=== PATIENT | male | born 1935 | race Caucasian/White ===

== ENCOUNTER → 2018-09-03 11:54 | Outpatient (CLI) | payer MEDICARE, SELFPAY ==
--- NOTE | 2018-09-03 12:02 | XR_ITS ---
EXAM: XR cervical spine 5V HISTORY: Neck pain ITS.REASON: pain ORDERING PHYSICIAN: Berenice Jimenez PATIENT AGE: 82 years COMPARISON: None FINDINGS: There is normal alignment. There is multilevel degenerative disc disease C2-C7 with straightening of the cervical lordosis which may be due to patient positioning or muscle spasm. Foraminal narrowing is present on the right at C3-C4 and C4-C5 and on the left at C3-C4 and C4-C5. No acute fracture or dislocation is evident. There may be partial fusion at C4-C5 and C5-C6. IMPRESSION: Degenerative change, no acute finding
--- NOTE | 2018-09-03 12:02 | XR_ITS ---
EXAM: XR lumbar spine min 4V HISTORY: ITS.REASON: pain ORDERING PHYSICIAN: Berenice Jimenez PATIENT AGE: 82 years COMPARISON: None FINDINGS: Mild lumbar scoliosis convex right. There is severe degenerative disc disease from L1 S1 with endplate osteophytes and disc space narrowing. No fracture or dislocation. Moderate amount retained colonic feces. Incidental note made of bilateral renal calculi. Atherosclerotic calcification noted of the aorta. There are slight decrease in height anteriorly of T12 and L1 which may be chronic. IMPRESSION: Multilevel degenerative disc disease with scoliosis Bilateral nephrolithiasis
--- NOTE | 2018-09-03 12:02 | XR_ITS ---
EXAM: XR thoracic spine 3V HISTORY: ITS.REASON: pain Comparison: None FINDINGS: There is mild upper thoracic curvature convex left. There is mild thoracic kyphosis and mild multilevel degenerative disc disease in the midthoracic spine. No acute fracture or dislocation is evident. Prominent osteophytes are present at T7, T8, T9, and T10 there does appear to be partial fusion of T10 and T11 vertebral bodies. No acute fracture or dislocation is evident. IMPRESSION: Degenerative changes, no acute finding.
[2018-09-03 13:35] LABS: Basophils % 0.5 % (0.1-2.0); Eosinophils # 0.1 K/mm3 (0.0-0.4); Eosinophils % 1.5 % (0.1-12.0); Hematocrit 32.2 % (42.0-52.0); Hemoglobin 10.1 g/dL (14.1-18.0); Lymphocytes # 1.8 K/mm3 (0.7-4.5); Lymphocytes % 23.6 % (10-50); Mean Corpuscular HGB Conc 31.4 g/dL (31.8-35.4); Mean Corpuscular Volume 98.8 fl (80-94); Mean Platelet Volume 7.7 fl (7.4-10.4); Monocytes # 0.4 K/mm3 (0.1-1.0); Monocytes % 4.5 % (1.7-9.3); Neutrophils # 5.4 K/mm3 (1.8-7.8); Neutrophils % 69.9 % (37.0-80.0); Platelet Count 355 K/mm3 (142-424); Red Blood Count 3.26 M/mm3 (4.60-6.20); Red Cell Distribution Width 15.3 % (11.5-17.5); White Blood Count 7.7 K/mm3 (4.8-10.8)
[2018-09-03 13:57] LABS: Amphetamine/Metha Screen,Urine Negative ng/mL (<1000); Barbiturates Screen,Urine Negative ng/mL (<200); Benzodiazepines Screen,Urine Negative ng/mL (<200); Cannabinoid Screen,Urine Negative ng/mL (<50); Cocaine Screen,Urine Negative ng/mL (<300); Methadone Screen,Urine Negative ng/mL (<300); Opiate Screen,Urine Negative ng/mL (<300); Phencyclidine Screen,Urine Negative ng/mL (<25)
[2018-09-03 14:23] LABS: Erythrocyte Sedimentation Rate 67 mm/hr (0-20)
[2018-09-03 14:39] LABS: Alanine Aminotransferase 14 U/L (12-78); Albumin Level 3.6 gm/dL (3.4-5.0); Albumin/Globulin Ratio 1.1 (1.1-1.8); Alkaline Phosphatase 81 U/L (46-116); Anion Gap 15.7 mEq/L (5-15); Aspartate Amino Transferase 12 U/L (15-37); Bilirubin,Total 0.4 mg/dL (0.2-1.0); Blood Urea Nitrogen 12 mg/dL (7-18); Carbon Dioxide 27 mmol/L (21.0-32.0); Chloride 103 mmol/L (98-107); Chol/HDL Ratio 4.5 (1-3.5); Cholesterol 210 mg/dL (140-200); Creatinine,Serum 1.29 mg/dL (0.70-1.30); Estimated Glomerular Filt Rate 53 ml/min (>60); Free T4 (Free Thyroxine) 0.95 ng/dl (0.76-1.46); GFR (African American) 65 ML/MIN (>60); Globulin 3.4 gm/dl (1.3-3.2); Glucose 105 mg/dL (74-106); HDL Cholesterol 47 mg/dL (27-67); LDL Cholesterol 143 mg/dL (0-130); Potassium 3.7 mmoL/L (3.5-5.1); Sodium 142 mmol/L (136-145); Thyroid Stimulating Hormone 2.94 uIU/ml (0.358-3.740); Triglycerides 101 mg/dL (30-200); VLDL Cholesterol 20 mg/dL (0-40)
[2018-09-03 14:43] LABS: C-Reactive Protein < 0.2 mg/L (0.0-0.9)
[2018-09-07 09:53] LABS: PSA, Free 0.04 ng/mL; Prostate Specific Ag 0.3 ng/mL (0.0-4.0); Vitamin D 25 Hydroxy 26.1 ng/mL (30.0-100.0)
[2018-09-11 11:00] LABS: Opiates Negative ng/mL (Cutoff=100)
== END ==
PROVIDERS: PCP Emergency Medicine; Visit Provider Nurse Practitioner Family
DX: G89.29 Other chronic pain (principal); M54.9 Dorsalgia, unspecified; R53.83 Other fatigue; I51.9 Heart disease, unspecified; M25.50 Pain in unspecified joint; Z85.46 Personal history of malignant neoplasm of prostate; Z79.899 Other long term (current) drug therapy
CPT/HCPCS: 36415; 72050; 72072; 72110; 80053; 80061; 80305; 80361; 82652; 84153; 84154; 84439; 84443; 85025; 85651; 86140; G0480

== ENCOUNTER → 2018-09-14 13:55 | Outpatient (CLI) | payer MEDICARE, SELFPAY ==
[2018-09-14 14:47] LABS: Ferritin 201 ng/mL (8-388)
[2018-09-14 15:58] LABS: Amphetamine/Metha Screen,Urine Negative ng/mL (<1000); Barbiturates Screen,Urine Negative ng/mL (<200); Benzodiazepines Screen,Urine Negative ng/mL (<200); Cannabinoid Screen,Urine Negative ng/mL (<50); Cocaine Screen,Urine Negative ng/mL (<300); Methadone Screen,Urine Negative ng/mL (<300); Opiate Screen,Urine Negative ng/mL (<300); Phencyclidine Screen,Urine Negative ng/mL (<25)
[2018-09-16 07:16] LABS: Iron 44 ug/dL (38-169); UIBC 232 ug/dL (111-343)
[2018-09-16 07:33] LABS: Iron Saturation 16 % (15-55)
== END ==
PROVIDERS: Visit Provider Nurse Practitioner Family
DX: M54.5 Low back pain (principal); D64.9 Anemia, unspecified
CPT/HCPCS: 80305; 82728; 83540; 83550

== ENCOUNTER → 2018-09-20 13:18 | Outpatient (POV) | payer MEDICARE, SELFPAY | PROVIDERS: Visit Provider Nurse Practitioner Acute Care | DX: Z00.00 Encounter for general adult medical examination without abnormal findings (principal) ==

== ENCOUNTER → 2018-09-21 11:09 | Outpatient (POV) | payer MEDICARE, SELFPAY ==
[2018-09-21 11:27] VITALS: BP 145/65; PULSE 85; RESP 18; O2SAT 98
--- NOTE | 2018-09-21 12:38 | HMH.PMCON ---
Assessment and Plan (1) Failed back syndrome Current visit: Yes Status: Chronic Category: Medical Code(s): M96.1 - Postlaminectomy syndrome, not elsewhere classified (2) Degenerative disc disease, cervical Current visit: No Status: Chronic Category: Medical Code(s): M50.30 - Other cervical disc degeneration, unspecified cervical region (3) Degenerative disc disease, lumbar Current visit: No Status: Chronic Category: Medical Code(s): M51.36 - Other intervertebral disc degeneration, lumbar region - Assessment and plan all Dx Assessment and Plan for all problems:: At this time we are awaiting notes from his previous pain management. We will give the patient Percocet 10 mg 1 p.o. 4 times daily 1 1 month worth of medication and see him back in 1 month we will send for urine drug screen today. I personally went over the contract with him and he understands it. We also provided him with a copy. We will make any further care plan decisions after reading the notes from his previous physician. Patient has been prescribed a controlled substance after being counseled on the medication, medication safety, and possible side effects. ALISON report has been obtained and reviewed prior to prescription and found to be appropriate. Opioid contract was reviewed and signed by the patient, and that they have agreed to all of the terms set forth by our compliance program. Dr. Roman has reviewed this note and agrees with this plan of care. This note was dictated using voice recognition software and may contain errors or omissions HPI - Data of Consult Consult date: 09/21/18 Requesting Physician: Erinn Starks APRN Primary Care Provider: Luis Fernando Gama MD - Consult Narrative Reason for consult: Back pain History of present illness: Mr. Douglas is a 83 year old male who presents today for consultation in regards to his low back pain. Patient had surgery in the past. Patient is also done injection therapy in the past with no relief. Patient has been seen up in [facility] and was receiving Percocet 10 mg 1 p.o. 5 times a day. Patient has been on this for quite some time. Patient recently had a loss of his son and has now moved down to [place]. Patient states that increased activity increases pain while nothing typically decreases it. He rates his pain a 5 out of 10 today. Mostly in his low back and down his bilateral legs. Patient is trying to stay as active as possible. CC: Erinn Starks APRN [facility] History I have reviewed the patient's past medical history: Yes Medical History: Reports:: Cancer, Gastroesophageal Reflux Disease(GERD), Hyperlipidemia, Internal Pacemaker, Kidney Stones *Have you ever received a pneumonia vaccine?: Yes Other Surgeries: Yes: Pacemaker Amputation: No Fractures: No - *Social History Smoking Status: Never smoker Alcohol Intake: never Substance Use Type: denies use *Occupational Status:: retired, disabled Housing: house Household Members: family *Travel in the last 8 weeks: None - Psychiatric History Expresses thoughts of harming self/others: None Suicide Plan Description: No Plan Family Hx:: No significant family history Review of Systems - Review of Systems ROS General: no recent weight change, no fever, no sleep disturbances Respiratory: no cough, no shortness of air, no recurring pulmonary infections Cardiovascular/Peripheral Vascular: No chest pain, No palpitations, no edema, no shortness of breath. Gastrointestinal: no incontinence, normal bowel movements reported Genitourinary: no incontinence Musculoskeletal: Back pain, leg pain Psychiatric: normal mood/ affect Neurological: [denies weakness in extremities], [denies balance issues] Meds Home Medications Medication Instructions Recorded Confirmed Type allopurinol 100 mg tablet 100 mg PO DAILY 09/03/18 09/17/18 History atorvastatin 10 mg tablet 10 mg PO QHS 09/03/18 09/17/18 History
[2018-09-21 12:57] LABS: Amphetamine/Metha Screen,Urine Negative ng/mL (<1000); Barbiturates Screen,Urine Negative ng/mL (<200); Benzodiazepines Screen,Urine Negative ng/mL (<200); Cannabinoid Screen,Urine Negative ng/mL (<50); Cocaine Screen,Urine Negative ng/mL (<300); Methadone Screen,Urine Negative ng/mL (<300); Opiate Screen,Urine Positive ng/mL (<300); Phencyclidine Screen,Urine Negative ng/mL (<25)
[2018-09-25 14:10] LABS: Oxycodone (GC/MS) 1284 ng/mL (Cutoff=100)
[2018-09-27 07:59] LABS: Opiates Negative (Cutoff=100); Oxymorphone (GC/MS) >3000 ng/mL (Cutoff=100)
== END ==
PROVIDERS: PCP Emergency Medicine; Visit Provider Clinical Nurse Specialist Family Health
DX: M96.1 Postlaminectomy syndrome, not elsewhere classified (principal); M50.30 Other cervical disc degeneration, unspecified cervical region; M51.36 Other intervertebral disc degeneration, lumbar region; Z79.899 Other long term (current) drug therapy
CPT/HCPCS: 80305; 80361; 80365; 99202; G0480

== ENCOUNTER → 2018-09-29 13:24 | Outpatient (CLI) | payer MEDICARE, SELFPAY ==
--- NOTE | 2018-09-29 13:26 | CA_ITS ---
PROCEDURE: 2-D M-mode and color Doppler study INDICATIONS FOR THE TEST: Chest pain COPD Heart Murmur Tobacco Smoking Palpitations Fatigue Syncope Edema Hypertension Diabetes Mellitus Rheumatic Fever SOB+LUX Obesity Hyperlipidemia+ Family History HD Additional History pacer, cva PATIENT INFORMATION HEIGHT: 70 WEIGHT:160 GENDER: Male B/P:124/67 2-D/M-MODE INTERPRETATION: 2-D MEASUREMENTS OBSERVED VALUES IN CMS Right Ventricular Dimension (RVDd) 1.3 Interventricular Septum (Thickness)(IVsd) 1.2 Left Ventricular Internal Dimensions(LVIDd) 5.2 Left Ventricular Posterior Wall (Thickness)(LVPWd) 1.1 Aortic Root 3.7 Aortic Cusp Separation 1.6 Left Atrial Dimensions (LAD) 2.8 2D 1. Left atrium is mildly enlarged, left ventricle is normal size, mild concentric left ventricular hypertrophy, reduced left ventricular systolic function, visually estimated ejection fraction approximately 35%, left ventricle is globally hypokinetic, there is abnormal septal motion. 2. The right atrium and right ventricle are normal size and contractility, there is a pacemaker lead seen right atrium and right ventricle. 3. The aortic valve is thickened and calcified leaflet continue to display mobility. 4. Mitral and tricuspid valve leaflets are minimally thickened. 5. The pulmonic valve is poorly present. 6. No significant pericardial effusion noted. DOPPLER INTERROGATION: Doppler interrogation of the aortic, mitral and tricuspid valvular presence of mild mitral and tricuspid regurgitation, tricuspid regurgitation jet velocity is inadequate for calculation of the right ventricular systolic pressure, grade 1 diastolic dysfunction seen with tissue Doppler evidence of raised left atrial pressure. CONCLUSION: 1. Mildly enlarged left atrium, reduced left ventricular systolic function, visually estimated ejection fraction 35%, left ventricle is globally hypokinetic, there is abnormal septal motion. Grade 1 diastolic dysfunction seen with tissue Doppler evidence of raised left atrial pressure. 2. Mild mitral and tricuspid regurgitation. 4. No significant pericardial effusion noted.
--- NOTE | 2018-09-29 13:28 | CI_ITS ---
Cerebrovascular Exam Indications: 434.91 Cerebral artery occlusion unspecified with cerebral infarction. 433.10 Occlusion/stenosis of carotid artery without cerebral infarction. IMPRESSIONS 1. The bilateral vertebral arteries are patent with normal antegrade flow. 2. Study suggests 50-69% stenosis involving the right internal carotid artery. 3. Study suggests 20-49% stenosis involving the left internal carotid artery. Labs, prior tests, procedures, and surgery: Right endarterectomy. Left endarterectomy. Labs, prior tests, procedures, and surgery: Right endarterectomy. Left endarterectomy. Carotid duplex study. Complete study and Doppler flow study including spectral analysis, color and scale imaging. Location: Vascular laboratory. Patient status: Outpatient. Tables: Arterial flow: + +--------+--------+ Location V [facility] V ed + +--------+--------+ Right CCA - proximal 50.3cm/s 21.2cm/s + +--------+--------+ Right CCA - distal 51.9cm/s 14.1cm/s + +--------+--------+ Right ECA 62.1cm/s -------- + +--------+--------+ Right ICA - proximal 155cm/s 51.1cm/s + +--------+--------+ Right ICA - mid 137cm/s 31.4cm/s + +--------+--------+ Right ICA - distal 117cm/s 30.6cm/s + +--------+--------+ Right vertebral 35.4cm/s -------- + +--------+--------+ Left CCA - proximal 55.8cm/s 14.9cm/s + +--------+--------+ Left CCA - distal 51.1cm/s 15.7cm/s + +--------+--------+ Left ECA 77cm/s -------- + +--------+--------+ Left ICA - proximal 61.3cm/s 13.4cm/s + +--------+--------+ Left ICA - mid 118cm/s 25.1cm/s + +--------+--------+ Left ICA - distal 80.1cm/s 26.7cm/s + +--------+--------+ Left vertebral 47.9cm/s -------- + +--------+--------+ Velocity ratios: + + + + + + Right, V sys Right, V ed Left, V sys Left, V ed + + + + + + Max ICA/dist CCA 2.99 3.62 2.31 1.7 + + + + + + (Report amended ) Electronically signed by: Andre Barnes [id number]
--- NOTE | 2018-09-29 14:13 | US_ITS ---
US kidney retroperitoneal comp HISTORY: ITS.REASON: pain ORDERING PHYSICIAN: Tony Christensen MD PATIENT AGE: 83 years Comparison: None FINDINGS: The right kidney is 9 x 3.8 x 6 cm. There is some mild cortical thinning. There are few scattered areas of hyperechogenicity in the right renal pelvis which could be due to small stones or vascular calcification. There is a mildly prominent extrarenal pelvis. The renal calyces however are not dilated. Left kidney is 11 x 6 x 5 cm with mild cortical thinning and possible stones versus arterial calcification. Mildly prominent extrarenal pelvis but no evidence of calyceal dilatation. IMPRESSION: 1. No definite hydronephrosis. Mild cortical thinning 2. Mildly prominent extrarenal pelves on both sides versus parapelvic renal cyst 3. Possible nephrolithiasis versus vascular calcification. Unenhanced CT scan may differentiate between the 2
== END ==
PROVIDERS: PCP Emergency Medicine; Visit Provider Internal Medicine Cardiovascular Disease
DX: R06.09 Other forms of dyspnea (principal); R94.31 Abnormal electrocardiogram [ECG] [EKG]; Z86.73 Personal history of transient ischemic attack (TIA), and cerebral infarction without residual deficits; Z95.0 Presence of cardiac pacemaker; R09.89 Other specified symptoms and signs involving the circulatory and respiratory systems; M54.5 Low back pain
CPT/HCPCS: 76770; 93306; 93880

== ENCOUNTER → 2018-10-08 11:15 | Outpatient (CLI) | payer MEDICARE, SELFPAY | PROVIDERS: Visit Provider Internal Medicine Cardiovascular Disease | DX: R06.09 Other forms of dyspnea (principal); R94.31 Abnormal electrocardiogram [ECG] [EKG]; Z86.73 Personal history of transient ischemic attack (TIA), and cerebral infarction without residual deficits; Z95.0 Presence of cardiac pacemaker | CPT/HCPCS: 36415; 83880 ==

== ENCOUNTER → 2018-10-19 10:00 | Outpatient (POV) | payer MEDICARE, SELFPAY ==
[2018-10-19 10:14] VITALS: BP 155/83; PULSE 104; RESP 18; O2SAT 98; BMI 21.5
--- NOTE | 2018-10-19 10:15 | HMH.PAINSOAP ---
[facility] Pain Management SOAP Note Subjective:: Patient is a pleasant 83-year-old white male who presents today for medication refills. Patient rates his pain a 7 out of 10 today. Patient had a recent fall he is doing better. Patient is currently on Percocet 10 milligrams 1 p.o. 4 times daily. He is doing well with this he denies side effects. Patient's urine drug screens have been appropriate. Alison reviewed and appropriate. ROS General: no recent weight change, no fever, no sleep disturbances Respiratory: no cough, no shortness of air, no recurring pulmonary infections Cardiovascular/Peripheral Vascular: No chest pain, No palpitations, no edema, no shortness of breath. Gastrointestinal: no incontinence, normal bowel movements reported Genitourinary: no incontinence Musculoskeletal: Back pain, leg pain Psychiatric: normal mood/ affect Neurological: [denies weakness in extremities], [denies balance issues] Objective:: Physical Exam General: Alert and oriented x3, no acute distress, pleasant and cooperative, [on room air] Lungs: Resps E/U, Symmetrical chest expansion, Eyes: PERRL Musculoskeletal: Flexion and extension of lumbar spine somewhat guarded secondary to pain, deep tendon reflexes normal, strength in upper and lower extremities [5/5], [abnormal gait noted] Neurological: speech clear, scorer single equal, no gross sensory deficits Assessment:: Degenerative disc disease cervical and lumbar spine with postlaminectomy syndrome Plan:: We will refill the patient's Percocet 10 mg 1 p.o. 4 times daily. We will give him 2 months worth of medication and see him back in 2 months and reassess his symptoms at that time. Has been instructed to call the office if he has any issues prior to his next appointment. Patient has been prescribed a controlled substance after being counseled on the medication, medication safety, and possible side effects. ALISON report has been obtained and reviewed prior to prescription and found to be appropriate. Opioid contract was reviewed and signed by the patient, and that they have agreed to all of the terms set forth by our compliance program. Dr. Roman has reviewed this note and agrees with this plan of care. This note was dictated using voice recognition software and may contain errors or omissions
== END ==
PROVIDERS: PCP Emergency Medicine; Visit Provider Clinical Nurse Specialist Family Health
DX: M50.30 Other cervical disc degeneration, unspecified cervical region (principal); M51.36 Other intervertebral disc degeneration, lumbar region; M96.1 Postlaminectomy syndrome, not elsewhere classified
CPT/HCPCS: 99212

== ENCOUNTER → 2018-11-01 11:52 | Outpatient (CLI) | payer MEDICARE, SELFPAY ==
--- NOTE | 2018-11-01 11:58 | XR_ITS ---
XR chest 2V HISTORY: ITS.REASON: shortness of breath ORDERING PHYSICIAN: Berenice Jimenez PATIENT AGE: 83 years COMPARISON: 09/27/2016 FINDINGS: There is a bipolar pacer in place. Normal heart size. No lobar consolidation or collapse. There are chronic changes in the lung bases. There are old bilateral rib fractures. Degenerative changes are present in the right shoulder with subacromial stenosis. There are degenerative changes in the thoracic spine. IMPRESSION: No change with no acute finding
== END ==
PROVIDERS: PCP Emergency Medicine; Visit Provider Nurse Practitioner Family
DX: R06.02 Shortness of breath (principal)
CPT/HCPCS: 71046

== ENCOUNTER → 2018-12-14 11:41 | Outpatient (POV) | payer MEDICARE, SELFPAY ==
[2018-12-14 11:50] VITALS: BP 177/85; PULSE 77; RESP 18; O2SAT 98; BMI 24.3
--- NOTE | 2018-12-14 12:23 | HMH.PAINSOAP ---
[facility] Pain Management SOAP Note Subjective:: Patient is a pleasant 83-year-old white male who presents today for medication refills. Patient is currently on Percocet 10 mg 1 p.o. 4 times daily. Patient presents today with his daughter. She states that she is concerned that he is taking too many medications and has begun to keep his pills for him give him a weekly town planner. Patient states that he would like to be taking his medication 5 times a day. I discussed with him that at this point he is at the current morphine equivalent that we can prescribe him. ROS General: no recent weight change, no fever, no sleep disturbances Respiratory: no cough, no shortness of air, no recurring pulmonary infections Cardiovascular/Peripheral Vascular: No chest pain, No palpitations, no edema, no shortness of breath. Gastrointestinal: no incontinence, normal bowel movements reported Genitourinary: no incontinence Musculoskeletal: Back pain, leg pain Psychiatric: normal mood/ affect Neurological: [denies weakness in extremities], [denies balance issues] Objective:: Physical Exam General: Alert and oriented x3, no acute distress, pleasant and cooperative, [on room air] Lungs: Resps E/U, Symmetrical chest expansion, Eyes: PERRL Musculoskeletal: Flexion and extension of lumbar spine somewhat guarded secondary to pain, deep tendon reflexes normal, strength in upper and lower extremities [5/5], [abnormal gait noted] Neurological: speech clear, logistics/shipper equal, no gross sensory deficits Assessment:: Degenerative disc disease cervical and lumbar spine with postlaminectomy syndrome Plan:: We will refill the patient's Percocet 10 mg 1 p.o. 4 times daily will give him 2 months worth of medication see him back in 2 months to reassess his symptoms at that time. To call the office if he has any issues prior to his next appointment. We may also try Voltaren gel to help with some of his increased pain. We will continue to monitor compliance. Patient has been prescribed a controlled substance after being counseled on the medication, medication safety, and possible side effects. ALISON report has been obtained and reviewed prior to prescription and found to be appropriate. Opioid contract was reviewed and signed by the patient, and that they have agreed to all of the terms set forth by our compliance program. Dr. Roman has reviewed this note and agrees with this plan of care. This note was dictated using voice recognition software and may contain errors or omissions
--- NOTE | 2018-12-14 12:26 | P.CONS_ITS ---
[facility] Pain Management SOAP Note Subjective:: Patient is a pleasant 83-year-old white male who presents today for medication refills. Patient is currently on Percocet 10 mg 1 p.o. 4 times daily. Patient presents today with his daughter. She states that she is concerned that he is taking too many medications and has begun to keep his pills for him give him a weekly service planner. Patient states that he would like to be taking his medication 5 times a day. I discussed with him that at this point he is at the current morphine equivalent that we can prescribe him. ROS General: no recent weight change, no fever, no sleep disturbances Respiratory: no cough, no shortness of air, no recurring pulmonary infections Cardiovascular/Peripheral Vascular: No chest pain, No palpitations, no edema, no shortness of breath. Gastrointestinal: no incontinence, normal bowel movements reported Genitourinary: no incontinence Musculoskeletal: Back pain, leg pain Psychiatric: normal mood/ affect Neurological: [denies weakness in extremities], [denies balance issues] Objective:: Physical Exam General: Alert and oriented x3, no acute distress, pleasant and cooperative, [on room air] Lungs: Resps E/U, Symmetrical chest expansion, Eyes: PERRL Musculoskeletal: Flexion and extension of lumbar spine somewhat guarded secondary to pain, deep tendon reflexes normal, strength in upper and lower extremities [5/5], [abnormal gait noted] Neurological: speech clear, 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 4 times daily will give him 2 months worth of medication see him back in 2 months to reassess his symptoms at that time. To call the office if he has any issues prior to his next appointment. We may also try Voltaren gel to help with some of his increased pain. We will continue to monitor compliance. Patient has been prescribed a controlled substance after being counseled on the medication, medication safety, and possible side effects. ALISON report has been obtained and reviewed prior to prescription and found to be appropriate. Opioid contract was reviewed and signed by the patient, and that they have agreed to all of the terms set forth by our compliance program. Dr. Roman has reviewed this note and agrees with this plan of care. This note was dictated using voice recognition software and may contain errors or omissions
== END ==
PROVIDERS: PCP Emergency Medicine; Visit Provider Clinical Nurse Specialist Family Health
DX: M50.30 Other cervical disc degeneration, unspecified cervical region (principal); M51.36 Other intervertebral disc degeneration, lumbar region; M96.1 Postlaminectomy syndrome, not elsewhere classified
CPT/HCPCS: 99212

== ENCOUNTER → 2019-02-14 10:58 | Outpatient (POV) | payer MEDICARE, SELFPAY ==
[2019-02-14 11:15] VITALS: BP 158/97; PULSE 80; RESP 20; O2SAT 95; BMI 22.9
--- NOTE | 2019-02-14 11:28 | HMH.PAINSOAP ---
[facility] Pain Management SOAP Note Subjective:: Patient is a pleasant 83-year-old white male who presents today for medication refills. Patient currently on Percocet 10 mg 1 p.o. 4 times daily. His main complaint today is gout pain. He is also having difficulty swallowing. I discussed with him going to his primary care physician and discussing both. Patient denies side effects his medication Alison #[id number] reviewed and appropriate. He rates his pain a 9 out of 10 again mostly in regards to his gout. ROS General: no recent weight change, no fever, no sleep disturbances Respiratory: no cough, no shortness of air, no recurring pulmonary infections Cardiovascular/Peripheral Vascular: No chest pain, No palpitations, no edema, no shortness of breath. Gastrointestinal: no incontinence, normal bowel movements reported Genitourinary: no incontinence Musculoskeletal: Back pain, leg pain, generalized pain Psychiatric: normal mood/ affect Neurological: [denies weakness in extremities], [denies balance issues] Objective:: Physical Exam General: Alert and oriented x3, no acute distress, pleasant and cooperative, [on room air] Lungs: Resps E/U, Symmetrical chest expansion, Eyes: PERRL Musculoskeletal: Flexion and extension of lumbar spine somewhat guarded secondary to pain, deep tendon reflexes normal, strength in upper and lower extremities [5/5], [abnormal gait noted] Neurological: speech clear, gun 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 4 times daily follow-up with him in 2 months. Patient has been instructed to go to his primary care physician for his other complaints at this time. Patient will go for urine drug screen today. Alison reviewed and appropriate. Patient has been prescribed a controlled substance after being counseled on the medication, medication safety, and possible side effects. ALISON report has been obtained and reviewed prior to prescription and found to be appropriate. Opioid contract was reviewed and signed by the patient, and that they have agreed to all of the terms set forth by our compliance program. Dr. Roman has reviewed this note and agrees with this plan of care. This note was dictated using voice recognition software and may contain errors or omissions
--- NOTE | 2019-02-14 11:31 | P.CONS_ITS ---
[facility] Pain Management SOAP Note Subjective:: Patient is a pleasant 83-year-old white male who presents today for medication refills. Patient currently on Percocet 10 mg 1 p.o. 4 times daily. His main complaint today is gout pain. He is also having difficulty swallowing. I discussed with him going to his primary care physician and discussing both. Patient denies side effects his medication Alison #[id number] reviewed and appropriate. He rates his pain a 9 out of 10 again mostly in regards to his gout. ROS General: no recent weight change, no fever, no sleep disturbances Respiratory: no cough, no shortness of air, no recurring pulmonary infections Cardiovascular/Peripheral Vascular: No chest pain, No palpitations, no edema, no shortness of breath. Gastrointestinal: no incontinence, normal bowel movements reported Genitourinary: no incontinence Musculoskeletal: Back pain, leg pain, generalized pain Psychiatric: normal mood/ affect Neurological: [denies weakness in extremities], [denies balance issues] Objective:: Physical Exam General: Alert and oriented x3, no acute distress, pleasant and cooperative, [on room air] Lungs: Resps E/U, Symmetrical chest expansion, Eyes: PERRL Musculoskeletal: Flexion and extension of lumbar spine somewhat guarded secondary to pain, deep tendon reflexes normal, strength in upper and lower extremities [5/5], [abnormal gait noted] Neurological: speech clear, heel attacher wood equal, no gross sensory deficits Assessment:: Degenerative disc disease lumbar spine with lumbar radiculopathy diagnosis postlaminectomy syndrome, Plan:: We will give the patient 2 months worth of Percocet 10 mg 1 p.o. 4 times daily follow-up with him in 2 months. Patient has been instructed to go to his primary care physician for his other complaints at this time. Patient will go for urine drug screen today. Alison reviewed and appropriate. Patient has been prescribed a controlled substance after being counseled on the medication, medication safety, and possible side effects. ALISON report has been obtained and reviewed prior to prescription and found to be appropriate. Opioid contract was reviewed and signed by the patient, and that they have agreed to all of the terms set forth by our compliance program. Dr. Roman has reviewed this note and agrees with this plan of care. This note was dictated using voice recognition software and may contain errors or omissions
[2019-02-14 14:31] LABS: Amphetamine/Metha Screen,Urine Negative ng/mL (<1000); Barbiturates Screen,Urine Negative ng/mL (<200); Benzodiazepines Screen,Urine Negative ng/mL (<200); Cannabinoid Screen,Urine Negative ng/mL (<50); Cocaine Screen,Urine Negative ng/mL (<300); Methadone Screen,Urine Negative ng/mL (<300); Opiate Screen,Urine Negative ng/mL (<300); Phencyclidine Screen,Urine Negative ng/mL (<25)
[2019-02-18 07:10] LABS: Opiates Negative (Cutoff=100)
== END ==
PROVIDERS: PCP Emergency Medicine; Visit Provider Clinical Nurse Specialist Family Health
DX: M51.16 Intervertebral disc disorders with radiculopathy, lumbar region (principal); M96.1 Postlaminectomy syndrome, not elsewhere classified; Z79.899 Other long term (current) drug therapy
CPT/HCPCS: 80305; 80361; 80365; 99212; G0480

== ENCOUNTER 2019-06-19 19:01 | Observation (INO) ==
[2019-06-19 19:35] LABS: Basophils # 0.1 K/mm3 (0-0.2); Basophils % 0.7 % (0.1-2.0); Eosinophils # 0.6 K/mm3 (0.0-0.4); Eosinophils % 7.6 % (0.1-12.0); Hematocrit 39.7 % (42.0-52.0); Hemoglobin 12.9 g/dL (14.1-18.0); Lymphocytes # 2.6 K/mm3 (0.7-4.5); Lymphocytes % 34.7 % (10-50); Mean Corpuscular HGB Conc 32.4 g/dL (31.8-35.4); Mean Corpuscular Volume 99.6 fl (80-94); Mean Platelet Volume 8.6 fl (7.4-10.4); Monocytes # 0.5 K/mm3 (0.1-1.0); Monocytes % 6.5 % (1.7-9.3); Neutrophils # 3.8 K/mm3 (1.8-7.8); Neutrophils % 50.5 % (37.0-80.0); Platelet Count 220 K/mm3 (142-424); Red Blood Count 3.98 M/mm3 (4.60-6.20); Red Cell Distribution Width 13.3 % (11.5-17.5); White Blood Count 7.5 K/mm3 (4.8-10.8)
[2019-06-19 19:46] LABS: Anion Gap 10.6 mEq/L (5-15); Blood Urea Nitrogen 23 mg/dL (7-18); Calcium 8.9 mg/dL (8.5-10.1); Carbon Dioxide 30 mmol/L (21.0-32.0); Chloride 106 mmol/L (98-107); Glucose 95 mg/dL (74-106); Sodium 142 mmol/L (136-145)
--- NOTE | 2019-06-19 20:18 | Emergency Department Note ---
ED Disposition Clinical Impression: Degenerative disc disease, lumbar, Pacemaker, Essential hypertension, Renal insufficiency Chest pain Qualifiers: Chest pain type: precordial pain Qualified Code(s): R07.2 - Precordial pain Disposition: Admitted as Observation Condition on Discharge: Good Referrals: Luis Fernando Gama MD [Primary Care Provider] - - Critical Care Critical Care Time: No Attestation: On 06/19/19, the high probability of a clinically significant, sudden or life threatening deterioration of the following system(s) required my full and direct attention, intervention and personal management. The time I documented below is in addition to time spent performing reported procedures but includes the following listed in this critical care notation. Medical Decision Making - Medical Records Medical records reviewed: Yes: I reviewed the patient's medical records. - Artemio Inquiry Pt receiving controlled substance: No Vital Signs: 06/19/19 19:08 06/19/19 19:32 Temperature 98.1 F Temperature Source Oral Pulse Rate [Left Radial] 88 76 Respiratory Rate 16 16 Blood Pressure [Right Arm] 182/99 H 118/88 Blood Pressure Mean [Right Arm] 126 98 Blood Pressure Source [Right Arm] Automatic Cuff Blood Pressure Position [Right Arm] Sitting 02 Sat by Pulse Oximetry 97 97 Oxygen Delivery Method Room Air Room Air - Lab Data Lab results reviewed: Yes: I reviewed the patient's lab results. Lab Results 06/19/19 19:13: WBC 7.5, RBC 3.98 L, Hgb 12.9 L, Hct 39.7 L, MCV 99.6 H, MCH 32.3 H, MCHC 32.4, RDW 13.3, Plt Count 220, MPV 8.6, Neut % (Auto) 50.5, Lymph % (Auto) 34.7, George % (Auto) 6.5, Eos % (Auto) 7.6, Baso % (Auto) 0.7, Neut # (Auto) 3.8, Lymph # (Auto) 2.6, George # (Auto) 0.5, Eos # (Auto) 0.6 H, Baso # (Auto) 0.1 06/19/19 19:13: Sodium 142, Potassium 4.6, Chloride 106, Carbon Dioxide 30, Anion Gap 10.6, BUN 23 H, Creatinine 1.50 H, Estimated Creat Clear 43, Estimated GFR 45 L, Est GFR ( Amer) 54 L, Glucose 95, Calcium 8.9, Troponin I < 0.02 Result diagrams: 06/19/19 19:13 06/19/19 19:13 Orders (Tests/Meds): ED MEDICATIONS Generic Name Dose Route Start Last Admin Trade Name Freq PRN Reason Stop Dose Admin Sodium Chloride 1,000 mls @ 999 mls/hr 06/19/19 19:30 06/19/19 19:25 Sod Chlor 0.9% 1000ml Bag IV 06/19/19 20:30 999 mls/hr .Q1H1M HAIM Administration Discontinued Medications Generic Name Dose Route Start Last Admin Trade Name Freq PRN Reason Stop Dose Admin Aspirin 324 mg 06/19/19 19:24 06/19/19 19:25 Aspirin 81mg Chewable Tablet PO 06/19/19 19:25 324 mg ONCE ONE Administration Nitroglycerin 0.4 mg 06/19/19 19:24 06/19/19 19:25 Nitrostat 0.4mg Sl Tablet SL 06/19/19 19:25 0.4 mg ONCE ONE Administration ORDERS Category Date Time Status XR chest portable Stat Exams 06/19/19 19:11 Taken Troponin I Q3H Lab 06/19/19 22:15 Ordered Troponin I Q3H Lab 06/20/19 01:15 Ordered - ECG Data Tracing #1 Arrhythmias present: other (pacemaker ) Ischemic changes: non-specific ST-T wave changes Chest Pain HPI - General Chief Complaint: Chest Pain Stated Complaint: CHEST PAIN Time Seen by Provider: 06/19/19 20:00 Mode of Arrival: Ambulatory Source of Information: Patient, Relative, Medical Record Limitations: No Limitations Description of Symptoms (Recalled from ER Triage Doc. by RN): per pt he was having chest pain about an hour ago but stated "it doesnt hurt that bad now" pt rated his pain at a 3 at this time. pt was unable to describe his pain and is a poor historian about his past medical history. - History of Present Illness HPI narrative: pt with acute chest pain today and pacemaker acting funny- no syncope MD complaint: chest pain indicative of cardiac Onset (ago): hour(s) Duration: now resolved Activity at onset: during rest Pain location: substernal Severity: moderate Pain radiation: none Relieving factors: nitroglycerin Risk Factors for CAD: Hypertension, Family Hx of CAD Treatments prior to or on arrival for Cardiac Chest Pain: none - WOODY Score for Non-Stemi Age of Patient: 80-89 years old Heart Rate: 70-89 bpm Systolic Blood Pressure: 160-199 mmHg Serum Creatinine: 1.20-1.59 mg/dl CHF [place] Class: I-No CHF Other Risk Factors: None Non-Stemi Risk Score: 120 - Related Data Prior Cardiac Testing/Procedures: Cardiac Angiogram Home Medications Medication Instructions Recorded Confirmed cyanocobalamin (vitamin B-12) 1,000 mcg PO DAILY 09/03/18 05/18/19 1,000 mcg capsule mirtazapine 7.5 mg tablet 7.5 mg PO DAILY 09/03/18 05/18/19 sucralfate 1 gram tablet 1 g PO QID PRN 30 Days #120 tab 09/17/18 05/18/19 Aspirin [Low Dose Aspirin EC] 81 mg PO DAILY 10/27/18 05/18/19 Previous Rx's Medication Instructions Recorded atorvastatin 10 mg tablet 10 mg PO QHS #90 tab 12/16/18 ferrous sulfate 325 mg (65 mg 325 mg PO DAILY #90 tab 12/16/18 iron) tablet losartan 25 mg tablet 25 mg PO DAILY #90 tab 12/16/18 pantoprazole 40 mg tablet,delayed 40 mg PO BID #180 tab 12/16/18 release polyethylene glycol 3350 17 gram 17 g PO DAILY PRN #100 each 12/16/18 oral powder packet allopurinol 100 mg tablet 100 mg PO DAILY #90 tab 03/16/19 predniSONE [Prednisone 20mg 20 mg PO BID #10 tab 04/20/19 Tab] hydroxyzine pamoate 25 mg capsule 25 mg PO QHS #30 cap 04/22/19 oxycodone-acetaminophen 10 mg-325 1 tab PO QID PRN #120 tab 05/18/19 mg tablet Tamsulosin HCl [Flomax 0.4mg 0.4 mg PO HS #30 cap 05/28/19 capsule] Allergies Allergy/AdvReac Type Severity Reaction Status Date / Time No Known Allergies Allergy Verified 05/28/19 14:36 [facility] History - Hepatitis A Screen Drug use history?: No High risk sexual behaviors?: No History of sexually transmitted infection?: No Currently employed?: No Childcare worker?: No Do you have indoor plumbing?: Yes Do you have electricity?: Yes Attestation statement:: This patient has been screened for Hepatitis A risk factors. I have reviewed the patient's past medical history: Yes Medical History: Reports:: Cancer (PROSTATE), Gastroesophageal Reflux Diseas e(GERD), Hyperlipidemia, Hypertension, Internal Pacemaker, Kidney Stones Denies:: Diabetes Mellitus Type 1, Diabetes Mellitus Type 2, Lung Disease, MRSA, Seizures Comment: vitamin defiency.. back pain, prostate cancer Laterality Cases: Left: Total Hip Replacement Other Surgeries: Yes: Cancer Surgery, Colonoscopy, Pacemaker, Other (back sx) Amputation: Yes (2 toes) Fractures: No Comment: Back, Hip, Pacemaker - Social History Smoking Status: Never smoker Alcohol Intake: never Alcohol Intake Frequency:: 3 or more drinks per day Substance Use Type: denies use Occupational Status: retired Housing: house Household Members: family Family Hx:: No significant family history ROS Obtained: Yes All systems reviewed & no additional complaints - Constitutional Constitutional: Denies fever(s) - Eyes Eyes: Denies change in vision - ENT Ears, Nose, Mouth, and Throat: Denies sore throat - Cardiovascular Cardiovascular: Reports chest pain, Reports chest pain at rest, Denies dyspnea - Respiratory Respiratory: No cough - Gastrointestinal Gastrointestingal: Denies: abdominal pain - Genitourinary Male Genitourinary: Denies hematuria - Musculoskeletal Musculoskeletal: Denies joint pain, Denies joint swelling - Integumentary/Breasts Skin/Breast: Denies rash - Neurologic Neurologic: Denies seizure-like activity Physical Exam - General General appearance: alert - Head Head exam: normocephalic - Eye Eye exam: Present: PERRL, EOMI. Absent: scleral icterus - ENT ENT exam: Present: mucous membranes dry - Neck Neck exam: Present: trachea midline - Respiratory Respiratory exam: Present: normal lung sounds bilaterally. Absent: respiratory distress - Cardiovascular Cardiovascular exam: Present: regular rate, systolic murmur, +S4, Pacemaker w/paced rhythm - Abdominal Exam Abdominal exam: Present: soft - Extremities Exam Extremities exam: Absent: calf tenderness - Neurological Exam Neurological exam: Present: alert, oriented X3, CN II-XII intact - Psychiatric Psychiatric exam: Present: normal affect - Skin Skin exam: Absent: rash
[2019-06-20 05:58] LABS: Anion Gap 12.1 mEq/L (5-15)
[2019-06-20 06:04] LABS: Calcium 7.8 mg/dL (8.5-10.1)
[2019-06-20 06:26] LABS: Basophils % 0.6 % (0.1-2.0); Eosinophils # 0.5 K/mm3 (0.0-0.4); Eosinophils % 8.7 % (0.1-12.0); Hematocrit 32.3 % (42.0-52.0); Lymphocytes # 1.8 K/mm3 (0.7-4.5); Lymphocytes % 30.3 % (10-50); Mean Corpuscular HGB Conc 31.8 g/dL (31.8-35.4); Mean Corpuscular Volume 98.3 fl (80-94); Mean Platelet Volume 8.7 fl (7.4-10.4); Monocytes # 0.3 K/mm3 (0.1-1.0); Monocytes % 5.5 % (1.7-9.3); Neutrophils # 3.3 K/mm3 (1.8-7.8); Platelet Count 177 K/mm3 (142-424); Red Blood Count 3.28 M/mm3 (4.60-6.20); Red Cell Distribution Width 13.3 % (11.5-17.5); White Blood Count 6.1 K/mm3 (4.8-10.8)
[2019-06-20 06:39] LABS: Hemoglobin 10.4 g/dL (14.1-18.0)
--- NOTE | 2019-06-20 07:20 | Pharmacy Consult Notes ---
[facility] Pharmacy VTE Monitoring - Patient Demographics Admission date: 06/19/19 Report Date: 06/20/19 Time: 07:19 Allergies/Adverse Reactions: Patient Allergies No Known Allergies Allergy (Verified 05/28/19 14:36) Height: 1.7 m Weight: 80.768 kg Patient Problems: Current Active Problems Essential hypertension (Acute) Chest pain (Acute) Pacemaker (Acute) Renal insufficiency (Acute) Degenerative disc disease, lumbar (Chronic) - VTE Risk Labs: VTE Related Lab Results Hgb 10.4 g/dL (14.1-18.0) L D 06/20/19 05:35 Hct 32.3 % (42.0-52.0) L 06/20/19 05:35 Plt Count 177 K/mm3 (142-424) 06/20/19 05:35 BUN 18 mg/dL (7-18) 06/20/19 05:35 Creatinine 1.19 mg/dL (0.70-1.30) D 06/20/19 05:35 Estimated Creat Clear 55 mL/min (50-200) 06/20/19 05:35 VTE Score: 2 VTE Risk Level: Low Risk - Prophylaxis VTE Prophylaxis Ordered?: Yes Types of VTE Prophylaxis: TEDS Knee High Location of Applied Device: Bilateral Lower Extremeties - VTE Diagnosis Confirmed Treatment or plan recommended: Continue Current Treatment
--- NOTE | 2019-06-20 09:47 | Consult Report ---
<Beverly Vasquez - Last Filed: 06/20/19 09:50> History of Present Illness Consult date: 06/20/19 Requesting physician: Luis Fernando Gama Consult reason: chest pain Chief complaint: chest pain Additional Medical History:: 1. HTN 2. HLD 3. Cardiomyopathy 4. Carotid artery stenosis 5. Permanent pacemaker in place 6. Hard of hearing History of present illness: This is an 83-year-old gentleman who presented to the emergency department with complaints of chest pain. The patient is very hard of hearing and is a very poor historian. At first the patient tells me that he does not have any chest pain only his back is hurting. Then I mention him having chest pain in the emergency department and the patient states that yesterday he was having chest pain. He states that this was in the center of his chest and radiated to his back. He states that the pain was a 9 out of 10 in intensity and was associated with shortness of breath. He denies any nausea or diaphoresis. The patient states that activity was making his chest pain worse and nothing was really helping to improve his pain. He does have a history of cardiomyopathy with an ejection fraction of 35% in September of this year. The patient denies a history of coronary artery disease and [place] but as mentioned before he is a very poor historian and it is really hard to get any information from the patient. I do not see any previous history of having a stress test or cardiac catheterization here [facility]. He does have known hypertension, hyperlipidemia and carotid artery stenosis. He is status post permanent pacemaker placement and as mentioned before he does have known cardiomyopathy. He has ruled out for an [place] with 3- troponins. His echocardiogram is pending this morning. He denies any fever, chills, vomiting, diarrhea, PND or orthopnea. [facility] History I have reviewed the patient's past medical history: Yes Medical History: Reports:: Cancer (PROSTATE), Carotid Stenosis, Congestive Heart Failure (Cardiomyopathy), Gastroesophageal Reflux Disease(GERD), Hyperlipidemia, Hypertension, Internal Pacemaker, Kidney Stones Denies:: Diabetes Mellitus Type 1, Diabetes Mellitus Type 2, Lung Disease, MRSA, Seizures *Have you ever received a pneumonia vaccine?: No *Have you received a flu vaccine this season?: No Laterality Cases: Left: Total Hip Replacement Other Surgeries: Yes: Cancer Surgery, Cardiac Catheterization, Colonoscopy, Pace maker, Other (back sx) Amputation: Yes (2 toes) Fractures: No - *Social History Educational Level: Attended Grade School Smoking Status: Never smoker Alcohol Intake: former Alcohol Intake Frequency:: 3 or more drinks per day Substance Use Type: denies use *Occupational Status:: retired Housing: house Household Members: family *Travel in the last 8 weeks: None Family Hx:: Unable to obtain Meds Home Medications Medication Instructions Recorded Confirmed Type cyanocobalamin (vitamin B-12) 1,000 mcg PO DAILY 09/03/18 05/18/19 History 1,000 mcg capsule mirtazapine 7.5 mg tablet 7.5 mg PO DAILY 09/03/18 05/18/19 History sucralfate 1 gram tablet 1 g PO QID PRN 30 Days #120 tab 09/17/18 05/18/19 History Aspirin [Low Dose Aspirin EC] 81 mg PO DAILY 10/27/18 05/18/19 History atorvastatin 10 mg tablet 10 mg PO QHS #90 tab 12/16/18 05/18/19 Rx ferrous sulfate 325 mg (65 mg 325 mg PO DAILY #90 tab 12/16/18 05/18/19 Rx iron) tablet losartan 25 mg tablet 25 mg PO DAILY #90 tab 12/16/18 05/18/19 Rx pantoprazole 40 mg tablet,delayed 40 mg PO BID #180 tab 12/16/18 05/18/19 Rx release polyethylene glycol 3350 17 gram 17 g PO DAILY PRN #100 each 12/16/18 05/18/19 Rx oral powder packet allopurinol 100 mg tablet 100 mg PO DAILY #90 tab 03/16/19 05/18/19 Rx predniSONE [Prednisone 20mg 20 mg PO BID #10 tab 04/20/19 05/18/19 Rx Tab] hydroxyzine pamoate 25 mg capsule 25 mg PO QHS #30 cap 04/22/19 05/18/19 Rx oxycodone-acetaminophen 10 mg-325 1 tab PO QID PRN #120 tab 05/18/19 Rx mg tablet Tamsulosin HCl [Flomax 0.4mg 0.4 mg PO HS #30 cap 05/28/19 Rx capsule] Allergies Allergy/AdvReac Type Severity Reaction Status Date / Time No Known Allergies Allergy Verified 06/20/19 08:23 Review of Systems - Review of Systems Review of systems:: pertinent systems reviewed and negative unless documented below - *Cardiovascular Reports chest pain, Reports chest pain at rest, Reports chest pain with activity, Reports shortness of breath, Reports shortness of breath with activity - *Respiratory Reports shortness of breath, Reports shortness of breath with activity - *Musculoskeletal Reports back pain - *Neurologic Denies seizure-like activity Exam Vital signs and Labs for Last 24 Hours: Temp Pulse Resp BP Pulse Ox 98.8 F 70 20 110/62 98 06/20/19 08:00 06/20/19 08:00 06/20/19 08:00 06/20/19 08:00 06/20/19 08:00 Laboratory Results - last 24 hr 06/19/19 19:13: WBC 7.5, RBC 3.98 L, Hgb 12.9 L, Hct 39.7 L, MCV 99.6 H, MCH 32.3 H, MCHC 32.4, RDW 13.3, Plt Count 220, MPV 8.6, Neut % (Auto) 50.5, Lymph % (Auto) 34.7, [place] % (Auto) 6.5, Eos % (Auto) 7.6, Baso % (Auto) 0.7, Neut # (Auto) 3.8, Lymph # (Auto) 2.6, [place] # (Auto) 0.5, Eos # (Auto) 0.6 H, Baso # (Auto) 0.1 06/19/19 19:13: Sodium 142, Potassium 4.6, Chloride 106, Carbon Dioxide 30, Anion Gap 10.6, BUN 23 H, Creatinine 1.50 H, Estimated Creat Clear 43, Estimated GFR 45 L, Est GFR ( Amer) 54 L, Glucose 95, Calcium 8.9, Troponin I < 0.02 06/19/19 22:40: Troponin I < 0.02 06/20/19 01:15: Troponin I < 0.02 06/20/19 05:35: WBC 6.1, RBC 3.28 L, Hgb 10.4 L D, Hct 32.3 L, MCV 98.3 H, MCH 31.3 H, MCHC 31.8, RDW 13.3, Plt Count 177, MPV 8.7, Neut % (Auto) 55.0, Lymph % (Auto) 30.3, [place] % (Auto) 5.5, Eos % (Auto) 8.7, Baso % (Auto) 0.6, Neut # (Auto) 3.3, Lymph # (Auto) 1.8, [place] # (Auto) 0.3, Eos # (Auto) 0.5 H, Baso # (Auto) 0.0 06/20/19 05:35: Sodium 143, Potassium 4.1, Chloride 110 H, Carbon Dioxide 25, Anion Gap 12.1, BUN 18, Creatinine 1.19 D, Estimated Creat Clear 55, Estimated GFR 59, Est GFR ( Amer) 71 D, Glucose 88, Calcium 7.8 L D, Magnesium 1.9 I & O for Last 24 hours: Intake & Output 06/17/19 06/18/19 06/19/19 06/20/19 23:59 23:59 23:59 23:59 Intake Total 410 / 410 Balance 410 / 410 Weight 178 lb 1 oz 178 lb 1.007 oz Narrative: EKG is AV pacing with a rate of 73. - *Routine HEENT Exam Head: Present: normocephalic, atraumatic Eye: Present: EOMI, PERRL ENT: Present: mucous membranes moist - *Routine Neck Exam Present: supple, full ROM, carotid bruit (Bilateral, left > right). Absent: JVD, lymphadenopathy - *Routine Respiratory Exam Present: CTA bilaterally - *Routine Cardiovascular Exam Present: RRR, Normal S1, Normal S2. Absent: murmur, gallop - *Routine Abdominal Exam Present: soft, normoactive bowel sounds. Absent: tenderness, distended, rebound - *Routine Extremities Exam Absent: cyanosis, clubbing, edema - *Routine Skin Exam Present: intact, warm. Absent: erythema, rash - *Routine Neurological Exam Present: alert, oriented X3, CN II-XII intact. Absent: sensory deficit, motor deficit - Routine Psychiatric Exam Present: normal affect, normal thought process - Detailed Eye Exam Eyelids: Left normal inspection Assessment and Plan (1) Chest pain Current visit: Yes Status: Acute Qualifiers: Chest pain type: precordial pain Qualified Code(s): R07.2 - Precordial pain Category: Medical Code(s): R07.9 - Chest pain, unspecified (2) Bilateral carotid bruits Current visit: Yes Status: Acute Category: Medical Code(s): R09.89 - Other specified symptoms and signs involving the circulatory and respiratory systems (3) Carotid artery stenosis Current visit: Yes Status: Chronic Category: Medical Code(s): I65.29 - Occlusion and stenosis of unspecified carotid artery (4) Essential hypertension Current visit: Yes Status: Chronic Category: Medical Code(s): I10 - Essential (primary) hypertension (5) Pacemaker Current visit: Yes Status: Chronic Category: Medical Code(s): Z95.0 - Presence of cardiac pacemaker (6) Hyperlipidemia Current visit: No Status: Chronic Qualifiers: Hyperlipidemia type: unspecified Qualified Code(s): E78.5 - Hyperlipidemia, unspecified Category: Medical Code(s): E78.5 - Hyperlipidemia, unspecified (7) History of cardiomyopathy Current visit: Yes Status: Chronic Category: Medical Code(s): Z86.79 - Personal history of other diseases of the circulatory system (8) [place] (hard of hearing) Current visit: Yes Status: Chronic Category: Medical Code(s): H91.90 - Unspecified hearing loss, unspecified ear - Assessment and plan all Dx Assessment and Plan for all problems:: Plan: 1. The patient was admitted to the hospital for chest pain. The patient is very hard of hearing and is a very poor historian so getting history from him is very difficult. He does describe pain in the center of his chest that radiates to his back. He states it was a 9 out of 10 in intensity and associated with shortness of breath. It was worse with exertion and nothing was really helping to improve his pain. The patient denies a history of coronary artery disease or [place]. The patient has ruled out for an [place]. 4.We will set him up for a Lexiscan Myoview stress test to rule out ischemia. 2. The patient does have a history of cardiomyopathy with an ejection fraction of 35% in September of this year. His repeat echocardiogram is currently pending. 3. The patient does have a history of carotid artery stenosis bilaterally. He does have bilateral carotid bruits with the left being louder than the right. We will repeat his carotid ultrasound at this time. 4. The patient's blood pressure is well controlled. 5. His LDL goal is less than 100. 6. The patient does have a permanent pacemaker in place. His ER note states that he felt like something was going on with his pacemaker. However the patient does not report this to me. We will have his pacemaker interrogated today. 7. Further recommendations will be made pending the patient's response to treatment and the results of his Lexiscan, echo and carotid ultrasound. Thank you for the opportunity to help participate in the care of this patient. <Luis Fernando Gama - Last Filed: 06/20/19 15:03> Exam Vital signs and Labs for Last 24 Hours: Temp Pulse Resp BP Pulse Ox 98.3 F 70 20 154/84 H 99 06/20/19 11:55 06/20/19 11:56 06/20/19 11:55 06/20/19 11:55 06/20/19 11:55 Laboratory Results - last 24 hr 06/19/19 19:13: WBC 7.5, RBC 3.98 L, Hgb 12.9 L, Hct 39.7 L, MCV 99.6 H, MCH 32.3 H, MCHC 32.4, RDW 13.3, Plt Count 220, MPV 8.6, Neut % (Auto) 50.5, Lymph % (Auto) 34.7, [place] % (Auto) 6.5, Eos % (Auto) 7.6, Baso % (Auto) 0.7, Neut # (A uto) 3.8, Lymph # (Auto) 2.6, [place] # (Auto) 0.5, Eos # (Auto) 0.6 H, Baso # (Auto) 0.1 06/19/19 19:13: Sodium 142, Potassium 4.6, Chloride 106, Carbon Dioxide 30, Anion Gap 10.6, BUN 23 H, Creatinine 1.50 H, Estimated Creat Clear 43, Estimated GFR 45 L, Est GFR ( Amer) 54 L, Glucose 95, Calcium 8.9, Troponin I < 0.02 06/19/19 22:40: Troponin I < 0.02 06/20/19 01:15: Troponin I < 0.02 06/20/19 05:35: WBC 6.1, RBC 3.28 L, Hgb 10.4 L D, Hct 32.3 L, MCV 98.3 H, MCH 31.3 H, MCHC 31.8, RDW 13.3, Plt Count 177, MPV 8.7, Neut % (Auto) 55.0, Lymph % (Auto) 30.3, [place] % (Auto) 5.5, Eos % (Auto) 8.7, Baso % (Auto) 0.6, Neut # (Auto) 3.3, Lymph # (Auto) 1.8, [place] # (Auto) 0.3, Eos # (Auto) 0.5 H, Baso # (Auto) 0.0 06/20/19 05:35: Sodium 143, Potassium 4.1, Chloride 110 H, Carbon Dioxide 25, Anion Gap 12.1, BUN 18, Creatinine 1.19 D, Estimated Creat Clear 55, Estimated GFR 59, Est GFR ( Amer) 71 D, Glucose 88, Calcium 7.8 L D, Magnesium 1.9 I & O for Last 24 hours: Intake & Output 06/18/19 06/19/19 06/20/19 06/21/19 11:59 11:59 11:59 11:59 Intake Total 410 / 410 0 / 0 Balance 410 / 410 0 / 0 Weight 178 lb 1.007 oz Assessment and Plan (1) Chest pain Current visit: Yes Status: Acute Qualifiers: Chest pain type: precordial pain Qualified Code(s): R07.2 - Precordial pain Category: Medical Code(s): R07.9 - Chest pain, unspecified (2) Bilateral carotid bruits Current visit: Yes Status: Acute Category: Medical Code(s): R09.89 - Other specified symptoms and signs involving the circulatory and respiratory systems (3) Carotid artery stenosis Current visit: Yes Status: Chronic Category: Medical Code(s): I65.29 - Occlusion and stenosis of unspecified carotid artery (4) Essential hypertension Current visit: Yes Status: Chronic Category: Medical Code(s): I10 - Essential (primary) hypertension (5) Pacemaker Current visit: Yes Status: Chronic Category: Medical Code(s): Z95.0 - Presence of cardiac pacemaker (6) Hyperlipidemia Current visit: No Status: Chronic Qualifiers: Hyperlipidemia type: unspecified Qualified Code(s): E78.5 - Hyperlipidemia, unspecified Category: Medical Code(s): E78.5 - Hyperlipidemia, unspecified (7) History of cardiomyopathy Current visit: Yes Status: Chronic Category: Medical Code(s): Z86.79 - Personal history of other diseases of the circulatory system (8) [place] (hard of hearing) Current visit: Yes Status: Chronic Category: Medical Code(s): H91.90 - Unspecified hearing loss, unspecified ear
--- NOTE | 2019-06-20 10:14 | Electrocardiograph Report ---
APPROVED REPORT Exam: Resting ECG HR:73 bpm ECG Measurements Heart Rate 73 AXES MT 146 P 45 QRSd 134 QRS 66 QT 414 T-52 QTc 456 <Conclusion> Sinus rhythm with fusion complexes and premature atrial complexes Nonspecific intraventricular block Cannot rule out Anteroseptal infarct, age undetermined T wave abnormality, consider inferolateral ischemia Abnormal ECG Electronically signed by : Jose Laureano, 06/20/2019 10:13:46
--- NOTE | 2019-06-20 15:04 | History & Physical Report ---
*Admission Date: 06/19/19 *Chief complaint: chest pain *History of present illness: this pt presented to ed last pm with episode of chest pain with relief with ntg - he also reported pacemaker felt funny - he denied any palpitation or syncope - pt was admitted for eval and serial enz [facility] History I have reviewed the patient's past medical history: Yes Medical History: Reports:: Cancer (PROSTATE), Carotid Stenosis, Congestive Heart Failure (Cardiomyopathy), Gastroesophageal Reflux Disease(GERD), Hyperlipidemia, Hypertension, Internal Pacemaker, Kidney Stones Denies:: Diabetes Mellitus Type 1, Diabetes Mellitus Type 2, Lung Disease, MRSA, Seizures *Have you ever received a pneumonia vaccine?: No *Have you received a flu vaccine this season?: No Laterality Cases: Left: Total Hip Replacement Other Surgeries: Yes: Cancer Surgery, Cardiac Catheterization, Colonoscopy, Pacemaker, Other (back sx) Amputation: Yes (2 toes) Fractures: No - *Social History Educational Level: Attended Grade School Smoking Status: Never smoker Alcohol Intake: former Alcohol Intake Frequency:: 3 or more drinks per day Substance Use Type: denies use *Occupational Status:: retired Housing: house Household Members: family *Travel in the last 8 weeks: None Family Hx:: Unable to obtain Review of Systems - Review of Systems Review of systems:: pertinent systems reviewed and negative unless documented below - Constitutional Denies headache(s) - Eyes Denies change in vision - ENT Denies sore throat - *Cardiovascular Reports chest pain at rest, Reports chest pain with activity - *Respiratory Denies cough - *Gastrointestinal Denies abdominal pain - *Genitourinary Denies blood in urine - *Musculoskeletal Reports back pain - Integumentary/Breasts Denies rash - *Neurologic Denies localized weakness, Denies seizure-like activity - Psychiatric Denies anxiety Meds Home Medications Medication Instructions Recorded Confirmed Type allopurinol 100 mg tablet 100 mg PO DAILY #90 tab 03/16/19 06/20/19 Rx oxycodone-acetaminophen 10 mg-325 1 tab PO QID PRN #120 tab 05/18/19 06/20/19 Rx mg tablet Tamsulosin HCl [Flomax 0.4mg 0.4 mg PO HS #30 cap 05/28/19 06/20/19 Rx capsule] Aspirin [Aspirin 81mg EC Tab] 81 mg PO DAILY 06/20/19 06/20/19 History Atorvastatin Calcium [Atorvastatin 10 mg PO HS 06/20/19 06/20/19 History 10mg Tab] Cyanocobalamin (Vitamin B-12) 1,000 mcg PO DAILY 06/20/19 06/20/19 History [Vitamin B-12] Ferrous Sulfate [Ferrous Sulfate 325 mg PO DAILY 06/20/19 06/20/19 History 325mg Tablet] Losartan Potassium 25 mg PO DAILY 06/20/19 06/20/19 History Mirtazapine 7.5 mg PO HS 06/20/19 06/20/19 History Pantoprazole Sodium [Protonix 40mg 40 mg PO BID 06/20/19 06/20/19 History tablet] Polyethylene Glycol 3350 [Laxative 17 gm PO DAILYP PRN 06/20/19 06/20/19 History Peg 3350] Sucralfate [Carafate 1gm Tab] 1 gm PO QIDP PRN 06/20/19 06/20/19 History hydrOXYzine pamoate [Vistaril 25mg 25 mg PO HS 06/20/19 06/20/19 History capsule] Allergies Allergy/AdvReac Type Severity Reaction Status Date / Time No Known Allergies Allergy Verified 06/20/19 08:23 Exam Vital signs and Labs for Last 24 Hours: Temp Pulse Resp BP Pulse Ox 98.3 F 70 20 154/84 H 99 06/20/19 11:55 06/20/19 11:56 06/20/19 11:55 06/20/19 11:55 06/20/19 11:55 Laboratory Results - last 24 hr 06/19/19 19:13: WBC 7.5, RBC 3.98 L, Hgb 12.9 L, Hct 39.7 L, MCV 99.6 H, MCH 32.3 H, MCHC 32.4, RDW 13.3, Plt Count 220, MPV 8.6, Neut % (Auto) 50.5, Lymph % (Auto) 34.7, Stewart % (Auto) 6.5, Eos % (Auto) 7.6, Baso % (Auto) 0.7, Neut # (Auto) 3.8, Lymph # (Auto) 2.6, Stewart # (Auto) 0.5, Eos # (Auto) 0.6 H, Baso # (Auto) 0.1 06/19/19 19:13: Sodium 142, Potassium 4.6, Chloride 106, Carbon Dioxide 30, Anion Gap 10.6, BUN 23 H, Creatinine 1.50 H, Estimated Creat Clear 43, Estimated GFR 45 L, Est GFR ( Amer) 54 L, Glucose 95, Calcium 8.9, Troponin I < 0.02 06/19/19 22:40: Troponin I < 0.02 06/20/19 01:15: Troponin I < 0.02 06/20/19 05:35: WBC 6.1, RBC 3.28 L, Hgb 10.4 L D, Hct 32.3 L, MCV 98.3 H, MCH 31.3 H, MCHC 31.8, RDW 13.3, Plt Count 177, MPV 8.7, Neut % (Auto) 55.0, Lymph % (Auto) 30.3, Stewart % (Auto) 5.5, Eos % (Auto) 8.7, Baso % (Auto) 0.6, Neut # (Auto) 3.3, Lymph # (Auto) 1.8, Stewart # (Auto) 0.3, Eos # (Auto) 0.5 H, Baso # (Auto) 0.0 06/20/19 05:35: Sodium 143, Potassium 4.1, Chloride 110 H, Carbon Dioxide 25, Anion Gap 12.1, BUN 18, Creatinine 1.19 D, Estimated Creat Clear 55, Estimated GFR 59, Est GFR ( Amer) 71 D, Glucose 88, Calcium 7.8 L D, Magnesium 1.9 I & O for Last 24 hours: Intake & Output 06/18/19 06/19/19 06/20/19 06/21/19 11:59 11:59 11:59 11:59 Intake Total 410 / 410 0 / 0 Balance 410 / 410 0 / 0 Weight 178 lb 1.007 oz - Constitutional no acute distress - *Routine HEENT Exam Head: Present: normocephalic Eye: Present: EOMI, PERRL ENT: Present: mucous membranes dry - *Routine Neck Exam Absent: JVD - *Routine Respiratory Exam Present: decreased breath sounds - *Routine Cardiovascular Exam Present: RRR, murmur, S4 - *Routine Abdominal Exam Present: soft - *Routine Extremities Exam Absent: calf tenderness - *Routine Skin Exam Present: intact - *Routine Neurological Exam Present: alert, oriented X3, CN II-XII intact - Routine Psychiatric Exam Absent: normal affect Assessment and Plan (1) Chest pain Current visit: Yes Status: Acute Qualifiers: Chest pain type: precordial pain Qualified Code(s): R07.2 - Precordial pain Category: Medical Code(s): R07.9 - Chest pain, unspecified (2) Bilateral carotid bruits Current visit: Yes Status: Acute Category: Medical Code(s): R09.89 - Other specified symptoms and signs involving the circulatory and respiratory systems (3) Carotid artery stenosis Current visit: Yes Status: Chronic Category: Medical Code(s): I65.29 - Occlusion and stenosis of unspecified carotid artery (4) Essential hypertension Current visit: Yes Status: Chronic Category: Medical Code(s): I10 - Essential (primary) hypertension (5) Pacemaker Current visit: Yes Status: Chronic Category: Medical Code(s): Z95.0 - Presence of cardiac pacemaker (6) Hyperlipidemia Current visit: No Status: Chronic Qualifiers: Hyperlipidemia type: unspecified Qualified Code(s): E78.5 - Hyperlipidemia, unspecified Category: Medical Code(s): E78.5 - Hyperlipidemia, unspecified (7) History of cardiomyopathy Current visit: Yes Status: Chronic Category: Medical Code(s): Z86.79 - Personal history of other diseases of the circulatory system (8) [place] (hard of hearing) Current visit: Yes Status: Chronic Category: Medical Code(s): H91.90 - Unspecified hearing loss, unspecified ear (9) Ventricular hypokinesia Current visit: Yes Status: Acute Category: Medical Code(s): I51.89 - Other ill-defined heart diseases
--- OUTSIDE RECORDS SUMMARY | 2019-06-20 17:02 | External Medical Summary | Continuity of Care Document ---
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 [address] E Aminotransferas 2018 [place] [address] e (ALT/SGPT) 2:51pm C-Reactive March 1.8 mg/dL 0.0-0.9 [facility], [address] [place] [address] E Protein 2018 [place] [address] 9:21pm C-Reactive October < 0.2 mg/dL 0.0-0.9 [facility], [address] [place] [address] E Protein 2018 [place] [address] 11:12am Total Protein March 7.7 gm/dL 6.4-8.2 [facility], [address] [place] [address] 36 E 2018 [place] [address] 9:21pm Total Protein April 6.3 gm/dL 6.4-8.2 [facility], [address] [place] [address] 36 E 2018 [place] [address] 11:12am Total Protein May 7.2 gm/dL 6.4-8.2 [facility], [address] [place] [address] E 2018 [place] [address] 2:51pm Albumin Ciara 3.8 gm/dL 3.4-5.0 [facility], [address] [place] [address] E 2018 [place] [address] 9:21pm Albumin October 2.9 gm/dL 3.4-5.0 [facility], [address] [place] [address] 36 E 2018 [place] [address] 11:12am Albumin November 3.6 gm/dL 3.4-5.0 [facility], [address] [place] [address] 36 E [place] [address] 2:51pm Globulin Ciara 3.9 gm/dl 1.3-3.2 [facility], [address] [place] [address] 36 E 2018 [place] [address] 9:21pm Globulin October 3.4 gm/dl 1.3-3.2 [facility], [address] [place] [address] 36 E [place] [address] 11:12am Globulin November 3.6 gm/dl 1.3-3.2 [facility], [address] [place] [address] 36 E [place] [address] 2:51pm Albumin/Globuli Ciara 1.0 1.1-1.8 [facility], [address] [place] [address] 36 E n [place] 2018 [place] [address] 9:21pm Albumin/Globuli October 0.9 1.1-1.8 [facility], [address] [place] [address] 36 E n [place] [address] 11:12am Albumin/Globuli November 1.0 1.1-1.8 [facility], [address] [place] [address] 36 E n [place] [address] 2:51pm Alkaline Ciara 60 U/L 46-116 [facility], [address] [place] [address] 36 E Phosphatase 2018 Kesha lizzette [place] [address] 9:21pm Alkaline October 52 U/L 46-116 [facility], [address] [place] [address] 36 E Phosphatase 2018 [place] [address] 11:12am Alkaline November 59 U/L 46-116 [facility], [address] [place] [address] 36 E Phosphatase 2018 [place] [address] 2:51pm Diagnostic Imaging Reports Report Dictated Date/Time Dictated By Status Radiology Report March 30, 2019 Andre Barnes MD completed 9:36pm [facility] [address] [place] [facility] [address] [place] [address] XRay R eport Sig hernandez Patient: Christian Douglas MR#: [id number] : 1935 Acct:[id number] Age/Sex: 83 / M ADM Date: 9 Loc: ER Attending Dr: Ordering Physician: Luis Fernando Gama MD Date of Service: 03/30/19 Procedure(s): XR chest 2V Accession Number(s): [id number] cc: Andre Barnes MD; Luis Fernando Gama MD~ PROCEDURE: XR CHEST 2V CLINICAL HISTORY: weakness Weakness, heart disease COMPARISON: CXR2 CHEST-AP VIEW ONLY fr om 09/27/2016 CXR2V XR chest 2V from 11/01/2018 FINDINGS: Bipolar pacemaker remains in place. Patchy density present in both lower lo bes right greater than left. Upper lobes are clear. On the lateral view there is a suggestion a small air-fluid level along the posteri or aspect of the heart and may be within a hiatal hernia. The No acute bony abnormalities. IMPRESSION: Bibasilar airspace disease consistent w ith atelectasis and/or infiltrate Dictated by: Andre Barnes MD 03/31/2019 04:19 Electronically signed by Andre Barnes in [place] 03/31/2019 04:19 Radiology Report March 30, 2019 Andre Barnes MD completed 9:44pm [place] [address] [facility] [address] [place] [address] [address] Scan Report Sig hernandez Patient: Christian Douglas MR#: [id number] : 1935 Acct:[id number] Age/Sex: 83 / M ADM Date: 9 Loc: ER Attending Dr: Ordering Physician: Luis Fernando Gama MD Date of Service: 03/30/19 Procedure(s): CT head/brain wo con Accession Number(s): [id number] cc: Andre Barnes MD; Luis Fernando Gama MD~ PROCEDURE: CT HEAD/BRAIN WO CON CLINICAL INDICATION: confusion Weakness and dizziness COMPARISON: HEADWO CT head/brain wo co n from 11/26/2018 TECHNIQUE: Axial images obtained with sagittal and coronal reformats. All CT scans at the facility use one or more dose reduction, viz: automated exposure cont rol, ma/kV adjustment per patient size (including targeted exams where dose is matched to indication, i.e. head), or iterative re construction technique. FINDINGS: No midline shift, mass effect, intracra nial hemorrhage, hydrocephalus, or extra-axial fluid col lection is evident. There is generalized atrophy with hypoattenuatio n of the periventricular white matter consistent with microangiopathic changes.. Enlargement of the extra-axial spaces mainly in the fronta l areas. Intracranial atherosclerotic calcification. The mingo varium has an unremarkable appearance. No mastoid effusion. Prior facial surgery. Opacified left maxillary sinus. IMPRESSION: No acute intracranial findings Dictated by: Andre Barnes MD 03/31/2019 04:43 Electronically signed by Andre Barnes in [place] 03/31/2019 04:43 Radiology Report May 28, 2019 David Alberto completed 3:49pm [facility] [address] [facility] [address] [address] [address] Scan Report Sig hernandez Patient: Christian Douglas MR#: [id number] : 1935 Acct:[id number] Age/Sex: 83 / M ADM Date: 9 Loc: ER Attending Dr: Ordering Physician: Tommy Mercer MD Date of Service: 05/28/19 Procedure(s): CT abdomen pelvis wo con Accession Number(s): [id number] cc: David Alberto ; Luis Fernando Gama MD~ Procedure: CT ABDOMEN PELVIS WO CON Patient Age:83Y CLINICAL INDICATION: ABDOMINAL PAIN lo wer abdominal pain started today COMPARISON: No exams were available fo r comparison TECHNIQUE: No oral nor IV contrast uti lized Axial images obtained with sagittal and coronal reformats. All CT scans at the facility use one or more d ose reduction, viz: automated exposure control, ma/kV adjustment per patient size (including targeted exams where dose is matched to indication, i.e. head), or iterative reconstruction technique. FINDINGS: Lower thorax: No acute finding. Minor atelectasis and scarring, lung bases. Borderline to mild cardiomegaly with ATV pacemaker leads yielding g streak artifact . Moderate size hiatal hernia 5.6 cm transverse ABDOMEN: Liver: No masses or biliary dilatation. Gallbladder: Nondistended. No radio opa que stones. Pancreas: No masses or peripancreatic f luid collections. Spleen: unremarkable Adrenals: unremarkable tract: Numerous nonobstructive renal calculi bilaterally. Minimal diffuse cortical thinning both kidneys. Right kidney: 5 mm calculus at the lowe r and upper pole. Numerous other smaller less than 3 mm calculi th roughout. Left kidney 5 mm calculus upper pole of 4.5 mm calculus lower pole, with other smaller calculi scattered th roughout Ureters unremarkable. No no calculi no r obstruction PELVIS: The prostate moderate size up 2.3 cm di ameter. Minimal calcification. Bladder: Bryan catheter in place. No c alculi. Air-fluid level bladder likely iatrogenic likely from t he catheter placement.. . There is streak artifact from a bipo lar left hip prosthesis GI tract hiatal hernia with likely up to near 25 percent upper stomach within this hiatal hernia. Remainder of stoma ch and duodenal loop satisfactory. Small bowel appears norm al no inflammation no wall thickening no dilatation. Terminal ile um normal. no evidence of appendicitis. Large bowel. Moderate to generous stoo l throughout the right colon and hepatic flexure but moderate gas tr ansverse colon minimal stool and gas at the descending colon Osseous: No osseous lesions identified. Multi level degenerative disc changes and degenerative hypertrop hic facet changes throughout left hip prosthesis Incidental noted, developing left ingui nal hernia with bulging of fat and a proximal inguinal canal but no renato wel loops. Peritoneum: No abnormal fluid collectio ns. No obvious inflammatory changes. No free air. Lymph nodes: No enlarged lymph nodes ap parent. Vasculature: No significant aneurysm bu t there is mild infrarenal aortic dilatation up to 26.5 mm. No re troperitoneal hemorrhage nor adenopathy evident Bones: No acute fracture IMPRESSION: 1. No acute findings abdomen pelvis . No bowel dilatation or obstruction. . Generous stool right colon through he patic flexure noted. 2. . Numerous bilateral nonobstructiv e renal calculi, as detailed in text. . Bryan catheter, with air-fluid level in bladder-due is placement. Moderate-sized prostate. 3. Hiatal hernia moderate size 4.Other observations: Fat containing left inguinal hernia. Left hip prosthesis. Multilevel degenerative changes spine. Dictated by: Daquan Alberto MD 019 16:42 Electronically signed by Knvg Alberto MD in [place] 05/28/2019 16:42 Radiology Report June 19, 2019 Andre Barnes MD completed 7:22pm [address] [address] XRay R eport Sig hernandez Patient: Christian Douglas MR#: [id number] : 1935 Acct:[id number] Age/Sex: 83 / M ADM Date: 9 Loc: 214- Attending Dr: Luis Fernando Gama MD Ordering Physician: Darrion Cordero MD Date of Service: 06/19/19 Procedure(s): XR chest portable Accession Number(s): [id number] cc: Andre Barnes MD; Luis Fernando Gama MD~ PROCEDURE: XR CHEST PORTABLE CLINICAL HISTORY: CHEST PAIN COMPARISON: CXR2 CHEST-AP VIEW ONLY fr om 09/27/2016 CXR2V XR chest 2V from 11/01/2018 XR CHEST 2V from 03/30/2019 FINDINGS: The cardiomediastinal silhouette and pu lmonary vascularity are within normal limits. Bipolar pacemaker is present from left subclavian approach. Lungs are clear. Osteoarthritic changes with subacromial stenosis of the right shoulder and high-riding humeral head c onsistent with rotator cuff disease. IMPRESSION: No acute findings. Dictated by: Andre Barnes MD 06/20/2019 06:22 Electronically signed by Andre Barnes in [place] 06/20/2019 06:22 Radiology Report June 20, 2019 Andre Barnes MD completed 3:02pm [address] [address] Nuclear Medi cine Report Sig hernandez Patient: Christian Douglas MR#: [id number] : 1935 Acct:[id number] Age/Sex: 83 / M ADM Date: 9 Loc: 214-[address]: Luis Fernando Gama MD Ordering Physician: Beverly Vasquez APRN Date of Service: 06/20/19 Procedure(s): NM maria m perf SPECT rest & s tr Accession Number(s): [id number] cc: Andre Barnes MD; Luis Fernando Gama MD~ APPROVED REPORT -------- ------ Exam: Nuclear Stress Test Indication: chest pain, short of breath , syncope, fatigue Patient Location: Inpatient Stress Tech: Esperanza Parnell [place] Tech:Patricia Madera, ARRT, RT (R)( N) Ht: 5 ft 10 in Wt: 201 lbs HR: 73 bpm BP: 172/79 mmHg BSA: 2.09 m2 BMI: 28.8 History: chest pain, short of breath, syncope, f atigue Procedure: Patient received a 0.4 mg of intravenou s Lexiscan, resting heart rate 73 bpm, resting blood pressure 172/79 m mHg, with Lexiscan maximum heart rate achived was 95 bpm which is % of the maximum predicted heart rate and blood pressure was 120/4 9 mmHg. With Lexiscan, patient denied any compl aint of chest pain. Cardiac Stress and Resting SPECT Images : Cardiac Stress and Resting SPECT images were obtained using technetium 99m Myoview 31.9 mCi stress and 10.57 mCi at rest. EF is low at 38% with global hypokinesi a There is a medium sized fixed defect at the anteroseptal region of the apex consistent with an area of inf arction. Decrease activity noted in the inferior wall on rest and pharmicological stress images which may be due to diaphragmatic attenuation Conclusion: EF is low at 38% with global hypokinesi a There is a medium sized fixed defect at the anteroseptal region of the apex consistent with an area of inf arction. Decrease activity noted in the inferior wall on rest and pharmicological stress images which may be due to diaphragmatic attenuation Electronically signed by : Andre Barnes MD 06/20/2019 16:28:20 Advance Directives Advance Directive Response Recorded Date/Time Living Will No June 19, 2019 9 :02pm Does the patient have an No May 19, 019 7:12am advanced directive on file? Living Will No May 19, 2019 7 :12am Does the patient have an No June 13, 2019 7:21am advanced directive on file? Living Will No June 13, 2019 7:21am Does the patient have an No April 07, 2019 7:49pm advanced directive on file? Living Will No April 07, 2019 7:49pm Chief Complaint and Reason for Visit Chief Complaint DIZZY,WEAKNESS ER Followup GOUT FLARE UP ER follow up 1 month followup cant urniate CHEST PAIN Reason for Visit Bilateral carotid bruits Chest pain Renal insufficiency Carotid artery stenosis Degenerative disc disease, l umbar Essential hypertension [place] (hard of hearing) History of cardiomyopathy Pacemaker Encounters Encounter Location(s) Arrival/Admit Date Discharge/Depart Date Provider(s) Departed [facility] Physician March 30, March 31, 2019 nucaryn l [facility] 2018 8:25pm 2:34am Room Departed [facility] Physician April 07, April 07, 2019 Michel Steve , Physician/Provi Group-Primary 2018 1:24pm 2:37pm [employer] paula [facility]-Natan Visit Departed [facility] Physician April 20, 2019 April 20, 2019 [facility] 10:19am 12:59pm Room Departed [facility] Physician April 22, 2019 April 22, 2019 Cb Machado Physician/Provi Group-Primary 1:57pm 3:20pm MD Natan paula [facility]Natan Visit Departed [facility] Physician May 18, 2019 May 18, 2019 Angela Machado Physician/Provi Group-Primary 1:57pm 3:18pm MD Natan paula [facility]Natan Visit Departed [facility] Physician May 28, 2019 May 28, 2019 rafaela trevino [facility]-Emergency 2:17pm 5:16pm Room Admitted [facility] Physician June 19, 2019 Luis Fernando Machado Inpatient Group-Second 9:05pm MD Natan Floor Registered [facility] Physician June 20, 2019 Luis Fernando Machado Inpatient Group- 4:58pm MD Natan Recent Diagnosis Onset Date Bilateral carotid bruits Chest pain Renal insufficiency Carotid artery stenosis Degenerative disc disease, lumbar Essential hypertension [place] (hard of hearing) History of cardiomyopathy Pacemaker Assessments Diagnosis Onset Date Resolution Status Bilateral carotid bruits acute Chest pain acute Renal insufficiency acute Carotid artery stenosis chronic Degenerative disc disease, chron ic lumbar Essential hypertension chronic [place] (hard of hearing) chronic History of cardiomyopathy chroni c Pacemaker chronic Functional Status Observation Response Date Recorded Oral Care Ability Independent June 19, 2019 9 :02pm Bathing Ability Independent June 19, 2019 9 :02pm Eating (Feeding) Ability Independent Yasmany 1st, 2 019 9:02pm Toileting Ability Independent June 19, 2019 9 :02pm Ambulation Ability Independent June 19, 2019 9 :02pm Functional status ambulatory May 19, 2019 7 :12am Functional status ambulatory June 13, 2019 7:21am Functional status ambulatory April 07, 2019 7:49pm Goals Ambulatory Goals Patient verbalizes understanding of dise ase process/healthy behaviors. Patient to follow plan of care. Education provid ed. Mental Status Observation Response Date Recorded Comprehension Ability No Impairment June 20, 2019 9:00am Able to Read Yes June 19, 2019 9 :02pm Able to Write No June 19, 2019 9 :02pm Ability to Follow Directions Excellent June 9:02pm Eye Contact Maintains Eye Contact June 19, 2019 9:02pm Oral Expression Ability No Impairment June 19 9:02pm Medical Equipment Implanted Devices Device Date Implanted SALTY Number pacemaker January 23, 2007 Insurance Providers Guarantor Christian [facility] Address [address] [place] [address] Contact Info. Home Phone: Payer Policy Id Coverage Id Subscriber's Subscriber Id Effective E xpiration Name Date Date Morales [id number] Christian Duong [id number] July 20, Medicare [place] 2013 Self Pay Self N/A Plan of Treatment will refill meds at this time aqnd discussed prn use will treat with dose of pain med at bed time -as he wakes at night - he is with family and discussed prn and monitor meds - discussed fall risk 1. Z-Jorge, Pred per inst 2. Cont current medical regimen 3. Increase fluids 4. Return for persistent/worsening symptoms Future Tests Future scheduled test information is unavailable Pending Tests Pending diagnostic test information is unavailable Future Visits Future appointment information is unavailable Referrals to Other Providers Reason for Referral Start Provider Provider Contact Provider Address Referral Date Information Admission to [facility] June [address] Future Procedures Future procedure information is unavailable Future Medications Future medication information is unavailable Patient Instructions DI for Muscle Weakness Acute Bronchitis DI for Gout DI for Chronic Pain -- Adult Gout DI for Chronic Pain -- Adult Degenerative Disc Disease DI for Chronic Pain -- Adult DI for Acute Abdomen DI for High Blood Pressure DI for Chest Pain DI for Degenerative Disc Disease Social History Assigned Sex Male Vital Signs Vital Reading Result Reference Range Collection Date/ Time Height 162.56 cm March 30, 2019 8:56pm Weight 77.11 kg March 30, 2019 8:56pm Body Temperature 98.2 [degF] 97.6-99.6 March 31, 2019 2:32am Heart Rate 81 /min 60-March 31, 2019 2:32am Respiratory rate 17 /min -March 31, 2019 2:32am Oxygen saturation by 92 % 95-100 March 202018 Pulse oximetry 8:56pm BP Systolic 147 mm[Hg] 110-140 March 31, 2019 2:32am BP Diastolic 68 mm[Hg] 60-90 March 31, 2019 2:32am BMI (Body Mass Index) 29.2 kg/m2 March 30, 2019 8:56pm Height 162.56 cm April 07, 2019 1:45pm Weight 77.11 kg April 07, 2019 1:45pm Body Temperature 97.1 [degF] 97.6-99.6 April 07, 2019 1:45pm Heart Rate 82 /min -April 07, 2019 1:45pm Respiratory rate 16 /min -April 07, 2019 1:45pm Oxygen saturation by 96 % 95-100 March 202018 Pulse oximetry 1:45pm BP Systolic 142 mm[Hg] 110-140 April 07, 2019 1:45pm BP Diastolic 70 mm[Hg] 60-90 April 07, 2019 1:45pm BMI (Body Mass Index) 29.2 kg/m2 April 07, 2019 1:45pm Height 177.8 cm April 20 10:16am Weight 77.11 kg April 20 10:16am Body Temperature 98.4 [degF] 97.6-99.6 April 20 12:57pm Heart Rate 72 /min 60-April 20 12:57pm Respiratory rate 20 /min -April 20 12:57pm Oxygen saturation by 97 % 95-100 April Pulse oximetry 10:38am BP Systolic 171 mm[Hg] 110-140 April 20 12:57pm BP Diastolic 99 mm[Hg] 60-90 April 20 12:57pm BMI (Body Mass Index) 24.3 kg/m2 April 10:16am Height 177.8 cm October 4th, 201 9 2:19pm Weight 78.92 kg April 22 9 2:19pm Body Temperature 98.6 [degF] 97.6-99.6 April 22 2:19pm Heart Rate 76 /min 60-April 22 9 2:19pm Respiratory rate 18 /min -April 22, 2:19pm Oxygen saturation by 98 % 95-100 April Pulse oximetry 2:19pm BP Systolic 128 mm[Hg] 110-140 April 22, 9 2:19pm BP Diastolic 70 mm[Hg] 60-90 April 22, 9 2:19pm BMI (Body Mass Index) 25.0 kg/m2 April 2:19pm Height 177.8 cm May 18, 2:14pm Weight 81.19 kg May 18, 2:14pm Body Temperature 98.0 [degF] 97.6-99.6 May 18, 2 019 2:14pm Heart Rate 78 /min -May 18 2:14pm Respiratory rate 16 /min 07-12May 18, 2 019 2:14pm Oxygen saturation by 97 % 95-100 April Pulse oximetry 2:14pm BP Systolic 132 mm[Hg] 110-140 May 18 2:14pm BP Diastolic 74 mm[Hg] 60-90 May 18, 2:14pm BMI (Body Mass Index) 25.7 kg/m2 May 182018 2:14pm Height 175.26 cm May 28 2:33pm Weight 77.11 kg May 28 2:33pm Body Temperature 98.4 [degF] 97.6-99.6 May 28, 2 019 5:16pm Heart Rate 78 /min 60-May 28 5:16pm Respiratory rate 19 /min 07-12May 28, 2 019 5:16pm Oxygen saturation by 98 % 95-100 May Pulse oximetry 2:52pm BP Systolic 125 mm[Hg] 110-140 May 28, 5:16pm BP Diastolic 79 mm[Hg] 60-90 May 28, 5:16pm BMI (Body Mass Index) 25.1 kg/m2 May 282018 2:33pm Height 170 cm June 20, 11:48am Weight 80.76 kg June 20 11:48am Body Temperature 97.9 [degF] 97.6-99.6 June 20, 2 019 4:00pm Heart Rate 79 /min 60-90 June 20 4:00pm Respiratory rate 20 /min -June 20, 2 019 4:00pm Oxygen saturation by 99 % 95-100 June Pulse oximetry 4:00pm BP Systolic 158 mm[Hg] 110-140 June 20 4:00pm BP Diastolic 62 mm[Hg] 60-90 June 20, 4:00pm BMI (Body Mass Index) 27.9 kg/m2 June 202018 11:48am Hospital Discharge Instructions Additional Instructions see pcp for follow up
--- NOTE | 2019-06-20 19:02 | Cardiology Report ---
APPROVED REPORT EXAM: Comprehensive 2D, Doppler, and color-flow Echocardiogram Campus Security Officer: Leslie Haywood CRT Ht: 5 ft 7 in Wt: 175lbs BSA: 1.91 BP: 118/88 mmHg Indications: cp 2D Dimensions LVOT 1.81 cm (M/F) 1.5-2.5 M-Mode Dimensions RVDd 1.79 cm (0.9-2.6)LVDd 5.18 cm (3.5-5.7) LVDs 4.11 cm (3.5-5.7)IVSd 1.68 cm (0.6-1.1) PWd 0.46 cm (0.6-1.1)EF (Teich) 41.80% FS 20.70% EDV (Teich) 128.40 mL ESV (Teich) 74.70 mL LV Diastology E/A Ratio 0.51 Mitral Valve MV A Velocity 98.00 (40-130 cm/s) Left Ventricle Left atrium is mildly enlarged, left ventricle is normal size, moderate concentric left ventricular hypertrophy, visually estimated ejection fraction approximately 40 to 45%, endocardial surfaces are poorly visualized, there appears to be moderate hypokinesis involving the mid to distal septum and apical wall. Grade 1 diastolic dysfunction seen without tissue Doppler evidence of raise left atrial pressure. Right Ventricle Right atrium and right ventricular normal size and contractility, there is pacemaker leads in right atrium and right ventricle. Aortic Valve Aortic valve is thickened and calcified leaflet continue to display good mobility, there is no aortic stenosis or aortic insufficiency. Mitral Valve Mitral valve is grossly normal, there is mild mitral regurgitation. Tricuspid Valve Tricuspid valve leaflets are minimally thickened, there is mild tricuspid regurgitation, tricuspid regurgitation jet velocity is inadequate for calculation of the right ventricular systolic pressure. Pulmonic Valve Pulmonic valve is poorly visualized. Great Vessels Aortic root is normal size. Pericardium No significant pericardial effusion noted. Conclusion 1. Technically difficult study because of the patient fact in poor acoustic windows, endocardial surfaces are poorly visualized. 2. Mildly enlarged left atrium, normal left ventricular size, moderate concentric left ventricular hypertrophy, visually estimated ejection fraction 40 to 45% with multiple segmental wall motion abnormality described above, grade 1 diastolic dysfunction seen without tissue Doppler evidence of raise left atrial pressure. 3. Thickened and calcified aortic valve without aortic stenosis aortic insufficiency. 4. Mild mitral and tricuspid regurgitation. 5. No significant pericardial effusion noted. Electronically signed by : Tony Christensen, 06/20/2019 19:02:23
--- NOTE | 2019-06-21 07:00 | Progress Note ---
Subjective Date: 06/21/19 Time: 06:56 Principal diagnosis: chest pain Interval history: 83-year-old white male in bed sleeping and in no acute distress. Denies any further chest pain during this admission. Patient's stress test shows ischemic cardiomyopathy with prior LA. No reversible ischemia noted. Patient is known to have prior cardiomyopathy from echocardiogram earlier this year. Discussed results of the stress test and consideration for medical therapy vers us cardiac catheterization. Patient states he is lived a long life and does not wish to have cardiac catheterization at this time. He would like to try medical therapy. He is anxious to go home. Exam Vital signs and Labs for Last 24 Hours: Temp Pulse Resp BP Pulse Ox 97.5 F L 86 18 118/52 L 96 06/21/19 04:00 06/21/19 04:00 06/21/19 04:00 06/21/19 04:00 06/21/19 04:00 I & O for Last 24 hours: Intake & Output 06/18/19 06/19/19 06/20/19 06/21/19 11:59 11:59 11:59 11:59 Intake Total 410 / 410 796 / 796 Output Total 300 / 300 Balance 410 / 410 496 / 496 Weight 178 lb 1.007 oz 176 lb 1.007 oz - *Routine HEENT Exam Head: Present: normocephalic Eye: Present: EOMI, PERRL ENT: Present: mucous membranes moist - *Routine Respiratory Exam Present: CTA bilaterally. Absent: accessory muscle use, rales, rhonchi, wheezes - *Routine Cardiovascular Exam Present: RRR. Absent: murmur, gallop, rubs - *Routine Extremities Exam Absent: edema, calf tenderness - *Routine Neurological Exam Present: alert, oriented X3, moving all extremities Progress Note: A&P (1) Chest pain Status: Acute Current Visit: Yes (2) Bilateral carotid bruits Status: Acute Current Visit: Yes (3) Carotid artery stenosis Status: Chronic Current Visit: Yes (4) Essential hypertension Status: Chronic Current Visit: Yes (5) Pacemaker Status: Chronic Current Visit: Yes (6) Hyperlipidemia Status: Chronic Current Visit: No (7) History of cardiomyopathy Status: Chronic Current Visit: Yes (8) [place] (hard of hearing) Status: Chronic Current Visit: Yes (9) Ventricular hypokinesia Status: Acute Current Visit: Yes Assessment and Plan for All Diagnoses:: 1. Ischemic cardiomyopathy. Patient is on losartan and will try to add low- dose metoprolol. Blood pressure may preclude being able to continue this. 2. Continue aspirin 3. Hyperlipidemia, continue statin therapy with LDL goal less than 70 4. Patient can be discharged home later today if able to tolerate beta-rafi therapy. Follow-up in our office in 1 to 2 weeks.
--- NOTE | 2019-06-21 08:19 | Discharge Summary ---
General - General Admission date:: 06/19/19 Discharge date: 06/21/19 HPI HPI: this pt presented to ed last pm with episode of chest pain with relief with ntg - he also reported pacemaker felt funny - he denied any palpitation or syncope - pt was admitted for eval and serial enz Hospital Course Hospital Course: echo:Conclusion 1. Technically difficult study because of the patient fact in poor acoustic windows, endocardial surfaces are poorly visualized. 2. Mildly enlarged left atrium, normal left ventricular size, moderate concentric left ventricular hypertrophy, visually estimated ejection fraction 40 to 45% with multiple segmental wall motion abnormality described above, grade 1 diastolic dysfunction seen without tissue Doppler evidence of raise left atrial pressure. 3. Thickened and calcified aortic valve without aortic stenosis aortic insufficiency. 4. Mild mitral and tricuspid regurgitation. 5. No significant pericardial effusion noted. stress test:Conclusion: EF is low at 38% with global hypokinesia There is a medium sized fixed defect at the anteroseptal region of the apex consistent with an area of infarction. Decrease activity noted in the inferior wall on rest and pharmicological stress images which may be due to diaphragmatic attenuation Cardiology consult:Assessment and Plan for All Diagnoses:: 1. Ischemic cardiomyopathy. Patient is on losartan and will try to add low- dose metoprolol. Blood pressure may preclude being able to continue this. 2. Continue aspirin 3. Hyperlipidemia, continue statin therapy with LDL goal less than 70 4. Patient can be discharged home later today if able to tolerate beta-rafi therapy. Follow-up in our office in 1 to 2 weeks. Today patient denies chest pain or pressure. Patient wants to hold on heart cath at this time. Will discharge home and follow-up with Jennifer in 1 week. Patient's to monitor blood pressure and heart rate at home. pt on irbesartan for low ef. continue statin. Objective Vital signs: Temp Pulse Resp BP Pulse Ox 98.3 F 82 17 130/71 98 06/21/19 07:59 06/21/19 07:59 06/21/19 07:59 06/21/19 07:59 06/21/19 07:59 no acute distress - *Routine HEENT Exam Head: Present: normocephalic Eye: Present: PERRL ENT: Present: mucous membranes moist - *Routine Respiratory Exam Present: CTA bilaterally - *Routine Cardiovascular Exam Present: RRR. Absent: murmur Comments: pacemaker - *Routine Abdominal Exam Present: soft, normoactive bowel sounds. Absent: tenderness - *Routine Extremities Exam Present: full ROM - *Routine Skin Exam Present: intact - *Routine Neurological Exam Present: alert, oriented X3 - Routine Psychiatric Exam Present: normal affect Results - Additional Comments rounded with dr issa all orders per dr issa DS: Diagnosis - Discharge Diagnosis (1) Chest pain Status: Acute (2) Bilateral carotid bruits Status: Acute (3) Carotid artery stenosis Status: Chronic (4) Essential hypertension Status: Chronic (5) Pacemaker Status: Chronic (6) Hyperlipidemia Status: Chronic (7) History of cardiomyopathy Status: Chronic (8) [place] (hard of hearing) Status: Chronic (9) Ventricular hypokinesia Status: Acute Discharge Plan - Patient Discharge Instructions ACTIVITY: Continue current activity DIET: continue same diet Patient Instructions: DI for High Blood Pressure, DI for Chest Pain, DI for Degenerative Disc Disease - Follow up Plan Follow up with: Yaw Rodriguez MD [Staff Physician] - 1 week Luis Fernando Issa MD [Primary Care Provider] - 1 week Disposition: Home, Self-Nursing Home Medications: Home Medications Medication Instructions Recorded Confirmed Type allopurinol 100 mg tablet 100 mg PO DAILY #90 tab 03/16/19 06/20/19 Rx oxycodone-acetaminophen 10 mg-325 1 tab PO QID PRN #120 tab 05/18/19 06/20/19 Rx mg tablet Tamsulosin HCl [Flomax 0.4mg 0.4 mg PO HS #30 cap 05/28/19 06/20/19 Rx capsule] Aspirin [Aspirin 81mg EC Tab] 81 mg PO DAILY 06/20/19 06/20/19 History Atorvastatin Calcium [Atorvastatin 10 mg PO HS 06/20/19 06/20/19 History 10mg Tab] Cyanocobalamin (Vitamin B-12) 1,000 mcg PO DAILY 06/20/19 06/20/19 History [Vitamin B-12] Ferrous Sulfate [Ferrous Sulfate 325 mg PO DAILY 06/20/19 06/20/19 History 325mg Tablet] Losartan Potassium 25 mg PO DAILY 06/20/19 06/20/19 History Mirtazapine 7.5 mg PO HS 06/20/19 06/20/19 History Pantoprazole Sodium [Protonix 40mg 40 mg PO BID 06/20/19 06/20/19 History tablet] Polyethylene Glycol 3350 [Laxative 17 gm PO DAILYP PRN 06/20/19 06/20/19 History Peg 3350] Sucralfate [Carafate 1gm Tab] 1 gm PO QIDP PRN 06/20/19 06/20/19 History hydrOXYzine pamoate [Vistaril 25mg 25 mg PO HS 06/20/19 06/20/19 History capsule] Metoprolol Succinate [Toprol XL 25 mg PO DAILY 30 Days #30 06/21/19 Rx 25mg tablet] tab.er.24h Prescriptions/Medication Reconciliation: New Metoprolol Succinate [Toprol XL 25mg tablet] 25 mg PO DAILY 30 Days #30 tab.er.24h Continued allopurinol 100 mg tablet 100 mg PO DAILY #90 tab oxycodone-acetaminophen 10 mg-325 mg tablet 1 tab PO QID PRN #120 tab PRN Reason: pain Tamsulosin HCl [Flomax 0.4mg capsule] 0.4 mg PO HS #30 cap Atorvastatin Calcium [Atorvastatin 10mg Tab] 10 mg PO HS Cyanocobalamin (Vitamin B-12) [Vitamin B-12] 1,000 mcg PO DAILY Losartan Potassium 25 mg PO DAILY Mirtazapine 7.5 mg PO HS Pantoprazole Sodium [Protonix 40mg tablet] 40 mg PO BID Polyethylene Glycol 3350 [Laxative Peg 3350] 17 gm PO DAILYP PRN PRN Reason: Constipation Sucralfate [Carafate 1gm Tab] 1 gm PO QIDP PRN PRN Reason: STOMACH Aspirin [Aspirin 81mg EC Tab] 81 mg PO DAILY Ferrous Sulfate [Ferrous Sulfate 325mg Tablet] 325 mg PO DAILY Discontinued hydrOXYzine pamoate [Vistaril 25mg capsule] 25 mg PO HS - Problem Reconciliation Problems Reviewed?: Yes
--- NOTE | 2019-06-22 18:47 | Cardiology Report ---
APPROVED REPORT [employer] Development: CT Laterality: Bilateral Indications: B carotid bruits, L> R Risk Factors Hypertension: Hyperlipidemia Doppler Spectral Velocity Analysis ECA (R) 103.00/ cm/sECA (L) 86.10/ cm/s dICA (R) 99.90/25.80 cm/sdICA (L) 96.20/39.00 cm/s Doris (R) 177.00/40.30 cm/smICA (L) 145.00/51.10 cm/s pICA (R) 163.00/47.10 cm/spICA (L) 71.20/21.00 cm/s dCCA (R) 69.90/17.30 cm/sdCCA (L) 73.50/13.80 cm/s pCCA (R) 89.60/24.40 cm/spCCA (L) 99.30/18.90 cm/s Vert (R) 30.60/ cm/sVert (L) 42.10/ cm/s ICA/CCA 2.53 ICA/CCA 1.97 Conclusion Duplex evaluation demonstrates stenosis of the right proximal internal carotid artery in the range of 50-69% with PSV =140 cm/sec, EDV <100 cm/sec, and IC/CC Ratio <4.0. Duplex evaluation demonstrates stenosis of the left proximal internal carotid artery in the range of 50-69% with PSV =140 cm/sec, EDV <100 cm/sec, and IC/CC Ratio <4.0. Duplex evaluation demonstrates antegrade flow of the bilateral Vertebral Arteries. Electronically signed by : Andre Barnes MD 06/22/2019 18:47:07
== END 2019-06-21 12:14 | disposition home or self-care (01) ==
LOC: 2ND 19:01 → ER 19:01 → 2ND 21:06
PROVIDERS: ADMIT Emergency Medicine; ATTEND Emergency Medicine
CPT/HCPCS: 36415; 71010; 71045; 78452; 80048; 83735; 84484; 85025; 93005; 93017; 93306; 93880; 96365; 99284; A9502; G0378; J2785

== ENCOUNTER 2019-07-04 17:51 | Observation (INO) ==
[2019-07-04 18:24] LABS: Basophils % 0.4 % (0.1-2.0); Eosinophils # 0.1 K/mm3 (0.0-0.4); Eosinophils % 1.2 % (0.1-12.0); Hematocrit 35.6 % (42.0-52.0); Hemoglobin 11.7 g/dL (14.1-18.0); Lymphocytes # 1.5 K/mm3 (0.7-4.5); Lymphocytes % 20.3 % (10-50); Mean Corpuscular HGB Conc 32.7 g/dL (31.8-35.4); Mean Corpuscular Volume 98.8 fl (80-94); Mean Platelet Volume 8.2 fl (7.4-10.4); Monocytes # 0.3 K/mm3 (0.1-1.0); Monocytes % 4.6 % (1.7-9.3); Neutrophils # 5.3 K/mm3 (1.8-7.8); Neutrophils % 73.5 % (37.0-80.0); Platelet Count 175 K/mm3 (142-424); Red Cell Distribution Width 13.3 % (11.5-17.5); White Blood Count 7.2 K/mm3 (4.8-10.8)
--- NOTE | 2019-07-04 18:36 | Emergency Department Note ---
ED Disposition Clinical Impression: Dyspnea, Chest pain Disposition: Admitted As Inpatient Condition on Discharge: Serious Time of Disposition: 21:12 - Critical Care Critical Care Time: No Attestation: On 07/04/19, the high probability of a clinically significant, sudden or life threatening deterioration of the following system(s) required my full and direct attention, intervention and personal management. The time I documented below is in addition to time spent performing reported procedures but includes the following listed in this critical care notation. Medical Decision Making - Medical Records Medical records reviewed: Yes: I reviewed the patient's medical records. - Artemio Inquiry Pt receiving controlled substance: No Vital Signs: 07/04/19 17:51 07/04/19 20:00 Pulse Rate [Radial] 111 H 88 Respiratory Rate 20 18 Blood Pressure [Right Arm] 138/78 147/89 H Blood Pressure Mean [Right Arm] 98 108 Blood Pressure Source [Right Arm] Automatic Cuff Automatic Cuff Blood Pressure Position [Right Arm] Sitting Sitting 02 Sat by Pulse Oximetry 98 97 Oxygen Delivery Method Room Air Room Air - Lab Data Lab results reviewed: Yes: I reviewed the patient's lab results. Lab Results 07/04/19 15:08: WBC 7.2 D, RBC 3.60 L, Hgb 11.7 L, Hct 35.6 L, MCV 98.8 H, MCH 32.3 H, MCHC 32.7, RDW 13.3, Plt Count 175, MPV 8.2, Neut % (Auto) 73.5, Lymph % (Auto) 20.3, [place] % (Auto) 4.6, Eos % (Auto) 1.2, Baso % (Auto) 0.4, Neut # (Auto) 5.3, Lymph # (Auto) 1.5, [place] # (Auto) 0.3, Eos # (Auto) 0.1, Baso # (Auto) 0.0 07/04/19 15:08: Sodium 142, Potassium 3.6, Chloride 104, Carbon Dioxide 26, Anion Gap 15.6 H, BUN 19 H, Creatinine 1.64 H, Estimated Creat Clear 39, Estimated GFR 40 L, Est GFR ( Amer) 49 L, Glucose 110 H D, Calcium 8.5, Total Bilirubin 0.7, AST 12 L, ALT 13, Alkaline Phosphatase 60, Troponin I 0.07 H, Total Protein 7.0, Albumin 3.3 L, Globulin 3.7 H, Albumin/Globulin Ratio 0.9 L 07/04/19 15:08: Lactate 2.0 07/04/19 15:08: B-Natriuretic Peptide 78 07/04/19 18:05: D-Dimer 1480 H* Result diagrams: 07/04/19 15:08 07/04/19 15:08 Orders (Tests/Meds): ORDERS Category Date Time Status Troponin I Q3H Lab 07/04/19 21:15 Ordered Troponin I Q3H Lab 07/05/19 00:15 Ordered Blood Culture Stat Micro 07/04/19 15:08 Received - Radiology Data #1 Image(s): Chest Image Reviewed: Yes I reviewed the patient's radiology results, Yes I reviewed the patient's radiology image Preliminary Findings: Abnormal (Cardiomegaly without failure. Pacemaker in place.) - ECG Data Tracing #1 I reviewed this ECG and interpreted as documented below: [employer] cardiac pacemaker on demand mode. ECG initial impression date: 07/04/19 ECG initial impression time: 17:58 Conduction abnormalities present: LBBB Pacemaker function: normal pacer function - Physician Consults Physician Consulted: Dr. Fletcher naturalization examiner for Dr. Gama Time: 21:00 Reason -: Admission Comment/Response: Patient has had contrast with cardiac catheterization today. He will need a VQ scan in the morning to rule out pulmonary embolus due to his chest pain and shortness of breath. General Adult HPI - General Chief complaint: Shortness of Breath/Dyspnea Stated complaint: Heart Cath put in today/SOB Time Seen by Provider: 07/04/19 18:00 Mode of Arrival: Ambulatory Source of Information: Patient Limitations: No Limitations Description of Symptoms (Recalled from ER Triage Doc. by RN): Heart cath perfomed today. States he was a little short of breathe before but hasn't gotten better and states it feels like he can't catch his breathe. daughter states that he has been kind of out of it all day. - History of Present Illness HPI narrative: 83-year old male who had a cardiac catheterization earlier today presents with sudden onset of shortness of breath. Severity: severe Quality: other (Hartness of breath) Consistency: constant Relieving factors: none Exacerbating factors: none Associated symptoms: denies other symptoms - Related Data Home Medications Medication Instructions Recorded Confirmed Aspirin [Aspirin 81mg EC Tab] 81 mg PO DAILY 06/20/19 06/28/19 Atorvastatin Calcium [Atorvastatin 10 mg PO HS 06/20/19 06/28/19 10mg Tab] Cyanocobalamin (Vitamin B-12) 1,000 mcg PO DAILY 06/20/19 06/28/19 [Vitamin B-12] Ferrous Sulfate [Ferrous Sulfate 325 mg PO DAILY 06/20/19 06/28/19 325mg Tablet] Losartan Potassium 25 mg PO DAILY 06/20/19 06/28/19 Mirtazapine 7.5 mg PO HS 06/20/19 06/28/19 Pantoprazole Sodium [Protonix 40mg 40 mg PO BID 06/20/19 06/28/19 tablet] Polyethylene Glycol 3350 [Laxative 17 gm PO DAILYP PRN 06/20/19 06/28/19 Peg 3350] Sucralfate [Carafate 1gm Tab] 1 gm PO QIDP PRN 06/20/19 06/28/19 hydroxyzine pamoate 25 mg capsule 25 mg PO HS cap 06/28/19 06/28/19 Previous Rx's Medication Instructions Recorded Tamsulosin HCl [Flomax 0.4mg 0.4 mg PO HS #30 cap 05/28/19 capsule] Metoprolol Succinate [Toprol XL 25 mg PO DAILY 30 Days #30 06/21/19 25mg tablet] tab.er.24h allopurinol 100 mg tablet See Rx Instructions .ROUTE 06/23/19 .COMPLEX #90 tablet oxycodone-acetaminophen 10 mg-325 1 tab PO QID PRN #120 tab 06/28/19 mg tablet Allergies Allergy/AdvReac Type Severity Reaction Status Date / Time No Known Allergies Allergy Verified 06/28/19 13:33 [facility] History - Hepatitis A Screen Drug use history?: No High risk sexual behaviors?: No History of sexually transmitted infection?: No Currently employed?: No Childcare worker?: No Do you have indoor plumbing?: Yes Do you have electricity?: Yes Attestation statement:: This patient has been screened for Hepatitis A risk factors. I have reviewed the patient's past medical history: Yes Medical History: Reports:: Cancer, Carotid Stenosis, Congestive Heart Failure, Coronary Artery Disease, Gastroesophageal Reflux Disease(GERD), Hyperlipidemia, Hypertension, Internal Pacemaker, Kidney Stones Denies:: Diabetes Mellitus Type 1, Diabetes Mellitus Type 2, Lung Disease, MRSA, Seizures Comment: vitamin defiency.. back pain, prostate cancer Laterality Cases: Left: Total Hip Replacement Other Surgeries: Yes: Cancer Surgery, Cardiac Catheterization, Colonoscopy, Pacemaker, Other (back sx) Amputation: Yes (2 toes) Fractures: No Comment: Back, Hip, Pacemaker - Social History Educational Level: Completed High School Smoking Status: Never smoker Alcohol Intake: never Alcohol Intake Frequency:: 3 or more drinks per day Substance Use Type: denies use Occupational Status: retired Housing: house Household Members: family Family Hx:: Unable to obtain ROS Obtained: Yes Systems reviewed as appropriate & no additional complaints - Constitutional Constitutional: Reports system reviewed and no additional complaints, except as docu - Eyes Eyes: Reports system reviewed and no additional complaints, except as docu - ENT Ears, Nose, Mouth, and Throat: Reports system reviewed and no additional co mplaints, except as docu - Cardiovascular Cardiovascular: Reports system reviewed and no additional complaints, except as docu - Respiratory Respiratory: Yes dyspnea - Gastrointestinal Gastrointestingal: Reports: system reviewed and no additional complaints, except as docu - Genitourinary Male Genitourinary: Reports system reviewed and no additional complaints, except as docu - Musculoskeletal Musculoskeletal: Reports system reviewed and no additional complaints, except as docu - Integumentary/Breasts Skin/Breast: Reports system reviewed and no additional complaints, except as docu - Neurologic Neurologic: Reports system reviewed and no additional complaints, except as docu - Endocrine Endocrine: Reports system reviewed and no additional complaints, except as docu - Hematologic/Lymphatic Henatologic/Lymphatic: Reports system reviewed and no additional complaints, except as docu - Allergic/Immunologic Allergic/Immunologic: Reports system reviewed and no additional complaints, except as docu Physical Exam - General General appearance: alert, in no apparent distress - Head Head exam: atraumatic, normocephalic, normal inspection - Eye Eye exam: Present: normal appearance, PERRL, EOMI - ENT ENT exam: Present: normal exam, normal oropharynx, mucous membranes moist, normal external ear exam - Neck Neck exam: Present: normal inspection, full ROM, trachea midline. Absent: m eningismus, lymphadenopathy - Chest Chest inspection: Present: normal inspection, symmetric chest wall rise. Absent: tenderness - Respiratory Respiratory exam: Present: normal lung sounds bilaterally. Absent: respiratory distress - Cardiovascular Cardiovascular exam: Present: regular rate, normal rhythm. Absent: JVD - Abdominal Exam Abdominal exam: Present: soft, normal bowel sounds. Absent: distention, tenderness, guarding - Extremities Exam Extremities exam: Present: normal inspection, full ROM, normal capillary refill. Absent: calf tenderness - Back Exam Back exam: Present: normal inspection. Absent: tenderness - Neurological Exam Neurological exam: Present: alert, oriented X3, CN II-XII intact, normal gait. Absent: motor sensory deficit - Psychiatric Psychiatric exam: Present: normal affect, normal mood - Skin Skin exam: Present: warm, dry, intact, normal color
[2019-07-04 18:47] LABS: Albumin Level 3.3 gm/dL (3.4-5.0); Albumin/Globulin Ratio 0.9 (1.1-1.8); Anion Gap 15.6 mEq/L (5-15); Bilirubin,Total 0.7 mg/dL (0.2-1.0); Calcium 8.5 mg/dL (8.5-10.1); Globulin 3.7 gm/dl (1.3-3.2)
[2019-07-05 06:04] LABS: Basophils % 0.5 % (0.1-2.0); Eosinophils # 0.3 K/mm3 (0.0-0.4); Eosinophils % 4.3 % (0.1-12.0); Hematocrit 34.9 % (42.0-52.0); Hemoglobin 11.5 g/dL (14.1-18.0); Lymphocytes % 32.4 % (10-50); Mean Corpuscular Volume 97.5 fl (80-94); Mean Platelet Volume 8.7 fl (7.4-10.4); Monocytes # 0.4 K/mm3 (0.1-1.0); Monocytes % 6.4 % (1.7-9.3); Neutrophils # 3.5 K/mm3 (1.8-7.8); Neutrophils % 56.3 % (37.0-80.0); Platelet Count 163 K/mm3 (142-424); Red Blood Count 3.58 M/mm3 (4.60-6.20); Red Cell Distribution Width 13.1 % (11.5-17.5); White Blood Count 6.2 K/mm3 (4.8-10.8)
[2019-07-05 06:12] LABS: INR 1.03 (0.9-1.1); Prothrombin Time 10.7 seconds (9.4-11.8)
[2019-07-05 06:14] LABS: Activated Partial Thrombo Time 117.1 seconds (23.6-34.0)
[2019-07-05 06:18] LABS: Albumin/Globulin Ratio 0.9 (1.1-1.8); Anion Gap 12.7 mEq/L (5-15); Bilirubin,Total 0.6 mg/dL (0.2-1.0); Calcium 8.4 mg/dL (8.5-10.1); Chol/HDL Ratio 3.9 (1-3.5); Globulin 3.5 gm/dl (1.3-3.2); Phosphorous 3.6 mg/dL (2.4-4.9); Total Protein,Serum 6.5 gm/dL (6.4-8.2)
--- NOTE | 2019-07-05 07:50 | Consult Report ---
History of Present Illness Consult date: 07/05/19 Requesting physician: Luis Fernando Gama Consult reason: shortness of breath Chief complaint: SOA Additional Medical History:: 1. Coronary artery disease, cardiac cath, 07/04/2019 A. The left main artery Has an ostial 80 to 90% stenosis The left anterior descending artery Has mild proximal and mid vessel 10% luminal irregularities The circumflex artery Is nondominant and has mild luminal irregularities 10% The right coronary artery Is a dominant vessel and ostially occluded The MALIN ventriculogram reveals Left ventricular dilatation with ejection fraction of 50% The left ventricular end-diastolic pressure Elevated at 30 mmHg IMPRESSION Severe left main artery stenosis Successful stenting of the ostial proximal left main artery severe disease reduced to 0% with one drug-eluting stent Left ventricular dilatation with mild reduction in ejection fraction Moderately elevated LVEDP consistent with diastolic dysfunction 2. Hypertension 3. Hyperlipidemia 4. History of pacemaker in situ placed approximately 20 years ago (unable to interrogate device with [employer], [employer], ROBERT/Pro or [employer] interrogator's. Device possibly is a Biotronik device) 5. Very hard of hearing 6. GERD 7. History of kidney stones 8. CKD, stage II 9. Carotid artery stenosis A. CNI, 09/2018, Study suggests 50-69% stenosis involving the right internal carotid artery. Study suggests 20-49% stenosis involving the left internal carotid artery B. CNI, 06/2019,50-69% bilateral ICA stenosis History of present illness: 83-year-old white male was in the outpatient setting in the cardiac Digital Imaging Technician yesterday and underwent cardiac cath with subsequent stenting of his left main artery. Afterward patient was noted to have increasing shortness of breath which did not improve upon going home and subsequently prompted him to come back for evaluation. In the emergency department patient was evaluated with chest x- ray showing no evidence of heart failure, slightly elevated troponin and elevated d-dimer related to recent coronary stenting with no acute EKG changes. Patient was admitted with plans for VQ scan this a.m. to rule out pulmonary embolus. Patient was given a loading dose of Brilinta yesterday in the Digital Imaging Technician which likely is the source for his shortness of breath. This a.m. he states he is feeling better and back to normal. He denies any chest pain. [facility] History Medical History: Reports:: Cancer, Carotid Stenosis, Congestive Heart Failure, Coronary Artery Disease, Gastroesophageal Reflux Disease(GERD), Hyperlipidemia, Hypertension, Internal Pacemaker, Kidney Stones Denies:: Diabetes Mellitus Type 1, Diabetes Mellitus Type 2, Lung Disease, MRSA, Seizures *Have you ever received a pneumonia vaccine?: No *Have you received a flu vaccine this season?: No Laterality Cases: Left: Total Hip Replacement Other Surgeries: Yes: Cancer Surgery, Cardiac Catheterization, Colonoscopy, Pacemaker, Other (back sx) Amputation: Yes (2 toes) Fractures: No - *Social History Educational Level: Attended Grade School Smoking Status: Never smoker Alcohol Intake: former Alcohol Intake Frequency:: 3 or more drinks per day Substance Use Type: denies use *Occupational Status:: retired Housing: house Household Members: family *Travel in the last 8 weeks: None Family Hx:: Unable to obtain Meds Home Medications Medication Instructions Recorded Confirmed Type oxycodone-acetaminophen 10 mg-325 1 tab PO QID PRN #120 tab 06/28/19 07/04/19 Rx mg tablet Metoprolol Succinate [Toprol XL 25 mg PO DAILY 07/04/19 07/04/19 History 25mg tablet] Tamsulosin HCl [Flomax 0.4mg 0.4 mg PO HS 07/04/19 07/04/19 History capsule] Ticagrelor [Brilinta 90mg Tablet] 90 mg PO BID 07/04/19 07/04/19 History allopurinoL [Allopurinol 100mg 100 mg PO DAILY 07/04/19 07/04/19 History tablet] Aspirin [Aspirin 81mg EC Tab] 81 mg PO DAILY 07/05/19 07/05/19 History Allergies Allergy/AdvReac Type Severity Reaction Status Date / Time No Known Allergies Allergy Verified 07/04/19 22:30 Review of Systems - Review of Systems Review of systems:: pertinent systems reviewed and negative unless documented below - *Cardiovascular Reports shortness of breath, Denies chest pain - *Respiratory Reports shortness of breath, Denies cough - *Gastrointestinal Denies abdominal pain, Denies nausea, Denies vomiting - *Genitourinary Denies blood in urine - *Musculoskeletal Denies joint pain, Denies back pain - *Neurologic Denies fainting, Denies tingling Exam Vital signs and Labs for Last 24 Hours: Temp Pulse Resp BP Pulse Ox 97.8 F 85 20 140/81 97 07/05/19 04:00 07/05/19 04:00 07/05/19 04:00 07/05/19 04:00 07/05/19 04:00 Laboratory Results - last 24 hr 07/04/19 15:08: WBC 7.2 D, RBC 3.60 L, Hgb 11.7 L, Hct 35.6 L, MCV 98.8 H, MCH 32.3 H, MCHC 32.7, RDW 13.3, Plt Count 175, MPV 8.2, Neut % (Auto) 73.5, Lymph % (Auto) 20.3, [place] % (Auto) 4.6, Eos % (Auto) 1.2, Baso % (Auto) 0.4, Neut # (Auto) 5.3, Lymph # (Auto) 1.5, [place] # (Auto) 0.3, Eos # (Auto) 0.1, Baso # (Auto) 0.0 07/04/19 15:08: Sodium 142, Potassium 3.6, Chloride 104, Carbon Dioxide 26, Anion Gap 15.6 H, BUN 19 H, Creatinine 1.64 H, Estimated Creat Clear 39, Estimated GFR 40 L, Est GFR ( Amer) 49 L, Glucose 110 H D, Calcium 8.5, Total Bilirubin 0.7, AST 12 L, ALT 13, Alkaline Phosphatase 60, Troponin I 0.07 H, Total Protein 7.0, Albumin 3.3 L, Globulin 3.7 H, Albumin/Globulin Ratio 0.9 L 07/04/19 15:08: Lactate 2.0 07/04/19 15:08: B-Natriuretic Peptide 78 07/04/19 18:05: D-Dimer 1480 H* 07/04/19 22:13: APTT 26.4 07/05/19 00:32: Troponin I 0.17 H 07/05/19 05:45: WBC 6.2, RBC 3.58 L, Hgb 11.5 L, Hct 34.9 L, MCV 97.5 H, MCH 32.1 H, MCHC 33.0, RDW 13.1, Plt Count 163, MPV 8.7, Neut % (Auto) 56.3, Lymph % (Auto) 32.4, [place] % (Auto) 6.4, Eos % (Auto) 4.3, Baso % (Auto) 0.5, Neut # (Auto) 3.5, Lymph # (Auto) 2.0, [place] # (Auto) 0.4, Eos # (Auto) 0.3, Baso # (Auto) 0.0 07/05/19 05:45: Sodium 141, Potassium 3.7, Chloride 105, Carbon Dioxide 27, Anion Gap 12.7, BUN 18, Creatinine 1.44 H, Estimated Creat Clear 43, Estimated GFR 47 L, Est GFR ( Amer) 57 L, Glucose 100, Calcium 8.4 L, Phosphorus 3.6, Magnesium 1.7, Total Bilirubin 0.6, AST 14 L, ALT 10 L, Alkaline Phosphatase 56, Troponin I 0.13 H, Total Protein 6.5, Albumin 3.0 L, Globulin 3.5 H, Albumin/Globulin Ratio 0.9 L, Triglycerides 54, Cholesterol 165, LDL Cholesterol 112, VLDL Cholesterol 11, HDL Cholesterol 42, Cholesterol/HDL Ratio 3.9 H 07/05/19 05:45: PT 10.7, INR 1.03, APTT 117.1 H* D I & O for Last 24 hours: Intake & Output 07/02/19 07/03/19 07/04/19 07/05/19 11:59 11:59 11:59 11:59 Intake Total 112 / 112 Balance 112 / 112 Weight 170 lb 5 oz - *Routine HEENT Exam Head: Present: normocephalic Eye: Present: EOMI, PERRL ENT: Present: mucous membranes moist - *Routine Neck Exam Present: supple. Absent: JVD, carotid bruit - *Routine Respiratory Exam Present: CTA bilaterally. Absent: accessory muscle use, rales, rhonchi, wheezes - *Routine Cardiovascular Exam Present: RRR. Absent: murmur, gallop, rubs - *Routine Abdominal Exam Present: soft. Absent: tenderness, distended, guarding - *Routine Extremities Exam Absent: edema, calf tenderness - *Routine Neurological Exam Present: alert, oriented X3, moving all extremities Assessment and Plan (1) Dyspnea Current visit: Yes Status: Acute Category: Medical Code(s): R06.00 - Dyspnea, unspecified (2) CAD (coronary artery disease) Current visit: Yes Status: Acute Category: Medical Code(s): I25.10 - Atherosclerotic heart disease of [place] coronary artery without angina pectoris (3) S/P drug eluting coronary stent placement Current visit: Yes Status: Acute Category: Surgical Code(s): Z95.5 - Presence of coronary angioplasty implant and graft (4) History of cardiomyopathy Current visit: No Status: Chronic Category: Medical Code(s): Z86.79 - Personal history of other diseases of the circulatory system (5) Hyperlipidemia Current visit: No Status: Chronic Qualifiers: Hyperlipidemia type: unspecified Qualified Code(s): E78.5 - Hyperlipidemia, unspecified Category: Medical Code(s): E78.5 - Hyperlipidemia, unspecified (6) Pacemaker Current visit: No Status: Chronic Category: Medical Code(s): Z95.0 - Presence of cardiac pacemaker - Assessment and plan all Dx Assessment and Plan for all problems:: 1. Shortness of breath after cardiac cath with left main coronary stenting and loading dose of Brilinta given. Shortness of breath most likely related to Brilinta as cardiac troponins are already trending down post coronary stenting and patient is back at his baseline. We will forego VQ scan today. We will replace Brilinta with Plavix and give a loading dose today. Patient could be discharged home later today for follow-up in our office in 1 week. 2. History of cardiomyopathy with ejection fraction on cardiac cath yesterday noted to be around 50%. 3. Pacemaker in situ, possibly Biotronik device as we have been unable to interrogate the device with Medtr[employer], [employer], ROBERT/Pro or [employer] interrogator's. 4. Home med recommendations: ASA 81 mg Daily Plavix 75 mg daily Metoprolol succinate XL 25 mg daily Atorvastatin 10 mg daily Losartan 25 mg daily Isosorbide mononitrate 30 mg daily 5. Follow up in our office next week.
--- NOTE | 2019-07-05 08:22 | H&P/Discharge Summary ---
General - General Admission date:: 07/04/19 Discharge date: 07/05/19 *Chief complaint: Chest Pain *History of present illness: 83-year-old male sitting up in bed resting quietly respirations easy even, denies chest pain shortness of breath at present. Discussed with him he will be discharged home today he is agreeable to this after PT/OT mateo 83-year-old white male was in the outpatient setting in the cardiac Microstrategy Bi Developer yesterday and underwent cardiac cath with subsequent stenting of his left main artery. Afterward patient was noted to have increasing shortness of breath which did not improve upon going home and subsequently prompted him to come back for evaluation. In the emergency department patient was evaluated with chest x- ray showing no evidence of heart failure, slightly elevated troponin and elevated d-dimer related to recent coronary stenting with no acute EKG changes. Patient was admitted with plans for VQ scan this a.m. to rule out pulmonary embolus. Patient was given a loading dose of Brilinta yesterday in the Microstrategy Bi Developer which likely is the source for his shortness of breath. This a.m. he states he is feeling better and back to normal. He denies any chest pain. (Per Randell BAINS) [facility] History Medical History: Reports:: Cancer, Carotid Stenosis, Congestive Heart Failure, Coronary Artery Disease, Gastroesophageal Reflux Disease(GERD), Hyperlipidemia, Hypertension, Internal Pacemaker, Kidney Stones Denies:: Diabetes Mellitus Type 1, Diabetes Mellitus Type 2, Lung Disease, MRSA, Seizures *Have you ever received a pneumonia vaccine?: No *Have you received a flu vaccine this season?: No Laterality Cases: Left: Total Hip Replacement Other Surgeries: Yes: Cancer Surgery, Cardiac Catheterization, Colonoscopy, Pacemaker, Other (back sx) Amputation: Yes (2 toes) Fractures: No - *Social History Educational Level: Attended Grade School Smoking Status: Never smoker Alcohol Intake: former Alcohol Intake Frequency:: 3 or more drinks per day Substance Use Type: denies use *Occupational Status:: retired Housing: house Household Members: family *Travel in the last 8 weeks: None Family Hx:: Unable to obtain Review of Systems - Review of Systems Review of systems:: pertinent systems reviewed and negative unless documented below - Constitutional Denies body ache(s), Denies chills - Eyes Denies blurry vision - ENT Reports abnormal hearing, Denies headache(s), Denies sinus pain - *Cardiovascular Reports chest pain, Denies radiating jaw, neck or arm pain - *Respiratory Denies chest congestion, Denies cough - *Gastrointestinal Denies abdominal pain, Denies incontinent of stools - *Genitourinary Denies difficulty urinating, Denies penile discharge, Denies urinary incontinence - *Musculoskeletal Denies joint pain, Denies muscle weakness - Integumentary/Breasts Denies change in skin color, Denies rash - *Neurologic Denies fainting, Denies tingling - Psychiatric Denies thoughts of hurting/killing others, Denies thoughts of hurting/killing yourself - Endocrine Denies cold intolerance, Denies heat intolerance - Hematologic/Lymphatic Denies easy bleeding, Denies easy bruising - Allergic/Immunologic Denies GI upset with certain foods, Denies throat swelling Exam Vital signs and Labs for Last 24 Hours: Temp Pulse Resp BP Pulse Ox 97.8 F 85 20 140/81 97 07/05/19 04:00 07/05/19 04:00 07/05/19 04:00 07/05/19 04:00 07/05/19 04:00 Laboratory Results - last 24 hr 07/04/19 15:08: WBC 7.2 D, RBC 3.60 L, Hgb 11.7 L, Hct 35.6 L, MCV 98.8 H, MCH 32.3 H, MCHC 32.7, RDW 13.3, Plt Count 175, MPV 8.2, Neut % (Auto) 73.5, Lymph % (Auto) 20.3, [place] % (Auto) 4.6, Eos % (Auto) 1.2, Baso % (Auto) 0.4, Neut # (Auto) 5.3, Lymph # (Auto) 1.5, [place] # (Auto) 0.3, Eos # (Auto) 0.1, Baso # (Auto) 0.0 07/04/19 15:08: Sodium 142, Potassium 3.6, Chloride 104, Carbon Dioxide 26, Anion Gap 15.6 H, BUN 19 H, Creatinine 1.64 H, Estimated Creat Clear 39, Estimated GFR 40 L, Est GFR ( Amer) 49 L, Glucose 110 H D, Calcium 8.5, Total Bilirubin 0.7, AST 12 L, ALT 13, Alkaline Phosphatase 60, Troponin I 0.07 H, Total Protein 7.0, Albumin 3.3 L, Globulin 3.7 H, Albumin/Globulin Ratio 0.9 L 07/04/19 15:08: Lactate 2.0 07/04/19 15:08: B-Natriuretic Peptide 78 07/04/19 18:05: D-Dimer 1480 H* 07/04/19 22:13: APTT 26.4 07/05/19 00:32: Troponin I 0.17 H 07/05/19 05:45: WBC 6.2, RBC 3.58 L, Hgb 11.5 L, Hct 34.9 L, MCV 97.5 H, MCH 32.1 H, MCHC 33.0, RDW 13.1, Plt Count 163, MPV 8.7, Neut % (Auto) 56.3, Lymph % (Auto) 32.4, [place] % (Auto) 6.4, Eos % (Auto) 4.3, Baso % (Auto) 0.5, Neut # (Auto) 3.5, Lymph # (Auto) 2.0, [place] # (Auto) 0.4, Eos # (Auto) 0.3, Baso # (Auto) 0.0 07/05/19 05:45: Sodium 141, Potassium 3.7, Chloride 105, Carbon Dioxide 27, Anion Gap 12.7, BUN 18, Creatinine 1.44 H, Estimated Creat Clear 43, Estimated GFR 47 L, Est GFR ( Amer) 57 L, Glucose 100, Calcium 8.4 L, Phosphorus 3.6, Magnesium 1.7, Total Bilirubin 0.6, AST 14 L, ALT 10 L, Alkaline Phosphatase 56, Troponin I 0.13 H, Total Protein 6.5, Albumin 3.0 L, Globulin 3.5 H, Albumin/Globulin Ratio 0.9 L, Triglycerides 54, Cholesterol 165, LDL Cholesterol 112, VLDL Cholesterol 11, HDL Cholesterol 42, Cholesterol/HDL Ratio 3.9 H 07/05/19 05:45: PT 10.7, INR 1.03, APTT 117.1 H* D I & O for Last 24 hours: Intake & Output 07/02/19 07/03/19 07/04/19 07/05/19 23:59 23:59 23:59 23:59 Intake Total 112 / 112 Balance 112 / 112 Weight 171 lb 170 lb 5 oz - Constitutional no acute distress - *Routine HEENT Exam Head: Present: normocephalic. Absent: tenderness of temporal artery Eye: Present: EOMI, PERRL, normal accommodation. Absent: conjunctival icterus, periorbital swelling ENT: Present: mucous membranes dry. Absent: sinus tenderness - *Routine Neck Exam Present: full ROM, trachea midline. Absent: JVD, tracheal deviation - Routine Chest/Breast/Axilla Exam Chest wall: Absent: tenderness - *Routine Respiratory Exam Present: CTA bilaterally. Absent: accessory muscle use - *Routine Cardiovascular Exam Present: RRR - *Routine Abdominal Exam Present: soft, normoactive bowel sounds. Absent: tenderness, firm - *Routine Extremities Exam Present: full ROM, pulses intact. Absent: cyanosis, calf tenderness - Routine Back/Spine/Pelvis Exam Back/Spine: Present: full ROM. Absent: CVA tenderness - *Routine Skin Exam Present: intact. Absent: cyanosis, erythema - *Routine Neurological Exam Present: alert, oriented X3, CN II-XII intact. Absent: tremors - Routine Psychiatric Exam Present: normal affect, normal thought process. Absent: suicidal ideation, homicidal ideation Hospital Course Hospital Course: Cardiology seen and recommends: 1. Shortness of breath after cardiac cath with left main coronary stenting and loading dose of Brilinta given. Shortness of breath most likely related to Brilinta as cardiac troponins are already trending down post coronary stenting and patient is back at his baseline. We will forego VQ scan today. We will replace Brilinta with Plavix and give a loading dose today. Patient could be discharged home later today for follow-up in our office in 1 week. 2. History of cardiomyopathy with ejection fraction on cardiac cath yesterday noted to be around 50%. 3. Pacemaker in situ, possibly Biotronik device as we have been unable to interrogate the device with [employer], [employer], ROBERT[employer]Pro or [employer] interrogator's. 4. Home med recommendations: ASA 81 mg Daily Plavix 75 mg daily Metoprolol succinate XL 25 mg daily Atorvastatin 10 mg daily Losartan 25 mg daily Isosorbide mononitrate 30 mg daily 5. Follow up in our office next week. 07/04 CXR: IMPRESSION: No change with no acute finding Dictated by: Dr. Barnes, Results Labs on day of discharge: Labs from last 24 hours 12/17/19 12/17/19 12/17/19 05:45 05:45 05:45 WBC 6.2 RBC 3.58 L Hgb 11.5 L Hct 34.9 L MCV 97.5 H MCH 32.1 H MCHC 33.0 RDW 13.1 Plt Count 163 MPV 8.7 Neut % (Auto) 56.3 Lymph % (Auto) 32.4 [place] % (Auto) 6.4 Eos % (Auto) 4.3 Baso % (Auto) 0.5 Neut # (Auto) 3.5 Lymph # (Auto) 2.0 [place] # (Auto) 0.4 Eos # (Auto) 0.3 Baso # (Auto) 0.0 PT 10.7 INR 1.03 APTT 117.1 H* D D-Dimer Sodium 141 Potassium 3.7 Chloride 105 Carbon Dioxide 27 Anion Gap 12.7 BUN 18 Creatinine 1.44 H Estimated Creat Clear 43 Estimated GFR 47 L Est GFR ( Amer) 57 L Glucose 100 Lactate Calcium 8.4 L Phosphorus 3.6 Magnesium 1.7 Total Bilirubin 0.6 AST 14 L ALT 10 L Alkaline Phosphatase 56 Troponin I 0.13 H B-Natriuretic Peptide Total Protein 6.5 Albumin 3.0 L Globulin 3.5 H Albumin/Globulin Ratio 0.9 L Triglycerides 54 Cholesterol 165 LDL Cholesterol 112 VLDL Cholesterol 11 HDL Cholesterol 42 Cholesterol/HDL Ratio 3.9 H 07/05/19 07/04/19 07/04/19 00:32 22:13 18:05 WBC RBC Hgb Hct MCV MCH MCHC RDW Plt Count MPV Neut % (Auto) Lymph % (Auto) [place] % (Auto) Eos % (Auto) Baso % (Auto) Neut # (Auto) Lymph # (Auto) [place] # (Auto) Eos # (Auto) Baso # (Auto) PT INR APTT 26.4 D-Dimer 1480 H* Sodium Potassium Chloride Carbon Dioxide Anion Gap BUN Creatinine Estimated Creat Clear Estimated GFR Est GFR ( Amer) Glucose Lactate Calcium Phosphorus Magnesium Total Bilirubin AST ALT Alkaline Phosphatase Troponin I 0.17 H B-Natriuretic Peptide Total Protein Albumin Globulin Albumin/Globulin Ratio Triglycerides Cholesterol LDL Cholesterol VLDL Cholesterol HDL Cholesterol Cholesterol/HDL Ratio 07/04/19 07/04/19 07/04/19 15:08 15:08 15:08 WBC RBC Hgb Hct MCV MCH MCHC RDW Plt Count MPV Neut % (Auto) Lymph % (Auto) [place] % (Auto) Eos % (Auto) Baso % (Auto) Neut # (Auto) Lymph # (Auto) [place] # (Auto) Eos # (Auto) Baso # (Auto) PT INR APTT D-Dimer Sodium 142 Potassium 3.6 Chloride 104 Carbon Dioxide 26 Anion Gap 15.6 H BUN 19 H Creatinine 1.64 H Estimated Creat Clear 39 Estimated GFR 40 L Est GFR ( Amer) 49 L Glucose 110 H D Lactate 2.0 Calcium 8.5 Phosphorus Magnesium Total Bilirubin 0.7 AST 12 L ALT 13 Alkaline Phosphatase 60 Troponin I 0.07 H B-Natriuretic Peptide 78 Total Protein 7.0 Albumin 3.3 L Globulin 3.7 H Albumin/Globulin Ratio 0.9 L Triglycerides Cholesterol LDL Cholesterol VLDL Cholesterol HDL Cholesterol Cholesterol/HDL Ratio 07/04/19 15:08 WBC 7.2 D RBC 3.60 L Hgb 11.7 L Hct 35.6 L MCV 98.8 H MCH 32.3 H MCHC 32.7 RDW 13.3 Plt Count 175 MPV 8.2 Neut % (Auto) 73.5 Lymph % (Auto) 20.3 [place] % (Auto) 4.6 Eos % (Auto) 1.2 Baso % (Auto) 0.4 Neut # (Auto) 5.3 Lymph # (Auto) 1.5 [place] # (Auto) 0.3 Eos # (Auto) 0.1 Baso # (Auto) 0.0 PT INR APTT D-Dimer Sodium Potassium Chloride Carbon Dioxide Anion Gap BUN Creatinine Estimated Creat Clear Estimated GFR Est GFR ( Amer) Glucose Lactate Calcium Phosphorus Magnesium Total Bilirubin AST ALT Alkaline Phosphatase Troponin I B-Natriuretic Peptide Total Protein Albumin Globulin Albumin/Globulin Ratio Triglycerides Cholesterol LDL Cholesterol VLDL Cholesterol HDL Cholesterol Cholesterol/HDL Ratio - Additional Comments Rounded with Dr. Gama, orders per Dr. Gama We will discharge home today, patient is agreeable to this Home med recommendations, per cardiology: ASA 81 mg Daily Plavix 75 mg daily Metoprolol succinate XL 25 mg daily Atorvastatin 10 mg daily Losartan 25 mg daily Isosorbide mononitrate 30 mg daily Follow-up with cardiology in 1 week Follow-up with PCP in 2 weeks DS: Diagnosis - Discharge Diagnosis (1) Dyspnea Status: Acute (2) CAD (coronary artery disease) Status: Acute (3) S/P drug eluting coronary stent placement Status: Acute (4) History of cardiomyopathy Status: Chronic (5) Hyperlipidemia Status: Chronic (6) Pacemaker Status: Chronic Discharge Plan - Patient Discharge Instructions ACTIVITY: Continue current activity DIET: continue same diet Patient Instructions: DI for Shortness of Breath, DI for Chest Pain - Follow up Plan Follow up with: Yaw Rodriguez MD [Staff Physician] - 1 week Luis Fernando Gama MD [Primary Care Provider] - 2 weeks Disposition: Home, Self-Custodial Medications: Home Medications Medication Instructions Recorded Confirmed Type oxycodone-acetaminophen 10 mg-325 1 tab PO QID PRN #120 tab 06/28/19 07/04/19 Rx mg tablet Metoprolol Succinate [Toprol XL 25 mg PO DAILY 07/04/19 07/04/19 History 25mg tablet] Tamsulosin HCl [Flomax 0.4mg 0.4 mg PO HS 07/04/19 07/04/19 History capsule] Ticagrelor [Brilinta 90mg Tablet] 90 mg PO BID 07/04/19 07/04/19 History allopurinoL [Allopurinol 100mg 100 mg PO DAILY 07/04/19 07/04/19 History tablet] Aspirin [Aspirin 81mg EC Tab] 81 mg PO DAILY 07/05/19 07/05/19 History Atorvastatin Calcium [Lipitor 10mg 10 mg PO HS 30 Days #30 tab 07/05/19 Rx Tablet] Clopidogrel Bisulfate [Plavix 75mg 75 mg PO DAILY #30 tab 07/05/19 Rx Tab] Isosorbide Mononitrate [Imdur 30mg 30 mg PO DAILY #30 tab.er.24h 07/05/19 Rx ER tablet] Losartan Potassium 25 mg PO DAILY #30 tab 07/05/19 Rx Prescriptions/Medication Reconciliation: New Isosorbide Mononitrate [Imdur 30mg ER tablet] 30 mg PO DAILY #30 tab.er.24h Losartan Potassium 25 mg PO DAILY #30 tab Clopidogrel Bisulfate [Plavix 75mg Tab] 75 mg PO DAILY #30 tab Atorvastatin Calcium [Lipitor 10mg Tablet] 10 mg PO HS 30 Days #30 tab Continued oxycodone-acetaminophen 10 mg-325 mg tablet 1 tab PO QID PRN #120 tab PRN Reason: pain Tamsulosin HCl [Flomax 0.4mg capsule] 0.4 mg PO HS Aspirin [Aspirin 81mg EC Tab] 81 mg PO DAILY allopurinoL [Allopurinol 100mg tablet] 100 mg PO DAILY Metoprolol Succinate [Toprol XL 25mg tablet] 25 mg PO DAILY Discontinued Ticagrelor [Brilinta 90mg Tablet] 90 mg PO BID - Problem Reconciliation Problems Reviewed?: Yes
--- NOTE | 2019-07-05 08:28 | Pharmacy Consult Notes ---
[facility] Pharmacy VTE Monitoring - Patient Demographics Admission date: 07/05/19 Report Date: 07/05/19 Time: 08:28 Allergies/Adverse Reactions: Patient Allergies No Known Allergies Allergy (Verified 07/04/19 22:30) Height: 1.78 m Weight: 77.252 kg Patient Problems: Current Active Problems Chest pain (Acute) Dyspnea (Acute) CAD (coronary artery disease) (Acute) S/P drug eluting coronary stent placement (Acute) - VTE Risk Labs: VTE Related Lab Results Hgb 11.5 g/dL (14.1-18.0) L 07/05/19 05:45 Hct 34.9 % (42.0-52.0) L 07/05/19 05:45 Plt Count 163 K/mm3 (142-424) 07/05/19 05:45 PT 10.7 seconds (9.4-11.8) 07/05/19 05:45 INR 1.03 (0.9-1.1) 07/05/19 05:45 APTT 117.1 seconds (23.6-34.0) H* D 07/05/19 05:45 BUN 18 mg/dL (7-18) 07/05/19 05:45 Creatinine 1.44 mg/dL (0.70-1.30) H 07/05/19 05:45 Estimated Creat Clear 43 mL/min (50-200) 07/05/19 05:45 VTE Score: 6 VTE Risk Level: Moderate Risk - Prophylaxis VTE Prophylaxis Ordered?: Yes Types of VTE Prophylaxis: Pharmacological Pharmacologic Type: Heparin - VTE Diagnosis Confirmed Treatment or plan recommended: Continue Current Treatment
--- NOTE | 2019-07-05 11:09 | Pharmacy Consult Notes ---
[facility] Pharmacy Heparin Dosing - Demographic Data Admission date:: 07/04/19 Date: 07/05/19 Time: 11:06 Allergies/Adverse Reactions: Allergies Allergy/AdvReac Type Severity Reaction Status Date / Time No Known Allergies Allergy Verified 07/04/19 22:30 Height: 1.77 m Weight: 77 kg - Indication Medication therapy:: Heparin Patient Problems: Current Active Problems Chest pain (Acute) Dyspnea (Acute) CAD (coronary artery disease) (Acute) S/P drug eluting coronary stent placement (Acute) CVA?: No Bleeding problem?: No Kidney disease?: No VA?: No Desired PTT range:: 60-80 seconds - Labs Anticoagulation Lab Results:: 07/04/19 07/05/19 15:08 05:45 Hgb 11.7 L 11.5 L Hct 35.6 L 34.9 L Plt Count 175 163 - Monitoring Dose Monitor 1 Date: 07/04/19 Time: 22:13 PTT Result:: 26.4 Infusion Rate:: 20 MLS/HR Comment:: BASELINE PTT HEPARIN 5000 UNIT BOLUS GIVEN Dose Monitor 2 Date: 07/05/19 Time: 05:45 PTT Result:: 117.1 Infusion Rate:: 17 MLS/HR Comment:: [id number] - Core Measures Is INR > or = 2 at discharge?: No Most Recent Labs:: Laboratory Results - last 24 hr 07/04/19 15:08: WBC 7.2 D, RBC 3.60 L, Hgb 11.7 L, Hct 35.6 L, MCV 98.8 H, MCH 32.3 H, MCHC 32.7, RDW 13.3, Plt Count 175, MPV 8.2, Neut % (Auto) 73.5, Lymph % (Auto) 20.3, [place] % (Auto) 4.6, Eos % (Auto) 1.2, Baso % (Auto) 0.4, Neut # (Auto) 5.3, Lymph # (Auto) 1.5, [place] # (Auto) 0.3, Eos # (Auto) 0.1, Baso # (Auto) 0.0 07/04/19 15:08: Sodium 142, Potassium 3.6, Chloride 104, Carbon Dioxide 26, Anion Gap 15.6 H, BUN 19 H, Creatinine 1.64 H, Estimated Creat Clear 39, Estimated GFR 40 L, Est GFR ( Amer) 49 L, Glucose 110 H D, Calcium 8.5, Total Bilirubin 0.7, AST 12 L, ALT 13, Alkaline Phosphatase 60, Troponin I 0.07 H, Total Protein 7.0, Albumin 3.3 L, Globulin 3.7 H, Albumin/Globulin Ratio 0.9 L 07/04/19 15:08: Lactate 2.0 07/04/19 15:08: B-Natriuretic Peptide 78 07/04/19 18:05: D-Dimer 1480 H* 07/04/19 22:13: APTT 26.4 07/05/19 00:32: Troponin I 0.17 H 07/05/19 05:45: WBC 6.2, RBC 3.58 L, Hgb 11.5 L, Hct 34.9 L, MCV 97.5 H, MCH 32.1 H, MCHC 33.0, RDW 13.1, Plt Count 163, MPV 8.7, Neut % (Auto) 56.3, Lymph % (Auto) 32.4, [place] % (Auto) 6.4, Eos % (Auto) 4.3, Baso % (Auto) 0.5, Neut # (Auto) 3.5, Lymph # (Auto) 2.0, [place] # (Auto) 0.4, Eos # (Auto) 0.3, Baso # (Auto) 0.0 07/05/19 05:45: Sodium 141, Potassium 3.7, Chloride 105, Carbon Dioxide 27, Anion Gap 12.7, BUN 18, Creatinine 1.44 H, Estimated Creat Clear 43, Estimated GFR 47 L, Est GFR ( Amer) 57 L, Glucose 100, Calcium 8.4 L, Phosphorus 3.6, Magnesium 1.7, Total Bilirubin 0.6, AST 14 L, ALT 10 L, Alkaline Phos phatase 56, Troponin I 0.13 H, Total Protein 6.5, Albumin 3.0 L, Globulin 3.5 H, Albumin/Globulin Ratio 0.9 L, Triglycerides 54, Cholesterol 165, LDL Cholesterol 112, VLDL Cholesterol 11, HDL Cholesterol 42, Cholesterol/HDL Ratio 3.9 H 07/05/19 05:45: PT 10.7, INR 1.03, APTT 117.1 H* D If INR was < than 2.0 why was therapy stopped?: NO PE, PATIENT IS FEELING MUCH BETTER THIS MORNING Were Heparin and Warfarin started on the same day?: No If not, why?: NOT INDICATED, NO PE
--- NOTE | 2019-07-05 17:59 | Electrocardiograph Report ---
APPROVED REPORT Exam: Resting ECG HR:72 bpm ECG Measurements Heart Rate 72 AXES ME 158 P 62 QRSd 142 QRS 42 QT 422 T90 QTc 462 <Conclusion> Demand pacemaker, interpretation is based on intrinsic rhythm Sinus rhythm Left bundle branch block Abnormal ECG Electronically signed by : Ayaan Phillips, 07/05/2019 17:58:45
== END 2019-07-05 11:18 | disposition home or self-care (01) ==
LOC: ER 17:51 → 2ND 21:00 → INTOOBSV 22:09 → 2ND 22:10
PROVIDERS: ADMIT Family Medicine; ATTEND Emergency Medicine
CPT/HCPCS: 36415; 71010; 71045; 80048; 80053; 80061; 83605; 83735; 83880; 84100; 84484; 85025; 85347; 85378; 85610; 85730; 87040; 92928; 93005; 93458; 97161; 97165; 99152; 99153; 99284; C1725; C1760; C1769; C1876; C9600; G0378; J1644; Q9967

== ENCOUNTER 2019-07-15 06:47 | Emergency (ER) | payer MEDICARE, SELFPAY ==
--- NOTE | 2019-07-15 | ECG_ITS ---
APPROVED REPORT Exam: Resting ECG HR:71 bpm ECG Measurements Heart Rate 71 AXES TX 140 P 40 QRSd 132 QRS -13 QT 420 T 60 QTc 456 <Conclusion> Sinus rhythm with intermittent LAHB RBBB Abnormal ECG Electronically signed by : Ayaan Phillips, 07/15/2019 08:51:29
[2019-07-15 06:47] VITALS: BP 170/91; PULSE 73; RESP 16; TEMP 36.7; O2SAT 99; BMI 28.2
--- NOTE | 2019-07-15 07:09 | XR_ITS ---
PROCEDURE: XR CHEST 2V CLINICAL HISTORY: chest pain COMPARISON: XR CHEST PORTABLE from 06/19/2019 XR CHEST PORTABLE from 07/04/2019 XR CHEST 2V from 07/11/2019 FINDINGS: The cardiomediastinal silhouette and pulmonary vascularity are within normal limits. Cardiac pacemaker is intact and stable. There is stable hazy density at the lateral right lung base. There is a 2 millimeter calcified benign nodule in the lingular left lower lobe. The remainder of the lung you are clear. No acute bony abnormalities. IMPRESSION: Probable hazy atelectasis or scarring along the lateral right lung base. No significant change or acute process. Dictated by: David Brown 07/15/2019 17:43 Electronically signed by David Brown in [place] 07/15/2019 17:43
--- NOTE | 2019-07-15 07:10 | HMH.EDCP ---
ED Disposition Clinical Impression: Renal insufficiency Chest pain Qualifiers: Chest pain type: precordial pain Qualified Code(s): R07.2 - Precordial pain Disposition: Home, Self-Care Condition on Discharge: Good Instructions: DI for Chronic Pain -- Adult Additional Instructions: use meds and see card for follow up next week Referrals: Provider,Referral, [Primary Care Provider] - - Critical Care Critical Care Time: No Attestation: On 07/15/19, the high probability of a clinically significant, sudden or life threatening deterioration of the following system(s) required my full and direct attention, intervention and personal management. The time I documented below is in addition to time spent performing reported procedures but includes the following listed in this critical care notation. Medical Decision Making - Medical Records Medical records reviewed: Yes: I reviewed the patient's medical records. - Artemio Inquiry Pt receiving controlled substance: No Vital Signs: 07/15/19 06:47 Temperature 98.0 F Temperature Source Oral Pulse Rate [Left Radial] 73 Respiratory Rate 16 Blood Pressure [Right Arm] 170/91 H Blood Pressure Mean [Right Arm] 117 Blood Pressure Source [Right Arm] Automatic Cuff Blood Pressure Position [Right Arm] Sitting 02 Sat by Pulse Oximetry 99 Oxygen Delivery Method Room Air - Lab Data Lab results reviewed: Yes: I reviewed the patient's lab results. Lab Results 07/15/19 06:58: WBC 8.5, RBC 3.78 L, Hgb 12.2 L, Hct 36.9 L, MCV 97.6 H, MCH 32.3 H, MCHC 33.1, RDW 13.8, Plt Count 302, MPV 8.3, Neut % (Auto) 59.6, Lymph % (Auto) 30.1, [place] % (Auto) 6.3, Eos % (Auto) 3.8, Baso % (Auto) 0.3, Neut # (Auto) 5.1, Lymph # (Auto) 2.6, [place] # (Auto) 0.5, Eos # (Auto) 0.3, Baso # (Auto) 0.0, ESR 38 H 07/15/19 06:58: Sodium 144, Potassium 3.9, Chloride 107, Carbon Dioxide 25, Anion Gap 15.9 H, BUN 22 H, Creatinine 1.58 H, Estimated Creat Clear 40, Estimated GFR 42 L, Est GFR ( Amer) 51 L, Glucose 95, Calcium 8.8, Total Bilirubin 0.3, AST 12 L, ALT 14, Alkaline Phosphatase 57, Troponin I < 0.02, Total Protein 7.2, Albumin 3.4, Globulin 3.8 H, Albumin/Globulin Ratio 0.9 L Result diagrams: 07/15/19 06:58 07/15/19 06:58 Orders (Tests/Meds): ED MEDICATIONS Discontinued Medications Generic Name Dose Route Start Last Admin Trade Name Prince PRN Reason Stop Dose Admin Nitroglycerin 0.4 mg 07/15/19 07:31 07/15/19 07:33 Nitrostat 0.4mg Sl Tablet SL 07/15/19 07:32 0.4 mg ONCE ONE Administration ORDERS Category Date Time Status XR chest 2V Stat Exams 07/15/19 07:09 Taken Troponin I Q3H Lab 07/15/19 10:15 Ordered Troponin I Q3H Lab 07/15/19 13:15 Ordered Urinalysis and Microscopic Stat Lab 07/15/19 07:09 Ordered - Radiology Data #1 Image(s): Chest Image Reviewed: Yes I reviewed the patient's radiology results Preliminary Findings: Normal/NAD - ECG Data Tracing #1 Normal Sinus Rhythm: Yes Ischemic changes: non-specific ST-T wave changes Chest Pain HPI - General Chief Complaint: Chest Pain Stated Complaint: chest pain Time Seen by Provider: 07/15/19 07:10 Mode of Arrival: EMS Source of Information: Patient, EMS, Medical Record Limitations: No Limitations Description of Symptoms (Recalled from ER Triage Doc. by RN): pt stated his chest has been hurting on and off all night without relief. - History of Present Illness HPI narrative: onset of chest pain last pm with recent stent - had chest pain last pm MD complaint: chest pain indicative of cardiac Onset (ago): hour(s) Duration: intermittent Activity at onset: during rest Pain location: substernal Severity: moderate Risk Factors for CAD: Hypertension, Family Hx of CAD Treatments prior to or on arrival for Cardiac Chest Pain: none - WOODY Score for Non-Stemi Age of Patient: 80-89 years old Heart Rate: 70-89 bpm Systolic Blood Pressure: 160-199 mmHg Serum Creatinine: 1.20-1.59 m
[2019-07-15 07:16] LABS: Basophils % 0.3 % (0.1-2.0); Eosinophils # 0.3 K/mm3 (0.0-0.4); Eosinophils % 3.8 % (0.1-12.0); Hematocrit 36.9 % (42.0-52.0); Hemoglobin 12.2 g/dL (14.1-18.0); Lymphocytes # 2.6 K/mm3 (0.7-4.5); Lymphocytes % 30.1 % (10-50); Mean Corpuscular HGB Conc 33.1 g/dL (31.8-35.4); Mean Corpuscular Hemoglobin 32.3 pg (27.0-31.2); Mean Corpuscular Volume 97.6 fl (80-94); Mean Platelet Volume 8.3 fl (7.4-10.4); Monocytes # 0.5 K/mm3 (0.1-1.0); Monocytes % 6.3 % (1.7-9.3); Neutrophils # 5.1 K/mm3 (1.8-7.8); Neutrophils % 59.6 % (37.0-80.0); Platelet Count 302 K/mm3 (142-424); Red Blood Count 3.78 M/mm3 (4.60-6.20); Red Cell Distribution Width 13.8 % (11.5-17.5); White Blood Count 8.5 K/mm3 (4.8-10.8)
[2019-07-15 07:28] LABS: Alanine Aminotransferase 14 U/L (12-78); Albumin Level 3.4 gm/dL (3.4-5.0); Albumin/Globulin Ratio 0.9 (1.1-1.8); Alkaline Phosphatase 57 U/L (46-116); Anion Gap 15.9 mEq/L (5-15); Aspartate Amino Transferase 12 U/L (15-37); Bilirubin,Total 0.3 mg/dL (0.2-1.0); Blood Urea Nitrogen 22 mg/dL (7-18); Calcium 8.8 mg/dL (8.5-10.1); Carbon Dioxide 25 mmol/L (21.0-32.0); Chloride 107 mmol/L (98-107); Creatinine Clearance Estimated 40 mL/min (50-200); Creatinine,Serum 1.58 mg/dL (0.70-1.30); Estimated Glomerular Filt Rate 42 ml/min (>60); GFR (African American) 51 ML/MIN (>60); Globulin 3.8 gm/dl (1.3-3.2); Glucose 95 mg/dL (74-106); Potassium 3.9 mmoL/L (3.5-5.1); Sodium 144 mmol/L (136-145); Total Protein,Serum 7.2 gm/dL (6.4-8.2); Troponin I < 0.02 ng/ml (0.00-0.06)
[2019-07-15 07:44] LABS: Erythrocyte Sedimentation Rate 38 mm/hr (0-20)
--- NOTE | 2019-07-15 09:39 | PC.NURSE ---
Pt is requesting something for heartburn at this time. Pt nurse aware.
[2019-07-15 11:17] LABS: Troponin I < 0.02 ng/ml (0.00-0.06)
[2019-07-15 12:25] VITALS: BP 148/87; PULSE 79; RESP 18; TEMP 36.7; O2SAT 98
== END 2019-07-15 12:26 | disposition home or self-care (01) ==
PROVIDERS: Emergency Provider Emergency Medicine
DX: N28.9 Disorder of kidney and ureter, unspecified (principal); R07.2 Precordial pain; I25.10 Atherosclerotic heart disease of native coronary artery without angina pectoris; K21.9 Gastro-esophageal reflux disease without esophagitis; E78.5 Hyperlipidemia, unspecified; I10 Essential (primary) hypertension; Z95.0 Presence of cardiac pacemaker; Z96.642 Presence of left artificial hip joint; Z89.429 Acquired absence of other toe(s), unspecified side
CPT/HCPCS: 71046; 80053; 84484; 85025; 85651; 93005; 99283

== ENCOUNTER → 2019-07-18 13:50 | Outpatient (POV) | payer MEDICARE, SELFPAY | PROVIDERS: Visit Provider Nurse Practitioner Family | DX: Z00.00 Encounter for general adult medical examination without abnormal findings (principal) ==

== ENCOUNTER → 2019-08-24 17:58 | Outpatient (CLI) | payer MEDICARE, SELFPAY ==
[2019-08-24 18:54] LABS: Basophils # 0.1 K/mm3 (0-0.2); Eosinophils # 0.3 K/mm3 (0.0-0.4); Eosinophils % 6.4 % (0.1-12.0); Hematocrit 35.3 % (42.0-52.0); Hemoglobin 11.4 g/dL (14.1-18.0); Lymphocytes # 1.9 K/mm3 (0.7-4.5); Lymphocytes % 40.4 % (10-50); Mean Corpuscular HGB Conc 32.3 g/dL (31.8-35.4); Mean Corpuscular Hemoglobin 31.8 pg (27.0-31.2); Mean Corpuscular Volume 98.4 fl (80-94); Mean Platelet Volume 8.8 fl (7.4-10.4); Monocytes # 0.3 K/mm3 (0.1-1.0); Monocytes % 7.2 % (1.7-9.3); Neutrophils # 2.1 K/mm3 (1.8-7.8); Platelet Count 224 K/mm3 (142-424); Red Blood Count 3.59 M/mm3 (4.60-6.20); Red Cell Distribution Width 13.2 % (11.5-17.5); White Blood Count 4.7 K/mm3 (4.8-10.8)
[2019-08-24 19:55] LABS: Blood Urea Nitrogen 20 mg/dL (7-18); Calcium 8.7 mg/dL (8.5-10.1); Carbon Dioxide 29 mmol/L (21.0-32.0); Chloride 104 mmol/L (98-107); Creatinine,Serum 1.57 mg/dL (0.70-1.30); Estimated Glomerular Filt Rate 43 ml/min (>60); GFR (African American) 51 ML/MIN (>60); Glucose 103 mg/dL (74-106); Sodium 142 mmol/L (136-145)
[2019-08-24 20:38] LABS: Amphetamine/Metha Screen,Urine Negative ng/mL (<1000); Barbiturates Screen,Urine Negative ng/mL (<200); Benzodiazepines Screen,Urine Negative ng/mL (<200); Cannabinoid Screen,Urine Negative ng/mL (<50); Cocaine Screen,Urine Negative ng/mL (<300); Methadone Screen,Urine Negative ng/mL (<300); Opiate Screen,Urine Positive ng/mL (<300); Phencyclidine Screen,Urine Negative ng/mL (<25)
[2019-08-26 17:00] LABS: PSA, Free 0.03 ng/mL; Prostate Specific Ag 0.1 ng/mL (0.0-4.0)
== END ==
PROVIDERS: Visit Provider Emergency Medicine
DX: R53.1 Weakness (principal); I10 Essential (primary) hypertension; G89.29 Other chronic pain
CPT/HCPCS: 80048; 80305; 84153; 84154; 85025

== ENCOUNTER 2019-11-09 09:55 | Emergency (ER) | payer MEDICARE, SELFPAY ==
[2019-11-09 09:56] VITALS: BP 134/92; PULSE 77; RESP 20; TEMP 36.6; O2SAT 98; BMI 25.1
--- NOTE | 2019-11-09 10:07 | XR_ITS ---
PROCEDURE: XR CHEST 2V CLINICAL HISTORY: SOA Shortness of air COMPARISON: XR CHEST PORTABLE from 07/04/2019 XR CHEST 2V from 07/11/2019 XR CHEST 2V from 07/15/2019 FINDINGS: Bipolar pacemaker is present left subclavian approach. There is normal heart size. Chronic changes are present in the lung bases. No lobar consolidation or collapse is evident. Faint nodular opacity overlies the right 5th rib anteriorly and could be due to nipple shadow There are old bilateral rib fractures and degenerative changes of the thoracic spine. IMPRESSION: No acute findings. Dictated by: Andre Barnes MD 11/09/2019 11:39 Electronically signed by Andre Barnes MD in [place] 11/09/2019 11:39
[2019-11-09 10:14] LABS: Basophils # 0.1 K/mm3 (0-0.2); Basophils % 0.8 % (0.1-2.0); Eosinophils # 0.4 K/mm3 (0.0-0.4); Eosinophils % 3.4 % (0.1-12.0); Hematocrit 39.2 % (42.0-52.0); Hemoglobin 12.9 g/dL (14.1-18.0); Lymphocytes # 3.5 K/mm3 (0.7-4.5); Lymphocytes % 32.8 % (10-50); Mean Corpuscular Hemoglobin 31.5 pg (27.0-31.2); Mean Corpuscular Volume 95.6 fl (80-94); Mean Platelet Volume 8.3 fl (7.4-10.4); Monocytes # 0.5 K/mm3 (0.1-1.0); Monocytes % 4.4 % (1.7-9.3); Neutrophils # 6.4 K/mm3 (1.8-7.8); Neutrophils % 58.7 % (37.0-80.0); Platelet Count 275 K/mm3 (142-424); Red Cell Distribution Width 13.1 % (11.5-17.5); White Blood Count 10.8 K/mm3 (4.8-10.8)
[2019-11-09 10:16] LABS: Chloride 104 mmol/L (98-107); Sodium 140 mmol/L (136-145)
--- NOTE | 2019-11-09 10:16 | PC.NURSE ---
Pt to rad.
[2019-11-09 10:19] LABS: Alanine Aminotransferase 14 U/L (12-78); Albumin Level 4.4 g/dl (3.5-5.0); Albumin/Globulin Ratio 1.1 (1.1-1.8); Alkaline Phosphatase 56 U/L (38-126); Aspartate Amino Transferase 30 U/L (17-59); Bilirubin,Total 0.3 mg/dl (0.2-1.3); Blood Urea Nitrogen 17 mg/dl (9-20); Calcium 10.1 mg/dl (8.4-10.2); Carbon Dioxide 27 mmol/L (22.0-30.0); Creatinine Clearance Estimated 52 mL/min (50-200); Estimated Glomerular Filt Rate 58 ml/min (>60); GFR (African American) 70 ML/MIN (>60); Globulin 3.9 g/dL (1.3-3.2); Glucose 102 mg/dl (74-100); Total Protein,Serum 8.3 g/dl (6.3-8.2)
--- NOTE | 2019-11-09 11:06 | HMH.EDSOB ---
ED Disposition Clinical Impression: URI, acute Disposition: Home, Self-Care Condition on Discharge: Good Additional Instructions: Follow-up with primary care whenever you get a the opportunity. Referrals: Luis Fernando Gama MD [Primary Care Provider] - - Critical Care Critical Care Time: No Attestation: On 11/09/19, the high probability of a clinically significant, sudden or life threatening deterioration of the following system(s) required my full and direct attention, intervention and personal management. The time I documented below is in addition to time spent performing reported procedures but includes the following listed in this critical care notation. Medical Decision Making - Medical Records Medical records reviewed: Yes: I reviewed the patient's medical records. - Artemio Inquiry Pt receiving controlled substance: No Vital Signs: 11/09/19 09:56 Temperature 97.9 F Temperature Source Oral Pulse Rate [Right] 77 Respiratory Rate 20 Blood Pressure [Right Arm] 134/92 H Blood Pressure Mean [Right Arm] 106 02 Sat by Pulse Oximetry 98 - Lab Data Lab results reviewed: Yes: I reviewed the patient's lab results. Lab Results 11/09/19 10:05: WBC 10.8, RBC 4.10 L, Hgb 12.9 L, Hct 39.2 L, MCV 95.6 H, MCH 31.5 H, MCHC 33.0, RDW 13.1, Plt Count 275, MPV 8.3, Neut % (Auto) 58.7, Lymph % (Auto) 32.8, [place] % (Auto) 4.4, Eos % (Auto) 3.4, Baso % (Auto) 0.8, Neut # (Auto) 6.4, Lymph # (Auto) 3.5, [place] # (Auto) 0.5, Eos # (Auto) 0.4, Baso # (Auto) 0.1 11/09/19 10:05: Sodium 140, Potassium 4.0, Chloride 104, Carbon Dioxide 27, Anion Gap 13.0, BUN 17, Creatinine 1.20, Estimated Creat Clear 52, Estimated GFR 58 L, Est GFR ( Amer) 70, Glucose 102 H, Calcium 10.1, Total Bilirubin 0.3, AST 30, ALT 14, Alkaline Phosphatase 56, Total Protein 8.3 H, Albumin 4.4, Globulin 3.9 H, Albumin/Globulin Ratio 1.1 Result diagrams: 11/09/19 10:05 04/22/20 10:05 Orders (Tests/Meds): ORDERS Category Date Time Status XR chest 2V Stat Exams 11/09/19 10:07 Taken - Radiology Data #1 Image(s): Chest Preliminary Findings: Normal/NAD Resp/SOB HPI - General Chief Complaint: Shortness of Breath/Dyspnea Stated Complaint: soa Time Seen by Provider: 11/09/19 11:06 Mode of Arrival: Ambulatory Limitations: No Limitations Description of Symptoms (Recalled from ER Triage Doc. by RN): C/O SOA, BROWN, AND DIZZINESS SINCE THIS AM. DENIES COUGH OR FEVER - History of Present Illness 84-year-old male presents the ED complaining of minor shortness of air. He states that he has been mildly short of breath the last 2 to 3 days. Here in the ED he is able to hold full conversations with me obtain his history and his O2 sats are within normal limits he is satting at 98% on room air he does not have any evidence of any cough or he does not have any use of accessory muscles to breathe he is looks like he is at his normal state. Patient denies any recent cough. Patient denies any recent fever shakes or chills. Patient denies any chest pain but just has some mild short of breath. - Related Data Home Medications Medication Instructions Recorded Confirmed Tamsulosin HCl [Flomax 0.4mg 0.4 mg PO HS 07/04/19 09/08/19 capsule] Aspirin [Aspirin 81mg EC Tab] 81 mg PO DAILY 07/05/19 09/08/19 meclizine 25 mg tablet 25 mg PO DAILY 08/24/19 09/08/19 Previous Rx's Medication Instructions Recorded albuterol sulfate 90 mcg/actuation 2 puff INHALATION Q6H 3 Days #1 inh 08/24/19 aerosol inhaler atorvastatin 10 mg tablet 10 mg PO HS 30 Days #30 tab 08/24/19 clopidogrel 75 mg tablet 75 mg PO DAILY #30 tab 08/24/19 isosorbide mononitrate 30 mg 30 mg PO DAILY #30 tab.er.24h 08/24/19 tablet,extended release 24 hr losartan 25 mg tablet 25 mg PO DAILY #30 tab 08/24/19 metoprolol succinate 25 mg 25 mg PO DAILY #90 tab 08/24/19 tablet,extended release 24 hr allopurinol 100 mg tablet 100 mg PO DAILY #90 tab 09/26/19 oxyco
[2019-11-09 11:11] VITALS: BP 136/87; PULSE 70; RESP 20; TEMP 36.8; O2SAT 98
== END 2019-11-09 11:14 | disposition home or self-care (01) ==
PROVIDERS: Emergency Provider Family Medicine; PCP Emergency Medicine
DX: J06.9 Acute upper respiratory infection, unspecified (principal); K21.9 Gastro-esophageal reflux disease without esophagitis; I10 Essential (primary) hypertension; E78.5 Hyperlipidemia, unspecified; I25.10 Atherosclerotic heart disease of native coronary artery without angina pectoris
CPT/HCPCS: 71046; 80053; 85025; 99282; 99283

== ENCOUNTER → 2019-12-16 10:28 | Outpatient (CLI) | payer MEDICARE, SELFPAY ==
[2019-12-16 14:54] LABS: Coronavirus 19 IgG Antibody Negative (Negative); Coronavirus 19 IgM Antibody Negative (Negative)
== END ==
PROVIDERS: Visit Provider Internal Medicine Gastroenterology
DX: Z01.818 Encounter for other preprocedural examination (principal)
CPT/HCPCS: 36415; 86328

== ENCOUNTER 2019-12-19 11:35 | Day surgery (SDC) | payer MEDICARE, SELFPAY ==
--- NOTE | 2019-12-15 10:47 | SUR.PREOP ---
12/15/2019 @ 0768--PHONE CALL MADE TO PATIENT. PATIENT UNDERSTANDS THAT LAB WORK AND COVID TESTING NEEDS TO BE COMPLETED @ 945 ON 12/16/2019. PATIENT UNDERSTANDS IF LAB WORK AND COVID-19 TESTS ARE NOT COMPLETED BY 12PM ON THAT DATE, THE SURGERY SCHEDULED WILL BE CANCELLED AND RESCHEDULED FOR ANOTHER TIME.
[2019-12-16 14:56] VITALS: BMI 25.8
[2019-12-19 12:00] VITALS: BP 146/96; PULSE 72; RESP 18; TEMP 36.3; O2SAT 96
[2019-12-19 12:43] VITALS: O2SAT 99
--- NOTE | 2019-12-19 12:54 | P.PN_ITS ---
[facility] Anesthesia Checklist - Patient Identification Patient Identification: Arm Band, Verbal (Name & ) - Structural Data Admitted From: Home Planned Operative Procedure/s: EGD Consent for Planned Operative Procedure(s) Verified: Yes Verified Documents: Surgical Consent, History and Physical - NPO Status Verified Time NPO: 00:00 - Chart Verification Results Verified: CBC, BMP, UA - Additional verifications Anesthesia Reactions: No - Airway Assessment C-Spine Mobility Assessed: Yes TMJ Mobility Assessed: Yes Dentition: Edentulous - Neurological Assessment Level of Consciousness: Awake, Alert, Appropriate, Follows Commands Hx Seizures: No Numbness or tingling in extremities: No - Anesthesia Plan Anesthesia Risk discussed: Yes Anesthesia Plan: Verified ASA Class: III Anesthesia Type: MAC [facility] History I have reviewed the patient's past medical history: Yes Medical History: Reports:: Atrial Fibrillation, Cancer (prostate), Carotid Stenosis, Congestive Heart Failure, Coronary Artery Disease, Gastroesophageal Reflux Disease(GERD), Hyperlipidemia, Hypertension, Internal Pacemaker, Kidney Stones, Myocardial Infarction Denies:: Diabetes Mellitus Type 1, Diabetes Mellitus Type 2, Lung Disease, MRSA, Seizures *Have you ever received a pneumonia vaccine?: Yes *Have you received a flu vaccine this season?: Yes Other Medical History: Reports: Arthritis Anesthesia experience/problems:: none Laterality Cases: Left: Total Hip Replacement Other Surgeries: Yes: No Previous Surgery, Cancer Surgery, Cardiac Catheterization, Colonoscopy, Coronary Stent, Pacemaker, Other (back sx) Amputation: Yes (2 toes) Fractures: No - *Social History Educational Level: Completed Grade School Smoking Status: Never smoker Alcohol Intake: former Alcohol Intake Frequency:: 3 or more drinks per day Substance Use Type: denies use *Occupational Status:: retired Housing: house Household Members: family *Travel in the last 8 weeks: None Family Hx:: No significant family history
--- NOTE | 2019-12-19 12:58 | P.PCN_ITS ---
[facility] Procedure Note Procedure Note:: Upper Endoscopy Procedure Report: Esophagogastroduodenoscopy with cold biopsies Endoscopost: Randal Mina II, MD Referring Physician: MEERA Hanley Date of Procedure: December 19, 2019 Equipment: Olympus GIF 180 standard upper endoscope Sedation: MAC sedation Indications: Mr. Nolen is an 84-year-old gentleman with a history of bleeding ulcers. He did undergo panendoscopy with me in October 2018 that showed healing antral and duodenal ulcers and a Schatzki's ring. He does have a history of iron deficiency anemia. He does report some lower abdominal pain and discomfort as well as some bloating. Today he reports no significant dysphagia. At one point he did stop taking the omeprazole. Procedure: Prior to the procedure, a history and physical exam was performed, and patient's medications and allergies were reviewed. The risks, benefits and alternatives of the sedation and procedure were discussed with the patient. All questions were answered and informed consent was obtained. The patient was brought to the procedure room. Patient identification and proposed procedure were verified by the physician and the nurse. The patient was placed in a left lateral decubitus position and the scope was passed under direct vision. Throughout the procedure, the patient's blood pressure, pulse, and oxygen saturations were monitored continuously. The upper GI endoscopy was accomplished without difficulty. The patient tolerated the procedure well. Findings: The scope was passed directly into the upper esophagus and advanced to the third portion of the duodenum. The post bulbar duodenum and duodenal bulb were normal with normal mucosa and conniventes. There was some mild duodenal stenosis at the first portion but the duodenal ulcers were completely healed. The scope was withdrawn through a normal duodenal bulb and pylorus into the stomach. There was some reactive gastropathy of the antrum but there was fibrosis in the antrum consistent with prior healing of the ulcers. There was mild chronic gastritis of the body and fundus. Upon retroflexion there was a 2 cm hiatal hernia. The scope was then withdrawn into the esophagus. There was a serrated Z line with some mucosal irregularity at the Z line and a salmon- colored tongue that was biopsied to rule out Nicholas's esophagus. There was no evidence of reflux esophagitis. There was moderate esophageal dysmotility. The remainder of the esophageal mucosa was normal. Impression: 1. Nonerosive GERD with moderate esophageal dysmotility and small 2 cm hiatal hernia 2. Irregular Z line/GE junction?rule out short segment Nicholas's esophagus 3. Healed prepyloric antral ulcers with some fibrosis and some reactive gastropathy 4. Healed duodenal ulcers with mild duodenal stenosis first portion Plan: I will discussed the findings with the patient and family. I will follow up the biopsies. We will discuss treatment options.
[2019-12-19 13:00] VITALS: BP 80/53; PULSE 83; RESP 18; TEMP 36.3; O2SAT 99
[2019-12-19 13:10] VITALS: BP 95/62; PULSE 80; RESP 18; O2SAT 99
[2019-12-19 13:20] VITALS: BP 121/75; PULSE 76; RESP 18; O2SAT 100
[2019-12-19 13:30] VITALS: BP 142/95; PULSE 76; RESP 18; O2SAT 100
== END 2019-12-19 13:47 | disposition home or self-care (01) ==
LOC: OUTP 11:37
PROVIDERS: PCP Emergency Medicine; Visit Provider Internal Medicine Gastroenterology
PROC: 0DJ08ZZ Inspection of Upper Intestinal Tract, Via Natural or Artificial Opening Endoscopic (ICD-10-PCS; CPT 43235; principal; 2019-12-19 12:30)
DX: K21.9 Gastro-esophageal reflux disease without esophagitis (principal); K22.4 Dyskinesia of esophagus; K44.9 Diaphragmatic hernia without obstruction or gangrene; K31.9 Disease of stomach and duodenum, unspecified; K31.5 Obstruction of duodenum; D50.9 Iron deficiency anemia, unspecified; Z87.11 Personal history of peptic ulcer disease; I10 Essential (primary) hypertension; I25.10 Atherosclerotic heart disease of native coronary artery without angina pectoris; Z86.73 Personal history of transient ischemic attack (TIA), and cerebral infarction without residual deficits; Z95.818 Presence of other cardiac implants and grafts; Z79.899 Other long term (current) drug therapy
CPT/HCPCS: 43239; 88305

== ENCOUNTER 2020-01-02 13:55 | Emergency (ER) | payer MEDICARE, SELFPAY ==
[2020-01-02 13:55] VITALS: BP 144/87; PULSE 87; RESP 18; TEMP 37; O2SAT 97; BMI 25.1
--- NOTE | 2020-01-02 14:20 | HMH.EDGENADL ---
ED Disposition Clinical Impression: Colitis Constipation Qualifiers: Constipation type: unspecified constipation type Qualified Code(s): K59.00 - Constipation, unspecified Disposition: Home, Self-Care Condition on Discharge: Good Instructions: DI for Constipation, DI for Colitis Additional Instructions: See Dr. Gama in the office tomorrow or Thursday or have your daughter call him for follow-up. Drink a bottle of mag citrate when you arrive home. Then start MiraLAX daily. Take Flagyl and Levaquin as prescribed. Return to the emergency room if severe abdominal pain or distention, vomiting, fever greater than 100.5 degrees. Prescriptions: metroNIDAZOLE [Flagyl] 500 mg PO TID #30 tab Transmission Status: Pending to [facility] levoFLOXacin [Levaquin 500mg tab] 500 mg PO DAILY #10 tab Transmission Status: Pending to [facility] polyethylene glycoL 3350 [Miralax 17gm Packet] 17 gm PO DAILY #5 packet Transmission Status: Pending to [facility] Referrals: Luis Fernando Gama MD [Primary Care Provider] - - Critical Care Critical Care Time: No Attestation: On 01/02/20, the high probability of a clinically significant, sudden or life threatening deterioration of the following system(s) required my full and direct attention, intervention and personal management. The time I documented below is in addition to time spent performing reported procedures but includes the following listed in this critical care notation. Medical Decision Making - Medical Records Medical records reviewed: Yes: I reviewed the patient's medical records. - Artemio Inquiry Pt receiving controlled substance: No Vital Signs: 01/02/20 13:55 01/02/20 14:42 01/02/20 14:57 Temperature 98.6 F Temperature Source Oral Pulse Rate [Radial] 87 76 75 Respiratory Rate 18 Blood Pressure [Right Arm] 144/87 H 158/80 H 143/83 H Blood Pressure Mean [Right Arm] 106 106 103 Blood Pressure Source [Right Arm] Automatic Cuff Automatic Cuff Automatic Cuff Blood Pressure Position [Right Arm] Sitting Sitting Sitting 02 Sat by Pulse Oximetry 97 97 96 Oxygen Delivery Method Room Air Room Air - Lab Data Lab results reviewed: Yes: I reviewed the patient's lab results. Lab Results 01/02/20 14:30: Stool Occult Blood Negative 01/02/20 14:35: WBC 14.3 H, RBC 4.26 L, Hgb 13.7 L, Hct 40.0 L, MCV 93.8, MCH 32.1 H, MCHC 34.2, RDW 13.7, Plt Count 194, MPV 8.0, Neut % (Auto) 82.2 H, Lymph % (Auto) 13.8, [place] % (Auto) 3.5, Eos % (Auto) 0.4, Baso % (Auto) 0.2, Neut # (Auto) 11.8 H, Lymph # (Auto) 2.0, [place] # (Auto) 0.5, Eos # (Auto) 0.1, Baso # (Auto) 0.0 01/02/20 14:35: Sodium 139, Potassium 4.1, Chloride 104, Carbon Dioxide 27, Anion Gap 12.1, BUN 16, Creatinine 1.20, Estimated Creat Clear 52, Estimated GFR 58 L, Est GFR ( Amer) 70, Glucose 130 H, Calcium 9.5, Total Bilirubin 0.8, AST 29, ALT 11 L, Alkaline Phosphatase 78, Total Protein 8.1, Albumin 4.4, Globulin 3.7 H, Albumin/Globulin Ratio 1.2, Amylase 77, Lipase 24 Result diagrams: 01/02/20 14:35 01/02/20 14:35 Orders (Tests/Meds): ED MEDICATIONS Discontinued Medications Generic Name Dose Route Start Last Admin Trade Name Prince PRN Reason Stop Dose Admin Ioversol 75 ml 01/02/20 15:31 01/02/20 15:31 Rad-Optiray 350 100ml Vial IV 01/02/20 15:32 75 ml ONCE ONE Administration Protocol Sodium Chloride 10 ml 01/02/20 15:31 01/02/20 15:31 Rad-Saline Flush 10ml Syringe IV 01/02/20 15:32 10 ml ONCE ONE Administration ORDERS Category Date Time Status Urinalysis and Microscopic Stat Lab 01/02/20 14:33 Ordered - CT Data CT Scan: Abdomen, Pelvis Time Received: 16:[address] Reviewed: Yes: I have viewed the radiologist's interpretation Findings Narrative: PROCEDURE: CT ABDOMEN PELVIS W CON CLINICAL INDICATION: abdo pain, constipation Abdominal pain and constipation COMPARISON: CT ABDOMEN PELVIS WO CON from 05/28/2019
--- NOTE | 2020-01-02 14:33 | CT_ITS ---
PROCEDURE: CT ABDOMEN PELVIS W CON CLINICAL INDICATION: abdo pain, constipation Abdominal pain and constipation COMPARISON: CT ABDOMEN PELVIS WO CON from 05/28/2019 TECHNIQUE: IV Contrast: 75ML OPTIRAY 350 Oral Contrast none Axial images obtained with sagittal and coronal reformats. All CT scans at the facility use one or more dose reduction, viz: automated exposure control, ma/kV adjustment per patient size (including targeted exams where dose is matched to indication, i.e. head), or iterative reconstruction technique. FINDINGS: LOWER THORAX: There are atelectatic changes in the right lower lobe. Pacemaker is present. There is a medium-sized hiatal hernia. ABDOMEN & PELVIS: The spleen, adrenal glands, gallbladder, has an unremarkable appearance. There is atrophy of the pancreas. Oval hypodensity noted in the mid aspect of the body of the pancreas measuring 8 x 4 mm and may be due to dilatation of the duct focally or cystic area in the body of the pancreas. This may be better evaluated with MRI without and with contrast with pancreatic protocol and with MRCP. There are multiple bilateral renal calculi measuring up to 8 mm in the lower pole. No hydronephrosis is evident. No ureteral calculi. There is mild dilatation of the infrarenal abdominal aorta at 2.3 cm. No evidence of appendicitis. There is a mild amount of retained colonic feces most prominent in the rectosigmoid region with the rectum measuring up to 6 cm in diameter. There is mild thickening of the colon at the junction of the descending and sigmoid colon with very minimal stranding of the pericolic fat suggesting colitis. No intestinal obstruction or free air. Artifact is present from a total left hip prosthesis. There are degenerative changes in the right hip and lumbar spine. IMPRESSION: 1. Bilateral nephrolithiasis. No ureteral calculi. 2. Moderate amount of retained colonic feces with suspected colitis of the junction of the descending and sigmoid colon 3. Pancreatic atrophy with oval hypodensity in the body of the pancreas which could be related to focal ductal dilatation or a cystic lesion of the pancreas and may be better evaluated with nonemergent MRI with pancreatic protocol and with MRCP 4. Hiatal hernia. Mild right basilar atelectasis Dictated by: Andre Barnes MD 01/02/2020 16:11 Electronically signed by Andre Barnes MD in [facility] 01/02/2020 16:11
[2020-01-02 14:42] VITALS: BP 158/80; PULSE 76; O2SAT 97
[2020-01-02 14:57] VITALS: BP 143/83; PULSE 75; O2SAT 96
[2020-01-02 15:08] LABS: Basophils % 0.2 % (0.1-2.0); Eosinophils # 0.1 K/mm3 (0.0-0.4); Eosinophils % 0.4 % (0.1-12.0); Hemoglobin 13.7 g/dL (14.1-18.0); Lymphocytes % 13.8 % (10-50); Mean Corpuscular HGB Conc 34.2 g/dL (31.8-35.4); Mean Corpuscular Hemoglobin 32.1 pg (27.0-31.2); Mean Corpuscular Volume 93.8 fl (80-94); Monocytes # 0.5 K/mm3 (0.1-1.0); Monocytes % 3.5 % (1.7-9.3); Neutrophils # 11.8 K/mm3 (1.8-7.8); Neutrophils % 82.2 % (37.0-80.0); Platelet Count 194 K/mm3 (142-424); Red Blood Count 4.26 M/mm3 (4.60-6.20); Red Cell Distribution Width 13.7 % (11.5-17.5); White Blood Count 14.3 K/mm3 (4.8-10.8)
[2020-01-02 15:10] LABS: Chloride 104 mmol/L (98-107); Potassium 4.1 mmoL/L (3.5-5.1); Sodium 139 mmol/L (136-145)
[2020-01-02 15:13] LABS: Alanine Aminotransferase 11 U/L (12-78); Albumin Level 4.4 g/dl (3.5-5.0); Albumin/Globulin Ratio 1.2 (1.1-1.8); Alkaline Phosphatase 78 U/L (38-126); Amylase 77 U/L (30-110); Anion Gap 12.1 mEq/L (5-15); Aspartate Amino Transferase 29 U/L (17-59); Bilirubin,Total 0.8 mg/dl (0.2-1.3); Blood Urea Nitrogen 16 mg/dl (9-20); Calcium 9.5 mg/dl (8.4-10.2); Carbon Dioxide 27 mmol/L (22.0-30.0); Creatinine Clearance Estimated 52 mL/min (50-200); Estimated Glomerular Filt Rate 58 ml/min (>60); GFR (African American) 70 ML/MIN (>60); Globulin 3.7 g/dL (1.3-3.2); Glucose 130 mg/dl (74-100); Lipase 24 U/L (23-300); Total Protein,Serum 8.1 g/dl (6.3-8.2)
--- NOTE | 2020-01-02 15:14 | PC.NURSE ---
Pt to rad.
[2020-01-02 16:08] LABS: Occult Blood,Stool Negative (Negative)
--- NOTE | 2020-01-02 16:08 | PC.NURSE ---
Pt is sleeping at this time.
--- NOTE | 2020-01-02 16:24 | PC.NURSE ---
Dr Cordero speaking with Dr Gama.
[2020-01-02 17:06] VITALS: BP 143/83; PULSE 75; RESP 18; TEMP 36.8; O2SAT 96
== END 2020-01-02 17:07 | disposition home or self-care (01) ==
PROVIDERS: Emergency Provider Emergency Medicine; PCP Emergency Medicine
DX: K59.00 Constipation, unspecified (principal); K52.9 Noninfective gastroenteritis and colitis, unspecified; I48.91 Unspecified atrial fibrillation; I25.10 Atherosclerotic heart disease of native coronary artery without angina pectoris; I25.2 Old myocardial infarction; I10 Essential (primary) hypertension; E78.5 Hyperlipidemia, unspecified; K21.9 Gastro-esophageal reflux disease without esophagitis; Z95.0 Presence of cardiac pacemaker; Z79.899 Other long term (current) drug therapy; Z96.642 Presence of left artificial hip joint
CPT/HCPCS: 74177; 80053; 82150; 82272; 83690; 85025; 99283; 99284; G0328; Q9967

== ENCOUNTER 2020-01-13 17:42 | Emergency (ER) | payer MEDICARE, SELFPAY ==
[2020-01-13] VITALS (8 sets, daily range): BP systolic 134–179; BP diastolic 77–98; PULSE 70–90; RESP 12–20; TEMP 36.6–36.8; O2SAT 94–99; BMI 24.8
--- NOTE | 2020-01-13 17:37 | ECG_ITS ---
APPROVED REPORT Exam: Resting ECG HR:92 bpm ECG Measurements Heart Rate [address] 116 P 32 QRSd 156 QRS 41 QT 430 T 57 QTc 531 <Conclusion> Pacemaker Rhythm Electronically signed by : Ayaan Phillips, 01/14/2020 12:16:31
--- NOTE | 2020-01-13 17:44 | XR_ITS ---
PROCEDURE: XR CHEST PORTABLE Patient Age:84Y CLINICAL HISTORY: chest pain smoker COMPARISON: XR CHEST 2V from 07/11/2019 XR CHEST 2V from 07/15/2019 XR CHEST 2V from 11/09/2019 FINDINGS: Portable upright chest film is compared to PA and lateral chest films from October 2019 and June 2019 Today's images higher contrast technique which accentuates markings at the infrahilar regions bilaterally, particularly on the right. Could not exclude some minimal wispy infiltrate right infrahilar region but I believe the left infrahilar region stable. The upper lungs you appear hyperexpanded but clear. Pacemaker overlying the left chest with atrial and ventricular leads appearing stable. The heart is normal in size. Normal pulmonary vascularity No pleural effusion but no pneumothorax. ppap coordinator leads in place Notable arthritic changes are seen at the right shoulder. Superior migration humeral head with spurring from the inferior margin of such. This associated with narrowing of the subacromial space reflect underlying rotator cuff tear Old right posterior lateral 4th and 5th rib fracture stable IMPRESSION: Today's higher contrast portable CXR accentuates markings at lung bases. Left lung appear stable Right chest-cannot exclude wispy infiltrate right infrahilar region If respiratory symptoms should progress follow-up two-view chest recommended. Dictated by: Daquan Alberto MD 01/14/2020 13:26 Electronically signed by Daquan Alberto MD in [facility] 01/14/2020 13:26
--- NOTE | 2020-01-13 17:47 | PC.NURSE ---
rad at BS
--- NOTE | 2020-01-13 17:56 | ECG_ITS ---
APPROVED REPORT Exam: Resting ECG HR:89 bpm ECG Measurements Heart Rate 89 AXES MT 124 P 80 QRSd 90 QRS 76 QT 416 T 90 QTc 506 <Conclusion> Normal sinus rhythm Incomplete RBBB Prolonged QT Abnormal ECG Electronically signed by : Ayaan Phillips, 01/14/2020 12:15:08
[2020-01-13 18:00] LABS: Basophils % 0.3 % (0.1-2.0); Eosinophils # 0.3 K/mm3 (0.0-0.4); Hematocrit 38.8 % (42.0-52.0); Hemoglobin 12.8 g/dL (14.1-18.0); Lymphocytes # 3.1 K/mm3 (0.7-4.5); Lymphocytes % 38.1 % (10-50); Mean Corpuscular HGB Conc 33.1 g/dL (31.8-35.4); Mean Corpuscular Hemoglobin 32.3 pg (27.0-31.2); Mean Corpuscular Volume 97.5 fl (80-94); Mean Platelet Volume 7.6 fl (7.4-10.4); Monocytes # 0.3 K/mm3 (0.1-1.0); Monocytes % 3.9 % (1.7-9.3); Neutrophils # 4.5 K/mm3 (1.8-7.8); Neutrophils % 54.7 % (37.0-80.0); Platelet Count 268 K/mm3 (142-424); Red Blood Count 3.98 M/mm3 (4.60-6.20); Red Cell Distribution Width 14.1 % (11.5-17.5); White Blood Count 8.2 K/mm3 (4.8-10.8)
[2020-01-13 18:13] LABS: Anion Gap 8.8 mEq/L (5-15); Blood Urea Nitrogen 23 mg/dl (9-20); Calcium 9.7 mg/dl (8.4-10.2); Carbon Dioxide 29 mmol/L (22.0-30.0); Chloride 104 mmol/L (98-107); Creatinine Clearance Estimated 48 mL/min (50-200); Estimated Glomerular Filt Rate 53 ml/min (>60); GFR (African American) 64 ML/MIN (>60); Glucose 103 mg/dl (74-100); Potassium 3.8 mmoL/L (3.5-5.1); Sodium 138 mmol/L (136-145)
[2020-01-13 18:29] LABS: Troponin I < 0.01 ng/ml (0.00-0.034)
--- NOTE | 2020-01-13 18:48 | PC.NURSE ---
Dr Rodriguez paged
--- NOTE | 2020-01-13 18:49 | PC.NURSE ---
Dr Shashi cruz
--- NOTE | 2020-01-13 18:55 | PC.NURSE ---
Dr holcomb spoke with Dr Danielle
--- NOTE | 2020-01-13 19:10 | PC.NURSE ---
shift change report given to daysi preston and jacirn
--- NOTE | 2020-01-13 19:13 | [facility].EDCP ---
ED Disposition Clinical Impression: Atypical chest pain Disposition: Home, Self-Care Condition on Discharge: Good Additional Instructions: Please follow-up with Dr. Rodriguez's office this week. Referrals: Luis Fernando Gama MD [Primary Care Provider] - - Critical Care Critical Care Time: No Attestation: On 01/13/20, the high probability of a clinically significant, sudden or life threatening deterioration of the following system(s) required my full and direct attention, intervention and personal management. The time I documented below is in addition to time spent performing reported procedures but includes the following listed in this critical care notation. Medical Decision Making - Medical Records Medical records reviewed: Yes: I reviewed the patient's medical records. - Artemio Inquiry Pt receiving controlled substance: No Vital Signs: 01/13/20 17:43 01/13/20 17:58 01/13/20 18:25 Temperature 97.8 F Temperature Source Oral Pulse Rate [Right Radial] 90 72 76 Respiratory Rate 20 20 20 Blood Pressure [Right Arm] 161/94 H 154/83 H 154/83 H Blood Pressure Mean [Right Arm] 116 106 106 Blood Pressure Source [Right Arm] Automatic Cuff Automatic Cuff Automatic Cuff Blood Pressure Position [Right Arm] Sitting Sitting Supine 02 Sat by Pulse Oximetry 98 96 96 Oxygen Delivery Method Room Air Room Air Room Air 01/13/20 18:48 01/13/20 19:12 Temperature Temperature Source Pulse Rate [Right Radial] 76 70 Respiratory Rate 20 18 Blood Pressure [Right Arm] 134/77 152/94 H Blood Pressure Mean [Right Arm] 96 113 Blood Pressure Source [Right Arm] Automatic Cuff Blood Pressure Position [Right Arm] Sitting 02 Sat by Pulse Oximetry 99 98 Oxygen Delivery Method - Lab Data Lab results reviewed: Yes: I reviewed the patient's lab results. Lab Results 01/13/20 17:44: WBC 8.2, RBC 3.98 L, Hgb 12.8 L, Hct 38.8 L, MCV 97.5 H, MCH 32.3 H, MCHC 33.1, RDW 14.1, Plt Count 268, MPV 7.6, Neut % (Auto) 54.7, Lymph % (Auto) 38.1, [place] % (Auto) 3.9, Eos % (Auto) 3.0, Baso % (Auto) 0.3, Neut # (Auto) 4.5, Lymph # (Auto) 3.1, [place] # (Auto) 0.3, Eos # (Auto) 0.3, Baso # (Auto) 0.0 01/13/20 17:44: Sodium 138, Potassium 3.8, Chloride 104, Carbon Dioxide 29, Anion Gap 8.8, BUN 23 H, Creatinine 1.30 H, Estimated Creat Clear 48, Estimated GFR 53 L, Est GFR ( Amer) 64, Glucose 103 H, Calcium 9.7, Troponin I < 0.01 Result diagrams: 01/13/20 17:44 01/13/20 17:44 Orders (Tests/Meds): ED MEDICATIONS Discontinued Medications Generic Name Dose Route Start Last Admin Trade Name Freq PRN Reason Stop Dose Admin Aspirin 324 mg 01/13/20 17:44 01/13/20 17:52 Aspirin 81mg Chewable Tablet PO 01/13/20 17:45 324 mg ONCE ONE Administration ORDERS Category Date Time Status XR chest portable Stat Exams 01/13/20 17:44 Taken Troponin I Q3H Lab 01/13/20 20:45 Ordered Troponin I Q3H Lab 01/13/20 23:45 Ordered Troponin I Stat Lab 01/13/20 19:44 Ordered - WOODY Score for Non-Stemi Age of Patient: 80-89 years old Heart Rate: 90-109 bpm Systolic Blood Pressure: 160-199 mmHg Serum Creatinine: 0.40-0.79 mg/dl CHF Killip Class: I-No CHF Other Risk Factors: None Non-Stemi Risk Score: 120 Risk Stratification: 109-140 = Intermediate Ri Medical Decision Narrative: I spoke to Dr. Danielle about this patient we both agreed second troponin on this individual since he is now pain-free and if that troponin is negative he can follow-up with cardiology given the fact he just had a Zackary cardiac catheterization done 6 months ago and correction of a stenosed vessel. Chest Pain HPI - General Chief Complaint: Chest Pain Stated Complaint: chest pain Time Seen by Provider: 01/13/20 18:00 Mode of Arrival: Wheelchair Limitations: No Limitations Description of Symptoms (Recalled from ER Triage Doc. by RN): Pt c/o midsternal chest pain, unable to describe the pain when asked. Pt family member stated pt was seen by
[2020-01-13 20:30] LABS: Troponin I < 0.01 ng/ml (0.00-0.034)
== END 2020-01-13 20:49 | disposition home or self-care (01) ==
PROVIDERS: Emergency Provider Family Medicine; PCP Emergency Medicine
DX: R07.89 Other chest pain (principal); K21.9 Gastro-esophageal reflux disease without esophagitis; I25.10 Atherosclerotic heart disease of native coronary artery without angina pectoris; I50.9 Heart failure, unspecified; I48.20 Chronic atrial fibrillation, unspecified; E78.5 Hyperlipidemia, unspecified; I10 Essential (primary) hypertension; Z95.0 Presence of cardiac pacemaker; Z79.899 Other long term (current) drug therapy
CPT/HCPCS: 36415; 71045; 80048; 84484; 85025; 93005; 99284

== ENCOUNTER 2020-01-22 10:04 | Emergency (ER) | payer MEDICARE, SELFPAY ==
[2020-01-22 10:05] VITALS: BP 172/92; PULSE 84; RESP 18; TEMP 36.8; O2SAT 97; BMI 25.7
--- NOTE | 2020-01-22 10:17 | XR_ITS ---
PROCEDURE: XR KUB CLINICAL INDICATION: abd pain ?constipation COMPARISON: CT ABDOMEN PELVIS W CON from 01/02/2020 FINDINGS: Bowel gas pattern is nonspecific. There is a mild amount of retained colonic feces in the descending and sigmoid colon. Prior left hip arthroplasty with degenerative changes of the lumbar spine noted. Bilateral nephrolithiasis. Multiple pelvic calcifications which may be due to phleboliths IMPRESSION: Mild amount of retained colonic feces. Bilateral nephrolithiasis Dictated by: Andre Barnes MD 01/22/2020 11:35 Electronically signed by Andre Barnes MD in [facility] 01/22/2020 11:35
[2020-01-22 10:31] VITALS: BP 159/75; PULSE 71; RESP 18; O2SAT 97
[2020-01-22 10:52] VITALS: BP 147/76; PULSE 75; RESP 16; O2SAT 97
--- NOTE | 2020-01-22 10:55 | PC.NURSE ---
pt going with rad
[2020-01-22 10:57] LABS: Basophils % 0.4 % (0.1-2.0); Eosinophils # 0.3 K/mm3 (0.0-0.4); Eosinophils % 3.8 % (0.1-12.0); Hematocrit 37.4 % (42.0-52.0); Hemoglobin 12.6 g/dL (14.1-18.0); Lymphocytes # 1.9 K/mm3 (0.7-4.5); Lymphocytes % 25.9 % (10-50); Mean Corpuscular HGB Conc 33.6 g/dL (31.8-35.4); Mean Corpuscular Hemoglobin 32.6 pg (27.0-31.2); Mean Corpuscular Volume 97.1 fl (80-94); Mean Platelet Volume 7.8 fl (7.4-10.4); Monocytes # 0.5 K/mm3 (0.1-1.0); Neutrophils # 4.7 K/mm3 (1.8-7.8); Neutrophils % 63.8 % (37.0-80.0); Platelet Count 198 K/mm3 (142-424); Red Blood Count 3.85 M/mm3 (4.60-6.20); Red Cell Distribution Width 13.8 % (11.5-17.5); White Blood Count 7.4 K/mm3 (4.8-10.8)
[2020-01-22 11:01] LABS: Chloride 103 mmol/L (98-107); Sodium 139 mmol/L (136-145)
[2020-01-22 11:03] LABS: Blood Urea Nitrogen 16 mg/dl (9-20); Creatinine Clearance Estimated 49 mL/min (50-200); Estimated Glomerular Filt Rate 48 ml/min (>60); GFR (African American) 59 ML/MIN (>60)
[2020-01-22 11:04] LABS: Alanine Aminotransferase 10 U/L (12-78); Albumin Level 3.9 g/dl (3.5-5.0); Albumin/Globulin Ratio 1.1 (1.1-1.8); Alkaline Phosphatase 59 U/L (38-126); Aspartate Amino Transferase 25 U/L (17-59); Bilirubin,Total 0.5 mg/dl (0.2-1.3); Calcium 9.5 mg/dl (8.4-10.2); Carbon Dioxide 30 mmol/L (22.0-30.0); Globulin 3.7 g/dL (1.3-3.2); Glucose 97 mg/dl (74-100); Total Protein,Serum 7.6 g/dl (6.3-8.2)
--- NOTE | 2020-01-22 11:42 | [facility].EDABDPAI ---
ED Disposition Clinical Impression: Constipation Disposition: Home, Self-Care Condition on Discharge: Good Instructions: DI for Acute Abdomen, Constipation (Alternative Therapy) Prescriptions: Docusate Sodium 250 mg PO BID 30 Days #60 cap Transmission Status: Pending to [facility] Referrals: Provider,Referral, [Primary Care Provider] - - Critical Care Critical Care Time: No Attestation: On 01/22/20, the high probability of a clinically significant, sudden or life threatening deterioration of the following system(s) required my full and direct attention, intervention and personal management. The time I documented below is in addition to time spent performing reported procedures but includes the following listed in this critical care notation. Medical Decision Making - Medical Records Medical records reviewed: Yes: I reviewed the patient's medical records. - Artemio Inquiry Pt receiving controlled substance: No Vital Signs: 01/22/20 10:05 01/22/20 10:31 01/22/20 10:52 Temperature 98.2 F Temperature Source Oral Pulse Rate [Left Radial] 84 71 75 Respiratory Rate 18 18 16 Blood Pressure [Right Arm] 172/92 H 159/75 H 147/76 H Blood Pressure Mean [Right Arm] 118 103 99 Blood Pressure Source [Right Arm] Automatic Cuff Automatic Cuff Blood Pressure Position [Right Arm] Sitting Supine Supine 02 Sat by Pulse Oximetry 97 97 97 Oxygen Delivery Method Room Air Room Air - Lab Data Lab results reviewed: Yes: I reviewed the patient's lab results. Lab Results 01/22/20 10:48: WBC 7.4, RBC 3.85 L, Hgb 12.6 L, Hct 37.4 L, MCV 97.1 H, MCH 32.6 H, MCHC 33.6, RDW 13.8, Plt Count 198, MPV 7.8, Neut % (Auto) 63.8, Lymph % (Auto) 25.9, [place] % (Auto) 6.0, Eos % (Auto) 3.8, Baso % (Auto) 0.4, Neut # (Auto) 4.7, Lymph # (Auto) 1.9, [place] # (Auto) 0.5, Eos # (Auto) 0.3, Baso # (Auto) 0.0 01/22/20 10:48: Sodium 139, Potassium 4.0, Chloride 103, Carbon Dioxide 30, Anion Gap 10.0, BUN 16, Creatinine 1.40 H, Estimated Creat Clear 49, Estimated GFR 48 L, Est GFR ( Amer) 59, Glucose 97, Calcium 9.5, Total Bilirubin 0.5, AST 25, ALT 10 L, Alkaline Phosphatase 59, Total Protein 7.6, Albumin 3.9, Globulin 3.7 H, Albumin/Globulin Ratio 1.1 Result diagrams: 01/22/20 10:48 01/22/20 10:48 - Radiology Data #1 Image(s): Abdomen Image Reviewed: Yes I reviewed the patient's radiology results Preliminary Findings: Abnormal (Moderate amount of colonic feces significant for constipation) Abdominal Pain HPI - General Chief Complaint: Abdominal Pain Stated Complaint: abd pain Time Seen by Provider: 01/22/20 11:42 Mode of Arrival: EMS Source of Information: Patient Limitations: No Limitations Description of Symptoms (Recalled from ER Triage Doc. by RN): to ed per squad with c/o constipation pt unsure of date of last BM. pt c/o abd pain. pt poor historian and extremely [place]. - History of Present Illness MD complaint: abdominal pain Onset (ago): week(s) Consistency: intermittent Location: diffuse Severity: moderate Severity scale (1-10): 3 Quality: cramping Radiation: none Migration to: no migration Relieving factors: bowel movement Exacerbating factors: nothing Context: other (She has a longstanding history of constipation who was previously seen in the ED for similar complaint.) Associated symptoms: denies other symptoms - Related Data Home Medications Medication Instructions Recorded Confirmed Tamsulosin HCl [Flomax 0.4mg 0.4 mg PO HS 07/04/19 01/13/20 capsule] Aspirin [Aspirin 81mg EC Tab] 81 mg PO DAILY 07/05/19 01/13/20 meclizine 25 mg tablet 25 mg PO DAILY 08/24/19 01/13/20 omeprazole 20 mg capsule,delayed 20 mg PO DAILY 11/16/19 01/13/20 release oxybutynin chloride 10 mg 10 mg PO DAILY 11/16/19 01/13/20 tablet,extended release 24 hr Albuterol Sulfate [Proventil Hfa] 2 puff INHALATION Q6H 12/16/19 01/13/20 Atorvastatin Calcium [Lipitor 10mg 10 mg PO HS 12/16/19 01/13/20 Ta
[2020-01-22 11:50] VITALS: BP 142/78; PULSE 75; RESP 16; O2SAT 98
--- NOTE | 2020-01-22 12:51 | PC.NURSE ---
pt went to restroom and stated that he had a bm and feels better now
[2020-01-22 12:53] VITALS: BP 141/56; PULSE 74; O2SAT 99
[2020-01-22 13:06] VITALS: BP 117/64; PULSE 78; RESP 18; TEMP 36.6; O2SAT 98
== END 2020-01-22 13:08 | disposition home or self-care (01) ==
PROVIDERS: Emergency Provider Family Medicine; PCP Emergency Medicine
DX: K59.00 Constipation, unspecified (principal); I48.20 Chronic atrial fibrillation, unspecified; I50.9 Heart failure, unspecified; I25.10 Atherosclerotic heart disease of native coronary artery without angina pectoris; K21.9 Gastro-esophageal reflux disease without esophagitis; E78.5 Hyperlipidemia, unspecified; I10 Essential (primary) hypertension; I25.2 Old myocardial infarction; Z95.0 Presence of cardiac pacemaker; Z96.642 Presence of left artificial hip joint; Z89.429 Acquired absence of other toe(s), unspecified side; Z79.899 Other long term (current) drug therapy
CPT/HCPCS: 74018; 80053; 85025; 99283

== ENCOUNTER 2020-04-21 17:37 | Emergency (ER) | payer MEDICARE, SELFPAY ==
[2020-04-21 17:39] VITALS: BP 178/91; PULSE 79; RESP 17; TEMP 36.6; O2SAT 98; BMI 25.1
--- NOTE | 2020-04-21 17:47 | HMH.EDGENADL ---
ED Disposition Clinical Impression: Visual disturbance, Feeling unwell Disposition: Home, Self-Care Condition on Discharge: Good Additional Instructions: Call Dr. Gama's office on Thursday to arrange follow-up. Return to the emergency department if worsening Referrals: Luis Fernando Gama MD [Primary Care Provider] - - Critical Care Critical Care Time: No Attestation: On , the high probability of a clinically significant, sudden or life threatening deterioration of the following system(s) required my full and direct attention, intervention and personal management. The time I documented below is in addition to time spent performing reported procedures but includes the following listed in this critical care notation. Medical Decision Making - Medical Records Medical records reviewed: Yes: I reviewed the patient's medical records. - Artemio Inquiry Pt receiving controlled substance: No Vital Signs: 04/21/20 17:39 04/21/20 19:17 Temperature 98 F 98.1 F Temperature Source Oral Oral Pulse Rate 89 Pulse Rate [Right] 79 Respiratory Rate 17 16 Blood Pressure 187/88 H Blood Pressure [Right Arm] 178/91 H Blood Pressure Mean [Right Arm] 120 Blood Pressure Source Automatic Cuff Blood Pressure Position Supine 02 Sat by Pulse Oximetry 98 Oxygen Delivery Method Room Air - Lab Data Lab results reviewed: Yes: I reviewed the patient's lab results. Lab Results 04/21/20 18:00: WBC 9.9, RBC 3.70 L, Hgb 12.4 L, Hct 36.8 L, MCV 99.3 H, MCH 33.5 H, MCHC 33.7, RDW 13.8, Plt Count 166, MPV 8.4, Neut % (Auto) 43.0, Lymph % (Auto) 50.0, [place] % (Auto) 3.9, Eos % (Auto) 2.6, Baso % (Auto) 0.5, Neut # (Auto) 4.3, Lymph # (Auto) 5.0 H, [place] # (Auto) 0.4, Eos # (Auto) 0.3, Baso # (Auto) 0.1, Total Counted 100, Neutrophils % (Manual) 41 L, Lymphocytes % (Manual) 50, Monocytes % (Manual) 2, Eosinophils % (Manual) 7 H, Platelet Estimate Normal, RBC Morphology Normal 04/21/20 18:00: Sodium 139, Potassium 4.1, Chloride 104, Carbon Dioxide 30, Anion Gap 9.1, BUN 16, Creatinine 1.30 H, Estimated Creat Clear 48, Estimated GFR 53 L, Est GFR ( Amer) 64, Glucose 100, Calcium 9.1, Total Bilirubin 0.5, AST 29, ALT 12, Alkaline Phosphatase 50, Troponin I < 0.01, Total Protein 6.9, Albumin 3.8, Globulin 3.1, Albumin/Globulin Ratio 1.2 04/21/20 18:00: SARS-CoV-2 IgG Ab (Rapid) Negative, SARS-CoV-2 IgM Ab (Rapid) Negative Result diagrams: 04/21/20 18:00 04/21/20 18:00 Orders (Tests/Meds): ORDERS Category Date Time Status XR chest portable Stat Exams 04/21/20 17:50 Taken ECG Request by /eJm Stat Y 04/21/20 17:49 Ordered - Radiology Data #1 Image(s): Chest Image Reviewed: Yes I reviewed the patient's radiology image Preliminary Findings: Normal/NAD - CT Data CT Scan: Head Time Received: 18:[address] Reviewed: Yes: I have viewed the radiologist's interpretation Findings Narrative: PROCEDURE: CT HEAD/BRAIN WO CON CLINICAL INDICATION: BLURRED COMPARISON: CT CT HEAD/BRAIN WO CON from 03/30/2019 TECHNIQUE: Axial images obtained. All CT scans at the facility use one or more dose reduction, viz: automated exposure control, ma/kV adjustment per patient size (including targeted exams where dose is matched to indication, i.e. head), or iterative reconstruction technique. FINDINGS: No midline shift, mass effect, intracranial hemorrhage, hydrocephalus, or extra-axial fluid collection is evident. Cisterns are mildly prominent. The sylvian fissures and cortical sulci are prominent. There are mild periventricular hypodensities consistent with mild chronic ischemic white matter changes. The calvarium has an unremarkable appearance. There is a mildly sclerotic appearance to the mastoid trabeculae bilaterally. Both internal auditory canals appear normal. There is essentially complete homogeneous opacification of the left maxillary sinus similar to the previous exam. IMPRESSION:
--- NOTE | 2020-04-21 17:49 | ECG_ITS ---
APPROVED REPORT Exam: Resting ECG HR:77 bpm ECG Measurements Heart Rate 77 AXES OH 96 P -22 QRSd 144 QRS 59 QT 398 T 203 QTc 450 <Conclusion> Electronic atrial pacemaker Left bundle branch block Abnormal ECG Electronically signed by : Jose Laureano, 04/22/2020 09:01:26
--- NOTE | 2020-04-21 17:49 | CT_ITS ---
PROCEDURE: CT HEAD/BRAIN WO CON CLINICAL INDICATION: BLURRED COMPARISON: CT CT HEAD/BRAIN WO CON from 03/30/2019 TECHNIQUE: Axial images obtained. All CT scans at the facility use one or more dose reduction, viz: automated exposure control, ma/kV adjustment per patient size (including targeted exams where dose is matched to indication, i.e. head), or iterative reconstruction technique. FINDINGS: No midline shift, mass effect, intracranial hemorrhage, hydrocephalus, or extra-axial fluid collection is evident. Cisterns are mildly prominent. The sylvian fissures and cortical sulci are prominent. There are mild periventricular hypodensities consistent with mild chronic ischemic white matter changes. The calvarium has an unremarkable appearance. There is a mildly sclerotic appearance to the mastoid trabeculae bilaterally. Both internal auditory canals appear normal. There is essentially complete homogeneous opacification of the left maxillary sinus similar to the previous exam. 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 Michel Torres MD 04/21/2020 18:33 Dr. Michel Torres MD in [place] 04/21/2020 18:33
--- NOTE | 2020-04-21 17:50 | XR_ITS ---
PROCEDURE: XR CHEST PORTABLE CLINICAL HISTORY: BASELINE COMPARISON: CR XR CHEST 2V from 07/15/2019 CR XR CHEST 2V from 11/09/2019 CR XR CHEST PORTABLE from 01/13/2020 FINDINGS: The cardiomediastinal silhouette and pulmonary vascularity are within normal limits. There is a left-sided cardiac pacemaker with dual chamber electrodes both in good position. There are old healed fractures of the right 4th and 5th ribs posteriorly. The lungs are clear without infiltrates, suspicious nodules, or pleural effusions. No acute bony abnormalities. There is severe degenerative change right shoulder with markedly high-riding humeral head and marked subacromial stenosis. There is degenerate spurring of the right AC joint. The left shoulder is unremarkable. IMPRESSION: No acute findings. Dictated by: Dr. Michel Torres MD 04/22/2020 07:13 Dr. Michel Torres MD in [place] 04/22/2020 07:13
--- NOTE | 2020-04-21 17:56 | PC.NURSE ---
rad at bedside
[2020-04-21 18:13] LABS: Basophils # 0.1 K/mm3 (0-0.2); Basophils % 0.5 % (0.1-2.0); Eosinophils # 0.3 K/mm3 (0.0-0.4); Eosinophils % 2.6 % (0.1-12.0); Hematocrit 36.8 % (42.0-52.0); Hemoglobin 12.4 g/dL (14.1-18.0); Mean Corpuscular HGB Conc 33.7 g/dL (31.8-35.4); Mean Corpuscular Hemoglobin 33.5 pg (27.0-31.2); Mean Corpuscular Volume 99.3 fl (80-94); Mean Platelet Volume 8.4 fl (7.4-10.4); Monocytes # 0.4 K/mm3 (0.1-1.0); Monocytes % 3.9 % (1.7-9.3); Neutrophils # 4.3 K/mm3 (1.8-7.8); Platelet Count 166 K/mm3 (142-424); Red Cell Distribution Width 13.8 % (11.5-17.5); White Blood Count 9.9 K/mm3 (4.8-10.8)
[2020-04-21 18:21] LABS: MANUAL DIFFERENTIAL MANUAL DIFFERENTIAL (MANUAL DIFF)
[2020-04-21 18:25] LABS: Chloride 104 mmol/L (98-107); Potassium 4.1 mmoL/L (3.5-5.1); Sodium 139 mmol/L (136-145)
[2020-04-21 18:27] LABS: Blood Urea Nitrogen 16 mg/dl (9-20); Creatinine Clearance Estimated 48 mL/min (50-200); Estimated Glomerular Filt Rate 53 ml/min (>60); GFR (African American) 64 ML/MIN (>60)
[2020-04-21 18:28] LABS: Alanine Aminotransferase 12 U/L (12-78); Albumin Level 3.8 g/dl (3.5-5.0); Albumin/Globulin Ratio 1.2 (1.1-1.8); Alkaline Phosphatase 50 U/L (38-126); Anion Gap 9.1 mEq/L (5-15); Aspartate Amino Transferase 29 U/L (17-59); Bilirubin,Total 0.5 mg/dl (0.2-1.3); Calcium 9.1 mg/dl (8.4-10.2); Carbon Dioxide 30 mmol/L (22.0-30.0); Globulin 3.1 g/dL (1.3-3.2); Glucose 100 mg/dl (74-100); Total Protein,Serum 6.9 g/dl (6.3-8.2)
[2020-04-21 18:29] LABS: Eosinophils % 7 % (0-3); Lymphocytes % 50 % (10-50); Monocytes % 2 % (2-9); Neutrophils % 41 % (42-76); Total Cells Counted 100
[2020-04-21 18:30] LABS: Platelet Estimate Normal; RBC Morphology Normal
[2020-04-21 18:48] LABS: Coronavirus 19 IgG Antibody Negative (Negative); Coronavirus 19 IgM Antibody Negative (Negative)
[2020-04-21 18:49] LABS: Troponin I < 0.01 ng/ml (0.00-0.034)
[2020-04-21 19:17] VITALS: BP 187/88; PULSE 89; RESP 16; TEMP 36.7; O2SAT 97
== END 2020-04-21 19:21 | disposition home or self-care (01) ==
PROVIDERS: Emergency Provider Emergency Medicine; PCP Emergency Medicine
DX: H53.15 Visual distortions of shape and size (principal); J32.0 Chronic maxillary sinusitis; I10 Essential (primary) hypertension; I48.20 Chronic atrial fibrillation, unspecified; K21.9 Gastro-esophageal reflux disease without esophagitis; I25.10 Atherosclerotic heart disease of native coronary artery without angina pectoris; I25.2 Old myocardial infarction; E78.5 Hyperlipidemia, unspecified; E11.9 Type 2 diabetes mellitus without complications; Z85.46 Personal history of malignant neoplasm of prostate; Z20.828 Contact with and (suspected) exposure to other viral communicable diseases; Z96.642 Presence of left artificial hip joint; Z79.899 Other long term (current) drug therapy
CPT/HCPCS: 70450; 71045; 80053; 84484; 85007; 85025; 86328; 93005; 99283

== ENCOUNTER 2020-06-18 17:50 | Observation (INO) | payer MEDICARE, SELFPAY ==
[2020-06-18 17:52] VITALS: BP 194/96; PULSE 86; RESP 18; TEMP 37; O2SAT 95; BMI 25.1
--- NOTE | 2020-06-18 17:58 | ECG_ITS ---
APPROVED REPORT Exam: Resting ECG HR:90 bpm ECG Measurements Heart Rate 90 AXES OR 136 P 60 QRSd 148 QRS 44 QT 400 T 72 QTc 489 Conclusion Sinus rhythm with occasional and consecutive premature ventricular complexes Left bundle branch block Abnormal ECG Electronically signed by : Jose Laureano, 06/19/2020 07:30:25
--- NOTE | 2020-06-18 17:59 | XR_ITS ---
PROCEDURE: XR CHEST 2V CLINICAL HISTORY: soa Mid chest pain, shortness of air COMPARISON: CR XR CHEST 2V from 11/09/[address] ABDOMEN PELVIS W CON from 01/02/2020 CR XR CHEST PORTABLE from 01/13/2020 CR XR CHEST PORTABLE from 04/21/2020 FINDINGS: Borderline cardiomegaly without failure. Bipolar pacemaker is present from left subclavian approach. Bilateral pericardial fat pads noted No lobar consolidation or collapse. Degenerative changes thoracic spine IMPRESSION: No acute findings. Dictated by: Andre Barnes MD 06/19/2020 06:18 Andre Barnes MD in [place] 06/19/2020 06:18
--- NOTE | 2020-06-18 18:02 | PC.NURSE ---
Pt recepted by registration prior to coming into ED.
--- NOTE | 2020-06-18 18:18 | PC.NURSE ---
Pt returned from rad.
--- NOTE | 2020-06-18 18:31 | PC.NURSE ---
registration called stating pts ride has left their number at the desk with them and we can just notify them when pt is ready to go home. number is [phone] daniel matthew
--- NOTE | 2020-06-18 18:42 | HMH.EDGENADL ---
ED Disposition Clinical Impression: Generalized weakness Chest pain Qualifiers: Chest pain type: other chest pain Qualified Code(s): R07.89 - Other chest pain Disposition: Admitted As Inpatient Condition on Discharge: Fair Referrals: Luis Fernando Gama MD [Primary Care Provider] - - Critical Care Critical Care Time: No Attestation: On 06/18/20, the high probability of a clinically significant, sudden or life threatening deterioration of the following system(s) required my full and direct attention, intervention and personal management. The time I documented below is in addition to time spent performing reported procedures but includes the following listed in this critical care notation. Medical Decision Making - Medical Records Medical records reviewed: Yes: I reviewed the patient's medical records. - Artemio Inquiry Pt receiving controlled substance: No Vital Signs: 06/18/20 17:52 06/18/20 19:02 06/18/20 19:30 Temperature 98.6 F Temperature Source Oral Pulse Rate [Apical] 86 72 Pulse Rate [Left Radial] 80 Respiratory Rate 18 18 16 Blood Pressure [Right Arm] 194/96 H 203/96 H 185/96 H Blood Pressure Mean [Right Arm] 128 131 125 Blood Pressure Source [Right Arm] Automatic Cuff Automatic Cuff Blood Pressure Position [Right Arm] Sitting Sitting Sitting 02 Sat by Pulse Oximetry 95 96 94 L Oxygen Delivery Method Room Air Room Air Room Air - Lab Data Lab Results 06/18/20 19:05: WBC 7.9, RBC 4.74, Hgb 15.7, Hct 47.5, MCV 100.2 H, MCH 33.1 H, MCHC 33.0, RDW 14.3, Plt Count 150, MPV 10.2, Neut % (Auto) 62.8, Lymph % (Auto) 31.2, Williamson % (Auto) 3.9, Eos % (Auto) 1.8, Baso % (Auto) 0.3, Neut # (Auto) 5.0, Lymph # (Auto) 2.5, Williamson # (Auto) 0.3, Eos # (Auto) 0.1, Baso # (Auto) 0.0 06/18/20 19:05: Sodium 139, Potassium 4.2, Chloride 104, Carbon Dioxide 30, Anion Gap 9.2, BUN 19, Creatinine 1.60 H, Estimated Creat Clear 39, Estimated GFR 41 L, Est GFR ( Amer) 50 L, Glucose 101 H, Calcium 9.3, Troponin I < 0.01 06/18/20 19:05: Total Bilirubin 0.5, Direct Bilirubin 0.2, Conjugated Bilirubin 0.0, Indirect Bilirubin 0.3, Unconjugated Bilirubin 0.3, AST 52, ALT 11 L, Alkaline Phosphatase 55, Total Protein 7.1, Albumin 4.0 Result diagrams: 06/18/20 19:05 06/18/20 19:05 Orders (Tests/Meds): ORDERS Category Date Time Status Chest XR 2 view (NOT portable) [XR chest 2V] Stat Exams 06/18/20 17:59 Taken Covid-19 IgG/IgM ([facility]) Stat Lab 06/18/20 20:14 Ordered Troponin I Q3H Lab 06/18/20 21:00 Ordered Troponin I Q3H Lab 06/19/20 00:00 Ordered Medical Decision Narrative: 84-year-old male with cardiac history presenting with weakness and chest pain. Nontoxic, afebrile, hemodynamically stable, oxygenating well on room air. EKG shows inferior ischemia with paced left bundle branch block but negative scarbossa criteria. CBC, CMP are nonactionable. Chest x-ray is negative for acute disease. Initial troponin is negative. Given his continual symptomatology, we will admit for further work-up and management. Patient remained stable in the ED. General Adult HPI - General Chief complaint: Weakness Stated complaint: chest feeling tight, staggering around Time Seen by Provider: 06/18/20 18:30 Mode of Arrival: Ambulatory Limitations: No Limitations Description of Symptoms (Recalled from ER Triage Doc. by RN): Pt reports not feeling well today, weakness, staggering around , and chest tightness. Pt denies fever, denies SOA. - History of Present Illness HPI narrative: 84-year-old male with complex medical history presenting with 1 day history of chest tightness and weakness. Patient is extremely hard of hearing and further history is limited due to difficulty obtaining information with the patient. He does not sign or read lips well. - Related Data Home Medications Medication Instructions Recorded Confirmed Tamsulosin HCl [Flomax 0.4mg 0.4 mg PO HS 07/04/19 05/09/20 capsule] Aspirin [
[2020-06-18 19:02] VITALS: BP 203/96; PULSE 72; RESP 18; O2SAT 96
[2020-06-18 19:30] VITALS: BP 185/96; PULSE 80; RESP 16; O2SAT 94
[2020-06-18 19:38] LABS: Basophils % 0.3 % (0.1-2.0); Eosinophils # 0.1 K/mm3 (0.0-0.4); Eosinophils % 1.8 % (0.1-12.0); Hematocrit 47.5 % (42.0-52.0); Hemoglobin 15.7 g/dL (14.1-18.0); Lymphocytes # 2.5 K/mm3 (0.7-4.5); Lymphocytes % 31.2 % (10-50); Mean Corpuscular Hemoglobin 33.1 pg (27.0-31.2); Mean Corpuscular Volume 100.2 fl (80-94); Mean Platelet Volume 10.2 fl (7.4-10.4); Monocytes # 0.3 K/mm3 (0.1-1.0); Monocytes % 3.9 % (1.7-9.3); Neutrophils % 62.8 % (37.0-80.0); Platelet Count 150 K/mm3 (142-424); Red Blood Count 4.74 M/mm3 (4.60-6.20); Red Cell Distribution Width 14.3 % (11.5-17.5); White Blood Count 7.9 K/mm3 (4.8-10.8)
[2020-06-18 19:39] LABS: Chloride 104 mmol/L (98-107); Potassium 4.2 mmoL/L (3.5-5.1); Sodium 139 mmol/L (136-145)
[2020-06-18 19:41] LABS: Alanine Aminotransferase 11 U/L (12-78); Aspartate Amino Transferase 52 U/L (17-59); Bilirubin,Unconjugated 0.3 mg/dL (0.0-1.1)
[2020-06-18 19:42] LABS: Alkaline Phosphatase 55 U/L (38-126); Anion Gap 9.2 mEq/L (5-15); Bilirubin,Direct 0.2 mg/dl (0.0-0.4); Bilirubin,Indirect 0.3 mg/dL (0.0-0.9); Bilirubin,Total 0.5 mg/dl (0.2-1.3); Blood Urea Nitrogen 19 mg/dl (9-20); Calcium 9.3 mg/dl (8.4-10.2); Carbon Dioxide 30 mmol/L (22.0-30.0); Creatinine Clearance Estimated 39 mL/min (50-200); Estimated Glomerular Filt Rate 41 ml/min (>60); GFR (African American) 50 ML/MIN (>60); Glucose 101 mg/dl (74-100); Total Protein,Serum 7.1 g/dl (6.3-8.2)
[2020-06-18 19:56] LABS: Troponin I < 0.01 ng/ml (0.00-0.034)
[2020-06-18 20:43] LABS: Coronavirus 19 IgG Antibody Negative (Negative)
[2020-06-18 20:44] LABS: Coronavirus 19 IgM Antibody Negative (Negative)
[2020-06-18 21:21] LABS: Microscopic, Urine URINE MICROSCOPIC (MICROSCOPIC)
[2020-06-18 21:25] LABS: Appearance,Urine CLEAR (Clear); Bilirubin,Urine Negative (Negative); Blood, Urine Negative (Negative); Color,Urine YELLOW (Yellow); Glucose,Urine (UA) Negative (Negative); Ketones,Urine Negative (Negative); Leukocyte Esterase,Urine Negative (Negative); Nitrate,Urine Negative (Negative); Protein,Urine Negative (Negative); Urobilinogen,Urine 0.2 EU/dl (0.2)
[2020-06-18 21:37] LABS: Bacteria,Urine Trace /lpf; Mucus,Urine 1+ /lpf; WBC,Urine Occasional #/hpf (0-3)
--- NOTE | 2020-06-18 21:46 | PC.NURSE ---
med rec not completed. pt is a poor historian and cant confirm his home meds. notified and stated dont worry about med rec. pt will be NPO at midnight.
[2020-06-18 21:47] VITALS: BP 186/100; PULSE 85; RESP 16; TEMP 36.7; O2SAT 96; BMI 23.2
--- NOTE | 2020-06-18 21:47 | PC.NURSE ---
PT ARRIVED TO THE FLOOR VIA W/C FROM ED W/STAFF AT [id number]
[2020-06-18 21:48] LABS: Troponin I < 0.01 ng/ml (0.00-0.034)
[2020-06-18 21:54] VITALS: BP 201/99; PULSE 71; RESP 16; TEMP 36.8; O2SAT 91
[2020-06-18 21:57] VITALS: PULSE 80
[2020-06-18 22:40] LABS: POC Glucose,Bedside 115 (70-110)
[2020-06-19] VITALS (23 sets, daily range): BP systolic 119–189; BP diastolic 63–103; PULSE 60–87; RESP 14–20; TEMP 36.4–36.8; O2SAT 94–100; BMI 23.3
--- NOTE | 2020-06-19 | IR_ITS ---
APPROVED REPORT Patient Location: Inpatient PROCEDURES Left heart catheterization Left ventriculogram Selective coronary angiogram Drug-eluting stent deployment to the proximal ID INDICATION Unstable angina, Coronary artery disease, History of unprotected left main stenting, Informed consent was obtained prior to the procedure. COMPLICATIONS None Estimated Blood Loss: less than 10ml TECHNIQUE One percent lidocaine was used to anesthetize the right groin. The right femoral artery was accessed via the Seldinger technique. A 4-Algerian sheath was placed in the right femoral artery. The JL-4 and JR-4 catheter was also used to perform left heart catheterization left ventriculogram and selective coronary angiogram. At the end of the diagnostic angiogram therapeutic heparin was administered and the 4 Algerian sheath was exchanged for a 6 Algerian sheath. A JL4 guide catheter was used to intubate the left main artery and a Choice PT wire was placed distally in the LAD. A 3 mm x 12 mm Xience stent was deployed at 12 fiordaliza reducing the severe stenosis to 0% IVAN-3 flow was present before and after the procedure. At the end of the procedure the apparatus was removed the groin was reprepped gloves were changed sheath was removed good hemostasis was achieved using Perclose device patient was transferred to the postop holding area in stable condition ANGIOGRAPHIC RESULTS The left main artery Has a stent in the proximal mid distal segment is widely patent. The ostium of the left main artery has a 10% stenosis The left anterior descending artery Has a proximal concentric 80% stenosis distal to the first diagonal artery but proximal to the first septal accessories repairer. The remaining vessel has mild 10 to 20% luminal irregularities The circumflex artery Is nondominant and has proximal 10 to 20% stenoses The right coronary artery Is a dominant vessel and has a proximal 30 to 40% concentric stenosis with mid vessel tandem 20% stenoses The MALIN ventriculogram reveals Preserved 60% The left ventricular end-diastolic pressure 10 mmHg IMPRESSION Widely patent left main stent as described above Severe disease in the proximal LAD Successful stenting the proximal ID severe disease reduced to 0% with 1 drug-eluting stent Preserved ejection fraction Normal left ventricular end-diastolic pressure PLAN 1. Dual antiplatelet therapy 2. Cardiac rehabilitation 3. Avoidance of tobacco products 4. Risk factor modification Electronically signed by : Yaw Rodriguez, 06/19/2020 14:27:24
--- NOTE | 2020-06-19 00:48 | PC.NURSE ---
got in report that Dr. Gama said not to do med rec because pt is a poor historian and won't know what and when he takes his medications, pt will be NPO at midnight
[2020-06-19 01:22] LABS: Troponin I < 0.01 ng/ml (0.00-0.034)
--- NOTE | 2020-06-19 04:27 | PC.NURSE ---
Pt A&OX4. Lungs CTA. pt denies pain or SOA. 96-99% on RA. paced on tele. pt voids per urinal. pt has rested quietly this shift.
[2020-06-19 05:48] LABS: POC Glucose,Bedside 97 (70-110)
--- NOTE | 2020-06-19 07:22 | P.CONPHA_ITS ---
[facility] Pharmacy VTE Monitoring - Patient Demographics Admission date: 06/18/20 Report Date: 06/19/20 Time: 07:22 Allergies/Adverse Reactions: Patient Allergies No Known Allergies Allergy (Verified 05/09/20 14:02) Height: 1.78 m Weight: 74.077 kg Patient Problems: Current Active Problems Weakness (Acute) Chest pain (Acute) - VTE Risk Labs: VTE Related Lab Results Hgb 15.7 g/dL (14.1-18.0) 06/18/20 19:05 Hct 47.5 % (42.0-52.0) 06/18/20 19:05 Plt Count 150 K/mm3 (142-424) 06/18/20 19:05 BUN 19 mg/dl (9-20) 06/18/20 19:05 Creatinine 1.60 mg/dl (0.66-1.25) H 06/18/20 19:05 Estimated Creat Clear 39 mL/min (50-200) 06/18/20 19:05 Was VTE Risk Assessment Performed: Yes VTE Score: 3 VTE Risk Level: Low Risk - Prophylaxis VTE Prophylaxis Ordered?: Yes Types of VTE Prophylaxis: TEDS Knee High Location of Applied Device: Bilateral Lower Extremeties
--- NOTE | 2020-06-19 07:46 | HMH.PHAINT ---
Medication reconciliation completed using medication list from physician office and pharmacy claims data.
--- NOTE | 2020-06-19 08:00 | CA_ITS ---
APPROVED REPORT EXAM: Comprehensive 2D, Doppler, and color-flow Echocardiogram Windmill Mechanic: Leslie Haywood CRT Ht: 5 ft 10 in Wt: 162lbs BSA: 1.91 BP: 185/96 mmHg Indications: Congestive Heart Failure, Atrial Fibrillation, CAD,CA, GERD, old [place], Pacer, Stents 2D Dimensions LVOT 1.94 cm (M/F) 1.5-2.5 M-Mode Dimensions RVDd 2.00 cm (0.9-2.6) LA Diam 3.47 cm (1.9-4.0) LVDd 4.63 cm (3.5-5.7) Ao Diam 4.46 cm (2.0-3.7) LVDs 3.51 cm (3.5-5.7) IVSd 1.91 cm (0.6-1.1) PWd 1.06 cm (0.6-1.1) EF (Teich) 48.20% FS 24.20% EDV (Teich) 98.80 mL ESV (Teich) 51.20 mL LV Diastology E Decel Time 150.00 (160-240 msec) E/A Ratio 0.52 MED E' 3.30 (< 7 cm/sec) E'/MED E' Ratio 21.52 (>14) LAT E' 3.60 (<10 cm/sec) E/LAT E' Ratio 19.72 (>14) Aortic Valve AI PHT 361.00 ms AO Peak GR. 4.70 mmHg Mitral Valve MV E Max Estrada. 71.00 (40-130 cm/s) MV A Velocity 138.00 (40-130 cm/s) E/A Ratio 0.52 MV Decel. Time 150.00 (160-240 ms) MV Mean Gr. 2.10 (<2mmHg) MV PHT 44.00 ms Pulmonary Valve PV Peak Velocity 76.00 (50-150 cm/s) Tricuspid Valve TR P. Velocity 246.00 cm/s RAP Estimate 10.00 mmHg RVSP 34.30 mmHg Left Ventricle Technically difficult study because of the patient fact in poor acoustic windows, endocardial surfaces are very poorly visualized. Left atrium is mildly enlarged, left ventricle is normal size, mild concentric left ventricular hypertrophy, visually estimated ejection fraction approximately 40%, there is abnormal septal motion, diastolic parameters are inconclusive. Right Ventricle Right atrium and right ventricle are mildly enlarged with normal contractility, there is pacemaker lead seen right atrium and right ventricle. Aortic Valve Aortic valve is thickened and calcified without aortic stenosis, there is mild aortic insufficiency. Mitral Valve Mitral valve has mitral calcification, leaflets are minimally thickened, there is no mitral stenosis, there is mild mitral regurgitation. Mitral inflow pattern is consistent with trace left ventricular end-diastolic pressure. Tricuspid Valve Tricuspid valve leaflets are not well visualized, there is mild tricuspid regurgitation. Tricuspid regurgitation jet velocity is inadequate for calculation of the right ventricular systolic pressure. Pulmonic Valve Pulmonic valve is poorly visualized. Great Vessels Aortic root is normal size. Pericardium No significant pericardial effusion noted Conclusion 1. Technically difficult study because of the patient fact in poor acoustic windows. Mild biatrial enlargement, normal left ventricular size, mild concentric left ventricular hypertrophy, visually estimated ejection fraction approximately 40%, there is abnormal septal motion. Diastolic parameters are inconclusive. 2. Mildly enlarged right ventricle with normal contractility. 3. Thickened and calcified aortic valve without aortic stenosis, there is mild aortic insufficiency. 4. Mild mitral and tricuspid regurgitation. 5. No significant pericardial effusion noted. Electronically signed by : Tony Christensen, 06/20/2020 05:52:28
[2020-06-19 08:16] LABS: Basophils % 0.2 % (0.1-2.0); Chloride 107 mmol/L (98-107); Eosinophils # 0.2 K/mm3 (0.0-0.4); Eosinophils % 2.4 % (0.1-12.0); Hematocrit 37.4 % (42.0-52.0); Lymphocytes # 3.4 K/mm3 (0.7-4.5); Lymphocytes % 37.4 % (10-50); Mean Corpuscular HGB Conc 33.3 g/dL (31.8-35.4); Mean Corpuscular Hemoglobin 32.7 pg (27.0-31.2); Mean Corpuscular Volume 98.5 fl (80-94); Mean Platelet Volume 9.7 fl (7.4-10.4); Monocytes # 0.5 K/mm3 (0.1-1.0); Neutrophils # 4.9 K/mm3 (1.8-7.8); Platelet Count 174 K/mm3 (142-424); Red Cell Distribution Width 13.8 % (11.5-17.5)
[2020-06-19 08:17] LABS: Potassium 3.9 mmoL/L (3.5-5.1); Sodium 139 mmol/L (136-145)
[2020-06-19 08:19] LABS: Blood Urea Nitrogen 15 mg/dl (9-20); Creatinine Clearance Estimated 45 mL/min (50-200); Estimated Glomerular Filt Rate 53 ml/min (>60); GFR (African American) 64 ML/MIN (>60)
[2020-06-19 08:20] LABS: Anion Gap 6.9 mEq/L (5-15); Calcium 9.3 mg/dl (8.4-10.2); Carbon Dioxide 29 mmol/L (22.0-30.0); Chol/HDL Ratio 5.2 (1-3.5); Cholesterol 194 mg/dl (140-200); Glucose 98 mg/dl (74-100); HDL Cholesterol 37 mg/dl (40-60); Triglycerides 118 mg/dl (30-150); VLDL Cholesterol 24 mg/dL (0-40)
[2020-06-19 08:31] LABS: Direct LDL Cholesterol 107.56 mg/dL (100-129)
[2020-06-19 08:36] LABS: Hemoglobin 12.5 g/dL (14.1-18.0)
--- NOTE | 2020-06-19 09:04 | HMH.HP ---
*Admission Date: 06/18/20 *Chief complaint: Chest Tightness *History of present illness: 84-year-old male patient presented to the emergency department complaining of 1 day of chest tightness, weakness, and staggering around . He is extremely hard of hearing and does not read lips well which makes it very difficult to communicate with him. He does not really explain staggering around , just that he did not feel right. He did have a cardiac cath last June with coronary artery stents and it appears he has not been taking his medication correctly as shown by lack of medication refills. CBC is unremarkable, BMP electrolytes are unremarkable with BUN/creatinine 22/1.5 GFR 42 Chest x-ray showing no acute findings Troponins have been negative x3 Patient was resting quietly in bed this morning denies any chest pain during the night states he has no needs at this moment Awaiting cardiology input [facility] History Medical History: Reports:: Atrial Fibrillation, Cancer (prostate), Carotid Stenosis, Congestive Heart Failure, Coronary Artery Disease, Gastroesophageal Reflux Disease(GERD), Hyperlipidemia, Hypertension, Internal Pacemaker, Kidney Stones, Myocardial Infarction Denies:: Diabetes Mellitus Type 1, Diabetes Mellitus Type 2, Lung Disease, MRSA, Seizures *Have you ever received a pneumonia vaccine?: No *Have you received a flu vaccine this season?: No Other Medical History: Reports: Arthritis Laterality Cases: Left: Total Hip Replacement Other Surgeries: Yes: No Previous Surgery, Cancer Surgery, Cardiac Catheterization, Colonoscopy, Coronary Stent, Pacemaker, Other (back sx) Amputation: Yes (2 toes) Fractures: No - *Social History Last grade of school completed: High school graduate Smoking Status: Never smoker Alcohol Intake: current Alcohol Intake Frequency:: a few times a month Substance Use Type: denies use *Occupational Status:: retired Housing: apartment Household Members: other *Travel in the last 8 weeks: None Family Hx:: Unable to obtain Review of Systems - Review of Systems Review of systems:: pertinent systems reviewed and negative unless documented below - Constitutional Denies body ache(s), Denies chills - Eyes Denies blurry vision, Denies loss of vision - ENT Reports abnormal hearing - *Cardiovascular Reports chest pain, Reports chest pain at rest, Denies shortness of breath - *Respiratory Denies chest congestion, Denies shortness of breath - *Gastrointestinal Denies abdominal pain - Endocrine Denies rapid, pounding, or irregular heartbeat Meds Home Medications Medication Instructions Recorded Confirmed Type Tamsulosin HCl [Flomax 0.4mg 0.4 mg PO HS 07/04/19 06/19/20 History capsule] Aspirin [Aspirin 81mg EC Tab] 81 mg PO DAILY 07/05/19 06/19/20 History meclizine 25 mg tablet 25 mg PO DAILY 08/24/19 06/19/20 History omeprazole 20 mg capsule,delayed 20 mg PO DAILY 11/16/19 06/19/20 History release oxybutynin chloride 10 mg 10 mg PO DAILY 11/16/19 06/19/20 History tablet,extended release 24 hr Albuterol Sulfate [Proventil Hfa] 2 puff INHALATION Q6H PRN 12/16/19 06/19/20 History Atorvastatin Calcium [Lipitor 10mg 10 mg PO HS 12/16/19 06/19/20 History Tab] Clopidogrel Bisulfate [Plavix 75mg 75 mg PO DAILY 12/16/19 06/19/20 History Tab] Isosorbide Mononitrate [Imdur 30mg 30 mg PO DAILY 12/16/19 06/19/20 History ER tablet] Losartan Potassium [Cozaar 25mg 25 mg PO DAILY 12/16/19 06/19/20 History Tablets] Docusate Sodium 250 mg PO BID 06/19/20 06/19/20 History Duloxetine HCl [Cymbalta] 30 mg PO QHS 06/19/20 06/19/20 History Metoprolol Succinate [Metoprolol 25 mg PO DAILY 06/19/20 06/19/20 History Succinate 25mg Tablet*] Oxycodone HCl/Acetaminophen 1 tab PO QID PRN 06/19/20 06/19/20 History [Oxycodone-Acetaminophen 10-325] allopurinoL [Allopurinol 100mg 100 mg PO DAILY 06/19/20 06/19/20 History tablet] polyethylene glycoL 3350 [Miralax
--- NOTE | 2020-06-19 09:38 | HMH.CNCARD ---
History of Present Illness Consult date: 06/19/20 Requesting physician: Luis Fernando Gama Consult reason: chest pain Chief complaint: chest pain History of present illness: This is an 84-year-old white gentleman who presented to the emergency department with complaints of chest pain and weakness. He is extremely hard of hearing and it is really hard to get any information from patient due to how significantly hard of hearing he is. He presented to the emergency department with a 1 day history of chest tightness. He states that this radiated to his back. It is unclear whether or not he had any associated symptoms with his chest pain and tightness. He is unable to understand me enough to rate the pain. He is unable to understand him enough to get any more information about the chest pain. Getting his health information is very difficult and was mostly obtained from his hospital medical records. The patient's daughter reports that he has been noncompliant with his medications. She states the only medicines he is taking at home as his pain medications. He is refusing all of his other medicines. [facility] History I have reviewed the patient's past medical history: Yes Medical History: Reports:: Atrial Fibrillation, Cancer (prostate), Carotid Stenosis, Congestive Heart Failure, Coronary Artery Disease, Gastroesophageal Reflux Disease(GERD), Hyperlipidemia, Hypertension, Internal Pacemaker, Kidney Stones, Myocardial Infarction Denies:: Diabetes Mellitus Type 1, Diabetes Mellitus Type 2, Lung Disease, MRSA, Seizures *Have you ever received a pneumonia vaccine?: No *Have you received a flu vaccine this season?: No Other Medical History: Reports: Arthritis Laterality Cases: Left: Total Hip Replacement Other Surgeries: Yes: No Previous Surgery, Cancer Surgery, Cardiac Catheterization, Colonoscopy, Coronary Stent, Pacemaker, Other (back sx) Amputation: Yes (2 toes) Fractures: No - *Social History Last grade of school completed: High school graduate Smoking Status: Never smoker Alcohol Intake: current Alcohol Intake Frequency:: a few times a month Substance Use Type: denies use *Occupational Status:: retired Housing: apartment Household Members: other *Travel in the last 8 weeks: None Family Hx:: Unable to obtain Meds Home Medications Medication Instructions Recorded Confirmed Type Tamsulosin HCl [Flomax 0.4mg 0.4 mg PO HS 07/04/19 06/19/20 History capsule] Aspirin [Aspirin 81mg EC Tab] 81 mg PO DAILY 07/05/19 06/19/20 History meclizine 25 mg tablet 25 mg PO DAILY 08/24/19 06/19/20 History omeprazole 20 mg capsule,delayed 20 mg PO DAILY 11/16/19 06/19/20 History release oxybutynin chloride 10 mg 10 mg PO DAILY 11/16/19 06/19/20 History tablet,extended release 24 hr Albuterol Sulfate [Proventil Hfa] 2 puff INHALATION Q6H PRN 12/16/19 06/19/20 History Atorvastatin Calcium [Lipitor 10mg 10 mg PO HS 12/16/19 06/19/20 History Tab] Clopidogrel Bisulfate [Plavix 75mg 75 mg PO DAILY 12/16/19 06/19/20 History Tab] Isosorbide Mononitrate [Imdur 30mg 30 mg PO DAILY 12/16/19 06/19/20 History ER tablet] Losartan Potassium [Cozaar 25mg 25 mg PO DAILY 12/16/19 06/19/20 History Tablets] Docusate Sodium 250 mg PO BID 06/19/20 06/19/20 History Duloxetine HCl [Cymbalta] 30 mg PO QHS 06/19/20 06/19/20 History Metoprolol Succinate [Metoprolol 25 mg PO DAILY 06/19/20 06/19/20 History Succinate 25mg Tablet*] Oxycodone HCl/Acetaminophen 1 tab PO QID PRN 06/19/20 06/19/20 History [Oxycodone-Acetaminophen 10-325] allopurinoL [Allopurinol 100mg 100 mg PO DAILY 06/19/20 06/19/20 History tablet] polyethylene glycoL 3350 [Miralax 17 gm PO DAILY 06/19/20 06/19/20 History 17gm Packet] Allergies Allergy/AdvReac Type Severity Reaction Status Date / Time No Known Allergies Allergy Verified 05/09/20 14:02 Exam Vital signs and Labs for Last 24 Hours: Temp Pulse Resp BP Pulse Ox 97.9 F 76 17
[2020-06-19 14:54] LABS: CATHL Activated Clotting Time 286 SEC (74-125)
[2020-06-19 17:24] LABS: POC Glucose,Bedside 84 (70-110)
--- NOTE | 2020-06-19 20:26 | PC.NURSE ---
PT IS RESTING IN BED WITH DAUGHTER AT BEDSIDE. EARLIER THIS MORNING PT STATED HE WAS NOT SURE THAT HE WANTED TO HAVE THE HEART CATH. AFTER PT'S DAUGHTER ARRIVED AND TOLD PT WHY IT WAS IMPORTANT THAT HE HAD THE CATH PT WAS AGREEABLE. ACCORDING TO PT'S DAUGHTER PT DOES NOT TAKE ANY MEDICATIONS AT HOME THAT HE IS SUPPOSE TO DAILY. THE ONLY MEDICATION SHE KNOWS HE TAKES ON A REGULAR BASIS IS HIS PAIN MEDICATION. PT IS DIFFICULT TO COMMUNICATE WITH B/C HE IS VERY INUPIAT. LUNG SOUNDS HAVE SCATTERED WHEEZES. ABDOMEN SOFT/ NON TENDER WITH ACTIVE BOWEL SOUNDS. EATING AND DRINKING WELL. PT AMBULATED TO THE BATHROOM AND HAD A LARGE BOWEL MOVEMENT. VSS. DRESSING TO THE RT GROIN C/D/I. WILL CONTINUE TO MONITOR.
[2020-06-19 21:31] LABS: POC Glucose,Bedside 84 (70-110)
[2020-06-20] VITALS: BP 144/80; PULSE 70; PULSE 79; RESP 12; TEMP 36.8; O2SAT 95
[2020-06-20 03:50] VITALS: BP 125/54; PULSE 71; RESP 12; TEMP 37; O2SAT 96
[2020-06-20 04:00] VITALS: PULSE 70
--- NOTE | 2020-06-20 04:58 | PC.NURSE ---
no acute changes since prior assessment, pt has rested on and off t/o shift, right femoral cath site with dressing in place, small area of sanguineous drainage, systolic BP 123-164, HR 63-79, pt has had no complaints of SOA or chest pain, has ambulated to bathroom with standby assist, lungs CTA
[2020-06-20 05:14] VITALS: BMI 22.4
[2020-06-20 06:14] LABS: POC Glucose,Bedside 68 (70-110)
[2020-06-20 08:00] VITALS: BP 127/55; PULSE 70; PULSE 75; RESP 16; RESP 18; TEMP 36.5; O2SAT 95
[2020-06-20 08:28] LABS: Chloride 107 mmol/L (98-107); Potassium 3.7 mmoL/L (3.5-5.1); Sodium 140 mmol/L (136-145)
[2020-06-20 08:31] LABS: Blood Urea Nitrogen 18 mg/dl (9-20); Creatinine Clearance Estimated 43 mL/min (50-200); Estimated Glomerular Filt Rate 53 ml/min (>60); GFR (African American) 64 ML/MIN (>60)
[2020-06-20 08:32] LABS: Anion Gap 7.7 mEq/L (5-15); Calcium 8.8 mg/dl (8.4-10.2); Carbon Dioxide 29 mmol/L (22.0-30.0); Glucose 109 mg/dl (74-100)
[2020-06-20 08:33] LABS: Basophils # 0.1 K/mm3 (0-0.2); Basophils % 0.5 % (0.1-2.0); Eosinophils # 0.3 K/mm3 (0.0-0.4); Eosinophils % 3.3 % (0.1-12.0); Hematocrit 40.3 % (42.0-52.0); Hemoglobin 13.1 g/dL (14.1-18.0); Lymphocytes # 2.7 K/mm3 (0.7-4.5); Lymphocytes % 26.5 % (10-50); Mean Corpuscular HGB Conc 32.6 g/dL (31.8-35.4); Mean Corpuscular Hemoglobin 32.1 pg (27.0-31.2); Mean Corpuscular Volume 98.6 fl (80-94); Mean Platelet Volume 8.4 fl (7.4-10.4); Monocytes # 0.5 K/mm3 (0.1-1.0); Monocytes % 4.9 % (1.7-9.3); Neutrophils # 6.5 K/mm3 (1.8-7.8); Neutrophils % 64.7 % (37.0-80.0); Platelet Count 176 K/mm3 (142-424); Red Blood Count 4.09 M/mm3 (4.60-6.20); Red Cell Distribution Width 13.8 % (11.5-17.5)
--- NOTE | 2020-06-20 09:32 | HMH.DCSUM ---
General - General Admission date:: 06/18/20 Discharge date: 06/20/20 HPI HPI: 84-year-old male patient presented to the emergency department complaining of 1 day of chest tightness, weakness, and staggering around . He is extremely hard of hearing and does not read lips well which makes it very difficult to communicate with him. He does not really explain staggering around , just that he did not feel right. He did have a cardiac cath last June with coronary artery stents and it appears he has not been taking his medication correctly as shown by lack of medication refills. CBC is unremarkable, BMP electrolytes are unremarkable with BUN/creatinine 22/1.5 GFR 42 Chest x-ray showing no acute findings Troponins have been negative x3 Patient was resting quietly in bed this morning denies any chest pain during the night states he has no needs at this moment Awaiting cardiology input Hospital Course Hospital Course: 84-year-old male patient presented to the emergency department complaining of 1 day of chest tightness, weakness, and staggering around . He is extremely hard of hearing and does not read lips well which makes it very difficult to communicate with him. He does not really explain staggering around , just that he did not feel right. He did have a cardiac cath last June with coronary artery stents and it appears he has not been taking his medication correctly as shown by lack of medication refills. CBC is unremarkable, BMP electrolytes are unremarkable with BUN/creatinine 22/1.5 GFR 42 Chest x-ray showing no acute findings Troponins have been negative x3 84-year-old male patient resting quietly in bed, he denies any chest pain or shortness of breath during the night. Underwent cardiac cath yesterday with stenting of his proximal LAD with 1 JUSTA. He will be discharged home today Long discussion with daughter Elsa regarding importance of medical regimen and keeping all appointments, he does have a history of non-compliance. She reports she will be trying to help patient with his medications and transporting him to his appointments. She was reminded that he can have transportation arranged if she is not available. Medications will be delivered to patient's house and daughter reports she will be setting up his medicine. Cardiology has seen and recommends: 1. Patient was admitted to the hospital and underwent left cardiac catheterization for unstable angina. The patient did have stenting to his proximal LAD with 1 drug-eluting stent. He will remain on Plavix and aspirin for dual antiplatelet therapy. 2. His coronary artery disease is likely stable. 3. His blood pressure is well controlled. 4. LDL goal is less than 55. His LDL is currently 107. The patient has been restarted on a statin. 5. His heart rate is well controlled. 6. Long discussion with the patient about being compliant with his medications. He is very hard of hearing but he does verbalize understanding. 7. No further recommendations at this time from a cardiac standpoint. He will need to follow-up in 1 to 2 weeks on an outpatient basis. 1. We will discharge home today 2. Continue current medical regimen 3. Follow-up with cardiology in 1 week 4. Follow-up with PCP in 1 week Objective Vital signs: Temp Pulse Resp BP Pulse Ox 97.7 F 75 16 127/55 L 95 06/20/20 08:00 06/20/20 08:00 06/20/20 08:00 06/20/20 08:00 06/20/20 08:00 no acute distress - *Routine HEENT Exam Head: Present: normocephalic Eye: Present: EOMI ENT: Present: mucous membranes moist - *Routine Neck Exam Present: trachea midline. Absent: tracheal deviation - *Routine Respiratory Exam Present: CTA bilaterally. Absent: accessory muscle use - *Routine Cardiovascular Exam Present: RRR - *Routine Abdominal Exam Present: soft, normoactive bowel sounds. Absent: tenderness, firm - *Routine Extremities Exam Present: fu
--- NOTE | 2020-06-20 09:50 | HMH.PNCARD ---
Subjective Date: 06/20/20 Time: 09:50 Principal diagnosis: angina, cad Interval history: This is an 84-year-old white gentleman who presented to the emergency department with complaints of chest pain and weakness. He underwent left cardiac catheterization yesterday and had a stent placed to his proximal LAD. The patient will be on Plavix and aspirin for dual antiplatelet therapy. This morning he denies any chest pain or pressure. He denies any shortness of breath or edema. He is very hard of hearing so it is really hard to do any very thorough review of systems because he can just not hear what I am saying. He does not read very well and cannot understand what I am writing. Has been some medical noncompliance with his medications. I have stressed the importance of taking his dual antiplatelet therapy. The patient verbalized understanding. Exam Vital signs and Labs for Last 24 Hours: Temp Pulse Resp BP Pulse Ox 97.7 F 75 16 127/55 L 95 06/20/20 08:00 06/20/20 08:00 06/20/20 08:00 06/20/20 08:00 06/20/20 08:00 Laboratory Results - last 24 hr 06/19/20 15:16: Activated Clotting Time 286 H* 06/19/20 16:30: POC Glucose 84 06/19/20 21:22: POC Glucose 84 06/20/20 05:23: POC Glucose 68 L 06/20/20 08:13: WBC 10.0, RBC 4.09 L, Hgb 13.1 L, Hct 40.3 L, MCV 98.6 H, MCH 32.1 H, MCHC 32.6, RDW 13.8, Plt Count 176, MPV 8.4, Neut % (Auto) 64.7, Lymph % (Auto) 26.5, [place] % (Auto) 4.9, Eos % (Auto) 3.3, Baso % (Auto) 0.5, Neut # (Auto) 6.5, Lymph # (Auto) 2.7, [place] # (Auto) 0.5, Eos # (Auto) 0.3, Baso # (Auto) 0.1 06/20/20 08:13: Sodium 140, Potassium 3.7, Chloride 107, Carbon Dioxide 29, Anion Gap 7.7, BUN 18, Creatinine 1.30 H, Estimated Creat Clear 43, Estimated GFR 53 L, Est GFR ( Amer) 64, Glucose 109 H, Calcium 8.8 I & O for Last 24 hours: Intake & Output 06/17/20 06/18/20 06/19/20 06/20/20 23:59 23:59 23:59 23:59 Intake Total 287 / 407 976 / 976 Output Total 1525 / 1525 Balance -1238 / -1118 976 / 976 Weight 162 lb 3 oz 163 lb 5 oz 157 lb 1 oz Narrative: Telemetry strip is sinus rhythm with a rate of 70. - Constitutional no acute distress, average body habitus - *Routine HEENT Exam Head: Present: normocephalic, atraumatic Eye: Present: EOMI, PERRL ENT: Present: mucous membranes moist - *Routine Neck Exam Present: supple, full ROM, normal carotid upstroke. Absent: JVD, carotid bruit, lymphadenopathy - *Routine Respiratory Exam Present: CTA bilaterally - *Routine Cardiovascular Exam Present: RRR, Normal S1, Normal S2. Absent: murmur - *Routine Abdominal Exam Present: soft, normoactive bowel sounds. Absent: tenderness, distended - *Routine Extremities Exam Present: full ROM, pulses intact, normal capillary refill. Absent: cyanosis, clubbing, edema - *Routine Skin Exam Present: intact, warm. Absent: erythema, rash - *Routine Neurological Exam Present: alert, oriented X3, CN II-XII intact. Absent: sensory deficit, motor deficit Progress Note: A&P (1) CAD (coronary artery disease) Status: Acute (2) History of cardiomyopathy Status: Chronic (3) IONE (hard of hearing) Status: Chronic (4) Unstable angina Status: Resolved (5) GERD (gastroesophageal reflux disease) Status: Chronic (6) Hyperlipidemia Status: Chronic (7) Carotid artery stenosis Status: Chronic (8) S/P drug eluting coronary stent placement Status: Chronic Assessment and Plan for All Diagnoses:: Plan: 1. Patient was admitted to the hospital and underwent left cardiac catheterization for unstable angina. The patient did have stenting to his proximal LAD with 1 drug-eluting stent. He will remain on Plavix and aspirin for dual antiplatelet therapy. 2. His coronary artery disease is likely stable. 3. His blood pressure is well controlled. 4. LDL goal is less than 55. His LDL is currently 107. The patient has been restarted on a statin. 5. His heart rate is well controlle
[2020-06-20 11:48] VITALS: PULSE 70
[2020-06-20 12:00] VITALS: BP 175/89; PULSE 80; RESP 20; TEMP 36.7; O2SAT 100
[2020-06-20 12:25] LABS: POC Glucose,Bedside 74 (70-110)
--- NOTE | 2020-06-20 13:31 | HMH.PHACLD ---
Christian Douglas has received discharge medication counseling on the following medications: ASPIRIN,PLAVIX,METOPROLOL,LOSARTAN,ATORVASTATIN. PATIENT HAS FILLED THESE MEDICATIONS IN THE PAST, BUT HAS BEEN NONCOMPLIANT. ALL MAINTENANCE MEDICATIONS WERE SENT TO CLINIC PHARMACY. COUNSELING COMPLETED BY CANDIDO MOLINA, STUDENT PHARMACIST. PATIENT'S DAUGHTER HAD NO QUESTIONS AT THIS TIME AND VERBALIZED UNDERSTANDING. -CARLOS QUINN, JUAN DIEGOD
== END 2020-06-20 12:30 | disposition home or self-care (01) ==
LOC: ER 20:18 → 2ND 20:46 → ER 23:24
PROVIDERS: Internal Medicine; Admitting Provider Emergency Medicine; Emergency Provider Physician Assistant; PCP Emergency Medicine; Visit Provider Emergency Medicine
DX: I25.110 Atherosclerotic heart disease of native coronary artery with unstable angina pectoris (principal); Z95.5 Presence of coronary angioplasty implant and graft; Z95.0 Presence of cardiac pacemaker; I11.0 Hypertensive heart disease with heart failure; I50.9 Heart failure, unspecified; I25.2 Old myocardial infarction; I65.29 Occlusion and stenosis of unspecified carotid artery; Z79.02 Long term (current) use of antithrombotics/antiplatelets; E78.5 Hyperlipidemia, unspecified; K21.9 Gastro-esophageal reflux disease without esophagitis; H91.90 Unspecified hearing loss, unspecified ear; Z79.82 Long term (current) use of aspirin; Z91.14 Patient's other noncompliance with medication regimen
CPT/HCPCS: 36415; 71046; 80048; 80061; 80076; 81001; 82962; 84484; 85025; 85347; 86328; 92928; 93005; 93306; 93458; 99152; 99283; C1725; C1760; C1769; C1876; C9600; G0378; J1644; Q9967

== ENCOUNTER → 2020-07-03 08:55 | Outpatient (CLI) | payer MEDICARE, SELFPAY ==
--- NOTE | 2020-07-03 08:55 | FL_ITS ---
PROCEDURE: FL BARIUM SWALLOW CLINICAL INDICATION: difficulty swallowing COMPARISON: No exams were available for comparison TECHNIQUE: In the upright position the patient was observed to swallow barium in both the AP and lateral view. The cervical esophagus was examined under fluoroscopy with images obtained. The patient was then placed prone in the right anterior oblique position and was observed to swallow barium with Valsalva technique . FLUOROSCOPY TIME: 1 minutes and 29 seconds FINDINGS: There is a medium-sized hiatal hernia. No annular constricting lesions or mass is evident. There is some mild esophageal tertiary contractions. IMPRESSION: Medium-sized hiatal hernia with esophageal dysmotility Dictated by: Andre Barnes MD 07/03/2020 15:38 Andre Barnes MD in [place] 07/03/2020 15:38
== END ==
PROVIDERS: PCP Emergency Medicine; Visit Provider Nurse Practitioner Family
DX: R13.10 Dysphagia, unspecified (principal)
CPT/HCPCS: 74220

== ENCOUNTER 2020-07-12 09:01 | Observation (INO) | payer MEDICARE, SELFPAY ==
[2020-07-12] VITALS (10 sets, daily range): BP systolic 142–200; BP diastolic 85–98; PULSE 74–90; RESP 15–18; TEMP 36.5–36.8; O2SAT 94–100; BMI 24.3; BMI 24.1
--- NOTE | 2020-07-12 09:20 | CT_ITS ---
PROCEDURE: CT HEAD/BRAIN WO CON CLINICAL INDICATION: AMS Altered mental status, altered level of consciousness, confusion, disorientation COMPARISON: CT CT HEAD/BRAIN WO CON from 04/21/2020 TECHNIQUE: Axial images obtained. All CT scans at the facility use one or more dose reduction, viz: automated exposure control, ma/kV adjustment per patient size (including targeted exams where dose is matched to indication, i.e. head), or iterative reconstruction technique. FINDINGS: No midline shift, mass effect, intracranial hemorrhage, hydrocephalus, or extra-axial fluid collection is evident. There is generalized atrophy with hypoattenuation of the periventricular white matter consistent with microangiopathic changes. There remains prominence of the subdural space in the frontal regions possibly due to subdural hygromas not significantly changed. The calvarium has an unremarkable appearance. No mastoid effusion. Chronic complete opacification noted of the left maxillary sinus. IMPRESSION: No acute intracranial finding Dictated by: Andre Barnes MD 07/12/2020 10:12 Andre Barnes MD in [facility] 07/12/2020 10:12
--- NOTE | 2020-07-12 09:21 | XR_ITS ---
PROCEDURE: XR CHEST PORTABLE CLINICAL HISTORY: AMS Altered mental status, weakness COMPARISON: CR XR CHEST PORTABLE from 01/13/2020 CR XR CHEST PORTABLE from 04/21/2020 CR XR CHEST 2V from 06/18/2020 FINDINGS: Mild cardiomegaly without failure. Bipolar pacemaker is present from left subclavian approach. There is slight increased density in the right lower lobe which may be related to an area of atelectasis or vascular crowding. There are old bilateral rib fractures. Degenerative changes are present in the shoulders. IMPRESSION: Cardiomegaly with mild right lower lobe atelectasis Dictated by: Andre Barnes MD 07/12/2020 14:03 Andre Barnes MD in [place] 07/12/2020 14:03
--- NOTE | 2020-07-12 09:22 | HMH.EDGENADL ---
ED Disposition Clinical Impression: Delirium Disposition: Admitted as Observation Condition on Discharge: Fair - Critical Care Critical Care Time: No Attestation: On 07/12/20, the high probability of a clinically significant, sudden or life threatening deterioration of the following system(s) required my full and direct attention, intervention and personal management. The time I documented below is in addition to time spent performing reported procedures but includes the following listed in this critical care notation. Medical Decision Making - Artemio Inquiry Pt receiving controlled substance: No Vital Signs: 07/12/20 09:01 07/12/20 09:36 07/12/20 10:31 Temperature 97.8 F Temperature Source Oral Pulse Rate [Right Radial] 82 74 74 Respiratory Rate 18 15 Blood Pressure [Right Arm] 179/97 H 186/98 H 200/92 H Blood Pressure Mean [Right Arm] 124 127 128 Blood Pressure Source [Right Arm] Automatic Cuff Automatic Cuff Blood Pressure Position [Right Arm] Sitting Sitting 02 Sat by Pulse Oximetry 100 94 L 96 Oxygen Delivery Method Room Air Room Air Room Air 07/12/20 10:43 Temperature Temperature Source Pulse Rate [Right Radial] 85 Respiratory Rate Blood Pressure [Right Arm] 192/98 H Blood Pressure Mean [Right Arm] 129 Blood Pressure Source [Right Arm] Automatic Cuff Blood Pressure Position [Right Arm] Sitting 02 Sat by Pulse Oximetry 94 L Oxygen Delivery Method Room Air - Lab Data Lab Results 07/12/20 09:25: WBC 9.3, RBC 3.68 L, Hgb 12.0 L, Hct 36.8 L, MCV 100.0 H, MCH 32.5 H, MCHC 32.5, RDW 13.9, Plt Count 247, MPV 8.0, Neut % (Auto) 61.2, Lymph % (Auto) 31.0, [place] % (Auto) 4.6, Eos % (Auto) 2.8, Baso % (Auto) 0.4, Neut # (Auto) 5.7, Lymph # (Auto) 2.9, [place] # (Auto) 0.4, Eos # (Auto) 0.3, Baso # (Auto) 0.0 07/12/20 09:25: Sodium 137, Potassium 4.4, Chloride 102, Carbon Dioxide 25, Anion Gap 14.4, BUN 31 H, Creatinine 2.00 H, Estimated Creat Clear 31, Estimated GFR 32 L, Est GFR ( Amer) 39 L, Glucose 119 H, Calcium 10.0, Total Bilirubin 0.6, AST 36, ALT 14, Alkaline Phosphatase 73, Troponin I < 0.01, Total Protein 8.4 H, Albumin 4.5, Globulin 3.9 H, Albumin/Globulin Ratio 1.2, Salicylates < 1.0 L, Acetaminophen < 10 L 07/12/20 09:25: Plasma/Serum Alcohol < 10 Result diagrams: 07/12/20 09:25 07/12/20 09:25 Orders (Tests/Meds): ED MEDICATIONS Discontinued Medications Generic Name Dose Route Start Last Admin Trade Name Freq PRN Reason Stop Dose Admin Sodium Chloride 500 mls @ 999 mls/hr 07/12/20 09:45 Sod Chlor 0.9% 1000ml Bag IV 07/12/20 10:15 .Q31M HAIM Sodium Chloride 1,000 mls @ 999 mls/hr 07/12/20 09:45 07/12/20 09:46 Sod Chlor 0.9% 1000ml Bag IV 07/12/20 10:45 999 mls/hr .Q1H1M HAIM Administration ORDERS Category Date Time Status XR chest portable Stat Exams 07/12/20 09:21 Taken Drug Screen,Urine Stat Lab 07/12/20 09:21 Ordered Troponin I Q3H Lab 07/12/20 12:30 Ordered Troponin I Q3H Lab 07/12/20 15:30 Ordered Urinalysis and Microscopic Stat Lab 07/12/20 09:21 Ordered - Radiology Data #1 Image(s): Chest Image Reviewed: Yes I reviewed the patient's radiology image Preliminary Findings: Normal/NAD - CT Data CT Scan: Head Time Received: 10:[address] Reviewed: Yes: I have viewed the radiologist's interpretation Findings Narrative: PROCEDURE: CT HEAD/BRAIN WO CON CLINICAL INDICATION: AMS Altered mental status, altered level of consciousness, confusion, disorientation COMPARISON: CT CT HEAD/BRAIN WO CON from 04/21/2020 TECHNIQUE: Axial images obtained. All CT scans at the facility use one or more dose reduction, viz: automated exposure control, ma/kV adjustment per patient size (including targeted exams where dose is matched to indication, i.e. head), or iterative reconstruction technique. FINDINGS: No midline shift, mass effect, intracranial hemorrhage, hydrocephalus, or extra-axial fluid collectio
[2020-07-12 09:33] LABS: Basophils % 0.4 % (0.1-2.0); Eosinophils # 0.3 K/mm3 (0.0-0.4); Eosinophils % 2.8 % (0.1-12.0); Hematocrit 36.8 % (42.0-52.0); Lymphocytes # 2.9 K/mm3 (0.7-4.5); Mean Corpuscular HGB Conc 32.5 g/dL (31.8-35.4); Mean Corpuscular Hemoglobin 32.5 pg (27.0-31.2); Monocytes # 0.4 K/mm3 (0.1-1.0); Monocytes % 4.6 % (1.7-9.3); Neutrophils # 5.7 K/mm3 (1.8-7.8); Neutrophils % 61.2 % (37.0-80.0); Platelet Count 247 K/mm3 (142-424); Red Blood Count 3.68 M/mm3 (4.60-6.20); Red Cell Distribution Width 13.9 % (11.5-17.5); White Blood Count 9.3 K/mm3 (4.8-10.8)
[2020-07-12 09:38] LABS: Chloride 102 mmol/L (98-107); Sodium 137 mmol/L (136-145)
[2020-07-12 09:39] LABS: Potassium 4.4 mmoL/L (3.5-5.1)
[2020-07-12 09:41] LABS: Alanine Aminotransferase 14 U/L (12-78); Albumin Level 4.5 g/dl (3.5-5.0); Albumin/Globulin Ratio 1.2 (1.1-1.8); Alkaline Phosphatase 73 U/L (38-126); Anion Gap 14.4 mEq/L (5-15); Aspartate Amino Transferase 36 U/L (17-59); Bilirubin,Total 0.6 mg/dl (0.2-1.3); Blood Urea Nitrogen 31 mg/dl (9-20); Carbon Dioxide 25 mmol/L (22.0-30.0); Creatinine Clearance Estimated 31 mL/min (50-200); Estimated Glomerular Filt Rate 32 ml/min (>60); GFR (African American) 39 ML/MIN (>60); Globulin 3.9 g/dL (1.3-3.2); Total Protein,Serum 8.4 g/dl (6.3-8.2)
[2020-07-12 09:42] LABS: Glucose 119 mg/dl (74-100); Salicylate < 1.0 mg/dL (2.0-20.0)
[2020-07-12 09:43] LABS: Acetaminophen < 10 ug/ml (10-30); Ethyl Alcohol < 10 mg/dl (0-10)
--- NOTE | 2020-07-12 09:45 | ECG_ITS ---
APPROVED REPORT Exam: Resting ECG HR:70 bpm ECG Measurements Heart Rate 70 AXES [place] 164 P 59 QRSd 156 QRS 33 QT 430 T 83 QTc 464 Conclusion Electronic atrial pacemaker Left bundle branch block Abnormal ECG Electronically signed by : Jose Laureano, 07/12/2020 19:13:12
--- NOTE | 2020-07-12 09:47 | PC.NURSE ---
Pt to rad.
[2020-07-12 09:59] LABS: Troponin I < 0.01 ng/ml (0.00-0.034)
--- NOTE | 2020-07-12 10:03 | PC.NURSE ---
Pt's daughter at bedside at this time.
--- NOTE | 2020-07-12 10:43 | PC.NURSE ---
speaking with dr issa
--- NOTE | 2020-07-12 11:47 | PC.NURSE ---
notified receiving nurse on second floor that pt is ready for admission states she is coming down to get report.
--- NOTE | 2020-07-12 11:52 | PC.NURSE ---
IGG/IGM not obtained, order placed prior to getting report and transporting pt to floor.
--- NOTE | 2020-07-12 11:52 | PC.NURSE ---
notified lab of add on order, spoke with tasha
--- NOTE | 2020-07-12 12:18 | PC.NURSE ---
Pt continues to complain of seeing bugs crawling all over his room. Asks me if I see them and gets frustrated when I tell him i do not.
[2020-07-12 12:20] LABS: Coronavirus 19 IgG Antibody Negative (Negative); Coronavirus 19 IgM Antibody Negative (Negative)
--- NOTE | 2020-07-12 12:39 | PC.NURSE ---
report given to daysi luciano
[2020-07-12 12:41] LABS: Microscopic, Urine URINE MICROSCOPIC (MICROSCOPIC)
[2020-07-12 12:49] LABS: Appearance,Urine CLEAR (Clear); Bilirubin,Urine Negative (Negative); Blood, Urine Negative (Negative); Color,Urine YELLOW (Yellow); Glucose,Urine (UA) Negative (Negative); Ketones,Urine TRACE (Negative); Leukocyte Esterase,Urine Negative (Negative); Nitrate,Urine Negative (Negative); Protein,Urine Negative (Negative); Specific Gravity, Urine 1.015 (1.005-1.030); Urobilinogen,Urine 0.2 EU/dl (0.2)
[2020-07-12 12:56] LABS: Squamous Epithelial Cell,Urine Occasional #/hpf (0-5)
[2020-07-12 13:01] LABS: Barbiturates Screen,Urine Negative ng/ml (<200)
[2020-07-12 13:02] LABS: Amphetamine/Metha Screen,Urine Negative ng/ml (<1000); Benzodiazepines Screen,Urine Negative ng/ml (<200)
--- NOTE | 2020-07-12 13:02 | HMH.PHAINT ---
MED REC-COMPARED RX BOTTLES, PHARMACY FILL HX, AND MED LIST. CORRECTIONS MADE.
[2020-07-12 13:03] LABS: Methadone Screen,Urine Negative ng/ml (<300)
--- NOTE | 2020-07-12 13:03 | HMH.PHAVTE ---
[facility] Pharmacy VTE Monitoring - Patient Demographics Admission date: 07/12/20 Report Date: 07/12/20 Time: 13:03 Allergies/Adverse Reactions: Patient Allergies No Known Allergies Allergy (Verified 06/27/20 11:14) Height: 1.78 m Weight: 77.111 kg Patient Problems: Current Active Problems Delirium (Acute) - VTE Risk Labs: VTE Related Lab Results Hgb 12.0 g/dL (14.1-18.0) L 07/12/20 09:25 Hct 36.8 % (42.0-52.0) L 07/12/20 09:25 Plt Count 247 K/mm3 (142-424) 07/12/20 09:25 BUN 31 mg/dl (9-20) H 07/12/20 09:25 Creatinine 2.00 mg/dl (0.66-1.25) H 07/12/20 09:25 Estimated Creat Clear 31 mL/min (50-200) 07/12/20 09:25 - Prophylaxis Types of VTE Prophylaxis: TEDS Knee High (ALYSA HOSE ORDERED)
[2020-07-12 13:04] LABS: Cannabinoid Screen,Urine Negative ng/ml (<50); Cocaine Screen,Urine Negative ng/ml (<300)
[2020-07-12 13:05] LABS: Opiate Screen,Urine Negative ng/ml (<300); Phencyclidine Screen,Urine Negative ng/ml (<25)
--- NOTE | 2020-07-12 15:58 | PC.NURSE ---
Meds placed in locked drawer. Oxycodone was sent home w/ pt's daughter.
--- NOTE | 2020-07-12 16:39 | PC.NURSE ---
Received report from Iram Loja RN at approx 1600 on pt.
--- NOTE | 2020-07-12 18:26 | PC.NURSE ---
No acute changes at this time. Pt has continued to sleep. Will arouse to tactile stimuli. VSS. Will cont to mx this shift.
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
[2020-07-13 03:59] VITALS: BP 190/98; PULSE 87; RESP 17; TEMP 36.8; O2SAT 98
[2020-07-13 05:12] VITALS: BMI 23.4
--- NOTE | 2020-07-13 05:19 | PC.NURSE ---
Pt has been pleasant and cooperative this shift. Alert to person only. No complaints of pain. Pt is on room air with sats. >90%. Lungs CTA. Skin is C/D/I. No edema noted. Pt ambulates with stand-by assistance and uses the urinal to void clear, yellow urine without issue. No BM this shift. 20 G peripheral IV in the LT AC is patent and infusing NS @ 75 ML/HR. B/P slightly elevated this AM. Other VSS. Bed safety alarm in place. Call light within reach. Will continue to monitor.
[2020-07-13 05:57] LABS: Chloride 107 mmol/L (98-107); Sodium 140 mmol/L (136-145)
[2020-07-13 06:00] LABS: Blood Urea Nitrogen 17 mg/dl (9-20); Carbon Dioxide 25 mmol/L (22.0-30.0); Creatinine Clearance Estimated 49 mL/min (50-200); Estimated Glomerular Filt Rate 58 ml/min (>60); GFR (African American) 70 ML/MIN (>60)
[2020-07-13 06:01] LABS: Calcium 9.4 mg/dl (8.4-10.2); Glucose 96 mg/dl (74-100)
[2020-07-13 07:53] VITALS: BP 151/106; PULSE 70; RESP 18; TEMP 36.8; O2SAT 98
[2020-07-13 08:00] VITALS: O2SAT 98
--- NOTE | 2020-07-13 08:23 | HMH.ACPN2 ---
Internal Medicine - PN: Subj *Date: 07/14/20 *Time: 06:39 Interval history: pt doing better this am- pt with improved julio c- no appetite - Exam Vital signs and Labs for Last 24 Hours: Temp Pulse Resp BP Pulse Ox 98.3 F 70 18 151/106 H 98 07/13/20 07:53 07/13/20 07:53 07/13/20 07:53 07/13/20 07:53 07/13/20 07:53 Laboratory Results - last 24 hr 07/12/20 09:25: WBC 9.3, RBC 3.68 L, Hgb 12.0 L, Hct 36.8 L, MCV 100.0 H, MCH 32.5 H, MCHC 32.5, RDW 13.9, Plt Count 247, MPV 8.0, Neut % (Auto) 61.2, Lymph % (Auto) 31.0, [place] % (Auto) 4.6, Eos % (Auto) 2.8, Baso % (Auto) 0.4, Neut # (Auto) 5.7, Lymph # (Auto) 2.9, [place] # (Auto) 0.4, Eos # (Auto) 0.3, Baso # (Auto) 0.0 07/12/20 09:25: Sodium 137, Potassium 4.4, Chloride 102, Carbon Dioxide 25, Anion Gap 14.4, BUN 31 H, Creatinine 2.00 H, Estimated Creat Clear 31, Estimated GFR 32 L, Est GFR ( Amer) 39 L, Glucose 119 H, Calcium 10.0, Total Bilirubin 0.6, AST 36, ALT 14, Alkaline Phosphatase 73, Troponin I < 0.01, Total Protein 8.4 H, Albumin 4.5, Globulin 3.9 H, Albumin/Globulin Ratio 1.2, Salicylates < 1.0 L, Acetaminophen < 10 L 07/12/20 09:25: Plasma/Serum Alcohol < 10 07/12/20 09:25: SARS-CoV-2 IgG Ab (Rapid) Negative, SARS-CoV-2 IgM Ab (Rapid) Negative 07/12/20 12:35: Urine Color Yellow, Urine Appearance Clear, Urine pH 6.0, Ur Specific [place] 1.015, Urine Protein Negative, Urine Glucose (UA) Negative, Urine Ketones Trace, Urine Blood Negative, Urine Nitrate Negative, Urine Bilirubin Negative, Urine Urobilinogen 0.2, Ur Leukocyte Esterase Negative, Urine RBC None, Urine WBC None, Ur Squamous Epith Cells Occasional, Urine Bacteria None 07/12/20 12:35: Urine Opiates Screen Negative, Urine Methadone Screen Negative, Ur Barbituates Screen Negative, Ur Phencyclidine Scrn Negative, Ur Amphetamines Screen Negative, U Benzodiazepines Scrn Negative, Urine Cocaine Screen Negative, U Marijuana (THC) Screen Negative 07/13/20 05:27: Sodium 140, Potassium 4.0, Chloride 107, Carbon Dioxide 25, Anion Gap 12.0, BUN 17 D, Creatinine 1.20 D, Estimated Creat Clear 49, Estimated GFR 58 L, Est GFR ( Amer) 70 D, Glucose 96, Calcium 9.4 I & O for Last 24 hours: Intake & Output 07/10/20 07/11/20 07/12/20 07/13/20 11:59 11:59 11:59 11:59 Intake Total 1556 / 1556 Output Total 1200 / 1200 Balance 356 / 356 Weight 170 lb 163 lb 9 oz - Constitutional no acute distress - *Routine HEENT Exam Head: Present: normocephalic Eye: Present: EOMI, PERRL ENT: Present: mucous membranes dry - *Routine Neck Exam Present: supple. Absent: JVD - *Routine Respiratory Exam Present: CTA bilaterally - *Routine Cardiovascular Exam Present: RRR - *Routine Abdominal Exam Present: soft - *Routine Extremities Exam Absent: Israel's sign - *Routine Skin Exam Present: intact - *Routine Neurological Exam Present: alert, CN II-XII intact - Routine Psychiatric Exam Absent: auditory hallucinations, visual hallucinations Assessment and Plan (1) JULIO C (acute kidney injury) Status: Acute Category: Medical Code(s): N17.9 - Acute kidney failure, unspecified (2) Delirium Status: Acute Category: Medical Code(s): R41.0 - Disorientation, unspecified (3) CAD (coronary artery disease) Status: Chronic Qualifiers: Coronary Disease-Associated Artery/Lesion type: [place] artery [place] vs. transplanted heart: [place] heart Associated angina: with other forms of angina Qualified Code(s): I25.118 - Atherosclerotic heart disease of [place] coronary artery with other forms of angina pectoris Category: Medical Code(s): I25.10 - Atherosclerotic heart disease of [place] coronary artery without angina pectoris (4) Hearing impairment Status: Acute Qualifiers: Hearing loss type: unspecified Laterality: bilateral Qualified Code(s): H91.93 - Unspecified hearing loss, bilateral Category: Medical Code(s): H91.90 - Unspecified hearing loss, unspecified ear
[2020-07-13 10:55] VITALS: BMI 23.3
--- NOTE | 2020-07-13 15:11 | PC.NURSE ---
A&OX4. PT HAS TOLERATED ROOM AIR WELL THROUGHOUT SHIFT. RESPIRATIONS REGULAR AND UNLABORED. LUNG SOUNDS DIMINISHED THROUGHOUT. NO EDEMA NOTED. NO COUGH NOTED. HAND MANAGER SUPPLY CHAIN PLANNING EQUAL. +2 PULSES NOTED THROUGHOUT. ACTIVE BOWEL SOUNDS HEARD IN ALL 4 QUADRANTS. SOFT AND NONTENDER ABDOMEN. PT HAS HAD 2 BMS THUS FAR. PT VOIDS PER URINAL AND BSC. CLEAR YELLOW URINE NOTED. STEADY GAIT NOTED. PT AMBULATES W 1 PERSON ASSIST. PT HAS RECEIVED SCHEDULED PAIN MEDS PER SEP AND STATES IT HELPS. PT GOT UP TO THE CHAIR FOR ABOUT A HOUR AND A HALF TODAY AND TOLERATED WELL. WILL GET PT UP FOR SUPPER WELL. PT ATE WELL FOR LUNCH. NS INFUSING AT 75ML/HR. PT IS CURRENTLY LYING IN BED WATCHING TV WITH CALL LIGHT WITHIN REACH. BED IN LOWEST POSITION. BED ALARM ON TO PROMOTE SAFETY. VSS. WILL CONTINUE TO MONITOR.
[2020-07-13 16:00] VITALS: BP 144/87; PULSE 75; RESP 18; TEMP 36.8; O2SAT 96
[2020-07-13 19:56] VITALS: BP 154/94; PULSE 77; RESP 17; TEMP 36.8; O2SAT 97
[2020-07-13 20:00] VITALS: PULSE 77; RESP 17; O2SAT 97
[2020-07-14 03:49] VITALS: BP 160/88; PULSE 78; RESP 18; TEMP 36.6; O2SAT 96
[2020-07-14 05:00] VITALS: BMI 23.3
--- NOTE | 2020-07-14 05:56 | PC.NURSE ---
pt has rested on and off this shift, has been up to use urinal several times with 600 mL out so far this shift, has been AxOx4 t/o shift, lungs CTA, remains on room air, no complaints of SOA or chest pain
[2020-07-14 07:21] LABS: Basophils % 0.3 % (0.1-2.0); Eosinophils # 0.4 K/mm3 (0.0-0.4); Eosinophils % 5.3 % (0.1-12.0); Hematocrit 39.8 % (42.0-52.0); Lymphocytes # 3.1 K/mm3 (0.7-4.5); Lymphocytes % 38.7 % (10-50); Mean Corpuscular HGB Conc 32.6 g/dL (31.8-35.4); Mean Corpuscular Hemoglobin 31.7 pg (27.0-31.2); Mean Corpuscular Volume 97.2 fl (80-94); Mean Platelet Volume 8.1 fl (7.4-10.4); Monocytes # 0.3 K/mm3 (0.1-1.0); Neutrophils # 4.2 K/mm3 (1.8-7.8); Neutrophils % 51.6 % (37.0-80.0); Platelet Count 199 K/mm3 (142-424); Red Blood Count 4.09 M/mm3 (4.60-6.20); Red Cell Distribution Width 13.9 % (11.5-17.5); White Blood Count 8.1 K/mm3 (4.8-10.8)
[2020-07-14 07:35] LABS: Chloride 108 mmol/L (98-107); Potassium 3.9 mmoL/L (3.5-5.1); Sodium 139 mmol/L (136-145)
[2020-07-14 07:38] LABS: Anion Gap 8.9 mEq/L (5-15); Blood Urea Nitrogen 16 mg/dl (9-20); Calcium 9.4 mg/dl (8.4-10.2); Carbon Dioxide 26 mmol/L (22.0-30.0); Creatinine Clearance Estimated 53 mL/min (50-200); Estimated Glomerular Filt Rate 64 ml/min (>60); GFR (African American) 77 ML/MIN (>60); Glucose 101 mg/dl (74-100)
[2020-07-14 08:00] VITALS: BP 164/77; PULSE 70; RESP 19; TEMP 35.9; O2SAT 99
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
== END 2020-07-14 09:54 | disposition home or self-care (01) ==
LOC: ER 09:20 → 2ND 11:06
PROVIDERS: Admitting Provider Emergency Medicine; Emergency Provider Emergency Medicine; PCP Emergency Medicine; Visit Provider Emergency Medicine
DX: R41.0 Disorientation, unspecified (principal); N17.9 Acute kidney failure, unspecified; I48.91 Unspecified atrial fibrillation; I25.10 Atherosclerotic heart disease of native coronary artery without angina pectoris; I11.0 Hypertensive heart disease with heart failure; I50.9 Heart failure, unspecified; I25.2 Old myocardial infarction; H91.90 Unspecified hearing loss, unspecified ear; G89.29 Other chronic pain; Z91.14 Patient's other noncompliance with medication regimen; Z95.5 Presence of coronary angioplasty implant and graft; Z95.0 Presence of cardiac pacemaker; Z79.82 Long term (current) use of aspirin; Z79.01 Long term (current) use of anticoagulants; Z79.52 Long term (current) use of systemic steroids; Z79.899 Other long term (current) drug therapy
CPT/HCPCS: 36415; 70450; 71045; 80048; 80053; 80305; 80329; 81001; 84484; 85025; 86328; 93005; 96365; 99284; G0378

== ENCOUNTER 2020-07-30 23:35 | Emergency (ER) | payer MEDICARE, SELFPAY ==
--- NOTE | 2020-07-30 23:17 | ECG_ITS ---
APPROVED REPORT Exam: Resting ECG HR:84 bpm ECG Measurements Heart Rate 84 AXES MD 182 P 38 QRSd 160 QRS -70 QT 406 T 66 QTc 479 Conclusion Demand pacemaker, interpretation is based on intrinsic rhythm Sinus rhythm with fusion complexes Right bundle branch block Left anterior fascicular block Abnormal ECG Electronically signed by : Jose Laureano, 07/31/2020 06:57:03
[2020-07-30 23:40] VITALS: BP 159/93; PULSE 84; RESP 20; TEMP 36.8; O2SAT 96; BMI 25.8
--- NOTE | 2020-07-30 23:49 | HMH.EDCP ---
ED Disposition Clinical Impression: Renal insufficiency Chest pain Qualifiers: Chest pain type: precordial pain Qualified Code(s): R07.2 - Precordial pain ORUTSARARMIUT (hard of hearing) Qualifiers: Hearing loss type: unspecified Laterality: bilateral Qualified Code(s): H91.93 - Unspecified hearing loss, bilateral Disposition: Home, Self-Care Condition on Discharge: Good Instructions: DI for Atypical Chest Pain Additional Instructions: see card for [facility] Referrals: Luis Fernando Gama MD [Primary Care Provider] - - Critical Care Critical Care Time: No Attestation: On , the high probability of a clinically significant, sudden or life threatening deterioration of the following system(s) required my full and direct attention, intervention and personal management. The time I documented below is in addition to time spent performing reported procedures but includes the following listed in this critical care notation. Medical Decision Making - Medical Records Medical records reviewed: Yes: I reviewed the patient's medical records. - Artemio Inquiry Pt receiving controlled substance: No Vital Signs: 07/30/20 23:40 07/31/20 00:00 07/31/20 00:30 Temperature 98.2 F Temperature Source Oral Pulse Rate [Right] 84 83 84 Respiratory Rate 20 17 16 Blood Pressure [Right Arm] 159/93 H 147/60 H 145/77 H Blood Pressure Mean [Right Arm] 115 89 99 Blood Pressure Source [Right Arm] Automatic Cuff Automatic Cuff Automatic Cuff Blood Pressure Position [Right Arm] Supine Supine Supine 02 Sat by Pulse Oximetry 96 98 98 Oxygen Delivery Method Room Air Room Air Room Air 07/31/20 01:00 07/31/20 01:30 07/31/20 02:00 Temperature Temperature Source Pulse Rate [Right] 83 72 63 Respiratory Rate 16 15 16 Blood Pressure [Right Arm] 157/89 H 172/92 H 169/93 H Blood Pressure Mean [Right Arm] 111 118 118 Blood Pressure Source [Right Arm] Automatic Cuff Automatic Cuff Blood Pressure Position [Right Arm] Sitting Sitting Sitting 02 Sat by Pulse Oximetry 97 96 96 Oxygen Delivery Method Room Air Room Air Room Air 07/31/20 02:30 07/31/20 03:00 07/31/20 03:30 Temperature Temperature Source Pulse Rate [Right] 65 73 82 Respiratory Rate 17 17 17 Blood Pressure [Right Arm] 164/91 H 149/91 H 147/84 H Blood Pressure Mean [Right Arm] 115 110 105 Blood Pressure Source [Right Arm] Automatic Cuff Automatic Cuff Blood Pressure Position [Right Arm] Sitting Sitting Sitting 02 Sat by Pulse Oximetry 97 97 99 Oxygen Delivery Method Room Air Room Air Room Air - Lab Data Lab results reviewed: Yes: I reviewed the patient's lab results. Lab Results 07/30/20 23:32: WBC 9.1, RBC 3.67 L, Hgb 12.0 L, Hct 37.0 L, MCV 100.8 H, MCH 32.8 H, MCHC 32.6, RDW 14.5, Plt Count 221, MPV 8.4, Neut % (Auto) 47.7, Lymph % (Auto) 43.1, [place] % (Auto) 4.6, Eos % (Auto) 3.8, Baso % (Auto) 0.9, Neut # (Auto) 4.3, Lymph # (Auto) 3.9, [place] # (Auto) 0.4, Eos # (Auto) 0.3, Baso # (Auto) 0.1 07/30/20 23:32: Sodium 144, Potassium 3.9, Chloride 108 H, Carbon Dioxide 27, Anion Gap 12.9, BUN 23 H, Creatinine 1.50 H, Estimated Creat Clear 43, Estimated GFR 45 L, Est GFR ( Amer) 54 L, Glucose 85, Calcium 9.2, Total Bilirubin 0.3, Direct Bilirubin 0.3, Conjugated Bilirubin 0.0, Indirect Bilirubin 0.0, Unconjugated Bilirubin 0.0, AST 32, ALT 15, Alkaline Phosphatase 64, Troponin I < 0.01, Total Protein 7.3, Albumin 3.8 07/31/20 02:47: Troponin I < 0.01 Result diagrams: 07/30/20 23:32 07/30/20 23:32 Orders (Tests/Meds): ORDERS Category Date Time Status XR chest 2V Stat Exams 07/31/20 00:11 Taken Troponin I Q3H Lab 07/31/20 06:00 Ordered - Radiology Data #1 Image(s): Chest Image Reviewed: Yes I reviewed the patient's radiology image Preliminary Findings: Abnormal (pacemaker ) - ECG Data Tracing #1 Normal Sinus Rhythm: Yes Ischemic changes: non-specific ST-T wave changes Conduction abnormalities present: LAFB, RBBB - Reevaluation(s
[2020-07-31] VITALS (9 sets, daily range): BP systolic 145–172; BP diastolic 60–93; PULSE 63–84; RESP 15–17; TEMP 36.7; O2SAT 96–99
[2020-07-31 00:05] LABS: Chloride 108 mmol/L (98-107); Potassium 3.9 mmoL/L (3.5-5.1); Sodium 144 mmol/L (136-145)
[2020-07-31 00:06] LABS: Basophils # 0.1 K/mm3 (0-0.2); Basophils % 0.9 % (0.1-2.0); Eosinophils # 0.3 K/mm3 (0.0-0.4); Eosinophils % 3.8 % (0.1-12.0); Lymphocytes # 3.9 K/mm3 (0.7-4.5); Lymphocytes % 43.1 % (10-50); Mean Corpuscular HGB Conc 32.6 g/dL (31.8-35.4); Mean Corpuscular Hemoglobin 32.8 pg (27.0-31.2); Mean Corpuscular Volume 100.8 fl (80-94); Mean Platelet Volume 8.4 fl (7.4-10.4); Monocytes # 0.4 K/mm3 (0.1-1.0); Monocytes % 4.6 % (1.7-9.3); Neutrophils # 4.3 K/mm3 (1.8-7.8); Neutrophils % 47.7 % (37.0-80.0); Platelet Count 221 K/mm3 (142-424); Red Blood Count 3.67 M/mm3 (4.60-6.20); Red Cell Distribution Width 14.5 % (11.5-17.5); White Blood Count 9.1 K/mm3 (4.8-10.8)
[2020-07-31 00:07] LABS: Blood Urea Nitrogen 23 mg/dl (9-20); Creatinine Clearance Estimated 43 mL/min (50-200); Estimated Glomerular Filt Rate 45 ml/min (>60); GFR (African American) 54 ML/MIN (>60)
[2020-07-31 00:08] LABS: Alanine Aminotransferase 15 U/L (12-78); Albumin Level 3.8 g/dl (3.5-5.0); Alkaline Phosphatase 64 U/L (38-126); Anion Gap 12.9 mEq/L (5-15); Aspartate Amino Transferase 32 U/L (17-59); Bilirubin,Direct 0.3 mg/dl (0.0-0.4); Bilirubin,Total 0.3 mg/dl (0.2-1.3); Calcium 9.2 mg/dl (8.4-10.2); Carbon Dioxide 27 mmol/L (22.0-30.0); Glucose 85 mg/dl (74-100); Total Protein,Serum 7.3 g/dl (6.3-8.2)
--- NOTE | 2020-07-31 00:11 | XR_ITS ---
PROCEDURE: XR CHEST 2V CLINICAL HISTORY: chest pain COMPARISON: CR XR CHEST PORTABLE from 04/21/2020 CR XR CHEST 2V from 06/18/2020 CR XR CHEST PORTABLE from 07/12/2020 FINDINGS: There is a bipolar pacemaker present from left subclavian approach. Normal heart size. The lungs are clear without infiltrates, suspicious nodules, or pleural effusions. Degenerative change thoracic spine. Artifact overlies right lung base laterally representing metallic keys. There are old bilateral rib fractures. IMPRESSION: As above, no acute finding Dictated by: Andre Barnes MD 07/31/2020 05:40 Andre Barnes MD in [place] 07/31/2020 05:40
[2020-07-31 00:27] LABS: Troponin I < 0.01 ng/ml (0.00-0.034)
[2020-07-31 03:18] LABS: Troponin I < 0.01 ng/ml (0.00-0.034)
== END 2020-07-31 04:26 | disposition home or self-care (01) ==
PROVIDERS: Emergency Provider Emergency Medicine; PCP Emergency Medicine
DX: N28.9 Disorder of kidney and ureter, unspecified (principal); R07.2 Precordial pain; H91.93 Unspecified hearing loss, bilateral; I10 Essential (primary) hypertension; E78.5 Hyperlipidemia, unspecified; I48.91 Unspecified atrial fibrillation; K21.9 Gastro-esophageal reflux disease without esophagitis; C61 Malignant neoplasm of prostate
CPT/HCPCS: 36415; 71046; 80048; 80076; 84484; 85025; 93005; 99283

== ENCOUNTER 2020-08-07 19:32 | Emergency (ER) | payer MEDICARE, SELFPAY ==
[2020-08-07 19:53] VITALS: BP 142/77; PULSE 80; RESP 18; TEMP 36.5
== END 2020-08-07 19:56 | disposition left against medical advice (07) ==
LOC: ER 19:49
PROVIDERS: Emergency Provider Emergency Medicine; PCP Emergency Medicine
DX: Z53.21 Procedure and treatment not carried out due to patient leaving prior to being seen by health care provider (principal)
CPT/HCPCS: G0463; 99211

== ENCOUNTER → 2020-08-08 12:04 | Outpatient (CLI) | payer MEDICARE, SELFPAY ==
[2020-08-08 15:06] LABS: Coronavirus 19 IgG Antibody Negative (Negative); Coronavirus 19 IgM Antibody Negative (Negative)
== END ==
PROVIDERS: Visit Provider Internal Medicine Gastroenterology
DX: Z01.812 Encounter for preprocedural laboratory examination (principal); Z11.52 Encounter for screening for COVID-19; Z13.810 Encounter for screening for upper gastrointestinal disorder; R13.10 Dysphagia, unspecified
CPT/HCPCS: 36415; 86328

== ENCOUNTER 2020-08-10 10:27 | Day surgery (SDC) | payer MEDICARE, SELFPAY ==
[2020-08-02 12:59] VITALS: BMI 25.0
[2020-08-10] VITALS (8 sets, daily range): BP systolic 102–168; BP diastolic 61–85; PULSE 70–91; RESP 18–20; TEMP 36.1–36.4; O2SAT 95–100
--- NOTE | 2020-08-10 12:49 | HMH.PROC ---
[facility] [place] Procedure Note Procedure Note:: Upper Endoscopy Procedure Report: Esophagogastroduodenoscopy with cold biopsies and TTS balloon dilation Endoscopost: Randal Mina II, MD Referring Physician: MEERA Hanley Date of Procedure: August 10, 2020 Equipment: Olympus GIF 180 standard upper endoscope Sedation: MAC sedation Indications: Mr. Douglas is an 84-year-old gentleman with a history of iron deficiency and NSAID ulcer. The patient also has some dysphagia and previously had weight loss. He has had reflux and esophagitis. His last EGD was in December 2019. Procedure: Prior to the procedure, a history and physical exam was performed, and patient's medications and allergies were reviewed. The risks, benefits and alternatives of the sedation and procedure were discussed with the patient. All questions were answered and informed consent was obtained. The patient was brought to the procedure room. Patient identification and proposed procedure were verified by the physician and the nurse. The patient was placed in a left lateral decubitus position and the scope was passed under direct vision. Throughout the procedure, the patient's blood pressure, pulse, and oxygen saturations were monitored continuously. The upper GI endoscopy was accomplished without difficulty. The patient tolerated the procedure well. Findings: The scope was passed directly into the upper esophagus and advanced to the third portion of the duodenum. The post bulbar duodenum and duodenal bulb were normal with normal mucosa and conniventes. The scope was withdrawn through a normal duodenal bulb and pylorus into the stomach. There was mild reactive gastropathy of the antrum and body with mild gastritis (chronic). There was no evidence of any ulcerations or erosions. Upon retroflexion there was 2 to 3 cm hiatal hernia. 2 biopsies were taken in the antrum and along the lesser curvature for histology to rule out gastritis and/or H pylori. The scope was then withdrawn into the esophagus. There was a distal esophageal ring/Schatzki's ring as well as a pseudodiverticulum and changes of reflux. Cold biopsies were taken at the GE junction. The entire esophagus was dilated to 20 mm (60 [place]) with a TTS hydrostatic balloon. There was some evidence of moderate esophageal dysmotility. The remainder of the esophageal mucosa was normal. Impression: 1. Schatzki's ring dilated to 20 mm with evidence of nonerosive GERD and 3 cm hiatal hernia 2. Chronic gastritis but no gastric ulceration Plan: I will follow-up the biopsies. I will discuss the findings with the patient and family.
--- NOTE | 2020-08-10 13:42 | P.PN_ITS ---
[facility] Anesthesia Checklist - Patient Identification Patient Identification: Arm Band - Structural Data Admitted From: Home Planned Operative Procedure/s: egd Consent for Planned Operative Procedure(s) Verified: Yes Verified Documents: Surgical Consent - Additional verifications Anesthesia Reactions: No - Anesthesia Plan Anesthesia Risk discussed: Yes Anesthesia Plan: Verified ASA Class: III Anesthesia Type: General [facility] History I have reviewed the patient's past medical history: Yes Medical History: Reports:: Atrial Fibrillation, Cancer (prostate), Carotid Stenosis, Congestive Heart Failure, Coronary Artery Disease, Gastroesophageal Reflux Disease(GERD), Hyperlipidemia, Hypertension, Internal Pacemaker, Kidney Stones, Myocardial Infarction Denies:: Diabetes Mellitus Type 1, Diabetes Mellitus Type 2, Lung Disease, MRSA, Seizures *Have you ever received a pneumonia vaccine?: Yes *Have you received a flu vaccine this season?: Yes Other Medical History: Reports: Arthritis Anesthesia experience/problems:: none Laterality Cases: Left: Total Hip Replacement Other Surgeries: Yes: No Previous Surgery, Cancer Surgery, Cardiac Catheterization, Colonoscopy, Coronary Stent, Pacemaker, Other (back sx) Amputation: Yes (2 toes) Fractures: No - *Social History Last grade of school completed: 7th or 8th Smoking Status: Never smoker Alcohol Intake: never Alcohol Intake Frequency:: a few times a month Substance Use Type: denies use *Occupational Status:: retired Housing: house Household Members: other *Travel in the last 8 weeks: None Family Hx:: Unable to obtain
== END 2020-08-10 13:45 | disposition home or self-care (01) ==
LOC: OUTP 10:30
PROVIDERS: PCP Emergency Medicine; Visit Provider Internal Medicine Gastroenterology
PROC: 0DJ08ZZ Inspection of Upper Intestinal Tract, Via Natural or Artificial Opening Endoscopic (ICD-10-PCS; CPT 43235; principal; 2020-08-10 12:00)
DX: K21.9 Gastro-esophageal reflux disease without esophagitis (principal); K22.2 Esophageal obstruction; K44.9 Diaphragmatic hernia without obstruction or gangrene; K29.50 Unspecified chronic gastritis without bleeding; Z85.46 Personal history of malignant neoplasm of prostate; I11.0 Hypertensive heart disease with heart failure; I50.9 Heart failure, unspecified; I65.9 Occlusion and stenosis of unspecified precerebral artery; E78.5 Hyperlipidemia, unspecified; I25.2 Old myocardial infarction; I48.91 Unspecified atrial fibrillation; Z95.0 Presence of cardiac pacemaker
CPT/HCPCS: 43239; 43249; 88305; C1726

== ENCOUNTER 2020-09-06 17:45 | Observation (INO) | payer MEDICARE, SELFPAY ==
[2020-09-06] VITALS (8 sets, daily range): BP systolic 150–202; BP diastolic 84–113; PULSE 69–87; RESP 14–18; TEMP 36.6–36.7; O2SAT 96–99; BMI 28.1; BMI 25.3
--- NOTE | 2020-09-06 17:44 | ECG_ITS ---
APPROVED REPORT Exam: Resting ECG HR:78 bpm ECG Measurements Heart Rate 78 AXES FL 162 P 34 QRSd 124 QRS -67 QT 426 T 65 QTc 485 Conclusion Sinus rhythm with occasional and consecutive premature ventricular complexes and fusion complexes Right bundle branch block Left anterior fascicular block Bifascicular block Lateral infarct, age undetermined Abnormal ECG Electronically signed by : Jose Laureano, 09/07/2020 14:55:32
--- NOTE | 2020-09-06 17:47 | XR_ITS ---
PROCEDURE: XR CHEST PORTABLE CLINICAL HISTORY: CHEST PAIN COMPARISON: CR XR CHEST 2V from 06/18/2020 CR XR CHEST PORTABLE from 07/12/2020 CR XR CHEST 2V from 07/31/2020 FINDINGS: The cardiomediastinal silhouette and pulmonary vascularity are within normal limits. The lungs are well expanded revealing very minimal atelectasis at the right costophrenic angle. The remainder of the lung you are clear. The left-sided cardiac pacemaker is again noted with dual chamber electrodes in good position. There is an opaque paddle possibly resuscitation paddle overlying the right mid lung field. There is prominent degenerate change right shoulder with a high-riding humeral head and moderate subacromial stenosis and degenerative change of the AC joint. IMPRESSION: Minimal right basilar atelectasis, no acute cardiopulmonary disease identified Dictated by: Dr. Michel Torres MD 09/06/2020 21:19 Dr. Michel Torres MD in [place] 09/06/2020 21:19
--- NOTE | 2020-09-06 17:52 | PC.NURSE ---
stemi alert cancelled
--- NOTE | 2020-09-06 17:53 | PC.NURSE ---
stemi alert called at 2055
--- NOTE | 2020-09-06 17:53 | PC.NURSE ---
MD on phone with Dr Rodriguez, stemi alert cancelled.
[2020-09-06 17:58] LABS: Basophils # 0.1 K/mm3 (0-0.2); Basophils % 0.5 % (0.1-2.0); Eosinophils # 0.4 K/mm3 (0.0-0.4); Eosinophils % 4.1 % (0.1-12.0); Hematocrit 39.8 % (42.0-52.0); Hemoglobin 12.9 g/dL (14.1-18.0); Lymphocytes # 3.9 K/mm3 (0.7-4.5); Lymphocytes % 37.2 % (10-50); Mean Corpuscular HGB Conc 32.4 g/dL (31.8-35.4); Mean Corpuscular Hemoglobin 31.6 pg (27.0-31.2); Mean Corpuscular Volume 97.3 fl (80-94); Mean Platelet Volume 7.6 fl (7.4-10.4); Monocytes # 0.5 K/mm3 (0.1-1.0); Monocytes % 4.6 % (1.7-9.3); Neutrophils # 5.7 K/mm3 (1.8-7.8); Neutrophils % 53.8 % (37.0-80.0); Platelet Count 253 K/mm3 (142-424); Red Blood Count 4.09 M/mm3 (4.60-6.20); Red Cell Distribution Width 13.5 % (11.5-17.5); White Blood Count 10.6 K/mm3 (4.8-10.8)
[2020-09-06 18:00] LABS: Chloride 106 mmol/L (98-107); Sodium 143 mmol/L (136-145)
[2020-09-06 18:03] LABS: Blood Urea Nitrogen 23 mg/dl (9-20); Carbon Dioxide 29 mmol/L (22.0-30.0); Creatinine Clearance Estimated 38 mL/min (50-200); Estimated Glomerular Filt Rate 39 ml/min (>60); GFR (African American) 47 ML/MIN (>60); Glucose 106 mg/dl (74-100)
[2020-09-06 18:09] LABS: Activated Partial Thrombo Time 23.4 seconds (23.6-34.0); INR 1.03 (0.9-1.1); Prothrombin Time 11.4 seconds (9.4-11.8)
--- NOTE | 2020-09-06 18:13 | HMH.EDCP ---
ED Disposition Clinical Impression: Chest pain with high risk of acute coronary syndrome, Atypical chest pain Disposition: Admitted As Inpatient Condition on Discharge: Fair Referrals: Luis Fernando Gama MD [Primary Care Provider] - - Critical Care Critical Care Time: No Attestation: On 09/06/20, the high probability of a clinically significant, sudden or life threatening deterioration of the following system(s) required my full and direct attention, intervention and personal management. The time I documented below is in addition to time spent performing reported procedures but includes the following listed in this critical care notation. Medical Decision Making - Medical Records Medical records reviewed: Yes: I reviewed the patient's medical records. - Artemio Inquiry Pt receiving controlled substance: No Vital Signs: 09/06/20 17:46 Temperature 98 F Temperature Source Oral Pulse Rate [Radial] 69 Respiratory Rate 16 Blood Pressure [Right Arm] 150/87 H Blood Pressure Mean [Right Arm] 108 Blood Pressure Position [Right Arm] Sitting 02 Sat by Pulse Oximetry 98 Oxygen Delivery Method Room Air - Lab Data Lab Results 09/06/20 17:40: WBC 10.6, RBC 4.09 L, Hgb 12.9 L, Hct 39.8 L, MCV 97.3 H, MCH 31.6 H, MCHC 32.4, RDW 13.5, Plt Count 253, MPV 7.6, Neut % (Auto) 53.8, Lymph % (Auto) 37.2, [place] % (Auto) 4.6, Eos % (Auto) 4.1, Baso % (Auto) 0.5, Neut # (Auto) 5.7, Lymph # (Auto) 3.9, [place] # (Auto) 0.5, Eos # (Auto) 0.4, Baso # (Auto) 0.1 09/06/20 17:40: Sodium 143, Potassium 4.0, Chloride 106, Carbon Dioxide 29, Anion Gap 12.0, BUN 23 H, Creatinine 1.70 H, Estimated Creat Clear 38, Estimated GFR 39 L, Est GFR ( Amer) 47 L, Glucose 106 H, Calcium 10.0, Troponin I < 0.01, TSH 3.80 09/06/20 17:40: PT 11.4, INR 1.03, APTT 23.4 L 09/06/20 17:40: NT-Pro-B Natriuret Pep 163 Result diagrams: 09/06/20 17:40 09/06/20 17:40 Orders (Tests/Meds): ED MEDICATIONS Discontinued Medications Generic Name Dose Route Start Last Admin Trade Name Prince PRN Reason Stop Dose Admin Aspirin 325 mg 09/06/20 17:53 09/06/20 18:56 Aspirin 325mg Tablet PO 09/06/20 17:54 325 mg ONCE ONE Administration Nitroglycerin 1 gm 09/06/20 19:20 Nitroglycerin 1 Gm Ointment TD 09/06/20 19:21 ONCE ONE ORDERS Category Date Time Status Consult to Cardiology [CONS] Routine Cons 09/06/20 18:26 Active XR chest portable Stat Exams 09/06/20 17:47 Taken Covid-19 Nasal PCR ([facility]) Routine Lab 09/06/20 19:19 Ordered Troponin I Q3H Lab 09/06/20 21:00 Ordered Troponin I Q3H Lab 09/07/20 00:00 Ordered - Radiology Data #1 Image(s): Chest Image Reviewed: Yes I reviewed the patient's radiology results, Yes I have reviewed radiologist's interpretation Preliminary Findings: Normal/NAD, No Fracture Seen - ECG Data Tracing #1 No ventricular rate of 70 bpm, normal DC interval, normal QTC. Sinus rhythm with occasional PVC, bifascicular block, ST changes in the lateral precordial leads ECG initial impression date: 09/06/20 ECG initial impression time: 17:46 - Reevaluation(s) Time: 19:32 Reevaluation #1: patient remains pain free. Cardiology will continue to follow. Admitted to the hospital for further evaluation and treatment - WOODY Score for Non-Stemi Age of Patient: 80-89 years old Heart Rate: 50-69 bpm Systolic Blood Pressure: 140-159 mmHg Serum Creatinine: 0.40-0.79 mg/dl CHF [place] Class: I-No CHF Other Risk Factors: ST Segment Deviation Non-Stemi Risk Score: 150 Risk Stratification: [id number] = High Risk Medical Decision Narrative: 84-year-old male presented to the emergency department with chest discomfort. Patient has longstanding history of CAD. Patient did receive nitro in route and he is feeling much better. I did review the EKG with the alternative medicine practitioner. Patient will be given aspirin and further work-up initiated. Chest Pain HPI - General Chief Complaint: Chest Pain Stated
[2020-09-06 18:14] LABS: NT Pro Brain Natriuretic Pep. 163 pg/mL (0-450)
[2020-09-06 18:20] LABS: Troponin I < 0.01 ng/ml (0.00-0.034)
[2020-09-06 21:13] LABS: Troponin I < 0.01 ng/ml (0.00-0.034)
--- NOTE | 2020-09-06 23:23 | PC.NURSE ---
Addendum entered by Antonietta Maloney CNA 09/06/20 23:31: CORRECTION PT ARRIVED TO FLOOR VIA FROM ED WITH STAFF AT 2320 Original Note: PT ARRIVED TO FLOOR VIA W/C FROM WITH STAFF AT 2320
--- NOTE | 2020-09-07 00:41 | PC.NURSE ---
pt unable to tell me what meds currently taking. home med list is at home.
[2020-09-07 01:22] LABS: Troponin I < 0.01 ng/ml (0.00-0.034)
[2020-09-07 04:00] VITALS: BP 157/90; PULSE 70; RESP 20; TEMP 36.4; O2SAT 98
[2020-09-07 05:13] VITALS: BMI 25.3
--- NOTE | 2020-09-07 05:21 | PC.NURSE ---
pt admitted for chest pain. pt has reported no chest pain since arrival to the floor. pt is hard of hearing and has a hearing aid to the left ear. pt states he had his ear cleaned at md office and has had drainage since then and trouble hearing. looked at left ear and ear canal is swollen shut with swelling noted to the outside of ear. pt denies pain. iv patent and infusing per order. uses urinal. vss. call light in reach. will continue to monitor
[2020-09-07 05:50] VITALS: RESP 18
--- NOTE | 2020-09-07 06:13 | PC.NURSE ---
Pa DOE NOTIFIED OF CONSULT.
[2020-09-07 06:41] LABS: Basophils % 0.4 % (0.1-2.0); Eosinophils # 0.2 K/mm3 (0.0-0.4); Eosinophils % 2.7 % (0.1-12.0); Hematocrit 37.8 % (42.0-52.0); Hemoglobin 12.2 g/dL (14.1-18.0); Lymphocytes % 33.5 % (10-50); Mean Corpuscular HGB Conc 32.1 g/dL (31.8-35.4); Mean Corpuscular Hemoglobin 31.8 pg (27.0-31.2); Mean Platelet Volume 8.4 fl (7.4-10.4); Monocytes # 0.5 K/mm3 (0.1-1.0); Monocytes % 5.3 % (1.7-9.3); Neutrophils # 5.2 K/mm3 (1.8-7.8); Neutrophils % 58.1 % (37.0-80.0); Platelet Count 204 K/mm3 (142-424); Red Blood Count 3.82 M/mm3 (4.60-6.20); Red Cell Distribution Width 13.5 % (11.5-17.5); White Blood Count 8.9 K/mm3 (4.8-10.8)
[2020-09-07 07:23] LABS: Chloride 111 mmol/L (98-107); Potassium 4.2 mmoL/L (3.5-5.1); Sodium 141 mmol/L (136-145)
--- NOTE | 2020-09-07 07:24 | HMH.PHAVTE ---
[facility] Pharm[facility] VTE Monitoring - Patient Demographics Admission date: 09/06/20 Report Date: 09/07/20 Time: 07:24 Allergies/Adverse Reactions: Patient Allergies No Known Allergies Allergy (Verified 09/07/20 00:14) Height: 1.7 m Weight: 73.255 kg Patient Problems: Current Active Problems Chest pain with high risk of acute coronary syndrome (Acute) Atypical chest pain (Acute) - VTE Risk Labs: VTE Related Lab Results Hgb 12.2 g/dL (14.1-18.0) L 09/07/20 05:45 Hct 37.8 % (42.0-52.0) L 09/07/20 05:45 Plt Count 204 K/mm3 (142-424) 09/07/20 05:45 PT 11.4 seconds (9.4-11.8) 09/06/20 17:40 INR 1.03 (0.9-1.1) 09/06/20 17:40 APTT 23.4 seconds (23.6-34.0) L 09/06/20 17:40 BUN 23 mg/dl (9-20) H 09/06/20 17:40 Creatinine 1.70 mg/dl (0.66-1.25) H 09/06/20 17:40 Estimated Creat Clear 38 mL/min (50-200) 09/06/20 17:40 Was VTE Risk Assessment Performed: Yes VTE Score: 2 VTE Risk Level: Very Low Risk - Prophylaxis VTE Prophylaxis Ordered?: Yes Types of VTE Prophylaxis: TEDS Knee High, Pharmacological Location of Applied Device: Bilateral Lower Extremeties Pharmacologic Type: Heparin
[2020-09-07 07:25] LABS: Blood Urea Nitrogen 19 mg/dl (9-20); Creatinine Clearance Estimated 53 mL/min (50-200); Estimated Glomerular Filt Rate 64 ml/min (>60); GFR (African American) 77 ML/MIN (>60)
[2020-09-07 07:26] LABS: Alanine Aminotransferase 10 U/L (12-78); Albumin Level 3.8 g/dl (3.5-5.0); Alkaline Phosphatase 58 U/L (38-126); Anion Gap 11.2 mEq/L (5-15); Aspartate Amino Transferase 34 U/L (17-59); Bilirubin,Total 0.8 mg/dl (0.2-1.3); Calcium 9.2 mg/dl (8.4-10.2); Carbon Dioxide 23 mmol/L (22.0-30.0); Globulin 3.7 g/dL (1.3-3.2); Glucose 108 mg/dl (74-100); Total Protein,Serum 7.5 g/dl (6.3-8.2)
--- NOTE | 2020-09-07 07:49 | HMH.CNCARD ---
History of Present Illness Consult date: 09/07/20 Requesting physician: Luis Fernando Gama Consult reason: chest pain Chief complaint: CP Additional Medical History:: 1. Coronary artery disease, cardiac cath, 07/04/2019 A. C, 07/04/2019, JUSTA to [place] with LVEDP of 30 mm Hg. B. [facility], 06/2020, JUSTA to LAD. 2. Hypertension 3. Hyperlipidemia 4. History of pacemaker in situ placed approximately 20 years ago (Biotronik device) 5. Very hard of hearing 6. GERD 7. History of kidney stones 8. CKD, stage II 9. Carotid artery stenosis A. [facility], 09/2018, Study suggests 50-69% stenosis involving the right internal carotid artery. Study suggests 20-49% stenosis involving the left internal carotid artery B. C[facility], 06/2019,50-69% bilateral ICA stenosis 10. Difficulty swallowing A. Swallowing evaluation, 06/2020, moderate hiatal hernia with gastric dysmotility 11. Concern for medication administration errors with office note recently documenting that patient may or may not take meds as prescribed per daughter (some days taking more and some days less). History of present illness: This is a 84-year-old male presenting to the emergency department with some chest discomfort. The patient has a longstanding history of coronary artery disease. Patient is a poor historian and has some hearing difficulties. Apparently family members called EMS because he was having some chest pain earlier today. Patient did receive nitro by EMS states that he is feeling better. Chest pain was substernal. Nonradiating. No associated shortness of breath. No cough. Denies any headache or change in vision. No focal weakness. No fevers or chills. No abdominal pain or vomiting. The above per ER MD, Dr. Michel Very hard of hearing which makes communication limited. States his hearing aid battery is . Recently LAD stenting in 06/2020. Troponins normal overnight. EKG is sinus without acute changes. BP initially 150/80's mm Hg but kishan to 202/110 mm Hg before returning to 150/90 mm Hg range. No chest pain this AM. Eating breakfast without complaints. [facility] History Medical History: Reports:: Atrial Fibrillation, Cancer, Carotid Stenosis, Congestive Heart Failure, Coronary Artery Disease, Gastroesophageal Reflux Disease(GERD), Hyperlipidemia, Hypertension, Internal Pacemaker, Kidney Stones, Myocardial Infarction Denies:: Diabetes Mellitus Type 1, Diabetes Mellitus Type 2, Lung Disease, MRSA, Seizures *Have you ever received a pneumonia vaccine?: No *Have you received a flu vaccine this season?: No Other Medical History: Reports: Arthritis Laterality Cases: Left: Total Hip Replacement Other Surgeries: Yes: No Previous Surgery, Cancer Surgery, Cardiac Catheterization, Colonoscopy, Coronary Stent, Pacemaker, Other (back sx) Amputation: Yes (2 toes) Fractures: No - *Social History Smoking Status: Never smoker Alcohol Intake: never Alcohol Intake Frequency:: a few times a month Substance Use Type: denies use *Occupational Status:: retired Housing: house Household Members: other *Travel in the last 8 weeks: None Family Hx:: Unable to obtain Meds Home Medications Medication Instructions Recorded Confirmed Type Meclizine HCl [Wal-Dram 2] 25 mg PO DAILYP PRN #30 tab 06/20/20 09/07/20 Rx Oxybutynin Chloride [Oxybutynin 10 mg PO DAILY 07/12/20 09/07/20 History Chloride ER] Docusate Sodium [Colace 250mg 250 mg PO BID 08/10/20 09/07/20 History capsule] polyethylene glycoL 3350 [Miralax 17 gm PO DAILY 08/10/20 09/07/20 History 17gm Packet] oxycodone-acetaminophen 10 mg-325 1 tab PO QIDP PRN #120 tab 08/24/20 09/07/20 Rx mg tablet allopurinol 100 mg tablet 100 mg PO DAILY #90 tab 09/05/20 09/07/20 Rx atorvastatin 10 mg tablet 10 mg PO HS #90 tab 09/05/20 09/07/20 Rx duloxetine 30 mg capsule,delayed 30 mg PO HS #90 cap 09/05/20 09/07/20 Rx release omeprazole 20 mg capsule,delayed 20 mg PO DAILY #90 cap 09/05/20 09/07/20 Rx release ta
--- NOTE | 2020-09-07 07:52 | HMH.PHAINT ---
MEDICATION RECONCILIATION COMPLETED ON PATIENT USING EXTERNAL FILL HISTORY FROM PHARMACY AND DISCHARGE LIST FROM PREVIOUS ADMISSION. -JUAN DIEGO MCKEOND
[2020-09-07 08:00] VITALS: BP 138/81; PULSE 74; RESP 18; TEMP 36.9; O2SAT 96
--- NOTE | 2020-09-07 08:19 | CA_ITS ---
APPROVED REPORT EXAM: Limited 2D Echocardiogram Teleradiologist: Inga Morales RVT Ht: 5 ft 6 in Wt: 161lbs BSA: 1.82 BP: 157/90 mmHg Indications: EF CHECK,CP,CM EF OF 40% ON 06/19/20,HTN,HLD,CAD,GERD,STENT,PACER,A-FIB,CHF Echo Enhancing Agent Indication: Endocardial border delineation Agent(s) / Amount(s) Used: Definity 2 cc M-Mode Dimensions LA Diam 3.34 cm (1.9-4.0) LVDd 5.73 cm (3.5-5.7) Ao Diam 2.30 cm (2.0-3.7) LVDs 4.59 cm (3.5-5.7) IVSd 0.82 cm (0.6-1.1) PWd 0.71 cm (0.6-1.1) EF (Teich) 40.20% FS 19.90% EDV (Teich) 162.00 mL ESV (Teich) 96.80 mL Conclusion 1. Limited study with Definity contrast was performed to evaluate left ventricular systolic function. Visually estimated ejection fraction approximately 50%, there is mild distal septal apical wall hypokinesis, there is no left ventricular thrombus seen. Electronically signed by : Tony Christensen, 09/07/2020 10:27:03
--- NOTE | 2020-09-07 08:27 | HMH.HPDC ---
General - General Admission date:: 09/06/20 Discharge date: 09/07/20 *Admission Date: 09/06/20 *Chief complaint: cp *History of present illness: 84-year-old male presented to the emergency department with some chest discomfort. The patient has a longstanding history of coronary artery disease with stents. Per ED note family members called EMS because he was having some chest pain earlier today. No associated shortness of breath, No cough,Denies any headache or change in vision,No focal weakness,No fevers or chills and No abdominal pain or vomiting. Patient [place] [employer], Patient c/o of left ear pain with drainage. denies cp this am. Patient admitted for cardiology consult [facility] History I have reviewed the patient's past medical history: Yes Medical History: Reports:: Atrial Fibrillation, Cancer, Carotid Stenosis, Congestive Heart Failure, Coronary Artery Disease, Gastroesophageal Reflux Disease(GERD), Hyperlipidemia, Hypertension, Internal Pacemaker, Kidney Stones, Myocardial Infarction Denies:: Diabetes Mellitus Type 1, Diabetes Mellitus Type 2, Lung Disease, MRSA, Seizures *Have you ever received a pneumonia vaccine?: No *Have you received a flu vaccine this season?: No Other Medical History: Reports: Arthritis Laterality Cases: Left: Total Hip Replacement Other Surgeries: Yes: No Previous Surgery, Cancer Surgery, Cardiac Catheterization, Colonoscopy, Coronary Stent, Pacemaker, Other (back sx) Amputation: Yes (2 toes) Fractures: No - *Social History Smoking Status: Never smoker Alcohol Intake: never Alcohol Intake Frequency:: a few times a month Substance Use Type: denies use *Occupational Status:: retired Housing: house Household Members: other *Travel in the last 8 weeks: None Family Hx:: Unable to obtain Review of Systems - Review of Systems Review of systems:: pertinent systems reviewed and negative unless documented below - Constitutional Denies body ache(s), Denies fatigue - Eyes Denies change in vision - ENT Reports ear discharge, Reports ear pain, Denies bleeding gums - *Cardiovascular Reports chest pain, Denies chest pain at rest - *Respiratory Denies shortness of breath with activity - *Gastrointestinal Denies belching, Denies nausea, Denies vomiting - *Genitourinary Denies urinary frequency - *Musculoskeletal Denies joint pain - Integumentary/Breasts Denies rash - *Neurologic Denies abnormal hearing, Denies headache(s) - Psychiatric Denies lack of enjoyment - Endocrine Denies flushing - Hematologic/Lymphatic Denies enlarged lymph nodes - Allergic/Immunologic Denies lip swelling Exam Vital signs and Labs for Last 24 Hours: Temp Pulse Resp BP Pulse Ox 98.5 F 74 18 138/81 96 09/07/20 08:00 09/07/20 08:00 09/07/20 08:00 09/07/20 08:00 09/07/20 08:00 Laboratory Results - last 24 hr 09/06/20 17:40: WBC 10.6, RBC 4.09 L, Hgb 12.9 L, Hct 39.8 L, MCV 97.3 H, MCH 31.6 H, MCHC 32.4, RDW 13.5, Plt Count 253, MPV 7.6, Neut % (Auto) 53.8, Lymph % (Auto) 37.2, [place] % (Auto) 4.6, Eos % (Auto) 4.1, Baso % (Auto) 0.5, Neut # (Auto) 5.7, Lymph # (Auto) 3.9, [place] # (Auto) 0.5, Eos # (Auto) 0.4, Baso # (Auto) 0.1 09/06/20 17:40: Sodium 143, Potassium 4.0, Chloride 106, Carbon Dioxide 29, Anion Gap 12.0, BUN 23 H, Creatinine 1.70 H, Estimated Creat Clear 38, Estimated GFR 39 L, Est GFR ( Amer) 47 L, Glucose 106 H, Calcium 10.0, Troponin I < 0.01, TSH 3.80 09/06/20 17:40: PT 11.4, INR 1.03, APTT 23.4 L 09/06/20 17:40: NT-Pro-B Natriuret Pep 163 09/06/20 20:48: Troponin I < 0.01 09/07/20 00:18: Troponin I < 0.01 09/07/20 05:45: WBC 8.9, RBC 3.82 L, Hgb 12.2 L, Hct 37.8 L, MCV 99.0 H, MCH 31.8 H, MCHC 32.1, RDW 13.5, Plt Count 204, MPV 8.4, Neut % (Auto) 58.1, Lymph % (Auto) 33.5, [place] % (Auto) 5.3, Eos % (Auto) 2.7, Baso % (Auto) 0.4, Neut # (Auto) 5.2, Lymph # (Auto) 3.0, [place] # (Auto) 0.5, Eos # (Auto) 0.2, Baso # (Auto) 0.0 09/07/20 05:45: Sodium 141, Potassium 4.2, Chloride 111
--- NOTE | 2020-09-07 08:49 | SW/DCPLANNER ---
I have attempted to contact this patients daughter regarding discharge orders for today. Daughter did not answer but VM was left for a return phone call. MD asked that I inform daughter regarding discharging back home today for transportation/plan.
== END 2020-09-07 10:15 | disposition home or self-care (01) ==
LOC: ER 19:35 → 2ND 20:17
PROVIDERS: Admitting Provider Emergency Medicine; Emergency Provider Emergency Medicine; PCP Emergency Medicine; Visit Provider Emergency Medicine
DX: R07.9 Chest pain, unspecified (principal); Z95.0 Presence of cardiac pacemaker; I13.0 Hypertensive heart and chronic kidney disease with heart failure and stage 1 through stage 4 chronic kidney disease, or unspecified chronic kidney disease; N18.2 Chronic kidney disease, stage 2 (mild); I50.9 Heart failure, unspecified; I65.29 Occlusion and stenosis of unspecified carotid artery; I48.91 Unspecified atrial fibrillation; Z95.5 Presence of coronary angioplasty implant and graft; I25.2 Old myocardial infarction; Z79.02 Long term (current) use of antithrombotics/antiplatelets; Z79.899 Other long term (current) drug therapy
CPT/HCPCS: 71045; 80048; 80053; 83880; 84443; 84484; 85025; 85610; 85730; 93005; 93308; 99284; G0378; Q9957; U0003

== ENCOUNTER → 2020-10-17 15:41 | Outpatient (CLI) | payer MEDICARE, SELFPAY ==
--- NOTE | 2020-10-17 15:47 | XR_ITS ---
PROCEDURE: XR HIP LT 2-3V W/PELVIS CLINICAL INDICATION: left hip pain COMPARISON: CR HIPCMRT XR hip RT 2-3V w/pelvis from 10/12/2018 FINDINGS: Total left hip arthroplasty is noted. No evidence of lucency to suggest infection or loosening. Mild osteopenia. Smart rate to severe degenerative changes of the right hip joint. No periprosthetic fractures. No acute fractures or dislocations. Degenerative changes of the visualized lumbar spine. Multiple calcified phleboliths are noted. No other soft tissue abnormality. IMPRESSION: Total left hip arthroplasty. No acute fractures. Dictated by: Tatiana Diaz 10/17/2020 16:34 Tatiana Diaz in [place] 10/17/2020 16:34
== END ==
PROVIDERS: PCP Emergency Medicine; Visit Provider Emergency Medicine
DX: M25.552 Pain in left hip (principal)
CPT/HCPCS: 73502

== ENCOUNTER 2020-10-18 09:07 | Emergency (ER) | payer MEDICARE, SELFPAY ==
[2020-10-18 09:07] VITALS: BP 189/90; PULSE 70; RESP 16; TEMP 36.6; O2SAT 98; BMI 25.1
--- NOTE | 2020-10-18 09:12 | CT_ITS ---
PROCEDURE: CT CHEST WO CON CLINICAL INDICATION: fall, trauma COMPARISON: No exams were available for comparison TECHNIQUE: Axial images obtained with sagittal and coronal reformats. All CT scans at the facility use one or more dose reduction, viz: automated exposure control, ma/kV adjustment per patient size (including targeted exams where dose is matched to indication, i.e. head), or iterative reconstruction technique. FINDINGS: HEART AND MEDIASTINAL STRUCTURES: The heart size is normal. Dual-chamber pacemaker is noted. No pericardial effusions. Atherosclerotic vascular calcification of the thoracic aorta and the coronary arteries are noted. Few scattered mediastinal lymph nodes are noted. Calcified lymph node in the right paratracheal location. The prevascular lymph node measures 1.1 x 0.7 centimeters, not significant by size criteria. No other significant lymphadenopathy within the limitations of the study. Calcified lymph node noted in the left hilum and subcarinal region. LUNGS AND PLEURAL SPACES: There is a nodule in the right middle lobe measuring 8 millimeters. Subpleural nodularity is noted measuring up to 9 millimeters in the right middle lobe. Subsegmental atelectasis noted in the right middle lobe. Two small lung nodules measuring up to 4 millimeters noted in the right upper lobe. Minor tree-in-bud appearance is noted in the right upper lobe, may represent minor infection/inflammation. No lobar consolidation, pleural effusions or pneumothorax. BONY STRUCTURES: Old fractures of the left 4th, 5th, right 3rd, and 4th ribs are noted. No evidence of acute rib fractures. Multilevel degenerative changes of the visualized thoracic spine noted. Fusion of the T10 and T11 vertebral bodies, likely degenerative. UPPER ABDOMEN: Multiple nonobstructing bilateral renal calculi are noted measuring up to 7 millimeters. Mild prominence of the right pelvocaliceal system and right proximal ureter, partially visualized. Atherosclerotic vascular calcification is noted. Moderate hiatus hernia. Few splenic calcifications are noted. Otherwise the visualized upper abdominal solid organs are unremarkable within the limitations of unenhanced study. ADDITIONAL FINDINGS: The visualized thyroid gland is unremarkable. There are bilateral mildly enlarged axillary lymph nodes, largest on the left measuring 2.2 times 1.5 centimeters. IMPRESSION: No evidence of acute rib fractures. Bilateral old rib fractures. Nodules in the right upper and middle lobes measuring up to 8 millimeters. Minor tree-in-bud appearance is noted, likely represents minor infection/inflammation. Short-term follow-up with noncontrast CT thorax in 3-6 months is recommended. Moderate hiatus hernia. Bilateral nonobstructing renal calculi measuring up to 7 millimeters. Mild prominence of the visualized right proximal ureter, partially visualized. Mildly enlarged axillary lymph nodes, largest on the left measuring 2.2 x 1.5 centimeters, of uncertain significance. Moderate hiatus hernia. Dictated by: Tatiana Diaz 10/18/2020 10:06 Tatiana Diaz in [place] 10/18/2020 10:06
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
--- NOTE | 2020-10-18 10:49 | PC.NURSE ---
CALLED PATIENTS DAUGHTER WITHOUT ANSWER. PT ARRIVED EMS. PATIENT UP FOR DISCHARGE BUT TRANSPORTATION NEEDS TO BE ARRANGED
--- NOTE | 2020-10-18 10:52 | PC.NURSE ---
CALLED PATIENTS PERSON TO NOTIFY LISTED WITHOUT ANSWER
--- NOTE | 2020-10-18 11:10 | PC.NURSE ---
Addendum entered by Lorrie Jaime 10/18/20 11:26: Spoke with patients daughter (Elsa): she will transport patient home from ED. Original Note: Both contacts on pt infounable to be contacted, care management called for assistance in transporting pt home.
[2020-10-18 11:56] VITALS: BP 134/71; PULSE 67; RESP 16; TEMP 36.7; O2SAT 99
== END 2020-10-18 10:50 | disposition home or self-care (01) ==
PROVIDERS: Emergency Provider Emergency Medicine; PCP Emergency Medicine
DX: R07.81 Pleurodynia (principal); W07.XXXA Fall from chair, initial encounter; Y92.019 Unspecified place in single-family (private) house as the place of occurrence of the external cause; I48.91 Unspecified atrial fibrillation; I50.9 Heart failure, unspecified; I25.2 Old myocardial infarction; I10 Essential (primary) hypertension; Z96.642 Presence of left artificial hip joint; Z87.442 Personal history of urinary calculi; Z85.46 Personal history of malignant neoplasm of prostate
CPT/HCPCS: 71250; 99282

== ENCOUNTER 2020-11-01 16:13 | Emergency (ER) | payer MEDICARE, SELFPAY ==
[2020-11-01 16:13] VITALS: BP 166/83; PULSE 70; RESP 20; TEMP 36.6; O2SAT 98; BMI 25.8
--- NOTE | 2020-11-01 16:30 | ECG_ITS ---
APPROVED REPORT Exam: Resting ECG HR:84 bpm ECG Measurements Heart Rate 84 AXES MA 80 P 31 QRSd 158 QRS 82 QT 446 T -71 QTc 527 Conclusion Electronic atrial pacemaker Left bundle branch block Abnormal ECG Electronically signed by : Jose Laureano, 11/04/2020 07:33:56
--- NOTE | 2020-11-01 16:33 | HMH.EDGENADL ---
ED Disposition Clinical Impression: Generalized weakness Disposition: Home, Self-Care Condition on Discharge: Good Referrals: PCP,No [Primary Care Provider] - - Critical Care Critical Care Time: No Attestation: On 11/01/20, the high probability of a clinically significant, sudden or life threatening deterioration of the following system(s) required my full and direct attention, intervention and personal management. The time I documented below is in addition to time spent performing reported procedures but includes the following listed in this critical care notation. Medical Decision Making - Medical Records Medical records reviewed: Yes: I reviewed the patient's medical records. - Artemio Inquiry Pt receiving controlled substance: No Vital Signs: 11/01/20 16:13 Temperature 98 F Temperature Source Oral Pulse Rate [Radial] 70 Respiratory Rate 20 Blood Pressure [Right Arm] 166/83 H Blood Pressure Mean [Right Arm] 110 Blood Pressure Position [Right Arm] Sitting 02 Sat by Pulse Oximetry 98 Oxygen Delivery Method Room Air - Lab Data Lab Results 11/01/20 16:48: WBC 7.5, RBC 3.81 L, Hgb 12.0 L, Hct 36.8 L, MCV 96.5 H, MCH 31.5 H, MCHC 32.6, RDW 13.8, Plt Count 219, MPV 8.3, Neut % (Auto) 42.9, Lymph % (Auto) 48.5, [place] % (Auto) 4.7, Eos % (Auto) 3.2, Baso % (Auto) 0.7, Neut # (Auto) 3.2, Lymph # (Auto) 3.6, [place] # (Auto) 0.4, Eos # (Auto) 0.2, Baso # (Auto) 0.1 11/01/20 16:48: Sodium 138, Potassium 4.4, Chloride 103, Carbon Dioxide 29, Anion Gap 10.4, BUN 12, Creatinine 1.30 H, Estimated Creat Clear 45, Estimated GFR 53 L, Est GFR ( Amer) 64, Glucose 112 H, Calcium 9.5, Magnesium 1.8 Result diagrams: 11/01/20 16:48 11/01/20 16:48 Medical Decision Narrative: Patient is in no acute distress nontoxic-appearing ambulatory to the bedside. Vital signs were normal on initial evaluation and hemodynamically stable. He does have normal neurological exam as well. EKG was unremarkable no concern for chest pain at this time and myocardial infarction very unlikely. Laboratory evaluation obtained Was negative his electrolytes were normal his blood counts were normal as well. Plan to give strict return precautions and discharge home General Adult HPI - General Chief complaint: Weakness Stated complaint: doesn't feel good Time Seen by Provider: 11/01/20 16:15 Mode of Arrival: EMS Limitations: No Limitations Description of Symptoms (Recalled from ER Triage Doc. by RN): TO ED PER [facility]QU[facility] PT C/O NOT FEELING WELL X SEVERAL DAYS. PT VERY [place], DIFFICULT TO OBTAIN MEDICAL HX. - History of Present Illness HPI narrative: -year-old male presents with a complaint of not feeling well for the last few days. He said does say he is ambulatory not lightheaded no chest pain abdominal pain nausea or vomiting. He says he just feels off, no headache. No fever chills no dysuria no flank pain. He is well-known to the emergency department and appears to be in his typical state of health, he is hard of hearing and difficult to understand as well. Is a poor historian - Related Data Home Medications Medication Instructions Recorded Confirmed Oxybutynin Chloride [Oxybutynin 10 mg PO DAILY 07/12/20 10/17/20 Chloride ER] Docusate Sodium [Colace 250mg 250 mg PO BID 08/10/20 10/17/20 capsule] polyethylene glycoL 3350 [Miralax 17 gm PO DAILY 08/10/20 10/17/20 17gm Packet] Albuterol Sulfate [Proventil Hfa] 2 puff IH Q6HP PRN 09/07/20 10/17/20 Aspirin [Low Dose Aspirin EC] 81 mg PO DAILY 09/07/20 10/17/20 Clopidogrel Bisulfate [Plavix] 75 mg PO DAILY 09/07/20 10/17/20 Isosorbide Mononitrate [Imdur 30mg 30 mg PO DAILY 09/07/20 10/17/20 ER tablet] Losartan Potassium [Cozaar 25mg 25 mg PO DAILY 09/07/20 10/17/20 Tablets] Nitroglycerin 0.4 mg SL Q5MINP PRN 09/07/20 10/17/20 Previous Rx's Medication Instructions Recorded Meclizine HCl [Wal-Dram 2] 25 mg PO DAILYP PRN #30 tab 06/20/20 allopurinol 100 mg
[2020-11-01 16:57] LABS: Basophils # 0.1 K/mm3 (0-0.2); Basophils % 0.7 % (0.1-2.0); Eosinophils # 0.2 K/mm3 (0.0-0.4); Eosinophils % 3.2 % (0.1-12.0); Hematocrit 36.8 % (42.0-52.0); Lymphocytes # 3.6 K/mm3 (0.7-4.5); Lymphocytes % 48.5 % (10-50); Mean Corpuscular HGB Conc 32.6 g/dL (31.8-35.4); Mean Corpuscular Hemoglobin 31.5 pg (27.0-31.2); Mean Corpuscular Volume 96.5 fl (80-94); Mean Platelet Volume 8.3 fl (7.4-10.4); Monocytes # 0.4 K/mm3 (0.1-1.0); Monocytes % 4.7 % (1.7-9.3); Neutrophils # 3.2 K/mm3 (1.8-7.8); Neutrophils % 42.9 % (37.0-80.0); Platelet Count 219 K/mm3 (142-424); Red Blood Count 3.81 M/mm3 (4.60-6.20); Red Cell Distribution Width 13.8 % (11.5-17.5); White Blood Count 7.5 K/mm3 (4.8-10.8)
[2020-11-01 17:00] LABS: Chloride 103 mmol/L (98-107); Potassium 4.4 mmoL/L (3.5-5.1); Sodium 138 mmol/L (136-145)
[2020-11-01 17:03] LABS: Anion Gap 10.4 mEq/L (5-15); Blood Urea Nitrogen 12 mg/dl (9-20); Calcium 9.5 mg/dl (8.4-10.2); Carbon Dioxide 29 mmol/L (22.0-30.0); Creatinine Clearance Estimated 45 mL/min (50-200); Estimated Glomerular Filt Rate 53 ml/min (>60); GFR (African American) 64 ML/MIN (>60); Glucose 112 mg/dl (74-100)
[2020-11-01 17:04] LABS: Magnesium 1.8 mg/dl (1.6-2.3)
--- NOTE | 2020-11-01 17:13 | PC.NURSE ---
Urine specimen requested from pt.
--- NOTE | 2020-11-01 17:41 | PC.NURSE ---
MD advised to cancel UA.
--- NOTE | 2020-11-01 17:50 | PC.NURSE ---
at bedside updating pt.
[2020-11-01 18:18] VITALS: BP 138/72; PULSE 78; RESP 16; TEMP 36.6; O2SAT 98
== END 2020-11-01 18:19 | disposition home or self-care (01) ==
PROVIDERS: Emergency Provider Emergency Medicine
DX: R53.83 Other fatigue (principal); I48.91 Unspecified atrial fibrillation; I25.10 Atherosclerotic heart disease of native coronary artery without angina pectoris; I25.2 Old myocardial infarction; K21.9 Gastro-esophageal reflux disease without esophagitis; E78.5 Hyperlipidemia, unspecified; Z96.642 Presence of left artificial hip joint; Z85.46 Personal history of malignant neoplasm of prostate
CPT/HCPCS: 80048; 83735; 85025; 93005; 99282

== ENCOUNTER 2020-11-22 08:17 | Emergency (ER) | payer MEDICARE, SELFPAY ==
[2020-11-22] VITALS (10 sets, daily range): BP systolic 143–169; BP diastolic 78–100; PULSE 58–86; RESP 10–16; TEMP 36.6; O2SAT 95–99; BMI 27.4
--- NOTE | 2020-11-22 08:11 | ECG_ITS ---
APPROVED REPORT Exam: Resting ECG HR:64 bpm ECG Measurements Heart Rate 64 AXES MD 80 P 17 QRSd 152 QRS 69 QT 460 T 53 QTc 474 Conclusion Electronic atrial pacemaker Abnormal ECG Electronically signed by : Jose Laureano, 11/23/2020 15:02:45
--- NOTE | 2020-11-22 08:18 | XR_ITS ---
PROCEDURE: XR CHEST PORTABLE CLINICAL HISTORY: soa COMPARISON: CR XR CHEST PORTABLE from 07/12/2020 CR XR CHEST 2V from 07/31/2020 CR XR CHEST PORTABLE from 09/06/[address] CHEST WO CON from 10/18/2020 FINDINGS: There is a bipolar pacemaker present from left subclavian approach. Heart size is normal. No evidence of CHF. No lobar consolidation or collapse. Degenerative changes right glenohumeral joint with severe subacromial stenosis consistent with rotator cuff tear. IMPRESSION: As above, no acute finding Dictated by: Andre Barnes MD 11/22/2020 08:48 Andre Barnes MD in [place] 11/22/2020 08:48
--- NOTE | 2020-11-22 08:29 | PC.NURSE ---
rad at bedside.
[2020-11-22 08:31] LABS: Basophils # 0.1 K/mm3 (0-0.2); Basophils % 0.4 % (0.1-2.0); Eosinophils # 0.5 K/mm3 (0.0-0.4); Eosinophils % 4.2 % (0.1-12.0); Hematocrit 36.5 % (42.0-52.0); Hemoglobin 11.9 g/dL (14.1-18.0); Lymphocytes % 40.6 % (10-50); Mean Corpuscular HGB Conc 32.6 g/dL (31.8-35.4); Mean Corpuscular Hemoglobin 31.6 pg (27.0-31.2); Mean Corpuscular Volume 96.9 fl (80-94); Mean Platelet Volume 7.9 fl (7.4-10.4); Monocytes # 0.6 K/mm3 (0.1-1.0); Monocytes % 4.9 % (1.7-9.3); Neutrophils # 6.1 K/mm3 (1.8-7.8); Neutrophils % 49.9 % (37.0-80.0); Platelet Count 257 K/mm3 (142-424); Red Blood Count 3.76 M/mm3 (4.60-6.20); Red Cell Distribution Width 14.3 % (11.5-17.5); White Blood Count 12.3 K/mm3 (4.8-10.8)
--- NOTE | 2020-11-22 08:32 | HMH.EDCP ---
ED Disposition Clinical Impression: Chest pain Disposition: Home, Self-Care Condition on Discharge: Good Additional Instructions: Return the emergency room for worsening chest pain nausea vomiting diarrhea fever or any other concerns within the next 8 hours otherwise follow-up with your primary care physician within the next few days Referrals: Luis Fernando Gama MD [Primary Care Provider] - - Critical Care Critical Care Time: No Attestation: On 11/22/20, the high probability of a clinically significant, sudden or life threatening deterioration of the following system(s) required my full and direct attention, intervention and personal management. The time I documented below is in addition to time spent performing reported procedures but includes the following listed in this critical care notation. Medical Decision Making - Medical Records Medical records reviewed: Yes: I reviewed the patient's medical records. - Artemio Inquiry Pt receiving controlled substance: No Vital Signs: 11/22/20 08:17 11/22/20 08:30 11/22/20 09:00 Pulse Rate 70 70 Pulse Rate [Left Radial] 58 L Respiratory Rate 16 12 10 L Blood Pressure 159/81 H 143/78 H Blood Pressure [Right Arm] 158/89 H Blood Pressure Mean 107 114 Blood Pressure Mean [Right Arm] 112 02 Sat by Pulse Oximetry 97 98 97 Oxygen Delivery Method Room Air 11/22/20 09:30 11/22/20 10:00 11/22/20 10:16 Pulse Rate 70 81 Pulse Rate [Left Radial] Respiratory Rate 12 11 L 11 L Blood Pressure 143/79 H 158/100 H 159/95 H Blood Pressure [Right Arm] Blood Pressure Mean 100 112 117 Blood Pressure Mean [Right Arm] 02 Sat by Pulse Oximetry 95 98 Oxygen Delivery Method 11/22/20 10:30 Pulse Rate 86 Pulse Rate [Left Radial] Respiratory Rate 12 Blood Pressure 169/96 H Blood Pressure [Right Arm] Blood Pressure Mean 112 Blood Pressure Mean [Right Arm] 02 Sat by Pulse Oximetry 95 Oxygen Delivery Method - Lab Data Lab Results 11/22/20 08:19: WBC 12.3 H, RBC 3.76 L, Hgb 11.9 L, Hct 36.5 L, MCV 96.9 H, MCH 31.6 H, MCHC 32.6, RDW 14.3, Plt Count 257, MPV 7.9, Neut % (Auto) 49.9, Lymph % (Auto) 40.6, [place] % (Auto) 4.9, Eos % (Auto) 4.2, Baso % (Auto) 0.4, Neut # (Auto) 6.1, Lymph # (Auto) 5.0 H, [place] # (Auto) 0.6, Eos # (Auto) 0.5 H, Baso # (Auto) 0.1 11/22/20 08:19: D-Dimer 0.99 H 11/22/20 08:19: Sodium 140, Potassium 3.8, Chloride 105, Carbon Dioxide 28, Anion Gap 10.8, BUN 19, Creatinine 1.20, Estimated Creat Clear 47, Estimated GFR 58 L, Est GFR ( Amer) 70, Glucose 116 H, Calcium 9.5, Total Bilirubin 0.5, AST 29, ALT 16, Alkaline Phosphatase 76, Troponin I < 0.01, Total Protein 7.6, Albumin 4.3, Globulin 3.3 H, Albumin/Globulin Ratio 1.3 11/22/20 10:55: Troponin I < 0.01 Result diagrams: 11/22/20 08:19 11/22/20 08:19 Orders (Tests/Meds): ORDERS Category Date Time Status Troponin I Q3H Lab 11/22/20 14:30 Ordered Medical Decision Narrative: . He is in no acute distress nontoxic-appearing sitting comfortably in the bed. He has no current chest pain he is said that the chest pain was mainly right-sided. No other risk factors for pulmonary embolism or aortic dissection. The chest pain was not tearing or ripping or going to his back. He did fall and hit his right side of his chest however has no tenderness on that side. X-ray obtained as well as laboratory evaluation D-dimer negative per years criteria for indication for further work-up for pulmonary embolism. Pain is resolved. No concern for rib fracture or pneumothorax on chest x-ray. Troponin otherwise negative and he is low risk for myocardial infarction at this time. Discussed case briefly with Dr. Gama who is one of his primary care providers and recommendation for discharge should there not be any indication for admission. Chest Pain HPI - General Chief Complaint: Chest Pain Stated Complaint: chest pain Time Seen by Provider: 11/22/20 08:25 Mode of Arrival: Am
[2020-11-22 08:49] LABS: Chloride 105 mmol/L (98-107); Potassium 3.8 mmoL/L (3.5-5.1); Sodium 140 mmol/L (136-145)
[2020-11-22 08:52] LABS: Alanine Aminotransferase 16 U/L (12-78); Albumin Level 4.3 g/dl (3.5-5.0); Albumin/Globulin Ratio 1.3 (1.1-1.8); Alkaline Phosphatase 76 U/L (38-126); Anion Gap 10.8 mEq/L (5-15); Aspartate Amino Transferase 29 U/L (17-59); Bilirubin,Total 0.5 mg/dl (0.2-1.3); Blood Urea Nitrogen 19 mg/dl (9-20); Calcium 9.5 mg/dl (8.4-10.2); Carbon Dioxide 28 mmol/L (22.0-30.0); Creatinine Clearance Estimated 47 mL/min (50-200); Estimated Glomerular Filt Rate 58 ml/min (>60); GFR (African American) 70 ML/MIN (>60); Globulin 3.3 g/dL (1.3-3.2); Glucose 116 mg/dl (74-100); Total Protein,Serum 7.6 g/dl (6.3-8.2)
[2020-11-22 08:57] LABS: D-Dimer 0.99 ug/mL (0.0-0.5)
[2020-11-22 09:06] LABS: Troponin I < 0.01 ng/ml (0.00-0.034)
[2020-11-22 11:31] LABS: Troponin I < 0.01 ng/ml (0.00-0.034)
== END 2020-11-22 11:56 | disposition home or self-care (01) ==
PROVIDERS: Emergency Provider Emergency Medicine; PCP Emergency Medicine
DX: R07.9 Chest pain, unspecified (principal); I48.91 Unspecified atrial fibrillation; I25.10 Atherosclerotic heart disease of native coronary artery without angina pectoris; K21.9 Gastro-esophageal reflux disease without esophagitis; I25.2 Old myocardial infarction; I10 Essential (primary) hypertension; E78.5 Hyperlipidemia, unspecified; Z95.0 Presence of cardiac pacemaker; Z87.442 Personal history of urinary calculi; Z79.899 Other long term (current) drug therapy
CPT/HCPCS: 71045; 80053; 84484; 85025; 85378; 93005; 99282

== ENCOUNTER 2020-12-21 10:25 | Emergency (ER) | payer MEDICARE, SELFPAY ==
[2020-12-21 10:25] VITALS: BP 160/81; PULSE 71; RESP 18; TEMP 36.6; O2SAT 96; BMI 22.9
--- NOTE | 2020-12-21 10:27 | ECG_ITS ---
APPROVED REPORT Exam: Resting ECG HR:70 bpm ECG Measurements Heart Rate 70 AXES OH 126 P 40 QRSd 152 QRS -8 QT 450 T 96 QTc 486 Conclusion Electronic atrial pacemaker Abnormal ECG Electronically signed by : Jose Laureano, 12/23/2020 08:54:55
[2020-12-21 10:29] VITALS: BMI 22.9
--- NOTE | 2020-12-21 10:31 | XR_ITS ---
PROCEDURE: XR CHEST PORTABLE CLINICAL HISTORY: GENERAL WEAKNESS Shortness of air COMPARISON: CR XR CHEST 2V from 07/31/2020 CR XR CHEST PORTABLE from 09/06/[address] CHEST WO CON from 10/18/2020 CR XR CHEST PORTABLE from 11/22/2020 FINDINGS: Bipolar pacemaker is present from left subclavian approach. Unremarkable heart size. The lungs are clear without infiltrates, suspicious nodules, or pleural effusions. There are old right 3rd 4th and 5th rib fractures. Degenerative changes are present in the shoulders.. IMPRESSION: No acute findings. Dictated by: Andre Barnes MD 12/21/2020 10:55 Andre Barnes MD in [place] 12/21/2020 10:55
--- NOTE | 2020-12-21 10:37 | HMH.EDGENADL ---
ED Disposition Clinical Impression: Nausea, Leg cramps Disposition: Home, Self-Care Condition on Discharge: Good Instructions: DI for Nausea -- Adult, DI for Nocturnal Leg Cramps Additional Instructions: Follow-up with your primary care provider in the office, call for appointment. Return to the emergency department if symptoms worsen. Referrals: Luis Fernando Gama MD [Primary Care Provider] - - Critical Care Critical Care Time: No Attestation: On 12/21/20, the high probability of a clinically significant, sudden or life threatening deterioration of the following system(s) required my full and direct attention, intervention and personal management. The time I documented below is in addition to time spent performing reported procedures but includes the following listed in this critical care notation. Medical Decision Making - Artemio Inquiry Pt receiving controlled substance: No Vital Signs: 12/21/20 10:25 12/21/20 11:00 Temperature 98 F Temperature Source Oral Pulse Rate 72 Pulse Rate [Radial] 71 Respiratory Rate 18 Blood Pressure 140/76 Blood Pressure [Right Arm] 160/81 H Blood Pressure Mean [Right Arm] 107 Blood Pressure Position Sitting Blood Pressure Position [Right Arm] Sitting 02 Sat by Pulse Oximetry 96 96 Oxygen Delivery Method Room Air Room Air - Lab Data Lab Results 12/21/20 10:30: WBC 12.1 H, RBC 3.44 L, Hgb 11.0 L, Hct 33.0 L, MCV 95.9 H, MCH 31.8 H, MCHC 33.2, RDW 14.1, Plt Count 216, MPV 8.2, Neut % (Auto) 53.2, Lymph % (Auto) 40.5, [place] % (Auto) 3.1, Eos % (Auto) 2.8, Baso % (Auto) 0.4, Neut # (Auto) 6.4, Lymph # (Auto) 4.9 H, [place] # (Auto) 0.4, Eos # (Auto) 0.3, Baso # (Auto) 0.1 12/21/20 10:30: Sodium 138, Potassium 4.0, Chloride 105, Carbon Dioxide 28, Anion Gap 9.0, BUN 23 H, Creatinine 1.20, Estimated Creat Clear 47, Estimated GFR 58 L, Est GFR ( Amer) 70, Glucose 113 H, Calcium 8.5, Troponin I < 0.01 12/21/20 12:19: Urine Color Yellow, Urine Appearance Clear, Urine pH 7.0, Ur Specific [place] 1.020, Urine Protein Negative, Urine Glucose (UA) Negative, Urine Ketones Negative, Urine Blood Negative, Urine Nitrate Negative, Urine Bilirubin Negative, Urine Urobilinogen 0.2, Ur Leukocyte Esterase Negative, Urine RBC None, Urine WBC None, Ur Squamous Epith Cells Occasional, Urine Bacteria None Result diagrams: 12/21/20 10:30 12/21/20 10:30 Orders (Tests/Meds): ORDERS Category Date Time Status Troponin I Q3H Lab 12/21/20 13:45 Ordered Troponin I Q3H Lab 12/21/20 16:45 Ordered - Radiology Data #1 Image(s): Chest Image Reviewed: Yes I reviewed the patient's radiology image, Yes I have reviewed radiologist's interpretation PROCEDURE: XR CHEST PORTABLE CLINICAL HISTORY: GENERAL WEAKNESS Shortness of air COMPARISON: CR XR CHEST 2V from 07/31/2020 CR XR CHEST PORTABLE from 09/06/[address] CHEST WO CON from 10/18/2020 CR XR CHEST PORTABLE from 11/22/2020 FINDINGS: Bipolar pacemaker is present from left subclavian approach. Unremarkable heart size. The lungs are clear without infiltrates, suspicious nodules, or pleural effusions. There are old right 3rd 4th and 5th rib fractures. Degenerative changes are present in the shoulders.. IMPRESSION: No acute findings. Dictated by: Andre Barnes MD 12/21/2020 10:55 Andre Barnes MD in [place] 12/21/2020 10:55 - CT Data CT Scan: Head Time Received: 11:[address] Reviewed: Yes: I have viewed the radiologist's interpretation Findings Narrative: PROCEDURE: CT HEAD/BRAIN WO CON CLINICAL INDICATION: weakness COMPARISON: CT CT HEAD/BRAIN WO CON from 07/12/2020 TECHNIQUE: Axial images obtained. All CT scans at the facility use one or more dose reduction, viz: automated exposure control, ma/kV adjustment per patient size (including targeted exams where dose is matched to indication, i.e. head), or iterative reconstruction technique. FINDINGS: No midline shift or
[2020-12-21 10:42] LABS: Basophils # 0.1 K/mm3 (0-0.2); Basophils % 0.4 % (0.1-2.0); Eosinophils # 0.3 K/mm3 (0.0-0.4); Eosinophils % 2.8 % (0.1-12.0); Lymphocytes # 4.9 K/mm3 (0.7-4.5); Lymphocytes % 40.5 % (10-50); Mean Corpuscular HGB Conc 33.2 g/dL (31.8-35.4); Mean Corpuscular Hemoglobin 31.8 pg (27.0-31.2); Mean Corpuscular Volume 95.9 fl (80-94); Mean Platelet Volume 8.2 fl (7.4-10.4); Monocytes # 0.4 K/mm3 (0.1-1.0); Monocytes % 3.1 % (1.7-9.3); Neutrophils # 6.4 K/mm3 (1.8-7.8); Neutrophils % 53.2 % (37.0-80.0); Platelet Count 216 K/mm3 (142-424); Red Blood Count 3.44 M/mm3 (4.60-6.20); Red Cell Distribution Width 14.1 % (11.5-17.5); White Blood Count 12.1 K/mm3 (4.8-10.8)
[2020-12-21 10:45] LABS: Chloride 105 mmol/L (98-107); Sodium 138 mmol/L (136-145)
[2020-12-21 10:48] LABS: Blood Urea Nitrogen 23 mg/dl (9-20); Calcium 8.5 mg/dl (8.4-10.2); Carbon Dioxide 28 mmol/L (22.0-30.0); Creatinine Clearance Estimated 47 mL/min (50-200); Estimated Glomerular Filt Rate 58 ml/min (>60); GFR (African American) 70 ML/MIN (>60); Glucose 113 mg/dl (74-100)
--- NOTE | 2020-12-21 10:52 | CT_ITS ---
PROCEDURE: CT HEAD/BRAIN WO CON CLINICAL INDICATION: weakness COMPARISON: CT CT HEAD/BRAIN WO CON from 07/12/2020 TECHNIQUE: Axial images obtained. All CT scans at the facility use one or more dose reduction, viz: automated exposure control, ma/kV adjustment per patient size (including targeted exams where dose is matched to indication, i.e. head), or iterative reconstruction technique. FINDINGS: No midline shift or mass effect. No acute intracranial hemorrhage. There is generalized atrophy. There remains prominence of the subdural spaces in the frontal regions and anterior to the temporal lobes. There is also mild prominence of the subdural space in the posterior fossa anteriorly. These findings may only be related to atrophy. The ventricles and cells have an unremarkable appearance. Subdural hygromas are also consideration in the frontal area. No acute subdural hemorrhage is evident. There is opacification of the left maxillary sinus and there is a bone plate along the right maxillary region. IMPRESSION: Overall no change with no acute finding. There remains prominence of the subdural spaces in the frontal and temporal region and in the posterior fossa which could be due to the generalized atrophy versus subdural effusions Dictated by: Andre Barnes MD 12/21/2020 11:50 Andre Barnes MD in [place] 12/21/2020 11:50
[2020-12-21 11:00] VITALS: BP 140/76; PULSE 72; O2SAT 96
[2020-12-21 11:01] LABS: Troponin I < 0.01 ng/ml (0.00-0.034)
[2020-12-21 12:00] VITALS: BP 163/86; PULSE 70
[2020-12-21 12:26] LABS: Microscopic, Urine URINE MICROSCOPIC (MICROSCOPIC)
[2020-12-21 12:37] LABS: Appearance,Urine CLEAR (Clear); Bilirubin,Urine Negative (Negative); Blood, Urine Negative (Negative); Color,Urine YELLOW (Yellow); Glucose,Urine (UA) Negative (Negative); Ketones,Urine Negative (Negative); Leukocyte Esterase,Urine Negative (Negative); Nitrate,Urine Negative (Negative); Protein,Urine Negative (Negative); Urobilinogen,Urine 0.2 EU/dl (0.2)
[2020-12-21 12:55] LABS: Squamous Epithelial Cell,Urine Occasional #/hpf (0-5)
[2020-12-21 13:00] VITALS: BP 159/87; PULSE 70; RESP 16; TEMP 36.6; O2SAT 98
[2020-12-21 13:36] VITALS: BP 159/87; PULSE 70; RESP 16; TEMP 36.6; O2SAT 98
== END 2020-12-21 13:37 | disposition home or self-care (01) ==
PROVIDERS: Emergency Provider Emergency Medicine; PCP Emergency Medicine
DX: M62.81 Muscle weakness (generalized) (principal); R25.2 Cramp and spasm; R11.2 Nausea with vomiting, unspecified; I48.91 Unspecified atrial fibrillation; I25.10 Atherosclerotic heart disease of native coronary artery without angina pectoris; I50.9 Heart failure, unspecified; K21.9 Gastro-esophageal reflux disease without esophagitis; E78.5 Hyperlipidemia, unspecified; I10 Essential (primary) hypertension; Z79.899 Other long term (current) drug therapy
CPT/HCPCS: 70450; 71045; 80048; 81001; 84484; 85025; 93005; 99283

== ENCOUNTER 2021-01-06 17:47 | Emergency (ER) | payer MEDICARE, SELFPAY ==
[2021-01-06 17:48] VITALS: BP 143/85; PULSE 79; RESP 16; TEMP 36.7; O2SAT 99; BMI 23.6
--- NOTE | 2021-01-06 17:57 | XR_ITS ---
PROCEDURE INFORMATION: Exam: XR Complete Acute Abdomen Series Including Chest Exam date and time: 01/06/2021 5:57 PM Age: 85 years old Clinical indication: Abdominal pain; Patient HX: Constipation, last bowel movement unknown TECHNIQUE: Imaging protocol: XR complete acute abdomen series, including 2 or more views of the abdomen and a single view chest. COMPARISON: CR XR CHEST PORTABLE 12/21/2020 10:36 AM FINDINGS: Tubes, catheters and devices: Pacemaker device with generator overlying the left chest wall and distal leads projecting over the right atrium and right ventricle. Lungs: No consolidation. Ground-glass opacity in the medial left lower lung zone may represent atelectasis or developing airspace disease. Hyperexpansion, with increase in the craniocaudal dimension, likely representing COPD. Pleural spaces: No pleural effusions. No pneumothorax. Heart/Mediastinum: Mild tortuosity of the aortic arch. Gastrointestinal tract: Nondistended small bowel. Moderate to large volume stool predominantly within the ascending colon, descending colon, and sigmoid colon. Intraperitoneal space: No free air. Organs: Calcifications in the bilateral upper quadrants may represent renal calculi, better visualized on prior CT dated 10/18/2020. Bones/joints: Degenerative change. Mild right convex curvature of the spine, centered about L3-L4. No acute fracture. Status post left total hip arthroplasty, without evidence of loosening or hardware complication. Degenerative change at the right hip joint. Soft tissues: Normal. IMPRESSION: 1. Nondilated small bowel. No evidence of bowel obstruction. 2. Moderate to large volume stool predominantly within the ascending colon, descending colon, and sigmoid colon. Finding may be seen in constipation. 3. Bilateral renal stones. 4. Small focus of atelectasis or developing airspace disease, such as pneumonia, in the medial left lower lung zone.
--- NOTE | 2021-01-06 18:04 | HMH.EDABDPAI ---
ED Disposition Clinical Impression: Constipation Disposition: Home, Self-Care Condition on Discharge: Fair Instructions: DI for Acute Abdominal Pain Referrals: Luis Fernando Gama MD [Primary Care Provider] - - Critical Care Critical Care Time: No Attestation: On 01/06/21, the high probability of a clinically significant, sudden or life threatening deterioration of the following system(s) required my full and direct attention, intervention and personal management. The time I documented below is in addition to time spent performing reported procedures but includes the following listed in this critical care notation. Medical Decision Making - Medical Records Medical records reviewed: Yes: I reviewed the patient's medical records. - Artemio Inquiry Pt receiving controlled substance: No Vital Signs: 01/06/21 17:48 Temperature 98.0 F Temperature Source Oral Pulse Rate [Left] 79 Respiratory Rate 16 Blood Pressure [Right Arm] 143/85 H Blood Pressure Mean [Right Arm] 104 Blood Pressure Position [Right Arm] Sitting 02 Sat by Pulse Oximetry 99 Oxygen Delivery Method Room Air Orders (Tests/Meds): ORDERS Category Date Time Status Acute abdomen XR series [XR acute abdomen series] Stat Exams 01/06/21 17:57 Taken - Radiology Data #1 Image(s): Abdomen Image Reviewed: Yes I reviewed the patient's radiology results moderate constipation without evidence of bowel obstruction Abdominal Pain HPI - General Chief Complaint: Abdominal Pain Stated Complaint: constipated Time Seen by Provider: 01/06/21 18:00 Mode of Arrival: Ambulatory Limitations: No Limitations Description of Symptoms (Recalled from ER Triage Doc. by RN): patient ambulatory to ED for complaints of constipation. patient states that he cannot pass gas, and is having LLQ abdominal pain. - History of Present Illness HPI narrative: This is an 85-year-old male who presents with left lower quadrant abdominal pain and constipation x2 days. Patient also endorses obstipation. He cannot recall the last time that he passed gas. Pain is dull aching and constant without radiation. Intensity is moderate. No palliating or provoking measures. Patient is taken [id number] cathartics with no results today. - Related Data Home Medications Medication Instructions Recorded Confirmed Oxybutynin Chloride [Oxybutynin 10 mg PO DAILY 07/12/20 12/19/20 Chloride ER] Docusate Sodium [Colace 250mg 250 mg PO BID 08/10/20 12/19/20 capsule] polyethylene glycoL 3350 [Miralax 17 gm PO DAILY 08/10/20 12/19/20 17gm Packet] Albuterol Sulfate [Proventil Hfa] 2 puff IH Q6HP PRN 09/07/20 12/19/20 Nitroglycerin 0.4 mg SL Q5MINP PRN 09/07/20 12/19/20 Previous Rx's Medication Instructions Recorded Meclizine HCl [Wal-Dram 2] 25 mg PO DAILYP PRN #30 tab 06/20/20 Neomycin/Polymyxin B/Hydrocort 5 drops OT TID 7 Days #1 bottle 09/07/20 [Qmwzpnjt-Upsrzukoa-Oa Ear Susp] atorvastatin 40 mg tablet See Rx Instructions .ROUTE 11/12/20 .COMPLEX #90 tab metoprolol succinate 50 mg See Rx Instructions .ROUTE 11/12/20 tablet,extended release 24 hr .COMPLEX #90 tab pantoprazole 40 mg tablet,delayed See Rx Instructions .ROUTE 11/12/20 release .COMPLEX #90 tab tamsulosin 0.4 mg capsule See Rx Instructions .ROUTE 11/12/20 .COMPLEX #90 cap allopurinol 100 mg tablet 100 mg PO DAILY #90 tab 11/22/20 aspirin 81 mg tablet,delayed 81 mg PO DAILY #90 tab 11/22/20 release clopidogrel 75 mg tablet 75 mg PO DAILY #90 tab 11/22/20 duloxetine 30 mg capsule,delayed 30 mg PO HS #90 cap 11/22/20 release isosorbide mononitrate 30 mg 30 mg PO DAILY #90 tab 11/22/20 tablet,extended release 24 hr losartan 25 mg tablet 25 mg PO DAILY #90 tab 11/22/20 mupirocin 2 % topical ointment 1 applic TOPICAL BID #22 g 12/19/20 oxycodone-acetaminophen 10 mg-325 1 tab PO QIDP PRN #120 tab 12/19/20 mg tablet Allergies Allergy/AdvReac Type Severity Reaction Statu
[2021-01-06 18:23] VITALS: BP 132/83; PULSE 84; RESP 14; TEMP 36.7; O2SAT 95
--- NOTE | 2021-01-06 18:31 | PC.NURSE ---
called patients daughter Elsa for transportation back home. She states that she will be on her way shortly. patient is currently waiting in room.
== END 2021-01-06 18:43 | disposition home or self-care (01) ==
PROVIDERS: Emergency Provider Emergency Medicine; PCP Emergency Medicine
DX: K59.00 Constipation, unspecified (principal); I48.91 Unspecified atrial fibrillation; I25.10 Atherosclerotic heart disease of native coronary artery without angina pectoris; K21.9 Gastro-esophageal reflux disease without esophagitis; E78.5 Hyperlipidemia, unspecified; I10 Essential (primary) hypertension; I25.2 Old myocardial infarction; Z87.442 Personal history of urinary calculi; Z95.0 Presence of cardiac pacemaker; Z96.642 Presence of left artificial hip joint; Z79.899 Other long term (current) drug therapy
CPT/HCPCS: 74021; 99282

== ENCOUNTER → 2021-01-22 10:36 | Outpatient (CLI) | payer MEDICARE, SELFPAY ==
[2021-01-22 11:40] LABS: Basophils # 0.1 K/mm3 (0-0.2); Basophils % 0.5 % (0.1-2.0); Eosinophils # 0.4 K/mm3 (0.0-0.4); Eosinophils % 4.5 % (0.1-12.0); Hematocrit 34.9 % (42.0-52.0); Lymphocytes # 4.8 K/mm3 (0.7-4.5); Lymphocytes % 51.1 % (10-50); Mean Corpuscular HGB Conc 31.6 g/dL (31.8-35.4); Mean Corpuscular Hemoglobin 30.8 pg (27.0-31.2); Mean Corpuscular Volume 97.3 fl (80-94); Mean Platelet Volume 7.5 fl (7.4-10.4); Monocytes # 0.4 K/mm3 (0.1-1.0); Monocytes % 4.7 % (1.7-9.3); Neutrophils # 3.7 K/mm3 (1.8-7.8); Neutrophils % 39.3 % (37.0-80.0); Platelet Count 235 K/mm3 (142-424); Red Blood Count 3.59 M/mm3 (4.60-6.20); Red Cell Distribution Width 13.5 % (11.5-17.5); White Blood Count 9.3 K/mm3 (4.8-10.8)
[2021-01-22 11:50] LABS: MANUAL DIFFERENTIAL MANUAL DIFFERENTIAL (MANUAL DIFF)
[2021-01-22 14:18] LABS: Eosinophils % 3 % (0-3); Lymphocytes % 22 % (10-50); Monocytes % 9 % (2-9); Neutrophils % 66 % (42-76); Total Cells Counted 100
[2021-01-22 14:19] LABS: Anisocytosis 1+; Hypochromasia 1+; Platelet Estimate Normal
== END ==
PROVIDERS: PCP Emergency Medicine; Visit Provider Otolaryngology
DX: Z01.812 Encounter for preprocedural laboratory examination (principal); Z20.822 Contact with and (suspected) exposure to COVID-19; J34.89 Other specified disorders of nose and nasal sinuses; L98.9 Disorder of the skin and subcutaneous tissue, unspecified
CPT/HCPCS: 36415; 85007; 85025; U0003

== ENCOUNTER → 2021-01-23 06:43 | Outpatient (CLI) | payer MEDICARE, SELFPAY ==
--- NOTE | 2021-01-23 | CA_ITS ---
APPROVED REPORT Exam: Pharmacologic Technologist: marlys clark, Ht: 5 ft 10 in Wt: 164 lbs BSA: 1.92 m2 HR: 70 bpm BP: 160/75 mmHg Rhythm: VENTRICULAR PACED RHYTHM Medical History Medical History: HTN, Hyperlipidemia Medications: Isosorbide,,,,, Metoprolol,,,,, Asa,,,,, Flomax,,,,, Losartan,,,,, Lipitor,,,,, Albuterol,,,,, Protonix,,,,, Plavix,,,,, MiraLAX,,,,, OxYCODONE,,,,, OxYbutynin,,,,, Allergies: No known drug allergies Cardiac Risk Factors: HTN, Hyperlipidemia Stress Test Details Test: LEXISCAN HR Resting HR: 70 bpm Max Heart Rate (APMHR): 136.597020 bpm Max HR Achieved: 84 bpm Target HR (85% APMHR): 115.355697 bpm % of APMHR: 61.76 Recovery HR: 70 bpm BP Resting BP: 160.0/75.0 mmHg Max BP: 160.0/75.0 mmHg Recovery BP: 160.0/68.0 mmHg ECG Resting ECG: VENTRICULAR PACED RHYTHM Clinical Exercise duration: 04:00 min Highest Stage Achieved: Exercise capacity: 1.0 METs Stress ECG Conclusion DURING INFUSION PATIENT HAD NO SYMPTOMS. OCCASIONAL [place] BEATS. NO SIGNIFICANT ST-T CHANGES. NON-DIAGNOSTIC LEXISCAN STRESS. MYOVIEW IMAGES REPORTED SEPARATELY. Test Summary RECOVERY 04:26 . . 70 . 147/ 64 . . Stage 1 01:00 . . 70 . . . . Stage 2 01:00 . . 82 . 135/ 67 . . Stage 3 01:00 . . 79 . 144/ 69 . . Stage 4 01:00 . . 82 . 151/ 71 . Stop exercise at 04:00 RECOVERY 01:00 . . 78 . 160/ 68 . . RECOVERY 02:00 . . 70 . 160/ 68 . . RECOVERY 03:00 . . 70 . 160/ 68 . . RECOVERY 04:00 . . 70 . 140/ 64 . . RECOVERY 04:26 . . 70 . 147/ 64 . . Electronically signed by : Yaw Rodriguez, 01/24/2021 09:18:38
--- NOTE | 2021-01-23 06:44 | NM_ITS ---
APPROVED REPORT Exam: Nuclear Stress Test Indication: CAD, PRE OP Patient Location: Outpatient Stress Tech: Jordyn EDWARD Tech:AUSTIN Larkin RT(R)(N) Ht: 5 ft 5 in Wt: 165 lbs HR: 70 bpm BP: 160/75 mmHg BSA: 1.82 m2 BMI: 27.4 History: CAD, PRE OP Procedure: Patient received a 0.4 mg of intravenous Lexiscan, resting heart rate 70 bpm, resting blood pressure 160/75 mmHg, with Lexiscan maximum heart rate achived was 84 bpm which is % of the maximum predicted heart rate and blood pressure was 160/75 mmHg. With Lexiscan, patient denied any complaint of chest pain. Cardiac Stress and Resting SPECT Images: Cardiac Stress and Resting SPECT images were obtained using technetium 99m Myoview 31.7 mCi stress and 10.28 mCi at rest. Low EF of 29% Global hypokenisia with apical lateral dyskenesia No fixed or reversible defects Conclusion: Low EF of 29% Global hypokenisia with apical lateral dyskenesia No fixed or reversible defects Electronically signed by : Andre Barnes MD 01/23/2021 11:48:19
== END ==
PROVIDERS: PCP Emergency Medicine; Visit Provider Internal Medicine
DX: I25.118 Atherosclerotic heart disease of native coronary artery with other forms of angina pectoris (principal)
CPT/HCPCS: 78452; 93017; A9502; J2785

== ENCOUNTER → 2021-02-13 16:55 | Outpatient (CLI) | payer MEDICARE, SELFPAY ==
[2021-02-13 17:34] LABS: Basophils # 0.2 K/mm3 (0-0.2); Eosinophils # 0.1 K/mm3 (0.0-0.4); Eosinophils % 0.9 % (0.1-12.0); Hemoglobin 12.8 g/dL (14.1-18.0); Lymphocytes # 8.4 K/mm3 (0.7-4.5); Mean Corpuscular HGB Conc 32.7 g/dL (31.8-35.4); Mean Corpuscular Hemoglobin 30.8 pg (27.0-31.2); Mean Corpuscular Volume 94.1 fl (80-94); Mean Platelet Volume 7.9 fl (7.4-10.4); Monocytes # 0.5 K/mm3 (0.1-1.0); Monocytes % 2.9 % (1.7-9.3); Neutrophils # 6.4 K/mm3 (1.8-7.8); Neutrophils % 41.2 % (37.0-80.0); Platelet Count 288 K/mm3 (142-424); Red Blood Count 4.15 M/mm3 (4.60-6.20); Red Cell Distribution Width 14.3 % (11.5-17.5); White Blood Count 15.5 K/mm3 (4.8-10.8)
[2021-02-13 17:46] LABS: MANUAL DIFFERENTIAL MANUAL DIFFERENTIAL (MANUAL DIFF)
[2021-02-13 17:52] LABS: Chloride 107 mmol/L (98-107)
[2021-02-13 17:53] LABS: Potassium 4.6 mmoL/L (3.5-5.1); Sodium 142 mmol/L (136-145)
[2021-02-13 17:56] LABS: Anion Gap 13.6 mEq/L (5-15); Blood Urea Nitrogen 18 mg/dl (9-20); Calcium 9.3 mg/dl (8.4-10.2); Carbon Dioxide 26 mmol/L (22.0-30.0); Estimated Glomerular Filt Rate 58 ml/min (>60); GFR (African American) 70 ML/MIN (>60); Glucose 86 mg/dl (74-100)
[2021-02-13 18:38] LABS: Eosinophils % 1 % (0-3); Lymphocytes % 54 % (10-50); Monocytes % 3 % (2-9); Neutrophils % 42 % (42-76); Platelet Estimate Normal; Total Cells Counted 100
== END ==
PROVIDERS: Urology; Visit Provider Emergency Medicine
DX: E78.5 Hyperlipidemia, unspecified (principal); G20 Parkinson's disease; H91.93 Unspecified hearing loss, bilateral; I10 Essential (primary) hypertension; I25.118 Atherosclerotic heart disease of native coronary artery with other forms of angina pectoris; I25.5 Ischemic cardiomyopathy; I65.29 Occlusion and stenosis of unspecified carotid artery; K21.9 Gastro-esophageal reflux disease without esophagitis; R06.00 Dyspnea, unspecified; R41.82 Altered mental status, unspecified; R94.39 Abnormal result of other cardiovascular function study; Z01.810 Encounter for preprocedural cardiovascular examination; Z95.5 Presence of coronary angioplasty implant and graft; Z11.52 Encounter for screening for COVID-19
CPT/HCPCS: 36415; 80048; 85007; 85025; U0003

== ENCOUNTER 2021-02-14 11:36 | Day surgery (SDC) | payer MEDICARE, SELFPAY ==
[2021-02-14] VITALS (16 sets, daily range): BP systolic 112–176; BP diastolic 62–100; PULSE 69–94; RESP 18; O2SAT 95–98; BMI 23.9
--- NOTE | 2021-02-14 07:17 | IR_ITS ---
APPROVED REPORT Patient Location: Outpatient [facility] Consultant: AUSTIN Oconnor RT (R) PROCEDURES Left heart catheterization Left ventriculogram Selective coronary INDICATION Preoperative evaluation, High risk abnormal Myoview, Systolic ejection fraction of 29%, systolic congestive heart failure, Known ischemic heart disease, Informed consent was obtained prior to the procedure. COMPLICATIONS NONE Estimated Blood Loss: LESS THAN 10 ML TECHNIQUE One percent lidocaine was used to anesthetize the right groin. The right femoral artery was accessed via the Seldinger technique. A 4-Pashto sheath was placed in the right femoral artery. The JL-4 and JR-4 catheter was also used to perform left heart catheterization left ventriculogram and selective coronary angiogram. At the end of the procedure the patient was transferred to the post-op holding area in stable condition for arterial sheath removal. ANGIOGRAPHIC RESULTS The left main artery Mildly calcified with an ostial 10% stenosis The left anterior descending artery Has a stent with proximal segment which is widely patent free of in-stent restenosis with excellent proximal distal transitioning. The remaining LAD is widely patent The circumflex artery Is a non-dominant vessel with mild proximal and mid vessel 10 to 20% stenoses The right coronary artery Is dominant with mild diffuse 10 to 20% stenoses The MALIN ventriculogram reveals Preserved ejection fraction is 50% The left ventricular end-diastolic pressure Less than 10 mmHg IMPRESSION Wide open coronary arteries as described above Ejection fraction 50% by LV gram which is significantly different than Myoview. It is possible and probably most likely the patient was RV pacing during the Myoview image which caused significant electromechanical dyssynchrony thereby giving the ejection fraction of 29%. Normal left ventricular end-diastolic pressure PLAN 1. Medical management for coronary disease 2. Patient's defibrillator should be interrogated. If patient is RV pacing greater than 40% of the time then he should proceed with biventricular pacemaker in order to achieve cardiac synchronization. This would provide stabilized ejection fraction while avoiding the wide discrepancies which most likely stems from intrinsic LV pacing versus extrinsic RV pacing Electronically signed by : Yaw Rodriguez, 02/14/2021 12:37:43
== END 2021-02-14 15:12 | disposition home or self-care (01) ==
LOC: CATHLAB 11:38
PROVIDERS: PCP Emergency Medicine; Visit Provider Internal Medicine
DX: I11.0 Hypertensive heart disease with heart failure; I25.118 Atherosclerotic heart disease of native coronary artery with other forms of angina pectoris; I50.22 Chronic systolic (congestive) heart failure; I25.5 Ischemic cardiomyopathy; I65.29 Occlusion and stenosis of unspecified carotid artery; E78.5 Hyperlipidemia, unspecified; G20 Parkinson's disease; H91.93 Unspecified hearing loss, bilateral; K21.9 Gastro-esophageal reflux disease without esophagitis; R06.00 Dyspnea, unspecified; R41.82 Altered mental status, unspecified; R94.39 Abnormal result of other cardiovascular function study; Z95.5 Presence of coronary angioplasty implant and graft
CPT/HCPCS: 93458; 99152; C1725; C1769; J1644; Q9967

== ENCOUNTER → 2021-03-05 17:10 | Outpatient (CLI) | payer MEDICARE, SELFPAY ==
--- NOTE | 2021-03-05 17:32 | ECG_ITS ---
APPROVED REPORT Exam: Resting ECG HR:70 bpm ECG Measurements Heart Rate 70 AXES PA 80 P 7 QRSd 162 QRS 32 QT 446 T 85 QTc 481 Conclusion Electronic atrial pacemaker Left bundle branch block Abnormal ECG Electronically signed by : Jose Larueano MD 03/06/2021 11:44:41
[2021-03-05 18:32] LABS: Basophils # 0.1 K/mm3 (0-0.2); Basophils % 0.5 % (0.1-2.0); Eosinophils # 0.1 K/mm3 (0.0-0.4); Eosinophils % 0.7 % (0.1-12.0); Hematocrit 36.1 % (42.0-52.0); Lymphocytes # 7.9 K/mm3 (0.7-4.5); Lymphocytes % 57.6 % (10-50); Mean Corpuscular HGB Conc 33.2 g/dL (31.8-35.4); Mean Corpuscular Hemoglobin 30.9 pg (27.0-31.2); Mean Corpuscular Volume 93.2 fl (80-94); Monocytes # 0.4 K/mm3 (0.1-1.0); Monocytes % 3.1 % (1.7-9.3); Neutrophils # 5.2 K/mm3 (1.8-7.8); Platelet Count 232 K/mm3 (142-424); Red Blood Count 3.88 M/mm3 (4.60-6.20); Red Cell Distribution Width 14.1 % (11.5-17.5); White Blood Count 13.8 K/mm3 (4.8-10.8)
[2021-03-05 18:40] LABS: MANUAL DIFFERENTIAL MANUAL DIFFERENTIAL (MANUAL DIFF)
[2021-03-05 21:08] LABS: Lymphocytes % 56 % (10-50); Monocytes % 11 % (2-9); Neutrophils % 32 % (42-76); Platelet Estimate Normal; Total Cells Counted 100
== END ==
PROVIDERS: Visit Provider Otolaryngology
DX: Z01.818 Encounter for other preprocedural examination (principal); Z20.822 Contact with and (suspected) exposure to COVID-19
CPT/HCPCS: 36415; 85007; 85025; 93005; U0003

== ENCOUNTER 2021-03-07 09:31 | Day surgery (SDC) | payer MEDICARE, SELFPAY ==
[2021-03-05 12:08] VITALS: BMI 22.9
[2021-03-07 09:42] VITALS: BP 153/83; PULSE 82; RESP 18; TEMP 36.2; O2SAT 98
--- NOTE | 2021-03-07 10:05 | HMH.ANESCL ---
[facility] Anesthesia Checklist - Patient Identification Patient Identification: Arm Band, Verbal (Name & ) - Structural Data Admitted From: Home Planned Operative Procedure/s: ex. nasal lesion Consent for Planned Operative Procedure(s) Verified: Yes Verified Documents: History and Physical - Chart Verification Results Verified: CBC, BMP - Additional verifications Patient : No Anesthesia Reactions: No Hx Blood Transfusions: No Blood Transfusion Reaction: No Cephalosporin Allergy: No Previous Colonoscopy: No - Cardiovascular Assessment Pulse Strength: Baseline Peripheral Edema: No - Airway Assessment C-Spine Mobility Assessed: Yes TMJ Mobility Assessed: Yes Dentition: Poor Dentition - Neurological Assessment Level of Consciousness: Awake, Alert, Appropriate Hx Seizures: No Numbness or tingling in extremities: No - Anesthesia Plan Anesthesia Risk discussed: Yes Anesthesia Plan: Verified ASA Class: III Anesthesia Type: MAC [facility] History I have reviewed the patient's past medical history: Yes Medical History: Reports:: Atrial Fibrillation, Cancer, Carotid Stenosis, Congestive Heart Failure, Coronary Artery Disease, Gastroesophageal Reflux Disease(GERD), Hyperlipidemia, Hypertension, Internal Pacemaker, Kidney Stones, Myocardial Infarction Denies:: Diabetes Mellitus Type 1, Diabetes Mellitus Type 2, Lung Disease, MRSA, Seizures *Have you ever received a pneumonia vaccine?: No *Have you received a flu vaccine this season?: Yes Other Medical History: Reports: Arthritis. Denies: Blood Transfusion Reaction Anesthesia experience/problems:: none Laterality Cases: Left: Total Hip Replacement Other Surgeries: Yes: No Previous Surgery, Cancer Surgery, Cardiac Catheterization, Colonoscopy, Coronary Stent, Pacemaker, Other (back sx) Amputation: Yes (2 toes) Fractures: No - *Social History Last grade of school completed: High school graduate Smoking Status: Never smoker Alcohol Intake: never Alcohol Intake Frequency:: a few times a month Substance Use Type: denies use *Occupational Status:: retired Housing: apartment Household Members: other *Travel in the last 8 weeks: None Family Hx:: Unable to obtain
[2021-03-07 11:48] VITALS: BP 169/92; PULSE 70; RESP 16; TEMP 36.4; O2SAT 95
[2021-03-07 12:03] VITALS: BP 164/86; PULSE 70; RESP 16; O2SAT 97
--- NOTE | 2021-03-07 12:04 | HMH.OPNOTE ---
Date of procedure: 03/07/21 Pre-op Diagnosis:: 1. 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 Excision of malignant neoplasm left eyebrow 2.8 cm with tissue rearrangement Z-plasty repair 2. Excision of malignant neoplasm nasal tip 2.2 cm with tissue rearrangement Z-plasty repair Surgeon:: Denis Guadarrama MD DIRECTOR MARKET RESEARCH:: Rodrigo Hawk Anesthesia: MAC Estimated blood loss (mL): 5 Operative findings:: same Operative note:: the face was prepped and draped, the eyes were protected with Steri-Strips. The perilesional areas were infiltrated with a total of 4 cc of 2% lidocaine containing epinephrine. The lesion on the nasal tip measured 2.2 cm, the matilde out was incised and the lesion was excised and submitted. Bleeding was stopped with bipolar cautery. Lateral incisions were made and a tissue rearrangement geometric plastic repair was done with interrupted 4-0 nylon sutures, a Dermabond dressing was applied. The lesion on the left eyebrow measured 2.8 cm the markup was incised and the lesion was excised and submitted. Medial incisions were made and a tissue rearrangement z-platy repair was done and Dermabond dressing was applied, the patient tolerated procedure well and was sent to recovery in good general condition. Condition: stable Disposition: PACU Complications:: none
[2021-03-07 12:18] VITALS: BP 162/92; PULSE 70; RESP 16; O2SAT 97
== END 2021-03-07 12:18 | disposition home or self-care (01) ==
LOC: OR 09:31
PROVIDERS: PCP Emergency Medicine; Visit Provider Otolaryngology
DX: D04.39 Carcinoma in situ of skin of other parts of face (principal); I48.91 Unspecified atrial fibrillation; I65.29 Occlusion and stenosis of unspecified carotid artery; I11.0 Hypertensive heart disease with heart failure; I50.9 Heart failure, unspecified; I25.10 Atherosclerotic heart disease of native coronary artery without angina pectoris; K21.9 Gastro-esophageal reflux disease without esophagitis; E78.5 Hyperlipidemia, unspecified; Z95.0 Presence of cardiac pacemaker; I25.2 Old myocardial infarction; Z79.82 Long term (current) use of aspirin; Z79.899 Other long term (current) drug therapy
CPT/HCPCS: 14040; 14060; 88305; 96374; 96375

== ENCOUNTER 2021-03-21 15:58 | Emergency (ER) | payer MEDICARE, SELFPAY ==
[2021-03-21 16:00] VITALS: BP 115/61; PULSE 77; RESP 18; TEMP 36.8; O2SAT 98; BMI 25.0
--- NOTE | 2021-03-21 16:17 | XR_ITS ---
PROCEDURE: XR CHEST PORTABLE CLINICAL HISTORY: SOA COMPARISON: CR XR CHEST PORTABLE from 09/06/[address] CHEST WO CON from 10/18/2020 CR XR CHEST PORTABLE from 11/22/2020 CR XR CHEST PORTABLE from 12/21/2020 FINDINGS: Mild cardiomegaly without failure. Bipolar pacemaker is present from left subclavian approach. There is mild patient rotation. Chronic changes are present in the lung bases. There are old right-sided rib fractures. IMPRESSION: No acute findings. Dictated by: Andre Barnes MD 03/21/2021 17:17 Andre Barnes MD in [facility] 03/21/2021 17:17
--- NOTE | 2021-03-21 16:36 | ECG_ITS ---
APPROVED REPORT Exam: Resting ECG HR:79 bpm ECG Measurements Heart Rate 79 AXES NJ 96 P 9 QRSd 162 QRS 21 QT 434 T 88 QTc 497 Conclusion Electronic atrial pacemaker Left bundle branch block Abnormal ECG Electronically signed by : Jose Laureano MD 03/25/2021 21:04:06
[2021-03-21 16:39] LABS: Chloride 102 mmol/L (98-107); Potassium 4.3 mmoL/L (3.5-5.1); Sodium 140 mmol/L (136-145)
[2021-03-21 16:41] LABS: Blood Urea Nitrogen 21 mg/dl (9-20); Creatinine Clearance Estimated 36 mL/min (50-200); Estimated Glomerular Filt Rate 41 ml/min (>60); GFR (African American) 50 ML/MIN (>60)
[2021-03-21 16:42] LABS: Alanine Aminotransferase 12 U/L (12-78); Albumin Level 3.8 g/dl (3.5-5.0); Albumin/Globulin Ratio 1.2 (1.1-1.8); Alkaline Phosphatase 66 U/L (38-126); Anion Gap 13.3 mEq/L (5-15); Aspartate Amino Transferase 31 U/L (17-59); Basophils # 0.1 K/mm3 (0-0.2); Basophils % 0.6 % (0.1-2.0); Bilirubin,Total 0.3 mg/dl (0.2-1.3); Carbon Dioxide 29 mmol/L (22.0-30.0); Eosinophils # 0.3 K/mm3 (0.0-0.4); Eosinophils % 2.5 % (0.1-12.0); Globulin 3.1 g/dL (1.3-3.2); Hematocrit 36.2 % (42.0-52.0); Hemoglobin 11.4 g/dL (14.1-18.0); Lymphocytes # 6.3 K/mm3 (0.7-4.5); Lymphocytes % 56.3 % (10-50); Mean Corpuscular HGB Conc 31.5 g/dL (31.8-35.4); Mean Corpuscular Hemoglobin 31.8 pg (27.0-31.2); Mean Corpuscular Volume 100.9 fl (80-94); Mean Platelet Volume 8.6 fl (7.4-10.4); Monocytes # 0.3 K/mm3 (0.1-1.0); Monocytes % 2.8 % (1.7-9.3); Neutrophils # 4.2 K/mm3 (1.8-7.8); Neutrophils % 37.8 % (37.0-80.0); Platelet Count 255 K/mm3 (142-424); Red Blood Count 3.58 M/mm3 (4.60-6.20); Red Cell Distribution Width 13.7 % (11.5-17.5); Total Protein,Serum 6.9 g/dl (6.3-8.2); White Blood Count 11.1 K/mm3 (4.8-10.8)
[2021-03-21 16:43] LABS: Calcium 8.9 mg/dl (8.4-10.2); Glucose 146 mg/dl (74-100)
[2021-03-21 16:46] LABS: MANUAL DIFFERENTIAL MANUAL DIFFERENTIAL (MANUAL DIFF)
[2021-03-21 16:55] LABS: Troponin I < 0.01 ng/ml (0.00-0.034)
[2021-03-21 16:58] LABS: Eosinophils % 2 % (0-3); Lymphocytes % 53 % (10-50); Monocytes % 6 % (2-9); Neutrophils % 39 % (42-76); Platelet Estimate Normal; RBC Morphology Normal; Total Cells Counted 100
[2021-03-21 17:30] VITALS: BP 126/69; PULSE 71; RESP 14; O2SAT 94
--- NOTE | 2021-03-21 17:41 | HMH.EDGENADL ---
ED Disposition Clinical Impression: Alteration in vital signs Disposition: Home, Self-Care Condition on Discharge: Good Additional Instructions: Follow-up with your primary care provider if any continued problems. Referrals: Luis Fernando Gama MD [Primary Care Provider] - - Critical Care Critical Care Time: No Attestation: On 03/21/21, the high probability of a clinically significant, sudden or life threatening deterioration of the following system(s) required my full and direct attention, intervention and personal management. The time I documented below is in addition to time spent performing reported procedures but includes the following listed in this critical care notation. Medical Decision Making - Artemio Inquiry Pt receiving controlled substance: No Vital Signs: 03/21/21 16:00 Temperature 98.2 F Temperature Source Oral Pulse Rate [Right] 77 Respiratory Rate 18 Blood Pressure [Right Arm] 115/61 Blood Pressure Mean [Right Arm] 79 02 Sat by Pulse Oximetry 98 Oxygen Delivery Method Room Air - Lab Data Lab Results 03/21/21 16:20: WBC 11.1 H, RBC 3.58 L, Hgb 11.4 L, Hct 36.2 L, MCV 100.9 H, MCH 31.8 H, MCHC 31.5 L, RDW 13.7, Plt Count 255, MPV 8.6, Neut % (Auto) 37.8, Lymph % (Auto) 56.3 H, Saline % (Auto) 2.8, Eos % (Auto) 2.5, Baso % (Auto) 0.6, Neut # (Auto) 4.2, Lymph # (Auto) 6.3 H, Saline # (Auto) 0.3, Eos # (Auto) 0.3, Baso # (Auto) 0.1, Total Counted 100, Neutrophils % (Manual) 39 L, Lymphocytes % (Manual) 53 H, Monocytes % (Manual) 6, Eosinophils % (Manual) 2, Platelet Estimate Normal, RBC Morphology Normal 03/21/21 16:20: Sodium 140, Potassium 4.3, Chloride 102, Carbon Dioxide 29, Anion Gap 13.3, BUN 21 H, Creatinine 1.60 H, Estimated Creat Clear 36, Estimated GFR 41 L, Est GFR ( Amer) 50 L, Glucose 146 H, Calcium 8.9, Total Bilirubin 0.3, AST 31, ALT 12, Alkaline Phosphatase 66, Troponin I < 0.01, Total Protein 6.9, Albumin 3.8, Globulin 3.1, Albumin/Globulin Ratio 1.2 Result diagrams: 03/21/21 16:20 03/21/21 16:20 Orders (Tests/Meds): ORDERS Category Date Time Status Troponin I Q3H Lab 03/21/21 19:30 Ordered Troponin I Q3H Lab 03/21/21 22:30 Ordered - ECG Data Tracing #1 EKG interpreted by Darrion Cordero MD: Rhythm: Dual-chamber pacemaker Rate: 79 [place]: normal Ectopy: none Conduction: Left bundle branch block General Adult HPI - General Chief complaint: Shortness of Breath/Dyspnea Stated complaint: weakness, Blood Pressure up&down Time Seen by Provider: 03/21/21 17:41 Mode of Arrival: Family Vehicle Limitations: No Limitations Description of Symptoms (Recalled from ER Triage Doc. by RN): Patient c/o changes in blood pressure readings and SOA starting today. Patient denies chest pain and weakness. Patient poor historian of medical history and no family at bedside. Patient denies any other complaints. - History of Present Illness HPI narrative: The patient is very hard of hearing, making history taking challenging. Patient states that he was feeling breath and his family member was checking his blood pressure and it was up and down. It is unclear whether she was checking pulse oximetry, or pulse, or blood pressure. He points to a pulse oximeter that is on his finger and indicates that a pulse oximeter was used at home, which makes it seem more likely that he was pulse ox for his pulse was up and down rather than his blood pressure. He currently denies any shortness of breath, chest pain, cough, nausea or vomiting, or any other type of pain. - Related Data Home Medications Medication Instructions Recorded Confirmed Oxybutynin Chloride [Oxybutynin 10 mg PO DAILY 07/12/20 03/18/21 Chloride ER] Docusate Sodium [Colace 250mg 250 mg PO BID 08/10/20 03/18/21 capsule] polyethylene glycoL 3350 [Miralax 17 gm PO DAILY 08/10/20 03/18/21 17gm Packet] Albuterol Sulfate [Proventil Hfa] 2 puff IH Q6HP PRN 09/07/20 03/18/21 Nitroglycerin 0.4
--- NOTE | 2021-03-21 17:57 | PC.NURSE ---
Called and spoke with patient's daughter. Stated that they would be here to pick him up.
[2021-03-21 18:00] VITALS: BP 132/71; BP 132/72; PULSE 73; PULSE 74; RESP 15; RESP 18; TEMP 36.8; O2SAT 98
== END 2021-03-21 18:17 | disposition home or self-care (01) ==
PROVIDERS: Emergency Provider Emergency Medicine; PCP Emergency Medicine
DX: R06.02 Shortness of breath (principal); R53.1 Weakness; I25.10 Atherosclerotic heart disease of native coronary artery without angina pectoris; I50.9 Heart failure, unspecified; I48.0 Paroxysmal atrial fibrillation; K21.9 Gastro-esophageal reflux disease without esophagitis; E78.5 Hyperlipidemia, unspecified; I25.2 Old myocardial infarction; I10 Essential (primary) hypertension; Z79.899 Other long term (current) drug therapy
CPT/HCPCS: 71045; 80053; 84484; 85007; 85025; 93005; 99283

== ENCOUNTER → 2021-04-03 12:58 | Outpatient (CLI) | payer MEDICARE, SELFPAY ==
[2021-04-03 13:02] LABS: Coronavirus 19, PCR Not Detected (NotDetected); Influenza A, PCR Not Detected (NotDetected); Influenza B, PCR Not Detected (NotDetected)
[2021-04-03 13:42] LABS: Basophils # 0.1 K/mm3 (0-0.2); Basophils % 0.5 % (0.1-2.0); Eosinophils # 0.4 K/mm3 (0.0-0.4); Eosinophils % 3.7 % (0.1-12.0); Hematocrit 38.4 % (42.0-52.0); Hemoglobin 11.8 g/dL (14.1-18.0); Lymphocytes # 7.4 K/mm3 (0.7-4.5); Lymphocytes % 61.4 % (10-50); Mean Corpuscular HGB Conc 30.9 g/dL (31.8-35.4); Mean Corpuscular Hemoglobin 31.6 pg (27.0-31.2); Mean Corpuscular Volume 102.3 fl (80-94); Monocytes # 0.5 K/mm3 (0.1-1.0); Monocytes % 4.2 % (1.7-9.3); Neutrophils # 3.7 K/mm3 (1.8-7.8); Neutrophils % 30.3 % (37.0-80.0); Platelet Count 237 K/mm3 (142-424); Red Blood Count 3.75 M/mm3 (4.60-6.20); Red Cell Distribution Width 13.1 % (11.5-17.5); White Blood Count 12.1 K/mm3 (4.8-10.8)
[2021-04-03 14:09] LABS: MANUAL DIFFERENTIAL MANUAL DIFFERENTIAL (MANUAL DIFF)
[2021-04-03 14:17] LABS: Anion Gap 11.6 mEq/L (5-15); Blood Urea Nitrogen 21 mg/dl (9-20); Carbon Dioxide 27 mmol/L (22.0-30.0); Chloride 106 mmol/L (98-107); Estimated Glomerular Filt Rate 45 ml/min (>60); GFR (African American) 54 ML/MIN (>60); Glucose 97 mg/dl (74-100); Potassium 4.6 mmoL/L (3.5-5.1); Sodium 140 mmol/L (136-145)
[2021-04-03 15:21] LABS: Eosinophils % 3 % (0-3); Hypochromasia 1+; Lymphocytes % 61 % (10-50); Macrocytosis 1+; Monocytes % 7 % (2-9); Neutrophils % 29 % (42-76); Platelet Estimate Normal; Total Cells Counted 100
== END ==
PROVIDERS: Visit Provider Internal Medicine
DX: Z01.812 Encounter for preprocedural laboratory examination (principal); Z11.52 Encounter for screening for COVID-19; I50.22 Chronic systolic (congestive) heart failure; I25.5 Ischemic cardiomyopathy
CPT/HCPCS: 36415; 80048; 85007; 85025; C9803; U0003; U0005

== ENCOUNTER 2021-04-04 10:18 | Day surgery (SDC) | payer MEDICARE, SELFPAY ==
[2021-04-04] VITALS (8 sets, daily range): BP systolic 111–173; BP diastolic 58–88; PULSE 60–75; RESP 18; O2SAT 90–100; BMI 23.8
--- NOTE | 2021-04-04 07:07 | IR_ITS ---
APPROVED REPORT Patient Location: Outpatient Head Of Data: [facility] Gracia RT (R) PROCEDURES 1. Pocket Revision 2. Placement of right ventricular sensing pacing and shocking lead in the right ventricular apex. 3. Placement of left ventricular sensing pacing lead via the coronary sinus. 4. Capping of chronic right ventridular lead. 5. Permanent cardiac resynchronization therapy with ICD implantation/biventricular pacemaker. INDICATION Ischemic Cardiomyopathy, [place] Heart Association class III heart failure, Ejection fraction less than 30% Informed consent was obtained prior to the procedure. COMPLICATIONS None Estimated Blood Loss: less than 10ml TECHNIQUE 1% Lidocaine with epinephrine used to anesthetized the left anterior aspect of the chest. Scalpel was used to make the initial cutaneous incision and to dissect down tinto the fascia. Existing pacemaker generator was removed from the pocket, digital manipulation used to revise pocket for the defibrillator. The patient was then placed in Trendelenburg position and the subclavian vein was accessed 1 time via the Selinger technique. A 8 [place] sheath was placed under fluoroscopic guidance into the subclavian vein, 2 sheath wires inserted through sheath, sheath removed and then replaced over one wire, leaving the second wire for the second sheath. The dilator was removed from the sheath. Using fluoroscopic guidance, the right ventricular lead was inserted into 8 fr sheath and placed into the right ventricular apex, screwed and secured into place. Electronic interrogation proved acceptable thresholds and voltage within the lead. Using 3-0 silk, the ventricular lead was then secured into place and sheath peeled away. Following this, a 9.5 [place] sheath and dilator was then placed over the second wire. The dilator was removed from the sheath. Using fluoroscopic guidance, contrast was used to visualize the coronary sinus, the left ventricular lead was placed into the coronary sinus. Electronic interrogation proved acceptable thresholds and voltage within the lead. Using 3-0 silk, the left ventricular lead was then secured into place and sheath peeled away. Chronic right ventriular lead was capped and secured with silk. 1 gram of Ancef was used to flush the pocket. Right ventricular, coronary sinus and chronic right atrial leads were connected to generator and tested via computer. The defibrillator then secured to the fascia. Monocryl was used to close the subcutaneous layers while paola were used to close the cutaneous layer. A pressure dressing was placed and the patient was transferred to the postop holding area in stable condition for postoperative care. INTERROGATION Explanted Generator Model number: IntexysRONIFinale Desserts, [id number] Explanted Generator Serial number: [id number] Implanted Generator Model number: VIGILANT X4 [employer]USTRIAL [employer]OMATION SPECIALIST-D, G247 Implanted Generator Serial number: [id number] Atrial lead model number: IntexysRONIFinale Desserts, Setrox S Bipolar, [id number] Atrial lead serial number: [id number] P-wave: 3.0 mV Impedence: 527 ohms Threshold: 1.0V@0.4ms Left Ventricular lead model number: [employer] studio, ACUITY X4, 4671 Left Ventricular lead serial number: [id number] R-wave: 5.0 mV Impedence: 1100 ohms Threshold: 1.6V@1.0ms Right Ventricular lead model number: [employer], RELIANCE 4-FRONT, 0675 Right Ventricular lead serial number: [id number] R-wave: 12.0 mV Impedence: 528 ohms Threshold: 1.0V@0.4ms Pacing Parameters: Mode: DDDR Base/Max Track: 60/130 ppm ICD Rate Cutoffs: VT: 180 bpm, 5.0 sec., ATP, 41JX6 VF: 200 bpm, 4.0 sec., Quick Convert, 41Jx8 No diaphragmatic stimulation at 10 volts.
--- NOTE | 2021-04-04 12:32 | XR_ITS ---
PROCEDURE: XR CHEST PORTABLE CLINICAL HISTORY: Confirm pacemaker/AID placement COMPARISON: CT CT CHEST WO CON from 10/18/2020 CR XR CHEST PORTABLE from 11/22/2020 CR XR CHEST PORTABLE from 12/21/2020 CR XR CHEST PORTABLE from 03/21/2021 FINDINGS: Status post AICD/biventricular pacemaker placement from left subclavian approach with satisfactory lead position on the AP radiograph. No evidence of pneumothorax. Faint nodularity noted in the right lower lobe possibly due to nipple shadow. Follow-up upright PA and lateral chest may confirm with nipple markers No acute bony abnormalities. IMPRESSION: Status post AICD/biventricular pacemaker placement with no immediate complications radiographically Dictated by: Andre Barnes MD 04/04/2021 13:49 Andre Barnes MD in [place] 04/04/2021 13:49
--- NOTE | 2021-04-04 13:48 | P.PN_ITS ---
[facility] Anesthesia Checklist - Patient Identification Patient Identification: Arm Band - Structural Data Admitted From: Home Planned Operative Procedure/s: Biventricular Pacemaker Consent for Planned Operative Procedure(s) Verified: Yes Verified Documents: Surgical Consent, History and Physical - NPO Status Verified Time NPO: 00:00 - Additional verifications Anesthesia Reactions: No Hx Blood Transfusions: No Blood Transfusion Reaction: No - Airway Assessment C-Spine Mobility Assessed: Yes (mp2) TMJ Mobility Assessed: Yes Dentition: Edentulous - Neurological Assessment Level of Consciousness: Awake, Alert - Anesthesia Plan Anesthesia Risk discussed: Yes Anesthesia Plan: Verified ASA Class: III Anesthesia Type: MAC [facility] History I have reviewed the patient's past medical history: Yes Medical History: Reports:: Atrial Fibrillation, Cancer, Carotid Stenosis, Congestive Heart Failure, Coronary Artery Disease, Gastroesophageal Reflux Disease(GERD), Hyperlipidemia, Hypertension, Internal Pacemaker, Kidney Stones, Myocardial Infarction Denies:: Diabetes Mellitus Type 1, Diabetes Mellitus Type 2, Lung Disease, MRSA, Seizures *Have you ever received a pneumonia vaccine?: No *Have you received a flu vaccine this season?: No Other Medical History: Reports: Arthritis. Denies: Blood Transfusion Reaction Anesthesia experience/problems:: nac Laterality Cases: Left: Total Hip Replacement Other Surgeries: Yes: Cancer Surgery, Cardiac Catheterization, Colonoscopy, Coronary Stent, Pacemaker, Skin Cancer Excision, Other (back sx) Amputation: Yes (2 toes) Fractures: No - *Social History Smoking Status: Never smoker Alcohol Intake: never Alcohol Intake Frequency:: a few times a month Substance Use Type: denies use *Occupational Status:: retired Housing: apartment Household Members: other *Travel in the last 8 weeks: None Family Hx:: Unable to obtain
== END 2021-04-04 14:55 | disposition home or self-care (01) ==
LOC: CATHLAB 10:20
PROVIDERS: PCP Emergency Medicine; Visit Provider Internal Medicine
PROC: 0JH609Z Insertion of Cardiac Resynchronization Defibrillator Pulse Generator into Chest Subcutaneous Tissue and Fascia, Open Approach (ICD-10-PCS; CPT 33249; principal; 2021-04-04 11:00)
DX: I25.5 Ischemic cardiomyopathy (principal); I25.118 Atherosclerotic heart disease of native coronary artery with other forms of angina pectoris; I65.29 Occlusion and stenosis of unspecified carotid artery; G20 Parkinson's disease; Z95.5 Presence of coronary angioplasty implant and graft; I11.0 Hypertensive heart disease with heart failure; I48.91 Unspecified atrial fibrillation; I50.22 Chronic systolic (congestive) heart failure
CPT/HCPCS: 33249; 71045; C1769; C1882; C1895; C1900; Q9967

== ENCOUNTER 2021-04-11 18:00 | Emergency (ER) | payer MEDICARE, SELFPAY ==
--- NOTE | 2021-04-11 17:49 | ECG_ITS ---
APPROVED REPORT Exam: Resting ECG HR:69 bpm ECG Measurements Heart Rate 69 AXES AR 118 P 42 QRSd 182 QRS 207 QT 478 T 40 QTc 512 Conclusion Electronic ventricular pacemaker Electronically signed by : Jose Laureano MD 04/12/2021 17:37:16
[2021-04-11 18:00] VITALS: BP 179/88; PULSE 63; RESP 18; TEMP 36.9; O2SAT 100; BMI 23.6
[2021-04-11 18:07] VITALS: BMI 23.6
--- NOTE | 2021-04-11 18:07 | HMH.EDGENADL ---
ED Disposition Clinical Impression: Ribs, multiple fractures Qualifiers: Encounter type: initial encounter Fracture type: closed Laterality: right Qualified Code(s): S22.41XA - Multiple fractures of ribs, right side, initial encounter for closed fracture Disposition: Home, Self-Care Condition on Discharge: Fair Instructions: How to Prevent Falls, DI for Rib Fracture Additional Instructions: Take your Percocet the you are already prescribed for pain. See Dr. Gama in his office on Thursday. Additional instructions for RIB INJURIES: See your physician as soon as possible for further evaluation. Hold a pillow against your injured ribs to help with pain when coughing or sneezing. Sleep with several pillows to help support you in the most comfortable position. Take deep breaths frequently. Use incentive spirometer 4-5 times a day. Return immediately if shortness of breath, intolerable pain, coughing of blood, abdominal pain or vomiting. Referrals: Provider,Referral, [Referring] - - Critical Care Critical Care Time: No Attestation: On 04/11/21, the high probability of a clinically significant, sudden or life threatening deterioration of the following system(s) required my full and direct attention, intervention and personal management. The time I documented below is in addition to time spent performing reported procedures but includes the following listed in this critical care notation. Medical Decision Making - Artemio Inquiry Pt receiving controlled substance: Yes Artemio was queried for this patient: Yes (Patient is on Percocet 10 mg, 120/month) Risks and benefits of using a controlled substance: were not discussed with pt by me Comment: Also recent prescription for Remer 15 tablets 04/04/21 Vital Signs: 04/11/21 18:00 Temperature 98.4 F Temperature Source Oral Pulse Rate [Right] 63 Respiratory Rate 18 Blood Pressure [Right Arm] 179/88 H Blood Pressure Mean [Right Arm] 118 02 Sat by Pulse Oximetry 100 Oxygen Delivery Method Room Air - Lab Data Lab Results 04/11/21 18:00: WBC 16.7 H, RBC 3.60 L, Hgb 11.2 L, Hct 36.4 L, MCV 101.3 H, MCH 31.2, MCHC 30.8 L, RDW 13.8, Plt Count 166, MPV 9.0, Neut % (Auto) 55.8, Lymph % (Auto) 40.2, [place] % (Auto) 2.3, Eos % (Auto) 1.0, Baso % (Auto) 0.7, Neut # (Auto) 9.3 H, Lymph # (Auto) 6.7 H, [place] # (Auto) 0.4, Eos # (Auto) 0.2, Baso # (Auto) 0.1, Total Counted 100, Neutrophils % (Manual) 58, Lymphocytes % (Manual) 40, Monocytes % (Manual) 2, Platelet Estimate Normal, RBC Morphology Normal 04/11/21 18:00: Sodium 140, Potassium 4.3, Chloride 108 H, Carbon Dioxide 24, Anion Gap 12.3, BUN 9, Creatinine 1.00, Estimated Creat Clear 58, Estimated GFR 71, Est GFR ( Amer) 86, Glucose 105 H, Calcium 8.9, Total Bilirubin 0.6, AST 40, ALT 14, Alkaline Phosphatase 56, Troponin I 0.01, Total Protein 6.9, Albumin 3.9, Globulin 3.0, Albumin/Globulin Ratio 1.3 Result diagrams: 04/11/21 18:00 04/11/21 18:00 Orders (Tests/Meds): ED MEDICATIONS Discontinued Medications Generic Name Dose Route Start Last Admin Trade Name Freq PRN Reason Stop Dose Admin Iopamidol 75 ml 04/11/21 19:44 04/11/21 19:45 Iopamidol-370 (76%);100ml Bottle IV 04/11/21 19:45 75 ml ONCE ONE Administration Morphine Sulfate 4 mg 04/11/21 19:01 04/11/21 19:07 Morphine 4mg/Ml Syringe IV 04/11/21 19:02 4 mg ONCE ONE Administration Ondansetron HCl 4 mg 04/11/21 19:01 04/11/21 19:07 Ondansetron 4mg/2ml Vial IV 04/11/21 19:02 4 mg ONCE ONE Administration Sodium Chloride 10 ml 04/11/21 19:44 04/11/21 19:45 Sodium Chloride 0.9% 10ml Syr (Rad Only) IV 04/11/21 19:45 10 ml ONCE ONE Administration ORDERS Category Date Time Status Troponin I Q3H Lab 04/11/21 21:15 Ordered Troponin I Q3H Lab 04/12/21 00:15 Ordered - CT Data CT Scan: Abdomen, Pelvis, Chest Time Received: 20:[address] Reviewed: Yes: I have viewed the radiologist's interpretation
--- NOTE | 2021-04-11 18:08 | XR_ITS ---
PROCEDURE INFORMATION: Exam: XR Chest Exam date and time: 04/11/2021 6:08 PM Age: 85 years old Clinical indication: Angina pectoris; Patient HX: Chest pain; Additional info: Cp TECHNIQUE: Imaging protocol: XR of the chest. Views: 1 view. Total images: 1 COMPARISON: CR XR CHEST PORTABLE 04/04/2021 1:21 PM FINDINGS: Tubes, catheters and devices: Cardiac pacemaker without gross hardware complication or change. Lungs: Normal pulmonary expansion. Pulmonary vasculature grossly normal. Patchy mild alveolar densities in the lung bases are unchanged and could represent chronic atelectasis and scarring, cannot exclude mild basilar infiltrates. Pleural spaces: No pleural effusion. No pneumothorax. Heart/Mediastinum: Heart size upper limits of normal. No tracheal/mediastinal shift. Vasculature: Moderate aortic ectasia/tortuosity and moderate calcific atherosclerosis. Bones/joints: No acute osseous abnormalities are identified. Osteopenia. Chronic right lateral rib fractures. IMPRESSION: 1. Patchy mild alveolar densities in the lung bases are unchanged and could relate to atelectasis and scarring versus mild basilar infiltrates or edema. 2. Borderline cardiomegaly and cardiac pacemaker. No pneumothorax.
[2021-04-11 18:15] LABS: Basophils # 0.1 K/mm3 (0-0.2); Basophils % 0.7 % (0.1-2.0); Eosinophils # 0.2 K/mm3 (0.0-0.4); Hematocrit 36.4 % (42.0-52.0); Hemoglobin 11.2 g/dL (14.1-18.0); Lymphocytes # 6.7 K/mm3 (0.7-4.5); Lymphocytes % 40.2 % (10-50); Mean Corpuscular HGB Conc 30.8 g/dL (31.8-35.4); Mean Corpuscular Hemoglobin 31.2 pg (27.0-31.2); Mean Corpuscular Volume 101.3 fl (80-94); Monocytes # 0.4 K/mm3 (0.1-1.0); Monocytes % 2.3 % (1.7-9.3); Neutrophils # 9.3 K/mm3 (1.8-7.8); Neutrophils % 55.8 % (37.0-80.0); Platelet Count 166 K/mm3 (142-424); Red Cell Distribution Width 13.8 % (11.5-17.5); White Blood Count 16.7 K/mm3 (4.8-10.8)
[2021-04-11 18:18] LABS: MANUAL DIFFERENTIAL MANUAL DIFFERENTIAL (MANUAL DIFF)
[2021-04-11 18:23] LABS: Chloride 108 mmol/L (98-107); Potassium 4.3 mmoL/L (3.5-5.1); Sodium 140 mmol/L (136-145)
[2021-04-11 18:25] LABS: Alanine Aminotransferase 14 U/L (12-78); Aspartate Amino Transferase 40 U/L (17-59); Blood Urea Nitrogen 9 mg/dl (9-20); Creatinine Clearance Estimated 58 mL/min (50-200); Estimated Glomerular Filt Rate 71 ml/min (>60); GFR (African American) 86 ML/MIN (>60)
[2021-04-11 18:26] LABS: Albumin Level 3.9 g/dl (3.5-5.0); Albumin/Globulin Ratio 1.3 (1.1-1.8); Alkaline Phosphatase 56 U/L (38-126); Anion Gap 12.3 mEq/L (5-15); Bilirubin,Total 0.6 mg/dl (0.2-1.3); Calcium 8.9 mg/dl (8.4-10.2); Carbon Dioxide 24 mmol/L (22.0-30.0); Glucose 105 mg/dl (74-100); Total Protein,Serum 6.9 g/dl (6.3-8.2)
[2021-04-11 18:41] LABS: Troponin I 0.01 ng/ml (0.00-0.034)
[2021-04-11 18:51] LABS: Lymphocytes % 40 % (10-50); Monocytes % 2 % (2-9); Neutrophils % 58 % (42-76); Platelet Estimate Normal; RBC Morphology Normal; Total Cells Counted 100
--- NOTE | 2021-04-11 18:59 | CT_ITS ---
PROCEDURE INFORMATION: Exam: CT Abdomen And Pelvis With Contrast Exam date and time: 04/11/2021 6:59 PM Age: 85 years old Clinical indication: Abdominal pain; Right; Patient HX: Fall, flank injury TECHNIQUE: Imaging protocol: Computed tomography of the abdomen and pelvis with contrast. Total images: 312 Radiation optimization: All CT scans at this facility use at least one of these dose optimization techniques: automated exposure control; mA and/or kV adjustment per patient size (includes targeted exams where dose is matched to clinical indication); or iterative reconstruction. Contrast material: ISOVUE; Contrast volume: 75 ml; Contrast route: IV; COMPARISON: CT ABDOMEN PELVIS W CON 01/02/2020 3:19 PM FINDINGS: Mediastinal space: Small hiatal hernia. Liver: Normal contour. No mass lesions. No intrahepatic biliary ductal dilatation. Gallbladder and bile ducts: Normal. No calcified stones. No ductal dilation. Pancreas: Moderate pancreatic atrophy. Moderate dilatation of the distal pancreatic duct measuring 7 mm diameter at the head, which is unchanged from 01/02/2020. No obstructive mass lesion is evident. No signs of pancreatitis. Spleen: Granulomatous calcifications in the spleen without acute splenic abnormality. Adrenal glands: Normal. No adrenal mass. Kidneys and ureters: No acute abnormalities. There are 5 nonobstructive right renal stones measuring up to 10 mm. There are 5 nonobstructive left renal stones measuring up to 6 mm. No ureteral stones or hydronephrosis. Stomach and bowel: The small bowel is nondilated with no gross abnormality. No acute colonic abnormalities. The distal colon is largely contracted. Appendix: The appendix is normal in caliber and demonstrates no evidence of appendicitis. Intraperitoneal space: No free fluid or air. Vasculature: Moderate atherosclerotic aortoiliac calcification without aneurysm. Lymph nodes: Mildly enlarged periportal/portacaval nodes measuring up to 13 mm short axis. These are nonspecific. Urinary bladder: Unremarkable as visualized. Reproductive: Mildly enlarged prostate. Bones/joints: Right posterior 11th and 12th rib fractures again noted, please see chest CT report. No other acute fractures identified. Bipolar left hip arthroplasty without gross hardware complication. Soft tissues: Soft tissue contusion over the right lateral subcutaneous tissues at the level of the iliac wing. No foreign body or hematoma. Small fatty left inguinal hernia with no associated bowel herniation or evidence of strangulation.. IMPRESSION: 1. No acute intra-abdominal/intrapelvic injuries are identified. 2. Soft tissue contusion in the right lateral subcutaneous fat overlying the right iliac wing. No underlying fracture. No hematoma or foreign body. 3. Bilateral nonobstructive renal stones. No ureteral stones or hydronephrosis. 4. Mildly enlarged periportal/portacaval nodes, nonspecific. 5. Additional nonemergent findings detailed above.
--- NOTE | 2021-04-11 18:59 | CT_ITS ---
PROCEDURE INFORMATION: Exam: CT Chest With Contrast; Diagnostic Exam date and time: 04/11/2021 6:59 PM Age: 85 years old Clinical indication: Angina pectoris; Patient HX: Left sided chest pain, left arm pain; Additional info: Fall TECHNIQUE: Imaging protocol: Diagnostic computed tomography of the chest with contrast. Total images: 267 Radiation optimization: All CT scans at this facility use at least one of these dose optimization techniques: automated exposure control; mA and/or kV adjustment per patient size (includes targeted exams where dose is matched to clinical indication); or iterative reconstruction. Contrast material: ISOVUE; Contrast volume: 75 ml; Contrast route: IV; COMPARISON: CT CHEST WO CON 10/18/2020 9:32 AM FINDINGS: Tubes, catheters and devices: Mild cardiomegaly.Cardiac pacemaker without gross hardware complication. Thyroid: The visualized thyroid gland is unremarkable. Lungs: No acute tracheobronchial abnormalities. Mild atelectasis or contusion in the posterior right base with additional patchy subsegmental atelectasis in the lung bases elsewhere. No gross infiltrates or edema pattern. No pulmonary mass lesions are identified. Pleural spaces: Trace right basilar pleural effusion. No pneumothorax. Heart: See Aorta finding. Mediastinal space: Moderate-sized hiatal hernia. Pulmonary arteries: Mildly dilated central pulmonary arteries suggesting mild pulmonary arterial hypertension. Aorta: Moderate aortic ectasia/tortuosity and moderate calcific atherosclerosis. There is mild calcification of the aortic valve. No mediastinal hematoma. Lymph nodes: Mildly enlarged left axillary nodes measuring up to 11 mm short axis. Mild bilateral supraclavicular yulissa enlargement measuring up to 10 mm short axis. Calcified right paratracheal and subcarinal nodes suggesting prior granulomatous disease, with granulomatous calcification in the left lower lobe and left perihilar region. Bones/joints: Osteopenia. Acute fractures of the right posterior 11th and 12th ribs with about 10 mm displacement. Chronic healed fracture of the right lateral 4th and 5th ribs. Chronic healed fractures of the left lateral 4th and 5th ribs and left posterior 9th and 10th ribs. 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 Soft tissues: Mild bilateral symmetrical gynecomastia noted. Skin paola overlying the pacer unit in the left upper chest suggesting possible recent pacer revision, correlate with procedural history. IMPRESSION: 1. Acute displaced fractures of the right posterior 11th and 12th ribs. 2. Minimal right basilar pleural effusion. No pneumothorax. 3. Mild pulmonary contusion versus atelectasis in the posterior right lower lobe. 4. Cardiac pacemaker with overlying skin paola in place suggesting possible recent revision, correlate with procedural history. 5. Mildly enlarged lymph nodes in the left maxillary and supraclavicular distributions which are nonspecific but might be incidental reactive nodes related to pacemaker revision. 6. Additional nonemergent findings detailed above.
[2021-04-11 21:07] VITALS: BP 180/90; PULSE 64; RESP 18; TEMP 36.9
== END 2021-04-11 21:11 | disposition home or self-care (01) ==
PROVIDERS: Emergency Provider Emergency Medicine; PCP Emergency Medicine
DX: S22.41XA Multiple fractures of ribs, right side, initial encounter for closed fracture (principal); W18.2XXA Fall in (into) shower or empty bathtub, initial encounter; Y92.012 Bathroom of single-family (private) house as the place of occurrence of the external cause; I48.0 Paroxysmal atrial fibrillation; I25.10 Atherosclerotic heart disease of native coronary artery without angina pectoris; K21.9 Gastro-esophageal reflux disease without esophagitis; I10 Essential (primary) hypertension; I50.9 Heart failure, unspecified; I25.2 Old myocardial infarction; Z95.0 Presence of cardiac pacemaker; Z96.642 Presence of left artificial hip joint; Z79.899 Other long term (current) drug therapy
CPT/HCPCS: 71045; 71260; 74177; 80053; 84484; 85007; 85025; 93005; 96374; 96375; 99283; J2405; Q9967

== ENCOUNTER → 2021-05-13 10:50 | Outpatient (CLI) | payer MEDICARE, SELFPAY ==
--- NOTE | 2021-05-13 10:55 | XR_ITS ---
PROCEDURE: XR CHEST 2V CLINICAL HISTORY: dyspnea, cough COMPARISON: CR XR CHEST PORTABLE from 03/21/2021 CR XR CHEST PORTABLE from 04/04/[address] CHEST W CON from 04/11/2021 CR XR CHEST PORTABLE from 04/11/2021 FINDINGS: The cardiomediastinal silhouette and pulmonary vascularity are within normal limits. There is a left-sided cardiac pacemaker with tripolar electrodes all in good position. The lungs are clear without infiltrates, suspicious nodules, or pleural effusions. There is minimal bilateral basilar atelectasis. No acute bony abnormalities. IMPRESSION: No acute findings. Dictated by: Dr. Michel Torres MD 05/14/2021 08:30 Dr. Michel Torres MD in [place] 05/14/2021 08:30
== END ==
PROVIDERS: PCP Emergency Medicine; Visit Provider Internal Medicine
DX: R05.9 Cough, unspecified (principal); R06.00 Dyspnea, unspecified
CPT/HCPCS: 71046

== ENCOUNTER 2021-08-08 10:08 | Emergency (ER) | payer MEDICARE, SELFPAY ==
[2021-08-08 10:16] VITALS: BP 130/70; PULSE 77; RESP 16; TEMP 36.8; O2SAT 98; BMI 20.9
--- NOTE | 2021-08-08 10:21 | XR_ITS ---
FINAL REPORT CLINICAL HISTORY: right sided rib pain, couldn't get good hx due to pt hearing condition COMPARISON: May 13, 2021 FINDINGS: Multiple views of the right ribs were obtained. There are chronic right 3rd and 4th lateral rib fractures. There are fractures of the right 10th through 12th posterior ribs favored to be subacute. There is no pneumothorax. A left subclavian ICD is present. There is mild scarring in the lungs. IMPRESSION: Right posterior 10th through 12th rib fractures are favored to be subacute. Chronic right 3rd and 4th lateral rib fractures. No pneumothorax. Reviewed, Interpreted and Dictated by Anjum Man III, MD Transcribed by Raul Humphreys Authenticated by Anjum Man III, MD on 08/08/2021 11:00:25 AM [facility]
--- NOTE | 2021-08-08 13:04 | HMH.EDUTC ---
[facility] [place] Clinical Impression: Ribs, multiple fractures Qualifiers: Encounter type: initial encounter Fracture type: closed Laterality: right Qualified Code(s): S22.41XA - Multiple fractures of ribs, right side, initial encounter for closed fracture Disposition: Home, Self-Care Condition on Discharge: Good Instructions: DI for Rib Fracture, Rib Fracture, How to Use an Incentive Spirometer Additional Instructions: Use the incentive spirometer 10 times every 2 hours while you are awake. Take tylenol for pain. Take the medications as directed. Follow up with Dr. Gama. GO TO THE ER FOR ANY WORSENING SYMPTOMS Referrals: Luis Fernando Gama MD [Primary Care Provider] - Time of Disposition: 13:59 Medical Decision Making - Medical Records Medical records reviewed: No: I reviewed the patient's medical records. - Artemio Inquiry Pt receiving controlled substance: No Vital Signs: 08/08/21 10:16 Temperature 98.3 F Temperature Source Oral Pulse Rate [Right] 77 Respiratory Rate 16 Blood Pressure [Right Arm] 130/70 Blood Pressure Mean [Right Arm] 90 Blood Pressure Source [Right Arm] Automatic Cuff Blood Pressure Position [Right Arm] Sitting 02 Sat by Pulse Oximetry 98 Oxygen Delivery Method Room Air - Radiology Data #1 Image(s): Chest Image Reviewed: Yes I reviewed the patient's radiology image, Yes I have reviewed radiologist's interpretation Preliminary Findings: Abnormal FINAL REPORT CLINICAL HISTORY: right sided rib pain, couldn't get good hx due to pt hearing condition COMPARISON: May 13, 2021 FINDINGS: Multiple views of the right ribs were obtained. There are chronic right 3rd and 4th lateral rib fractures. There are fractures of the right 10th through 12th posterior ribs favored to be subacute. There is no pneumothorax. A left subclavian ICD is present. There is mild scarring in the lungs. IMPRESSION: Right posterior 10th through 12th rib fractures are favored to be subacute. Chronic right 3rd and 4th lateral rib fractures. No pneumothorax. Reviewed, Interpreted and Dictated by Anjum Man III, MD Transcribed by Raul Humphreys Authenticated by Anjum Man III, MD on 08/08/2021 11:00:25 AM [facility] HPI - General Stated complaint: rib pains, no recent accident Time Seen by Provider: 08/08/21 13:04 Mode of Arrival: Wheelchair Limitations: No Limitations Description of Symptoms (Recalled from Triage Doc. by RN): Pt advises he broke two ribs sometime on the right side and last night he started having rib pain again. He's not sure if he hit them or what. HEENT Symptoms (Recalled from RN notes): No Resp Symptoms (Recalled from RN notes): No Skin Symptoms (Recalled from RN notes): No MS Symptoms (Recalled from RN notes): Yes (rib pain) Functional Status (Recalled from RN notes): na - History of Present Illness Provider Complaint: He c/o left rib pain. He originally fell about 2 to 3 weeks ago in a bathroom down [facility]. Since then he has had right rib pain. He thinks that he may have stumbled against a counter top within the past 2 days and reinjured them. He states that the rib pain was so bad last night that he did not sleep well. He denies any increased shortness of breath or additional chest pain. - Related Data Home Medications Medication Instructions Recorded Confirmed Oxybutynin Chloride [Oxybutynin 10 mg PO DAILY 07/12/20 06/10/21 Chloride ER] Docusate Sodium [Colace 250mg 250 mg PO BID 08/10/20 06/10/21 capsule] polyethylene glycoL 3350 [Miralax 17 gm PO DAILY 08/10/20 06/10/21 17gm Packet] Albuterol Sulfate [Proventil Hfa] 2 puff IH Q6HP PRN 09/07/20 06/10/21 Nitroglycerin 0.4 mg SL Q5MINP PRN 09/07/20 06/10/21 tamsulosin 0.4 mg capsule 0.4 mg PO DAILY cap 01/30/21 06/10/21 Previous Rx's Medication Instructions Recorded Meclizine HCl [Wal-Dram 2] 25 mg PO DAILYP PRN #30 tab 06/20/20 atorvastatin
[2021-08-08 14:18] VITALS: BP 130/70; PULSE 77; RESP 18; TEMP 36.8
== END 2021-08-08 14:19 | disposition home or self-care (01) ==
PROVIDERS: Emergency Provider Nurse Practitioner Family; PCP Emergency Medicine
DX: S22.41XA Multiple fractures of ribs, right side, initial encounter for closed fracture (principal); W01.0XXA Fall on same level from slipping, tripping and stumbling without subsequent striking against object, initial encounter; Y92.89 Other specified places as the place of occurrence of the external cause; I50.9 Heart failure, unspecified; I25.2 Old myocardial infarction; K21.9 Gastro-esophageal reflux disease without esophagitis; I10 Essential (primary) hypertension; Z96.642 Presence of left artificial hip joint; E78.5 Hyperlipidemia, unspecified; Z79.899 Other long term (current) drug therapy
CPT/HCPCS: G0463; 71101; 99202

== ENCOUNTER 2021-10-29 19:29 | Emergency (ER) | payer MEDICARE, SELFPAY ==
[2021-10-29 19:22] VITALS: BP 171/105; PULSE 83; RESP 18; TEMP 36.6; O2SAT 98; BMI 22.9
--- NOTE | 2021-10-29 19:25 | ECG_ITS ---
APPROVED REPORT Exam: Resting ECG HR:83 bpm ECG Measurements Heart Rate 83 AXES MT 126 P 70 QRSd 176 QRS 234 QT 426 T 59 QTc 466 Conclusion ELECTRONIC VENTRICULAR PACEMAKER ABNORMAL RHYTHM ECG UNCONFIRMED REPORT Electronically signed by : Jose Laureano MD 10/31/2021 17:43:17
--- NOTE | 2021-10-29 19:25 | XR_ITS ---
PROCEDURE INFORMATION: Exam: XR Chest Exam date and time: 10/29/2021 7:28 PM Age: 86 years old Clinical indication: Pain; Chest pressure; Additional info: Cp TECHNIQUE: Imaging protocol: XR of the chest. Views: 1 view. COMPARISON: CR XR RIBS RT MIN 3V W CXR1V 08/08/2021 10:15 AM FINDINGS: Tubes, catheters and devices: Left subclavian pacemaker leads are in place unchanged. Lungs: Unremarkable. No consolidation. Pleural spaces: Unremarkable. No pleural effusion. No pneumothorax. Heart/Mediastinum: Unremarkable. No cardiomegaly. Bones/joints: Healed right-sided rib fractures. Severe osteoarthritic changes right shoulder. IMPRESSION: No acute findings.
--- NOTE | 2021-10-29 19:25 | HMH.EDCP ---
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 Referrals: Luis Fernando Gama MD [Primary Care Provider] - Attestation: On 10/29/21, the high probability of a clinically significant, sudden or life threatening deterioration of the following system(s) required my full and direct attention, intervention and personal management. The time I documented below is in addition to time spent performing reported procedures but includes the following listed in this critical care notation. Medical Decision Making - Medical Records Medical records reviewed: Yes: I reviewed the patient's medical records. - Artemio Inquiry Pt receiving controlled substance: No <Juancarlos Trevino - Last Filed: 10/29/21 19:25> - Lab Data Lab results reviewed: Yes: I reviewed the patient's lab results. Result diagrams: 10/29/21 19:15 10/29/21 19:15 - Radiology Data #1 Image(s): Chest Image Reviewed: Yes I have reviewed radiologist's interpretation Preliminary Findings: Normal/NAD - ECG Data Tracing #1 Normal Sinus Rhythm: Yes Pacemaker function: normal pacer function - Reevaluation(s) Time: 20:39 <Luis Fernando Gama - Last Filed: 10/29/21 20:48> Vital Signs: 10/29/21 19:22 Temperature 97.8 F Temperature Source Oral Pulse Rate [Right] 83 Respiratory Rate 18 Blood Pressure [Right Arm] 171/105 H Blood Pressure Mean [Right Arm] 127 02 Sat by Pulse Oximetry 98 - Lab Data Lab Results 10/29/21 19:15: WBC 20.6 H*, RBC 4.35 L, Hgb 14.4, Hct 44.6, MCV 102.6 H, MCH 33.1 H, MCHC 32.3, RDW 15.5, Plt Count 248, MPV 8.6, Neut % (Auto) 27.1 L, Lymph % (Auto) 67.6 H, [place] % (Auto) 2.5, Eos % (Auto) 1.3, Baso % (Auto) 1.5, Neut # (Auto) 5.6, Lymph # (Auto) 14.0 H, [place] # (Auto) 0.5, Eos # (Auto) 0.3, Baso # (Auto) 0.3 H, Total Counted 100, Neutrophils % (Manual) 62, Lymphocytes % (Manual) 31, Monocytes % (Manual) 7, Platelet Estimate Normal, Hypochromasia 1+ 10/29/21 19:15: Sodium 139, Potassium 4.2, Chloride 107, Carbon Dioxide 27, Anion Gap 9.2, BUN 22 H, Creatinine 1.00, Estimated Creat Clear 55, Estimated GFR 71, Est GFR ( Amer) 86, Glucose 96, Calcium 8.9, Total Bilirubin 0.8, AST 42, ALT 20, Alkaline Phosphatase 94, Troponin I 0.01, Total Protein 7.9, Albumin 4.2, Globulin 3.7 H, Albumin/Globulin Ratio 1.1 10/29/21 19:15: Lipase 75 10/29/21 19:59: Lactate 0.9 Orders (Tests/Meds): ED MEDICATIONS Discontinued Medications Generic Name Dose Route Start Last Admin Trade Name Freq PRN Reason Stop Dose Admin Aspirin 325 mg 10/29/21 19:24 10/29/21 19:40 Aspirin 325mg Tablet PO 10/29/21 19:25 325 mg ONCE ONE Administration Nitroglycerin 1 gm 10/29/21 19:28 10/29/21 19:41 Nitroglycerin 1 Gm Ointment TD 10/29/21 19:29 1 gm ONCE ONE Administration Nitroglycerin 0.4 mg 10/29/21 19:30 10/29/21 19:40 Nitroglycerin 0.4mg Sl Tablet SL 10/29/21 19:31 0.4 mg ONCE ONE Administration ORDERS Category Date Time Status Rapid PCR Covid and Flu A/B Stat Lab 10/29/21 19:52 Ordered Troponin I Q3H Lab 10/29/21 22:30 Ordered Troponin
[2021-10-29 19:34] LABS: Basophils # 0.3 K/mm3 (0-0.2); Basophils % 1.5 % (0.1-2.0); Eosinophils # 0.3 K/mm3 (0.0-0.4); Eosinophils % 1.3 % (0.1-12.0); Hematocrit 44.6 % (42.0-52.0); Hemoglobin 14.4 g/dL (14.1-18.0); Lymphocytes % 67.6 % (10-50); Mean Corpuscular HGB Conc 32.3 g/dL (31.8-35.4); Mean Corpuscular Hemoglobin 33.1 pg (27.0-31.2); Mean Corpuscular Volume 102.6 fl (80-94); Mean Platelet Volume 8.6 fl (7.4-10.4); Monocytes # 0.5 K/mm3 (0.1-1.0); Monocytes % 2.5 % (1.7-9.3); Neutrophils # 5.6 K/mm3 (1.8-7.8); Neutrophils % 27.1 % (37.0-80.0); Platelet Count 248 K/mm3 (142-424); Red Blood Count 4.35 M/mm3 (4.60-6.20); Red Cell Distribution Width 15.5 % (11.5-17.5); White Blood Count 20.6 K/mm3 (4.8-10.8)
[2021-10-29 19:39] LABS: MANUAL DIFFERENTIAL MANUAL DIFFERENTIAL (MANUAL DIFF)
[2021-10-29 19:45] LABS: Chloride 107 mmol/L (98-107); Potassium 4.2 mmoL/L (3.5-5.1); Sodium 139 mmol/L (136-145)
[2021-10-29 19:48] LABS: Alanine Aminotransferase 20 U/L (12-78); Albumin Level 4.2 g/dl (3.5-5.0); Albumin/Globulin Ratio 1.1 (1.1-1.8); Alkaline Phosphatase 94 U/L (38-126); Anion Gap 9.2 mEq/L (5-15); Aspartate Amino Transferase 42 U/L (17-59); Bilirubin,Total 0.8 mg/dl (0.2-1.3); Blood Urea Nitrogen 22 mg/dl (9-20); Carbon Dioxide 27 mmol/L (22.0-30.0); Creatinine Clearance Estimated 55 mL/min (50-200); Estimated Glomerular Filt Rate 71 ml/min (>60); GFR (African American) 86 ML/MIN (>60); Globulin 3.7 g/dL (1.3-3.2); Total Protein,Serum 7.9 g/dl (6.3-8.2)
[2021-10-29 19:49] LABS: Calcium 8.9 mg/dl (8.4-10.2); Glucose 96 mg/dl (74-100)
[2021-10-29 19:50] LABS: Lipase 75 U/L (23-300)
[2021-10-29 20:01] LABS: Hypochromasia 1+; Lymphocytes % 31 % (10-50); Monocytes % 7 % (2-9); Neutrophils % 62 % (42-76); Platelet Estimate Normal; Total Cells Counted 100
[2021-10-29 20:02] LABS: Troponin I 0.01 ng/ml (0.00-0.034)
[2021-10-29 20:15] LABS: Lactic Acid 0.9 mmol/L (0.7-2.1)
[2021-10-29 20:29] VITALS: BP 172/98; PULSE 87; O2SAT 96
--- NOTE | 2021-10-29 20:32 | PC.NURSE ---
PHONE CALL TO DAUGHTER, SHE IS LIVING IN [place] AND UNABLE TO COME GET HIM
[2021-10-29 20:36] VITALS: BP 170/100; PULSE 85; O2SAT 97
--- NOTE | 2021-10-29 20:36 | PC.NURSE ---
PC from daughter, her son will come to pick patient up
[2021-10-29 20:52] LABS: Microscopic, Urine URINE MICROSCOPIC (MICROSCOPIC)
[2021-10-29 20:58] VITALS: BP 170/98; PULSE 78; RESP 20; TEMP 36.8; O2SAT 97
[2021-10-29 21:13] LABS: Appearance,Urine CLEAR (Clear); Bilirubin,Urine Negative (Negative); Blood, Urine TRACE-I (Negative); Color,Urine YELLOW (Yellow); Glucose,Urine (UA) Negative (Negative); Ketones,Urine Negative (Negative); Leukocyte Esterase,Urine Negative (Negative); Nitrate,Urine Negative (Negative); Protein,Urine TRACE (Negative); Urobilinogen,Urine 0.2 EU/dl (0.2)
[2021-10-29 21:43] LABS: Squamous Epithelial Cell,Urine Occasional #/hpf (0-5)
== END 2021-10-29 21:00 | disposition home or self-care (01) ==
PROVIDERS: Emergency Medicine; Emergency Provider Emergency Medicine; PCP Emergency Medicine
DX: R07.9 Chest pain, unspecified (principal); H91.93 Unspecified hearing loss, bilateral; I48.0 Paroxysmal atrial fibrillation; I25.10 Atherosclerotic heart disease of native coronary artery without angina pectoris; K21.9 Gastro-esophageal reflux disease without esophagitis; E78.5 Hyperlipidemia, unspecified; I10 Essential (primary) hypertension; I25.2 Old myocardial infarction; Z96.642 Presence of left artificial hip joint; Z79.899 Other long term (current) drug therapy
CPT/HCPCS: 71045; 80053; 81001; 83605; 83690; 84484; 85007; 85025; 87040; 93005; 96372; 99283

== ENCOUNTER → 2021-11-01 19:54 | Outpatient (CLI) | payer MEDICARE, SELFPAY ==
[2021-11-01 13:26] LABS: Basophils # 1.5 K/mm3 (0-0.2); Basophils % 4.9 % (0.1-2.0); Hematocrit 39.2 % (42.0-52.0); Hemoglobin 12.6 g/dL (14.1-18.0); Lymphocytes # 18.1 K/mm3 (0.7-4.5); Lymphocytes % 59.2 % (10-50); Mean Corpuscular HGB Conc 32.1 g/dL (31.8-35.4); Mean Corpuscular Hemoglobin 33.5 pg (27.0-31.2); Mean Corpuscular Volume 104.2 fl (80-94); Mean Platelet Volume 9.2 fl (7.4-10.4); Monocytes # 0.8 K/mm3 (0.1-1.0); Monocytes % 2.7 % (1.7-9.3); Neutrophils # 11.7 K/mm3 (1.8-7.8); Neutrophils % 38.1 % (37.0-80.0); Platelet Count 209 K/mm3 (142-424); Red Blood Count 3.76 M/mm3 (4.60-6.20); Red Cell Distribution Width 15.6 % (11.5-17.5); White Blood Count 30.6 K/mm3 (4.8-10.8)
[2021-11-01 13:29] LABS: MANUAL DIFFERENTIAL MANUAL DIFFERENTIAL (MANUAL DIFF)
[2021-11-01 17:25] LABS: Lymphocytes % 58 % (10-50); Macrocytosis 2+; Monocytes % 2 % (2-9); Neutrophils % 40 % (42-76); Platelet Estimate Normal; Total Cells Counted 100
== END ==
PROVIDERS: PCP Emergency Medicine; Visit Provider Emergency Medicine
DX: J40 Bronchitis, not specified as acute or chronic (principal)
CPT/HCPCS: 85007; 85025

== ENCOUNTER → 2021-11-18 12:30 | Outpatient (CLI) | payer MEDICARE, SELFPAY ==
[2021-11-18 18:55] LABS: Basophils # 0.4 K/mm3 (0-0.2); Basophils % 1.9 % (0.1-2.0); Eosinophils # 0.1 K/mm3 (0.0-0.4); Eosinophils % 0.3 % (0.1-12.0); Hematocrit 38.5 % (42.0-52.0); Hemoglobin 12.5 g/dL (14.1-18.0); Lymphocytes # 14.8 K/mm3 (0.7-4.5); Mean Corpuscular HGB Conc 32.4 g/dL (31.8-35.4); Mean Corpuscular Hemoglobin 33.1 pg (27.0-31.2); Mean Corpuscular Volume 102.2 fl (80-94); Mean Platelet Volume 9.5 fl (7.4-10.4); Monocytes # 0.5 K/mm3 (0.1-1.0); Monocytes % 2.5 % (1.7-9.3); Neutrophils # 5.2 K/mm3 (1.8-7.8); Neutrophils % 25.1 % (37.0-80.0); Platelet Count 234 K/mm3 (142-424); Red Blood Count 3.77 M/mm3 (4.60-6.20); Red Cell Distribution Width 14.9 % (11.5-17.5); White Blood Count 20.5 K/mm3 (4.8-10.8)
[2021-11-18 19:02] LABS: MANUAL DIFFERENTIAL MANUAL DIFFERENTIAL (MANUAL DIFF)
[2021-11-18 21:21] LABS: Lymphocytes % 59 % (10-50); Macrocytosis 1+; Monocytes % 2 % (2-9); Neutrophils % 32 % (42-76); Platelet Estimate Normal; Total Cells Counted 100
== END ==
PROVIDERS: PCP Emergency Medicine; Visit Provider Emergency Medicine
DX: B99.9 Unspecified infectious disease (principal)
CPT/HCPCS: 85007; 85025

== ENCOUNTER 2021-12-06 14:19 | Emergency (ER) | payer MEDICARE, SELFPAY ==
[2021-12-06 14:20] VITALS: BP 170/76; PULSE 74; RESP 18; TEMP 36.2; O2SAT 96; BMI 24.3
[2021-12-06 15:00] VITALS: BP 176/70; PULSE 64; RESP 16; O2SAT 98
[2021-12-06 15:04] LABS: Microscopic, Urine URINE MICROSCOPIC (MICROSCOPIC)
--- NOTE | 2021-12-06 15:21 | HMH.EDGENADL ---
ED Disposition Clinical Impression: Urinary hesitancy BPH (benign prostatic hyperplasia) Qualifiers: Lower urinary tract symptom presence: unspecified whether lower urinary tract symptoms present Qualified Code(s): N40.0 - Benign prostatic hyperplasia without lower urinary tract symptoms Disposition: Home, Self-Care Condition on Discharge: Good Additional Instructions: See Dr. Ng in his office next week. Call Thursday morning to make appointment. Referrals: Luis Fernando Gama MD [Primary Care Provider] - Joshua Ng MD [Staff Physician] - - Critical Care Critical Care Time: No Attestation: On 12/06/21, the high probability of a clinically significant, sudden or life threatening deterioration of the following system(s) required my full and direct attention, intervention and personal management. The time I documented below is in addition to time spent performing reported procedures but includes the following listed in this critical care notation. Medical Decision Making - Medical Records Medical records reviewed: Yes: I reviewed the patient's medical records. MR Comment: Patient has a documented diagnosis of BPH. Also noted to have seen Dr. Ng in the office 11/29/2019 for urgency and nocturia. He has been on oxybutynin for that and is currently on tamsulosin for BPH. - Artemio Inquiry Pt receiving controlled substance: No Vital Signs: 12/06/21 14:20 12/06/21 15:00 12/06/21 15:30 Temperature 97.2 F L Temperature Source Oral Pulse Rate 64 63 Pulse Rate [Right Radial] 74 Respiratory Rate 18 16 18 Blood Pressure 176/70 H 181/81 H Blood Pressure [Right Arm] 170/76 H Blood Pressure Mean 105 96 Blood Pressure Mean [Right Arm] 107 Blood Pressure Source [Right Arm] Automatic Cuff Blood Pressure Position [Right Arm] Sitting 02 Sat by Pulse Oximetry 96 98 98 Oxygen Delivery Method Room Air Room Air Room Air - Lab Data Lab Results 12/06/21 14:55: Urine Color Yellow, Urine Appearance Clear, Urine pH 5.0, Ur Specific [place] 1.025, Urine Protein Negative, Urine Glucose (UA) Negative, Urine Ketones Negative, Urine Blood Negative, Urine Nitrate Negative, Urine Bilirubin Negative, Urine Urobilinogen 0.2, Ur Leukocyte Esterase Negative, Urine RBC 3-5, Urine WBC Occasional, Ur Squamous Epith Cells 3-5, Urine Bacteria 1+ 12/06/21 16:00: WBC 13.4 H, RBC 3.81 L, Hgb 12.4 L, Hct 39.4 L, MCV 103.3 H, MCH 32.5 H, MCHC 31.4 L, RDW 14.9, Plt Count 162, MPV 9.1, Neut % (Auto) 20.3 L, Lymph % (Auto) 72.6 H, [place] % (Auto) 3.3, Eos % (Auto) 2.3, Baso % (Auto) 1.4, Neut # (Auto) 2.7, Lymph # (Auto) 9.7 H, [place] # (Auto) 0.5, Eos # (Auto) 0.3, Baso # (Auto) 0.2 12/06/21 16:00: Sodium 139, Potassium 4.0, Chloride 109 H, Carbon Dioxide 25, Anion Gap 9.0, BUN 16, Creatinine 1.70 H, Estimated Creat Clear 34, Estimated GFR 38 L, Est GFR ( Amer) 47 L, Glucose 101 H, Calcium 9.2 Result diagrams: 12/06/21 16:00 12/06/21 16:00 Orders (Tests/Meds): ORDERS Category Date Time Status Complete Blood Count Auto Diff Stat Lab 12/06/21 16:00 Results - Physician Consults Physician Consulted: Hernandez Time: 16:15 Reason -: Urology Eval/Care Comment/Response: See him in the office next week - Reevaluation(s) Time: 16:48 Reevaluation #1: Patient able to spontaneously void 300 cc in the urinal. I feel he is suitable for discharge and outpatient follow-up. Medical Decision Narrative: Bedside ultrasound was performed to scan bladder. His bladder is not empty, but not grossly distended either. Bryan catheter will be placed to determine his postvoid residual. General Adult HPI - General Chief complaint: Urogenital-Male Stated complaint: unable to pee Time Seen by Provider: 12/06/21 15:21 Mode of Arrival: Ambulatory Limitations: pt extremely [place] Description of Symptoms (Recalled from ER Triage Doc. by RN): Pt reports difficulty urinating for approx 3-4 days. Pt reports he did urinate this morning normally bu
[2021-12-06 15:22] LABS: Appearance,Urine CLEAR (Clear); Bilirubin,Urine Negative (Negative); Blood, Urine Negative (Negative); Color,Urine YELLOW (Yellow); Glucose,Urine (UA) Negative (Negative); Ketones,Urine Negative (Negative); Leukocyte Esterase,Urine Negative (Negative); Nitrate,Urine Negative (Negative); Protein,Urine Negative (Negative); Specific Gravity, Urine 1.025 (1.005-1.030); Urobilinogen,Urine 0.2 EU/dl (0.2)
[2021-12-06 15:30] VITALS: BP 181/81; PULSE 63; RESP 18; O2SAT 98
[2021-12-06 15:32] LABS: WBC,Urine Occasional #/hpf (0-3)
[2021-12-06 15:33] LABS: Bacteria,Urine 1+ /lpf
--- NOTE | 2021-12-06 15:55 | PC.NURSE ---
unsuccess attempts at placing gomes catheter, attempted regular 16fr gomes, 16fr coude tip and 14fr coude tip with no success. Notified FAUSTO SANDOVAL
[2021-12-06 16:08] LABS: Basophils # 0.2 K/mm3 (0-0.2); Basophils % 1.4 % (0.1-2.0); Eosinophils # 0.3 K/mm3 (0.0-0.4); Eosinophils % 2.3 % (0.1-12.0); Hematocrit 39.4 % (42.0-52.0); Hemoglobin 12.4 g/dL (14.1-18.0); Lymphocytes # 9.7 K/mm3 (0.7-4.5); Lymphocytes % 72.6 % (10-50); Mean Corpuscular HGB Conc 31.4 g/dL (31.8-35.4); Mean Corpuscular Hemoglobin 32.5 pg (27.0-31.2); Mean Corpuscular Volume 103.3 fl (80-94); Mean Platelet Volume 9.1 fl (7.4-10.4); Monocytes # 0.5 K/mm3 (0.1-1.0); Monocytes % 3.3 % (1.7-9.3); Neutrophils # 2.7 K/mm3 (1.8-7.8); Neutrophils % 20.3 % (37.0-80.0); Platelet Count 162 K/mm3 (142-424); Red Blood Count 3.81 M/mm3 (4.60-6.20); Red Cell Distribution Width 14.9 % (11.5-17.5); White Blood Count 13.4 K/mm3 (4.8-10.8)
[2021-12-06 16:18] LABS: MANUAL DIFFERENTIAL MANUAL DIFFERENTIAL (MANUAL DIFF)
--- NOTE | 2021-12-06 16:19 | PC.NURSE ---
FAUSTO SANDOVAL speaking with Dr Ng
[2021-12-06 16:27] LABS: Chloride 109 mmol/L (98-107); Sodium 139 mmol/L (136-145)
[2021-12-06 16:30] LABS: Blood Urea Nitrogen 16 mg/dl (9-20); Creatinine Clearance Estimated 34 mL/min (50-200); Estimated Glomerular Filt Rate 38 ml/min (>60); GFR (African American) 47 ML/MIN (>60)
[2021-12-06 16:31] LABS: Calcium 9.2 mg/dl (8.4-10.2); Carbon Dioxide 25 mmol/L (22.0-30.0); Glucose 101 mg/dl (74-100)
--- NOTE | 2021-12-06 16:48 | PC.NURSE ---
ER MD discussing POC at this time
[2021-12-06 17:03] VITALS: BP 169/82; PULSE 64; O2SAT 98
[2021-12-06 17:14] LABS: Eosinophils % 2 % (0-3); Lymphocytes % 73 % (10-50); Microcytosis 1+; Monocytes % 2 % (2-9); Neutrophils % 21 % (42-76); Platelet Estimate Normal; Total Cells Counted 100
[2021-12-06 17:38] VITALS: BP 169/82; PULSE 64; RESP 16; TEMP 36.7; O2SAT 98
== END 2021-12-06 17:39 | disposition home or self-care (01) ==
PROVIDERS: Emergency Provider Emergency Medicine; PCP Emergency Medicine
DX: N40.1 Benign prostatic hyperplasia with lower urinary tract symptoms (principal); R33.8 Other retention of urine; I48.91 Unspecified atrial fibrillation; K21.9 Gastro-esophageal reflux disease without esophagitis; I25.2 Old myocardial infarction; I10 Essential (primary) hypertension; E78.5 Hyperlipidemia, unspecified; Z95.0 Presence of cardiac pacemaker; Z79.899 Other long term (current) drug therapy
CPT/HCPCS: 51702; 80048; 81001; 85007; 85025; 99283

== ENCOUNTER → 2021-12-12 13:28 | Outpatient (CLI) | payer MEDICARE, SELFPAY ==
[2021-12-12 13:59] LABS: Basophils # 0.4 K/mm3 (0-0.2); Basophils % 2.7 % (0.1-2.0); Eosinophils # 0.3 K/mm3 (0.0-0.4); Eosinophils % 1.9 % (0.1-12.0); Hematocrit 41.6 % (42.0-52.0); Hemoglobin 13.2 g/dL (14.1-18.0); Lymphocytes # 9.2 K/mm3 (0.7-4.5); Lymphocytes % 58.2 % (10-50); Mean Corpuscular HGB Conc 31.7 g/dL (31.8-35.4); Mean Corpuscular Hemoglobin 32.3 pg (27.0-31.2); Mean Corpuscular Volume 101.8 fl (80-94); Mean Platelet Volume 9.7 fl (7.4-10.4); Monocytes # 0.4 K/mm3 (0.1-1.0); Monocytes % 2.7 % (1.7-9.3); Neutrophils # 5.4 K/mm3 (1.8-7.8); Neutrophils % 34.4 % (37.0-80.0); Platelet Count 186 K/mm3 (142-424); Red Blood Count 4.09 M/mm3 (4.60-6.20); Red Cell Distribution Width 14.3 % (11.5-17.5); White Blood Count 15.8 K/mm3 (4.8-10.8)
[2021-12-12 14:10] LABS: MANUAL DIFFERENTIAL MANUAL DIFFERENTIAL (MANUAL DIFF)
[2021-12-12 14:12] LABS: Eosinophils % 3 % (0-3); Lymphocytes % 52 % (10-50); Monocytes % 5 % (2-9); Neutrophils % 40 % (42-76); Total Cells Counted 100
[2021-12-12 14:16] LABS: Anisocytosis 1+; Hypochromasia 1+; Macrocytosis 1+; Platelet Estimate Normal
[2021-12-12 14:37] LABS: Lactate Dehydrogenase 333 U/L (313-618); Uric Acid 7.4 mg/dl (3.5-8.5)
[2021-12-14 13:34] LABS: Peripheral Smear Review Scanned Result
== END ==
PROVIDERS: Visit Provider Internal Medicine Medical Oncology
DX: D64.9 Anemia, unspecified (principal)
CPT/HCPCS: 36415; 83615; 84550; 85007; 85025

== ENCOUNTER 2021-12-15 02:11 | Emergency (ER) | payer MEDICARE, SELFPAY ==
[2021-12-15 02:08] VITALS: BP 188/80; PULSE 63; RESP 18; TEMP 36.5; O2SAT 100; BMI 22.9
[2021-12-15 02:35] LABS: Microscopic, Urine URINE MICROSCOPIC (MICROSCOPIC)
[2021-12-15 02:41] LABS: Appearance,Urine CLOUDY (Clear); Bilirubin,Urine Negative (Negative); Blood, Urine TRACE-I (Negative); Color,Urine YELLOW (Yellow); Glucose,Urine (UA) Negative (Negative); Ketones,Urine Negative (Negative); Leukocyte Esterase,Urine 2+ (Negative); Nitrate,Urine POSITIVE (Negative); Protein,Urine TRACE (Negative); Specific Gravity, Urine 1.015 (1.005-1.030); Urobilinogen,Urine 0.2 EU/dl (0.2)
[2021-12-15 02:47] LABS: Bacteria,Urine Trace /lpf; WBC,Urine 50-100 #/hpf (0-3)
--- NOTE | 2021-12-15 02:51 | HMH.EDUROGM ---
ED Disposition Clinical Impression: CLL (chronic lymphocytic leukemia) Urinary tract infection Qualifiers: Urinary tract infection type: site unspecified Hematuria presence: without hematuria Qualified Code(s): N39.0 - Urinary tract infection, site not specified Disposition: Home, Self-Care Condition on Discharge: Fair Instructions: DI for Urinary Tract Infection (UTI) Additional Instructions: use meds and see pcp next week Prescriptions: levoFLOXacin [Levaquin 500mg tab] 500 mg PO DAILY #7 tab Transmission Status: Pending to [facility] Referrals: Luis Fernando Gama MD [Primary Care Provider] - - Critical Care Critical Care Time: No Attestation: On 12/15/21, the high probability of a clinically significant, sudden or life threatening deterioration of the following system(s) required my full and direct attention, intervention and personal management. The time I documented below is in addition to time spent performing reported procedures but includes the following listed in this critical care notation. Medical Decision Making - Medical Records Medical records reviewed: Yes: I reviewed the patient's medical records. - Artemio Inquiry Pt receiving controlled substance: No Vital Signs: 12/15/21 02:08 Temperature 97.7 F Temperature Source Oral Pulse Rate [Right] 63 Respiratory Rate 18 Blood Pressure [Right Arm] 188/80 H Blood Pressure Mean [Right Arm] 116 02 Sat by Pulse Oximetry 100 - Lab Data Lab results reviewed: Yes: I reviewed the patient's lab results. Lab Results 12/15/21 02:30: Urine Color Yellow, Urine Appearance Cloudy, Urine pH 6.0, Ur Specific [place] 1.015, Urine Protein Trace, Urine Glucose (UA) Negative, Urine Ketones Negative, Urine Blood Trace-i, Urine Nitrate Positive, Urine Bilirubin Negative, Urine Urobilinogen 0.2, Ur Leukocyte Esterase 2+ A, Urine RBC 3-5, Urine WBC 50-100, Urine Bacteria Trace 12/15/21 03:01: WBC 13.4 H, RBC 3.62 L, Hgb 11.8 L, Hct 37.2 L, MCV 102.7 H, MCH 32.7 H, MCHC 31.9, RDW 14.4, Plt Count 130 L D, MPV 9.3, Neut % (Auto) 40.3, Lymph % (Auto) 51.7 H, [place] % (Auto) 3.8, Eos % (Auto) 2.6, Baso % (Auto) 1.7, Neut # (Auto) 5.4, Lymph # (Auto) 6.9 H, [place] # (Auto) 0.5, Eos # (Auto) 0.3, Baso # (Auto) 0.2, Total Counted 100, Neutrophils % (Manual) 36 L, Band Neutrophils % 1.0, Lymphocytes % (Manual) 63 H, Platelet Estimate Slight decrease, RBC Morphology Not Reportable, Hypochromasia 1+, Macrocytosis 2+, ESR 34 H 12/15/21 03:01: Sodium 138, Potassium 4.0, Chloride 106, Carbon Dioxide 26, Anion Gap 10.0, BUN 18, Creatinine 1.30 H, Estimated Creat Clear 43, Estimated GFR 52 L, Est GFR ( Amer) 63, Glucose 119 H, Calcium 8.8, Total Bilirubin < 0.1 L, AST 35, ALT 16, Alkaline Phosphatase 80, C-Reactive Protein 2.9, Total Protein 6.6, Albumin 3.6, Globulin 3.0, Albumin/Globulin Ratio 1.2, Procalcitonin 0.071 Result diagrams: 12/15/21 03:01 12/15/21 03:01 Orders (Tests/Meds): ED MEDICATIONS Generic Name Dose Route Start Last Admin Trade Name Freq PRN Reason Stop Dose Admin Ceftriaxone Sodium 1 gm/ 50 mls @ 100 mls/hr 12/15/21 03:45 12/15/21 03:56 Sodium Chloride IV 12/29/21 03:44 100 mls/hr Q24H HAIM Administration ORDERS Category Date Time Status Blood Culture Stat Micro 12/15/21 03:49 Received Urine Culture Stat Micro 12/15/21 02:30 Received - CT Data CT Scan: Abdomen, Pelvis Time Received: 05:[address] Reviewed: Yes: I have viewed the radiologist's interpretation Preliminary Findings: Abnormal (see report ) Medical Decision Narrative: has uti and has changes and labs consistent with cll Male Urogenital HPI - General Chief complaint: Urogenital-Male Stated complaint: painful urination Time Seen by Provider: 12/15/21 02:52 Mode of Arrival: EMS Source of Information: Patient, EMS, Medical Record Limitations: hearing impairment Description of Symptoms (Recalled from ER Triage Doc. by RN): pt c/o not being able to
--- NOTE | 2021-12-15 03:02 | CT_ITS ---
PROCEDURE INFORMATION: Exam: CT Abdomen And Pelvis Without Contrast Exam date and time: 12/15/2021 3:14 AM Age: 86 years old Clinical indication: Other: Painful urination; Additional info: Burning with urination TECHNIQUE: Imaging protocol: Computed tomography of the abdomen and pelvis without contrast. Radiation optimization: All CT scans at this facility use at least one of these dose optimization techniques: automated exposure control; mA and/or kV adjustment per patient size (includes targeted exams where dose is matched to clinical indication); or iterative reconstruction. COMPARISON: CT ABDOMEN PELVIS W CON 04/11/2021 7:29 PM FINDINGS: Tubes, catheters and devices: Partially visualized ICD leads Lung bases: Mild dependent atelectasis at the lung bases. Trace bilateral pleural effusions, similar to prior exam. Mediastinal space: Distal esophageal wall thickening, similar to prior. A few periesophageal lymph nodes also again noted. 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 Liver otherwise unremarkable. Gallbladder and bile ducts: No wall thickening. No calcified stones. No biliary dilation. Pancreas: Pancreatic atrophy. Mild dilation of the main pancreatic duct, less conspicuous on this noncontrast study as compared to prior, but probably grossly stable (measuring up to 0.6 cm in caliber). Spleen: Few scattered calcified granulomas in the spleen. Adrenal glands: Normal. No mass. Kidneys and ureters: Nonobstructive bilateral nephrolithiasis. No ureteral calculus. No hydronephrosis. Stomach and bowel: Small hiatal hernia. No small bowel dilation or obstruction. Moderate to large amount of solid stool throughout the colon may reflect constipation. Scattered colonic diverticula, without evidence of acute diverticulitis. Appendix: No evidence of appendicitis. Intraperitoneal space: No pneumoperitoneum. Minimal right lower quadrant free fluid, also seen on prior. Vasculature: Ectasia of the distal descending thoracic aorta, measuring 3 cm in caliber. The proximal abdominal aorta also measures 3 cm in caliber. There is a gradual decrease in caliber of the mid abdominal aorta, but focal ectasia measuring 2.8 x 2.5 cm in the infrarenal region. Diffuse atherosclerotic plaque. Lymph nodes: Interval increase in lymphadenopathy throughout the gastrohepatic, cindy hepatis, portacaval, aortocaval, and periaortic regions. A dominant cindy hepatis lymph node now measures 1.7 cm in short axis, previously 1.2 cm. A dominant portacaval lymph node now measures 1.8 cm in short axis, previously 1.3 cm. There is also a generalized increase in size and number of mesenteric and right lower quadrant/right iliac chain lymph nodes. Neoplastic process strongly suspected. Urinary bladder: Bladder is fluid-filled, partially obscured by artifact. No definite wall thickening. Reproductive: Unremarkable as visualized. Bones/joints: Osteopenia. No acute fracture. Old rib fractures. Chronic mild wedging of thoracolumbar vertebrae. Multilevel spondylosis and mild degenerative malalignment, with variable degrees of spinal canal and neural foraminal stenosis, similar to prior. Left hip arthroplasty, with incomplete visualization of the femoral stem. Mild osteolysis/particle disease in the left acetabular roof, unchanged. Soft tissues: Mild bilateral gynecomastia suggested. Small left greater than right inguinal hernias containing adipose tissue. IMPRESSION: 1. Diffuse interval increase in upper abdominal, mesenteric, and retroperitoneal lymphadenopathy as compared to prior exam of 04/11/2021. Findings are suspicious for a
[2021-12-15 03:15] LABS: Basophils # 0.2 K/mm3 (0-0.2); Basophils % 1.7 % (0.1-2.0); Eosinophils # 0.3 K/mm3 (0.0-0.4); Eosinophils % 2.6 % (0.1-12.0); Hematocrit 37.2 % (42.0-52.0); Hemoglobin 11.8 g/dL (14.1-18.0); Lymphocytes # 6.9 K/mm3 (0.7-4.5); Lymphocytes % 51.7 % (10-50); Mean Corpuscular HGB Conc 31.9 g/dL (31.8-35.4); Mean Corpuscular Hemoglobin 32.7 pg (27.0-31.2); Mean Corpuscular Volume 102.7 fl (80-94); Mean Platelet Volume 9.3 fl (7.4-10.4); Monocytes # 0.5 K/mm3 (0.1-1.0); Monocytes % 3.8 % (1.7-9.3); Neutrophils # 5.4 K/mm3 (1.8-7.8); Neutrophils % 40.3 % (37.0-80.0); Platelet Count 130 K/mm3 (142-424); Red Blood Count 3.62 M/mm3 (4.60-6.20); Red Cell Distribution Width 14.4 % (11.5-17.5); White Blood Count 13.4 K/mm3 (4.8-10.8)
[2021-12-15 03:22] LABS: Alanine Aminotransferase 16 U/L (12-78); Albumin Level 3.6 g/dl (3.5-5.0); Albumin/Globulin Ratio 1.2 (1.1-1.8); Alkaline Phosphatase 80 U/L (38-126); Aspartate Amino Transferase 35 U/L (17-59); Blood Urea Nitrogen 18 mg/dl (9-20); Calcium 8.8 mg/dl (8.4-10.2); Carbon Dioxide 26 mmol/L (22.0-30.0); Chloride 106 mmol/L (98-107); Creatinine Clearance Estimated 43 mL/min (50-200); Estimated Glomerular Filt Rate 52 ml/min (>60); GFR (African American) 63 ML/MIN (>60); Glucose 119 mg/dl (74-100); MANUAL DIFFERENTIAL MANUAL DIFFERENTIAL (MANUAL DIFF); Sodium 138 mmol/L (136-145); Total Protein,Serum 6.6 g/dl (6.3-8.2)
[2021-12-15 03:23] LABS: Bilirubin,Total < 0.1 mg/dl (0.2-1.3)
[2021-12-15 03:29] LABS: C-Reactive Protein 2.9 mg/L (0-4)
[2021-12-15 03:41] LABS: Lymphocytes % 63 % (10-50); Neutrophils % 36 % (42-76); Total Cells Counted 100
[2021-12-15 03:42] LABS: Hypochromasia 1+; Macrocytosis 2+; Platelet Estimate Slight Decrease
[2021-12-15 03:43] LABS: Erythrocyte Sedimentation Rate 34 mm/hr (0-20)
[2021-12-15 03:45] LABS: Procalcitonin 0.071 ng/mL (0.0-2.0)
[2021-12-15 05:24] VITALS: BP 154/78; PULSE 60; RESP 18; TEMP 36.5; O2SAT 100
== END 2021-12-15 05:32 | disposition home or self-care (01) ==
PROVIDERS: Emergency Provider Emergency Medicine; PCP Emergency Medicine
DX: R33.8 Other retention of urine (principal); C91.10 Chronic lymphocytic leukemia of B-cell type not having achieved remission; R39.11 Hesitancy of micturition; R53.83 Other fatigue; N30.00 Acute cystitis without hematuria; G20 Parkinson's disease; I25.2 Old myocardial infarction; I10 Essential (primary) hypertension
CPT/HCPCS: 51702; 74176; 80053; 81001; 84145; 85007; 85025; 85651; 86140; 87040; 87086; 87088; 87186; 96372; 96374; 99284; J0696

== ENCOUNTER 2021-12-15 16:56 | Emergency (ER) | payer MEDICARE, SELFPAY ==
[2021-12-15 16:56] VITALS: BP 160/78; PULSE 60; RESP 18; TEMP 37.1; O2SAT 100; BMI 22.9
[2021-12-15 17:01] VITALS: BP 160/78; PULSE 60; O2SAT 96
--- NOTE | 2021-12-15 17:12 | PC.NURSE ---
Dr. Muir at [facility]; October, RN at [facility]
--- NOTE | 2021-12-15 17:17 | HMH.EDGENADL ---
ED Disposition Clinical Impression: Urinary retention Disposition: Home, Self-Care Condition on Discharge: Fair Instructions: DI for Urinary Tract Infection (UTI), DI for Urinary Tract Infection in Children Referrals: Luis Fernando Gama MD [Primary Care Provider] - - Critical Care Critical Care Time: No Attestation: On 12/15/21, the high probability of a clinically significant, sudden or life threatening deterioration of the following system(s) required my full and direct attention, intervention and personal management. The time I documented below is in addition to time spent performing reported procedures but includes the following listed in this critical care notation. Medical Decision Making - Medical Records Medical records reviewed: Yes: I reviewed the patient's medical records. - Artemio Inquiry Pt receiving controlled substance: No Vital Signs: 12/15/21 16:56 12/15/21 17:01 Temperature 98.7 F Temperature Source Oral Pulse Rate 60 Pulse Rate [Left Radial] 60 Respiratory Rate 18 Blood Pressure 160/78 H Blood Pressure [Right Arm] 160/78 H Blood Pressure Mean 94 Blood Pressure Mean [Right Arm] 105 Blood Pressure Source [Right Arm] Automatic Cuff Blood Pressure Position [Right Arm] Sitting 02 Sat by Pulse Oximetry 100 96 Oxygen Delivery Method Room Air Room Air - Lab Data Lab results reviewed: Yes: I reviewed the patient's lab results. Orders (Tests/Meds): ED MEDICATIONS Discontinued Medications Generic Name Dose Route Start Last Admin Trade Name Wallaceq PRN Reason Stop Dose Admin Ceftriaxone Sodium 1 gm 12/15/21 17:20 12/15/21 18:45 Ceftriaxone 1gm Vial IM 12/15/21 17:21 1 gm ONCE ONE Administration Lidocaine HCl 0 ml 12/15/21 17:20 12/15/21 18:46 Lidocaine 1% 5ml Pf Vial IM 12/15/21 17:21 2.1 ml ONCE ONE Administration Medical Decision Narrative: Reviewed patient hospital record from the day prior. Patient was diagnosed with a urinary tract infection, patient has chronic sensation of traction. Placed Bryan catheter for patient, and will anchor and leave until follow-up on Thursday. 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 Gama on Thursday. 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 Reviewed hospital record from day prior, no indication to rescan patient given discharge earlier today. General Adult HPI - General Chief complaint: Urogenital-Male Stated complaint: weak, cannot urinate Time Seen by Provider: 12/15/21 17:15 Mode of Arrival: Ambulatory Limitations: No Limitations Description of Symptoms (Recalled from ER Triage Doc. by RN): c/o unable to urinate since yesterday. - History of Present Illness HPI narrative: Patient is an 86-year-old male presenting to the emergency department chief complaint of inability to urinate, dysuria. Patient was seen here 529 at 2 AM. Patient states that since he has been home he has been unable to urinate since then. He denies any additional symptoms, fevers, chest pain, shortness of breath. He has some abdominal pain because he feels so distended and cannot urinate. 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 He does state that his family members know that he needs this medication. Of note patient was brought here to the emergency department by a family member. - Related Data Home Medications Medication Instructions Recorded Confirmed Albuterol Sulfate [Proventil Hfa] 2 puff IH Q6HP PRN 09/07/20 12/15/21 Nitroglycerin 0.4 mg SL Q5MINP PRN 09/07/20 12/15/21 Atorvastatin Calcium [Lipitor 40mg See Rx Instructions .ROUTE .COMPLEX 12/15/21 12/15/21 Tab] Isosorbide Mononitrate [Isosorbide 100 mg PO DAILY 12/15/21 12/15/21 Mononitrate ER] Metoprolol Succinate [Metoprolol See Rx Instructions .
--- NOTE | 2021-12-15 18:57 | PC.NURSE ---
unable to placed gomes after several attempts and several sizes.
[2021-12-15 21:04] VITALS: BP 142/82; PULSE 81; RESP 19; TEMP 36.7; O2SAT 98
--- NOTE | 2021-12-15 21:15 | PC.NURSE ---
Pt's daughter updated on discharge instructions and POC, abx, and to see in office Thursday (12/17). She stated her understanding. Have also updated pt's neighbor (Naty) who will be transporting pt and picking up script tomorrow
--- NOTE | 2021-12-17 14:02 | SW/DCPLANNER ---
Addendum entered by Lorrie Jaime 12/20/21 15:22: Rowan [facility]/ [facility] stated that she can accept this patient and will contact his family today. Original Note: Per daughter request (Elsa) patient information will be faxed to Nat with [facility] in [facility]. I will follow up with Nat and patient's daughter once information is reviewed.
== END 2021-12-15 21:28 | disposition home or self-care (01) ==
PROVIDERS: Emergency Provider Emergency Medicine; PCP Emergency Medicine
DX: R39.11 Hesitancy of micturition (principal)
CPT/HCPCS: 51702; 96372; J0696

== ENCOUNTER → 2021-12-16 01:46 | Outpatient (CLI) | payer MEDICARE, SELFPAY ==
[2021-12-16 01:54] VITALS: BMI 20.3
--- NOTE | 2021-12-16 01:57 | PC.NURSE ---
Patient arrived with c/o painful gomes catheter. States that he is unable to urinate. 400cc of pale yellow urine noted in gomes.
== END ==
PROVIDERS: PCP Emergency Medicine; Visit Provider Emergency Medicine
DX: Z96.0 Presence of urogenital implants (principal)

== ENCOUNTER 2022-03-23 18:49 | Emergency (ER) | payer MEDICARE, SELFPAY ==
[2022-03-23 19:12] VITALS: BP 168/82; PULSE 91; RESP 16; TEMP 37; O2SAT 97; BMI 25.1
[2022-03-23 19:15] VITALS: BP 168/82; PULSE 91; RESP 16; TEMP 37; O2SAT 97; BMI 25.2
--- NOTE | 2022-03-23 19:17 | XR_ITS ---
PROCEDURE INFORMATION: Exam: XR Right Ribs with PA Chest Exam date and time: 03/23/2022 7:43 PM Age: 86 years old Clinical indication: Injury or trauma; Fall; Rib area; Blunt trauma (contusions or hematomas); Prior surgery; Surgery date: 6+ months; Surgery type: Pacemaker TECHNIQUE: Imaging protocol: Radiologic exam of the Right ribs with PA chest. Views: 3 views COMPARISON: CR XR CHEST PORTABLE 10/29/2021 7:28 PM FINDINGS: Tubes, catheters and devices: AICD in place with leads in unchanged position. Lungs: No acute airspace consolidation. No appreciable pulmonary edema. Pleural spaces: Small right pleural effusion. No pneumothorax. Heart/Mediastinum: Within normal limits. Bones/joints: Acute fractures of the lateral right 5th-7th ribs, with questionable acute fractures in the 4th and 8th ribs. Numerous addition right-sided rib fractures in various stages of healing. IMPRESSION: 1. Acute fractures of the lateral right 5th-7th ribs, with questionable acute fractures in the 4th and 8th ribs. 2. Numerous addition right-sided rib fractures in various stages of healing. 3. Small right pleural effusion. No pneumothorax.
--- NOTE | 2022-03-23 19:29 | EXP.UTC ---
Discharge Plan Disposition Patient Disposition: Home, Self-Care Condition: Good Prescriptions Prescriptions: No Action oxycodone-acetaminophen [Percocet] 7.5-325 mg tablet 1 tab PO QID PRN (Reason: pain) Qty: 120 0RF tramadol 50 mg tablet 50 mg PO BID PRN (Reason: pain) Qty: 30 0RF oxybutynin chloride 10 mg tablet extended release 24 hr 10 mg PO DAILY Qty: 30 0RF tamsulosin [Flomax] 0.4 mg capsule 0.4 mg PO HS Qty: 30 2RF allopurinol 100 mg tablet 100 mg PO DAILY Qty: 90 0RF aspirin 81 mg tablet,delayed release (DR/EC) 81 mg PO DAILY Qty: 90 0RF clopidogrel 75 mg tablet 75 mg PO DAILY Qty: 90 0RF losartan 25 mg tablet 25 mg PO DAILY Qty: 90 0RF nitroglycerin 0.4 MG tablet, sublingual 0.4 mg SL Q5MINP PRN (Reason: chest pain) Rx Instructions: do not exceed 3 doses per episode albuterol sulfate 6.7 GM HFA aerosol inhaler 2 puff IH Q6HP PRN (Reason: Shortness of air) atorvastatin 40 MG tablet See Rx Instructions .Route .COMPLEX Rx Instructions: TAKE ONE TABLET BY MOUTH EVERY DAY AT BEDTIME metoprolol succinate 50 MG tablet extended release 24 hr See Rx Instructions .Route .COMPLEX Rx Instructions: TAKE ONE TABLET BY MOUTH EVERY DAY isosorbide mononitrate 30 MG tablet extended release 24 hr 100 mg PO DAILY pantoprazole 40 MG tablet,delayed release (DR/EC) See Rx Instructions .Route .COMPLEX Rx Instructions: TAKE ONE TABLET BY MOUTH EVERY DAY levofloxacin 500 MG tablet 500 mg PO DAILY Qty: 7 0RF Referrals Follow up/Referrals: Luis Fernando Gama MD [Primary Care Provider] - See instructions Activity Restrictions/Add. Instructions Additional Instructions/Restrictions: Pt will need to follow up with PCP this week. Continue with steroids. Clinical Impressions Clinical Impression: Ribs, multiple fractures, Small pleural effusion Instructions Patient Instructions: DI for Rib Fracture, DI for Pleural Effusion Discharge ED Provider: Briseyda Pederson [facility] [place] General Stated complaint: [id number]/04@0900 rib injury Mode of Arrival: Ambulatory Source of Information: Relative Limitations: No Limitations Time Seen by Provider: 03/23/22 19:29 Description of Symptoms (Recalled from Triage Doc. by RN): FAMILY REPORTS PATIENT ROLLED OUT OF BED THIS MORNING. C/O RIGHT RIB PAIN. DENIES SOA HEENT Symptoms (Recalled from RN notes): No Resp Symptoms (Recalled from RN notes): No Skin Symptoms (Recalled from RN notes): No MS Symptoms (Recalled from RN notes): Yes Functional Status (Recalled from RN notes): WNL Related Data Home Medications Medication Instructions Recorded Confirmed albuterol sulfate 90 mcg/actuation 2 puff inhalation Q6HP PRN 09/07/20 01/09/22 aerosol inhaler Shortness of air nitroglycerin 0.4 mg sublingual 0.4 mg sublingual Q5MINP PRN chest 09/07/20 01/09/22 tablet pain atorvastatin 40 mg tablet See Rx Instructions .Route 12/15/21 01/09/22 .COMPLEX hyperlipidemia isosorbide mononitrate 30 mg 100 mg PO DAILY Hypertension 12/15/21 01/09/22 tablet,extended release 24 hr metoprolol succinate 50 mg See Rx Instructions .Route 12/15/21 01/09/22 tablet,extended release 24 hr .COMPLEX Hypertension pantoprazole 40 mg tablet,delayed See Rx Instructions .Route 12/15/21 01/09/22 release .COMPLEX GERD Previous Rx's Medication Instructions Recorded allopurinol 100 mg tablet 100 mg PO DAILY gout #90 tabs 11/18/21 aspirin 81 mg tablet,delayed 81 mg PO DAILY HEART HEALTH #90 11/18/21 release tabs clopidogrel 75 mg tablet 75 mg PO DAILY PLATE[employer]HIB[employer]OR 11/18/21 #90 tabs losartan 25 mg tablet 25 mg PO DAILY Hypertension #90 11/18/21 tabs levofloxacin 500 mg tablet 500 mg PO DAILY #7 tabs 12/15/21 oxybutynin chloride 10 mg 10 mg PO DAILY #30 tabs 12/17/21 tablet,extended release 24 hr oxycodone-acetaminophen 7.5 mg-325 1 tab PO QID PRN pain #120 tabs 12/17/21 mg tablet (Percocet) ta
[2022-03-23 20:07] VITALS: BP 168/82; PULSE 91; RESP 16; TEMP 37; O2SAT 97
== END 2022-03-23 21:12 | disposition home or self-care (01) ==
PROVIDERS: Emergency Provider Nurse Practitioner Family; PCP Emergency Medicine
DX: S22.41XA Multiple fractures of ribs, right side, initial encounter for closed fracture (principal); J90 Pleural effusion, not elsewhere classified; W06.XXXA Fall from bed, initial encounter; Y92.003 Bedroom of unspecified non-institutional (private) residence as the place of occurrence of the external cause
CPT/HCPCS: 71101; 99212; G0463